=== PATIENT | male | born 1945 | race Caucasian/White ===

== ENCOUNTER → 2018-05-08 13:15 | Outpatient (CLI) | payer MEDICARE, MEDICAID, SELFPAY ==
[2018-05-08 14:29] LABS: Add Manual Diff / Slide Review NO; Basophils Percent Auto 0.3 % (0-2); Hematocrit 34.6 % (41-53); Hemoglobin 11.9 g/dL (13.5-17.5); Lymphocytes Percent Auto 22.2 % (25-40); Mean Corpuscular HGB Conc 34.4 % (30-36); Mean Corpuscular Hemoglobin 33.5 PG (26-34); Mean Corpuscular Volume 97.2 fL (80-100); Monocytes Percent Auto 10.6 % (3-14); Neutrophils Absolute Auto 4600 /uL (3000-5900); Neutrophils Percent Auto 64.9 % (50-75); Platelet Count 208 X10^3/uL (150-400); Red Blood Cell Count 3.56 X10^6/uL (4.5-5.9); Red Cell Distribution Width 14.3 % (11.6-14.8); White Blood Cell Count 7.2 X10^3/uL (4.5-11.0)
[2018-05-08 14:53] LABS: B Type Natriuretic Peptide 94.7 (<100)
[2018-05-08 15:32] LABS: Alanine Aminotransferase 15 IU/L (21-72); Albumin 4.3 g/dL (3.5-5.0); Alkaline Phosphatase 63 U/L (38-126); Aspartate Aminotransferase 24 IU/L (17-59); BUN Creatinine Ratio 17.3 (6-22); Bilirubin Total 0.4 mg/dL (0.2-1.3); Blood Urea Nitrogen 38 mg/dL (9-20); Calcium 9.3 mg/dL (8.4-10.2); Carbon Dioxide 24 mmol/L (22-32); Chloride 102 mmol/L (98-107); Cholesterol 133 mg/dL (140-199); Estimated Glomerular Filt Rate 29.6 mL/min (>60); Globulin 2.2 g/dL (1.7-4.1); Glucose 95 mg/dL (80-110); HDL Cholesterol 55 mg/dL (40-60); HEMOLYSIS < 15 (0-50); Potassium 4.9 mmol/L (3.4-5.1); Sodium 136 mmol/L (137-145); Total Protein 6.5 g/dL (6.3-8.2)
[2018-05-08 16:21] LABS: LDL Cholesterol Calculated 49 mg/dL (<100); Triglycerides 147 mg/dL (35-150)
== END ==
PROVIDERS: PCP Family Medicine; Visit Provider Family Medicine
DX: I10 Essential (primary) hypertension (principal); I50.9 Heart failure, unspecified; I25.10 Atherosclerotic heart disease of native coronary artery without angina pectoris; Z95.1 Presence of aortocoronary bypass graft; E78.5 Hyperlipidemia, unspecified; Z86.73 Personal history of transient ischemic attack (TIA), and cerebral infarction without residual deficits
CPT/HCPCS: 36415; 80053; 80061; 83880; 85025

== ENCOUNTER → 2018-08-07 12:44 | Outpatient (CLI) | payer MEDICARE, MEDICAID, SELFPAY ==
[2018-08-07 12:57] LABS: RBC Urine None Seen (0-5/HPF)
[2018-08-07 14:35] LABS: BUN Creatinine Ratio 22.4 (6-22); Blood Urea Nitrogen 38 mg/dL (9-20); Carbon Dioxide 28 mmol/L (22-32); Chloride 104 mmol/L (98-107); Estimated Glomerular Filt Rate 39.8 mL/min (>60); Glucose 94 mg/dL (80-110); HEMOLYSIS < 15 (0-50); Phosphorous 3.7 mg/dL (2.3-3.7); Potassium 5.3 mmol/L (3.4-5.1); Sodium 140 mmol/L (137-145)
[2018-08-07 15:05] LABS: Appearance Urine UA CLEAR; Bilirubin Urine UA NEGATIVE (NEGATIVE); Color Urine UA YELLOW; Glucose Urine UA NEGATIVE (Normal); Ketones Urine UA NEGATIVE (NEGATIVE); Leukocyte Esterase Urine UA 1+ (NEGATIVE); Nitrite Urine UA Negative (Negative); Occult Blood Urine UA NEGATIVE (Negative); Protein Urine UA NEGATIVE (Negative); Urobilinogen Urine UA 0.2 E.U./dL (0.2)
[2018-08-07 15:48] LABS: Bacteria Urine Occasional (0-1); Culture Indicated Urine Specimen Cultured; WBC Urine 5-10/HPF (0-5/HPF)
[2018-08-07 15:59] LABS: Creatinine Urine Random 14.6 mg/dL
[2018-08-07 16:05] LABS: Microalbumi Creatinin Ratio Ur 68.4 ug/mg CR (<30)
[2018-08-07 16:16] LABS: Vitamin D 25 Hydroxy (D3) 53.3 ng/mL (30.0-100.0)
[2018-08-10 14:06] LABS: Parathyroid Hormone Int 29 pg/mL (14-64)
== END ==
PROVIDERS: PCP Family Medicine; Visit Provider Internal Medicine
DX: N18.3 Chronic kidney disease, stage 3 (moderate) (principal)
CPT/HCPCS: 36415; 80048; 81001; 82043; 82306; 82570; 83970; 84100; 87086

== ENCOUNTER → 2019-04-17 11:11 | Outpatient (CLI) | payer MEDICARE, MEDICAID, SELFPAY ==
[2019-04-17 12:10] LABS: Add Manual Diff / Slide Review NO; Basophils Absolute Auto 0 /uL (0-100); Basophils Percent Auto 0.3 % (0-2); Eosinophils Absolute Auto 200 /uL (0-450); Eosinophils Percent Auto 1.9 % (2-4); Hematocrit 35.4 % (41-53); Hemoglobin 11.9 g/dL (13.5-17.5); Lymphocytes Absolute Auto 1500 /uL (1100-4500); Lymphocytes Percent Auto 17.6 % (25-40); Mean Corpuscular HGB Conc 33.5 % (30-36); Mean Corpuscular Hemoglobin 32.8 PG (26-34); Mean Corpuscular Volume 97.9 fL (80-100); Monocytes Absolute Auto 800 /uL (0-900); Monocytes Percent Auto 9.6 % (3-14); Neutrophils Absolute Auto 5900 /uL (1500-7000); Neutrophils Percent Auto 70.6 % (50-75); Platelet Count 188 X10^3/uL (150-400); Red Blood Cell Count 3.62 X10^6/uL (4.5-5.9); Red Cell Distribution Width 13.6 % (11.6-14.8); White Blood Cell Count 8.4 X10^3/uL (4.5-11.0)
[2019-04-17 12:31] LABS: Alanine Aminotransferase 11 IU/L (21-72); Albumin 4.1 g/dL (3.5-5.0); Albumin Globulin Ratio 1.7 (1.0-2.8); Alkaline Phosphatase 68 U/L (38-126); Aspartate Aminotransferase 23 IU/L (17-59); BUN Creatinine Ratio 21.6 (6-22); Bilirubin Total 0.4 mg/dL (0.2-1.3); Blood Urea Nitrogen 41 mg/dL (9-20); Calcium 9.1 mg/dL (8.4-10.2); Carbon Dioxide 26 mmol/L (22-32); Chloride 104 mmol/L (98-107); Estimated Glomerular Filt Rate 34.9 mL/min (>60); Globulin 2.4 g/dL (1.7-4.1); Glucose 80 mg/dL (80-110); HEMOLYSIS < 15 (0-50); Potassium 4.9 mmol/L (3.4-5.1); Sodium 136 mmol/L (137-145); Total Protein 6.5 g/dL (6.3-8.2)
[2019-04-17 12:59] LABS: TSH w/ Reflex to FT4 1.19 uIU/mL (0.47-4.68)
[2019-04-19 16:54] LABS: PSA Free % 9 % (calc) (> 25); PSA, Total 9.8 ng/mL (< 4.1)
== END ==
PROVIDERS: PCP Internal Medicine; Visit Provider Internal Medicine
DX: R63.4 Abnormal weight loss (principal); I10 Essential (primary) hypertension; N40.1 Benign prostatic hyperplasia with lower urinary tract symptoms
CPT/HCPCS: 36415; 80053; 84153; 84154; 84443; 85025

== ENCOUNTER → 2019-10-14 14:13 | Outpatient (CLI) | payer MEDICARE, MEDICAID, SELFPAY ==
[2019-10-14 14:40] LABS: Add Manual Diff / Slide Review NO; Basophils Absolute Auto 100 /uL (0-100); Basophils Percent Auto 0.6 % (0-2); Eosinophils Absolute Auto 200 /uL (0-450); Hematocrit 35.2 % (41-53); Hemoglobin 11.9 g/dL (13.5-17.5); Lymphocytes Absolute Auto 1500 /uL (1100-4500); Lymphocytes Percent Auto 16.6 % (25-40); Mean Corpuscular HGB Conc 33.8 % (30-36); Mean Corpuscular Hemoglobin 32.7 PG (26-34); Mean Corpuscular Volume 96.8 fL (80-100); Monocytes Absolute Auto 1000 /uL (0-900); Monocytes Percent Auto 10.8 % (3-14); Neutrophils Absolute Auto 6200 /uL (1500-7000); Platelet Count 181 X10^3/uL (150-400); Red Blood Cell Count 3.63 X10^6/uL (4.5-5.9); Red Cell Distribution Width 13.9 % (11.6-14.8); White Blood Cell Count 8.8 X10^3/uL (4.5-11.0)
[2019-10-14 15:39] LABS: BUN Creatinine Ratio 24.6 (6-22); Blood Urea Nitrogen 59 mg/dL (9-20); Carbon Dioxide 24 mmol/L (22-32); Chloride 103 mmol/L (98-107); Cholesterol 138 mg/dL (140-199); Estimated Glomerular Filt Rate 26.7 mL/min (>60); Glucose 98 mg/dL (80-110); HDL Cholesterol 55 mg/dL (40-60); HEMOLYSIS 15 (0-50); LDL Cholesterol Calculated 46 mg/dL (<100); Sodium 135 mmol/L (137-145); Triglycerides 184 mg/dL (35-150)
[2019-10-14 15:45] LABS: Potassium 5.5 mmol/L (3.4-5.1)
== END ==
PROVIDERS: Family Provider Internal Medicine; PCP Internal Medicine; Visit Provider Internal Medicine Cardiovascular Disease
DX: I25.10 Atherosclerotic heart disease of native coronary artery without angina pectoris (principal); N18.3 Chronic kidney disease, stage 3 (moderate)
CPT/HCPCS: 36415; 80048; 80061; 85025

== ENCOUNTER → 2019-11-25 10:30 | Outpatient (CLI) | payer MEDICARE, MEDICAID, SELFPAY ==
[2019-11-25 12:29] LABS: Alanine Aminotransferase 11 IU/L (<50); Albumin 4.1 g/dL (3.5-5.0); Albumin Globulin Ratio 1.7 (1.0-2.8); Alkaline Phosphatase 77 U/L (38-126); Aspartate Aminotransferase 21 IU/L (17-59); BUN Creatinine Ratio 24.3 (6-22); Bilirubin Total 0.3 mg/dL (0.2-1.3); Blood Urea Nitrogen 68 mg/dL (9-20); Calcium 8.9 mg/dL (8.4-10.2); Carbon Dioxide 21 mmol/L (22-32); Chloride 105 mmol/L (98-107); Estimated Glomerular Filt Rate 22.3 mL/min (>60); Globulin 2.4 g/dL (1.7-4.1); Glucose 117 mg/dL (80-110); HEMOLYSIS < 15 (0-50); Potassium 4.4 mmol/L (3.4-5.1); Sodium 138 mmol/L (137-145); Total Protein 6.5 g/dL (6.3-8.2)
== END ==
PROVIDERS: PCP Internal Medicine; Visit Provider Internal Medicine
DX: N18.3 Chronic kidney disease, stage 3 (moderate) (principal)
CPT/HCPCS: 36415; 80053

== ENCOUNTER 2019-12-20 19:34 | Inpatient (IN) | payer MEDICARE, MEDICAID, SELFPAY ==
[2019-12-20] VITALS (8 sets, daily range): BP systolic 139–230; BP diastolic 92–119; PULSE 81–107; RESP 12–29; TEMP 37.2; O2SAT 91–97; BMI 21.7; BMI 18.7
[2019-12-20] MEDS: ALBUTEROL/IPRATROPIUM 3 ML AMPUL INH (19:49)
--- NOTE | 2019-12-20 19:50 | ED.SOB ---
HPI - SOB/Dyspnea General Chief Complaint: Shortness of Breath/Dyspnea Stated Complaint: sob Time Seen by Provider: 12/20/19 19:40 Source: patient Mode of arrival: Wheelchair History of Present Illness HPI Narrative: 74-year-old gentleman with oxygen-dependent COPD, coronary artery disease post bypass grafting, hyperlipidemia, hypertension, stroke, chronic kidney disease as well as bladder cancer presents with increasing dyspnea. He has noticed that with minimal activity he is having more dyspnea with his usual 1.5 L of oxygen. His next door neighbor checks on him regularly notices over the last 24-48 hours that he has been more tachycardic and his oxygen saturations typically in the 93 range are dipping down into the 90 range. Kervin himself notes that he is increasingly weak he has had little to eat over the last 2 days because of this weakness. He has a slight nonproductive cough that does not seem changed from his baseline, no fevers and describes no specific chest pain orthopnea or lower extremity edema. When asking about medications, it sounds like he is taking some medications but certainly not all. Not currently using any nebulizers or inhalers. Does continue to smoke a full pack a day. Related Data Home Medications Medication Instructions Recorded Confirmed aspirin 81 mg tablet,delayed 81 mg PO DAILY 05/20/18 12/21/19 release folic acid 800 mcg tablet 0.8 mg PO DAILY 05/20/18 12/21/19 multivitamin 1 tab PO DAILY 05/20/18 12/21/19 Previous Rx's Medication Instructions Recorded amlodipine 10 mg PO QDAY #30 tab 11/19/17 furosemide 20 mg PO BID #30 tab 11/19/17 nitroglycerin [Nitrostat] 1 tab PO PRN PRN #30 11/19/17 omeprazole 20 mg capsule,delayed 20 mg PO QDAY #30 cap 06/14/18 release atorvastatin 20 mg tablet 20 mg PO HS #30 tab 07/04/18 carvedilol 25 mg tablet 25 mg PO BID #60 tab 07/10/18 gabapentin 300 mg capsule 300 mg PO HS #90 cap 12/11/18 Allergies Allergy/AdvReac Type Severity Reaction Status Date / Time No Known Drug Allergies Allergy Verified 12/20/19 19:46 Review of Systems Review of Systems Narrative: Reports minimal oral intake so no bowel movement for 1-2 days. Describes no fevers. All systems reviewed and are unremarkable except as noted in HPI and below Patient History Medical History (Updated 12/21/19 @ 00:27 by MARIANELA Thomas) Alcohol abuse (Inactive) Bladder cancer (Chronic Unknown) CKD (chronic kidney disease) (Chronic Unknown) Congestive heart failure (Inactive) COPD (chronic obstructive pulmonary disease) (Chronic Unknown) Coronary artery disease (Chronic Unknown) Gastroesophageal reflux disease (Acute) Hyperlipemia (Chronic Unknown) Hypertension (Chronic Unknown) PAD (peripheral artery disease) (Chronic Unknown) Stroke (Resolved 02/2016) Surgical History (Updated 12/21/19 @ 00:27 by MARIANELA Thomas) History of appendectomy (Acute) Hx of coronary artery bypass graft (Resolved Unknown) Hx of transurethral resection of prostate (Resolved 10/2016) Social History household members: none Smoking Status: Current every day smoker alcohol intake: current Smoking Status: Current every day smoker Exam Narrative Exam Narrative: General: Frail-appearing, perioral cyanosis, he is able to speak in full sentences no accessory muscle use HEENT: Moist mucous membranes, normal sclera with reactive pupils, Neck: significant JVD, supple, no cervical adenopathy Respiratory: Poor overall air movement with diffuse wheezes throughout no rhonchi appreciated Cardiac: Mild tachycardia with regular rhythm no murmurs no bruits Abdomen: Soft nontender good bowel tones, no flank pain Skin: Pale and dry, no rashes, no clubbing or distal cyanosis Neurologic: Grossly neurologically intact with baseline left-sided mild weakness post CVA Extremities: No trauma, Psych: Cooperative, appropriate insight and affect Initial Vital Signs Initial Vital Signs: Vital Signs Temperature 98.9 F 12/20/19 19:43 Pulse Rate 98 H 12/20/19 19:43 Respiratory Rate 26 H 12/20/19 19:43 Blood Pressure 230/112 H 12/20/19 19:43 Pulse Oximetry 91 12/20/19 19:43 Course Orders Ordered: ED Orders 12/20/19 19:40 Complete Blood Count AUTO DIFF Stat Comprehensive Metabolic Panel Stat D Dimer Stat Lactate (Lactic Acid) Stat Magnesium Stat NT-proBNP (BNP-Adult 18+) Stat Procalcitonin Stat Troponin & CK Cardiac Panel Stat 12/20/19 19:57 EKG-12 Lead Routine EKG-12 Lead Stat 12/20/19 20:08 Consult to Respiratory Therapy Evaluate & Treat 12/20/19 20:09 XR chest 1V Stat 12/20/19 20:40 Blood Culture Stat 12/20/19 21:28 BiPAP Ventilatory Support RT PROTOCOL 12/20/19 21:34 Arterial Blood Gas Stat Albuterol (Ventolin) 2.5 mg INH [id number] PRN PRN Reason: Shortness Of Breath Albuterol/Ipratropium (Duoneb) 3 ml INH [id number] PRN PRN Reason: Shortness Of Breath Last Admin: 12/21/19 01:12 Dose: 3 ml Documented by: TRACEY Albuterol/Ipratropium (Duoneb) 3 ml INH [id number] JUNG Amlodipine Besylate (Norvasc) 10 mg PO DAILY JUNG Last Admin: 12/21/19 00:46 Dose: 10 mg Documented by: RITA Aspirin (Aspirin Ec) 81 mg PO DAILY [facility] Atorvastatin Calcium (Lipitor) 20 mg PO BEDTIME JUNG Last Admin: 12/21/19 00:46 Dose: 20 mg Documented by: RITA Bisacodyl (Dulcolax) 10 mg VT DAILY PRN PRN Reason: Constipation Carvedilol (Coreg) 25 mg PO BID JUNG Last Admin: 12/21/19 00:46 Dose: 25 mg Documented by: RITA Dextrose (D50w) 25 gm IV PRN PRN; Protocol PRN Reason: Hypoglycemia Docusate Sodium (Colace) 100 mg PO BID [facility] Folic Acid (Folic Acid) 0.8 mg PO DAILY JUNG Furosemide (Lasix) 40 mg IV Q8H JUNG Gabapentin (Neurontin) 300 mg PO BEDTIME JUNG Heparin Sodium/Dextrose (Heparin Drip) 25,000 unit in 500 mls @ 13.39 mls/hr IV CONT JUNG; Protocol Last Titration: 12/21/19 00:01 Dose: 11.92 units/kg/hr, 13.3 mls/hr Documented by: Titration: 12/20/19 22:22 Dose: 11.92 units/kg/hr, 13.3 mls/hr Documented by: Admin: 12/20/19 21:56 Dose: 12 units/kg/hr, 13.39 mls/hr Documented by: KSWACKH Azithromycin 500 mg/ Dextrose 250 mls @ 250 mls/hr IV Q24H [facility] Insulin Aspart (Novolog Flexpen) 0 unit SUBCUT ACHS [facility]; Protocol Lisinopril (Zestril) 10 mg PO DAILY [facility] Last Admin: 12/21/19 02:02 Dose: 10 mg Documented by: RITA Methylprednisolone (Solu-Medrol 125 Mg Vial) 80 mg IV Q8H [facility] Morphine Sulfate (Morphine) 2 mg IV Q5MIN PRN PRN Reason: Chest Pain Multivitamins (Tab-A-Yariel) 1 tab PO DAILY [facility] Naloxone HCl (Narcan) 0.2 mg IV Q2MIN PRN PRN Reason: Opiate Reversal Nitroglycerin (Nitrostat) 0.4 mg SL [id number] PRN PRN Reason: Chest Pain Nitroglycerin (Nitro-Bid) 1 inch TOP 0900,1500 [facility] Pantoprazole Sodium (Protonix) 40 mg IV DAILY [facility] Thiamine HCl (Vitamin B-1) 100 mg PO DAILY [facility] Discontinued Medications Albuterol (Ventolin) 2.5 mg INH NOW ONE Stop: 12/20/19 20:58 Last Admin: 12/20/19 21:02 Dose: 2.5 mg Documented by: EVA Albuterol/Ipratropium (Duoneb) 3 ml INH NOW ONE Stop: 12/20/19 19:47 Last Admin: 12/20/19 19:49 Dose: 3 ml Documented by: TRACEY Aspirin (Aspirin Chew) 324 mg PO NOW ONE Stop: 12/20/19 21:29 Last Admin: 12/20/19 21:37 Dose: 324 mg Documented by: EVA Furosemide (Lasix) 80 mg IV NOW ONE Stop: 12/20/19 22:31 Last Admin: 12/20/19 22:34 Dose: 80 mg Documented by: EVA Furosemide (Lasix) 40 mg IV Q8H [facility] Gabapentin (Neurontin) 300 mg PO NOW ONE Stop: 12/21/19 02:02 Last Admin: 12/21/19 02:02 Dose: 300 mg Documented by: RITA Heparin Sodium (Porcine) (Heparin) 5,000 unit IV NOW ONE Stop: 12/20/19 21:29 Last Admin: 12/20/19 21:45 Dose: Not Given Documented by: EVA Heparin Sodium (Porcine) (Heparin) 4,500 unit 80 unit/kg (4500 unit) IV NOW ONE Stop: 12/20/19 21:29 Last Admin: 12/20/19 21:57 Dose: 4,500 unit Documented by: EVA Sodium Chloride (Normal Saline 0.9%) 1,000 mls @ 1,000 mls/hr IV BOLUS ONE Stop: 12/20/19 21:06 Last Infusion: 12/21/19 00:02 Dose: 0 mls/hr Documented by: Infusion: 12/20/19 22:23 Dose: 100 mls/hr Documented by: Admin: 12/20/19 20:15 Dose: 1,000 mls/hr Documented by: EVA Magnesium Sulfate (Magnesium Sulfate) 2 gm in 50 mls @ 25 mls/hr IV NOW ONE Stop: 12/20/19 23:17 Last Infusion: 12/21/19 00:02 Dose: 0 mls/hr Documented by: EVA Cosigned by: RICHIE Admin: 12/20/19 21:25 Dose: 25 mls/hr Documented by: EVA Cosigned by: ROMMEL Potassium Chloride 40 meq/ (Sodium Chloride) 520 mls @ 130 mls/hr IV NOW ONE Stop: 12/21/19 03:21 Last Admin: 12/21/19 00:38 Dose: 130 mls/hr Documented by: RITA Cosigned by: SOL Insulin Aspart (Novolog Flexpen) 0 unit SUBCUT Q6H JUNG; Protocol Methylprednisolone (Solu-Medrol 125 Mg Vial) 125 mg IV NOW ONE Stop: 12/20/19 20:08 Last Admin: 12/20/19 20:15 Dose: 125 mg Documented by: EVA Nitroglycerin (Nitro-Bid) 0.5 inch TOP NOW ONE Stop: 12/20/19 21:29 Last Admin: 12/20/19 21:37 Dose: 0.5 inch Documented by: EVA Potassium Chloride (Potassium Chloride) 40 meq PO NOW ONE Stop: 12/20/19 23:21 Last Admin: 12/20/19 23:26 Dose: 40 meq Documented by: EVA Vital Signs Vital signs: Vital Signs - 8 hr 12/20/19 20:35 12/20/19 21:02 12/20/19 21:37 Pulse Rate 85 107 H Respiratory Rate 29 H 28 H Blood Pressure 229/119 H Blood Pressure [Left Arm] 139/92 H Pulse Oximetry 93 92 MDM - SOB/Dyspnea Medical Records Attestation: I reviewed the patient's medical records. Lab Data Attestation: I reviewed the patient's lab results. Lab results narrative: age corrected DDimer suggests low risk for PE Result diagrams: 12/20/19 19:40 12/20/19 19:40 Labs: Lab Results 12/20/19 12/20/19 12/20/19 Range/Units 19:40 19:40 19:40 WBC 13.1 H (4.5-11.0) X10^3/uL RBC 4.03 L (4.5-5.9) X10^6/uL Hgb 13.2 L (13.5-17.5) g/dL Hct 38.6 L (41-53) % MCV 95.8 (80-100) fL MCH 32.7 (26-34) PG MCHC 34.2 (30-36) % RDW 14.1 (11.6-14.8) % Plt Count 230 (150-400) X10^3/uL Neut % (Auto) 80.1 H (50-75) % Lymph % (Auto) 8.6 L (25-40) % Appling % (Auto) 10.6 (3-14) % Eos % (Auto) 0.4 L (2-4) % Baso % (Auto) 0.3 (0-2) % Neut # (Auto) 92398 H (4621-8227) /uL Lymph # (Auto) 1100 (7909-6512) /uL Appling # (Auto) 1400 H (0-900) /uL Eos # (Auto) 0 (0-450) /uL Baso # (Auto) 0 (0-100) /uL D-Dimer 362 H (<230) ng/mL ABG pH (7.35-7.45) ABG pCO2 (35-45) mmHg ABG pO2 (80-100) mmHg ABG HCO3 (22-26) mmol/L ABG Total CO2 (21-31) mmol/L ABG O2 Saturation (95-100) % ABG Base Excess (-2-2) mmol/L FiO2 Sodium (137-145) mmol/L Potassium (3.4-5.1) mmol/L Chloride (98-107) mmol/L Carbon Dioxide (22-32) mmol/L BUN (9-20) mg/dL Creatinine (0.66-1.25) mg/dL Estimated GFR (>60) mL/min BUN/Creatinine Ratio (6-22) Glucose (80-110) mg/dL Lactate (0.7-2.1) mmol/L Calcium (8.4-10.2) mg/dL Magnesium (1.6-2.3) mg/dL Total Bilirubin (0.2-1.3) mg/dL AST (17-59) IU/L ALT (<50) IU/L Alkaline Phosphatase (38-126) U/L Total Creatine Kinase (55-170) U/L CK-MB (CK-2) (<2.37) ng/mL CK-MB (CK-2) Rel Index (1.5-5.0) % Troponin I (0.01-0.034) ng/mL NT-Pro-B Natriuret Pep 32095 H (<125) pg/mL Total Protein (6.3-8.2) g/dL Albumin (3.5-5.0) g/dL Globulin (1.7-4.1) g/dL Albumin/Globulin Ratio (1.0-2.8) Procalcitonin (<0.5) ng/mL 12/20/19 12/20/19 12/20/19 Range/Units 19:40 19:40 19:40 WBC (4.5-11.0) X10^3/uL RBC (4.5-5.9) X10^6/uL Hgb (13.5-17.5) g/dL Hct (41-53) % MCV (80-100) fL MCH (26-34) PG MCHC (30-36) % RDW (11.6-14.8) % Plt Count (150-400) X10^3/uL Neut % (Auto) (50-75) % Lymph % (Auto) (25-40) % Appling % (Auto) (3-14) % Eos % (Auto) (2-4) % Baso % (Auto) (0-2) % Neut # (Auto) (0820-1012) /uL Lymph # (Auto) (6729-5671) /uL Appling # (Auto) (0-900) /uL Eos # (Auto) (0-450) /uL Baso # (Auto) (0-100) /uL D-Dimer (<230) ng/mL ABG pH (7.35-7.45) ABG pCO2 (35-45) mmHg ABG pO2 (80-100) mmHg ABG HCO3 (22-26) mmol/L ABG Total CO2 (21-31) mmol/L ABG O2 Saturation (95-100) % ABG Base Excess (-2-2) mmol/L FiO2 Sodium 135 L (137-145) mmol/L Potassium 3.0 L (3.4-5.1) mmol/L Chloride 89 L (98-107) mmol/L Carbon Dioxide 36 H (22-32) mmol/L BUN 18 (9-20) mg/dL Creatinine 1.10 (0.66-1.25) mg/dL Estimated GFR > 60.0 (>60) mL/min BUN/Creatinine Ratio 16.4 (6-22) Glucose 160 H (80-110) mg/dL Lactate 2.6 H (0.7-2.1) mmol/L Calcium 9.6 (8.4-10.2) mg/dL Magnesium 2.2 (1.6-2.3) mg/dL Total Bilirubin 0.8 (0.2-1.3) mg/dL AST 43 (17-59) IU/L ALT 15 (<50) IU/L Alkaline Phosphatase 116 (38-126) U/L Total Creatine Kinase 123 (55-170) U/L CK-MB (CK-2) 4.05 H (<2.37) ng/mL CK-MB (CK-2) Rel Index 3.3 (1.5-5.0) % Troponin I 0.247 H* (0.01-0.034) ng/mL NT-Pro-B Natriuret Pep (<125) pg/mL Total Protein 8.1 (6.3-8.2) g/dL Albumin 4.8 (3.5-5.0) g/dL Globulin 3.3 (1.7-4.1) g/dL Albumin/Globulin Ratio 1.5 (1.0-2.8) Procalcitonin < 0.05 (<0.5) ng/mL 12/20/19 Range/Units 21:34 WBC (4.5-11.0) X10^3/uL RBC (4.5-5.9) X10^6/uL Hgb (13.5-17.5) g/dL Hct (41-53) % MCV (80-100) fL MCH (26-34) PG MCHC (30-36) % RDW (11.6-14.8) % Plt Count (150-400) X10^3/uL Neut % (Auto) (50-75) % Lymph % (Auto) (25-40) % Appling % (Auto) (3-14) % Eos % (Auto) (2-4) % Baso % (Auto) (0-2) % Neut # (Auto) (7726-2030) /uL Lymph # (Auto) (9897-0282) /uL Appling # (Auto) (0-900) /uL Eos # (Auto) (0-450) /uL Baso # (Auto) (0-100) /uL D-Dimer (<230) ng/mL ABG pH 7.49 H (7.35-7.45) ABG pCO2 43.0 (35-45) mmHg ABG pO2 55 L (80-100) mmHg ABG HCO3 33 H (22-26) mmol/L ABG Total CO2 34 H (21-31) mmol/L ABG O2 Saturation 90 L (95-100) % ABG Base Excess 10.0 H (-2-2) mmol/L FiO2 36 Sodium (137-145) mmol/L Potassium (3.4-5.1) mmol/L Chloride (98-107) mmol/L Carbon Dioxide (22-32) mmol/L BUN (9-20) mg/dL Creatinine (0.66-1.25) mg/dL Estimated GFR (>60) mL/min BUN/Creatinine Ratio (6-22) Glucose (80-110) mg/dL Lactate (0.7-2.1) mmol/L Calcium (8.4-10.2) mg/dL Magnesium (1.6-2.3) mg/dL Total Bilirubin (0.2-1.3) mg/dL AST (17-59) IU/L ALT (<50) IU/L Alkaline Phosphatase (38-126) U/L Total Creatine Kinase (55-170) U/L CK-MB (CK-2) (<2.37) ng/mL CK-MB (CK-2) Rel Index (1.5-5.0) % Troponin I (0.01-0.034) ng/mL NT-Pro-B Natriuret Pep (<125) pg/mL Total Protein (6.3-8.2) g/dL Albumin (3.5-5.0) g/dL Globulin (1.7-4.1) g/dL Albumin/Globulin Ratio (1.0-2.8) Procalcitonin (<0.5) ng/mL Imaging Data Chest x-ray: Attestation: I personally reviewed and interpreted this imaging study as follows: Radiologist's Impression: IMPRESSION: Prior CABG, mild pulmonary edema superimposed on chronic interstitial prominence. Heart size is upper limits of normal. Dictated by: Kwadwo Rhodes M.D. on 12/20/2019 at 20:39 ECG Data Attestation: I personally reviewed and interpreted this ECG as follows: Interpretation: Rate of 92 sinus rhythm with frequent PVCs. Intraventricular conduction delay, no acute ischemia. MDM Narrative Medical decision making narrative: Patient is both looking better clinically improving a bit easier after fluids steroids and nebulizer treatment. He still is complaining of shortness of breath. Shortly after recheck he is again using pursed lip breathing and having some slight supraclavicular retractions. Will administer another albuterol nebulizer. His labs are coming back with an elevated troponin as well as a elevated BNP. I suspect that this is a NSTEMI with CHF that is complicating his COPD. Will review with Cardiology as scheduled to see if they have the bed capacity to care for this gentleman. Reviewed with him again his code status. He would want to be resuscitated he is willing to consider BiPAP but would want to avoid intubation if at all possible recognizing that with the severity of his lung disease he likely would not be extubated. 9:15 pm clinically worsening with increased work of breathing, increased JVD. Another albuterol neb is given his ABG is ordered. Will add IV magnesium to help with bronchospasm. Will also add a half an inch topical nitroglycerin paste and begin a heparin bolus and drip. Will also begin diuresis 10:05pm has spoken with Dr Moeller, e commerce merchandising coordinator with [facility]. Her suggestion was more aggressive diuresis with the assumption that the elevated troponin is demand ischemia. She felt that he would be safe to remain at [facility] with an echocardiogram tomorrow. If there are significant changes between current echo and the echo that was done fairly recently at [facility] then he can be transferred for additional care. Discharge Plan Departure Patient Disposition: Admitted As Inpatient Clinical Impression: COPD with exacerbation Discharge Date/Time: 12/21/19 00:08 Referrals: Stephen Bonilla MD [Primary Care Provider] - Admit Date/Time: 12/20/19 22:22 Admit Provider: Harish Burkett
--- NOTE | 2019-12-20 20:09 | DI.RAD.S_ITS ---
PROCEDURE: XR CHEST 1V INDICATIONS: dyspnea TECHNIQUE: One view of the chest was acquired. COMPARISON: [facility], CHEST 1 VIEW, 01/30/2017, 19:58. [facility], , CHEST 2 VIEW, 06/15/2016, 17:08. FINDINGS: Surgical changes and devices: Sternotomy wires, presumed prior CABG. Lungs and pleura: Lungs are abnormal with a chronic interstitial prominence that appears to be superimposed upon with mild pulmonary edema. No pleural effusions or pneumothorax. Mediastinum: Mediastinal contours appear normal. Heart size is at the upper limits of normal. Bones and chest wall: No suspicious bony lesions. Overlying soft tissues appear unremarkable. IMPRESSION: Prior CABG, mild pulmonary edema superimposed on chronic interstitial prominence. Heart size is upper limits of normal. Dictated by: Kwadwo Rhodes M.D. on 12/20/2019 at 20:39 Approved by: Kwadwo Rhodes M.D. on 12/20/2019 at 20:40
[2019-12-20] MEDS: SODIUM CHLORIDE 0.9% 1,000 ML 1000 ML IV (20:15)
[2019-12-20] MEDS: methylPREDNISolone 125 MG/2 ML VIAL IV (20:15)
[2019-12-20 20:17] LABS: Add Manual Diff / Slide Review NO; Basophils Absolute Auto 0 /uL (0-100); Basophils Percent Auto 0.3 % (0-2); Eosinophils Absolute Auto 0 /uL (0-450); Eosinophils Percent Auto 0.4 % (2-4); Hematocrit 38.6 % (41-53); Hemoglobin 13.2 g/dL (13.5-17.5); Lymphocytes Absolute Auto 1100 /uL (1100-4500); Lymphocytes Percent Auto 8.6 % (25-40); Mean Corpuscular HGB Conc 34.2 % (30-36); Mean Corpuscular Hemoglobin 32.7 PG (26-34); Mean Corpuscular Volume 95.8 fL (80-100); Monocytes Absolute Auto 1400 /uL (0-900); Monocytes Percent Auto 10.6 % (3-14); Neutrophils Absolute Auto 10500 /uL (1500-7000); Neutrophils Percent Auto 80.1 % (50-75); Platelet Count 230 X10^3/uL (150-400); Red Blood Cell Count 4.03 X10^6/uL (4.5-5.9); Red Cell Distribution Width 14.1 % (11.6-14.8); White Blood Cell Count 13.1 X10^3/uL (4.5-11.0)
[2019-12-20 20:26] LABS: D Dimer 362 ng/mL (<230)
[2019-12-20 20:31] LABS: Lactate (Lactic Acid) 2.6 mmol/L (0.7-2.1)
[2019-12-20 20:32] LABS: Alanine Aminotransferase 15 IU/L (<50); Albumin 4.8 g/dL (3.5-5.0); Albumin Globulin Ratio 1.5 (1.0-2.8); Alkaline Phosphatase 116 U/L (38-126); Aspartate Aminotransferase 43 IU/L (17-59); BUN Creatinine Ratio 16.4 (6-22); Bilirubin Total 0.8 mg/dL (0.2-1.3); Blood Urea Nitrogen 18 mg/dL (9-20); Calcium 9.6 mg/dL (8.4-10.2); Carbon Dioxide 36 mmol/L (22-32); Chloride 89 mmol/L (98-107); Creatine Kinase 123 U/L (55-170); Estimated Glomerular Filt Rate > 60.0 mL/min (>60); Globulin 3.3 g/dL (1.7-4.1); Glucose 160 mg/dL (80-110); Magnesium 2.2 mg/dL (1.6-2.3); Sodium 135 mmol/L (137-145); Total Protein 8.1 g/dL (6.3-8.2)
--- NOTE | 2019-12-20 20:38 | PC.NURSE ---
patient reports feeling much better after the neb treatment.
[2019-12-20 20:40] LABS: NT-proBNP (BNP-Adult 18+) 34700 pg/mL (<125)
[2019-12-20 20:47] LABS: CKMB % Relative Index 3.3 % (1.5-5.0); Creatine Kinase MB 4.05 ng/mL (<2.37)
[2019-12-20 20:48] LABS: Procalcitonin < 0.05 ng/mL (<0.5)
[2019-12-20] MEDS: ALBUTEROL 2.5 MG/3 ML NEB (ADULT) INH (21:02)
[2019-12-20 21:06] LABS: HEMOLYSIS 20 (0-50)
[2019-12-20 21:09] LABS: Troponin I 0.247 ng/mL (0.01-0.034)
[2019-12-20] MEDS: MAGNESIUM SULFATE 2 GM/50 ML PIGGYBACK IV (21:25)
[2019-12-20] MEDS: ASPIRIN 81 MG CHEW TAB 324 MG PO (21:37)
[2019-12-20] MEDS: NITROGLYCERIN OINT 1 INCH/GM OINT...G. 0.5 INCH TOP (21:37)
[2019-12-20] MEDS: HEPARIN DRIP 25,000 UNIT/500 ML IV.SOLN 13.39 UNIT IV (21:56)
[2019-12-20] MEDS: HEPARIN 5,000 UNIT/ML VIAL 4500 UNIT IV (21:57)
--- NOTE | 2019-12-20 22:03 | PC.NURSE ---
patient initiall yresponded to neb treatments, further treatments have not response for patient. Patient now requiring 4l NC, patient placed on Bipap, Provider consulting cardiology for transfer to [facility]. Several nurses attempted a second IV with no success. Provider notified and aware.
[2019-12-20 22:07] LABS: HCO3 ABG 33 mmol/L (22-26); Oxygen Saturation ABG 90 % (95-100); PO2 ABG 55 mmHg (80-100); TCO2 ABG 34 mmol/L (21-31); pH ABG 7.49 (7.35-7.45)
[2019-12-20 22:08] LABS: Fractionated Inspired Oxygen 36
[2019-12-20 22:12] LABS: Reflexed Lactate in 2 Hours Y
--- NOTE | 2019-12-20 22:18 | PC.NURSE ---
placed by brent COPELAND after marichuy Becker and this nurse attempted second line
[2019-12-20] MEDS: FUROSEMIDE 100 MG/10 ML VIAL 80 MG IV (22:34)
[2019-12-20 22:52] LABS: Lactate 2HR (Lactic Acid Rflx) 1.1 mmol/L (0.7-2.1)
[2019-12-20] MEDS: POTASSIUM CHLORIDE 20 MEQ/15 ML UDC 40 MEQ PO (23:26)
--- NOTE | 2019-12-20 23:37 | DI.ECHO.S_ITS ---
[facility]---------+ [facility] +---------+ : : [address] [place] : : : : [id number] : : : : Phone: [phone] Echocardiogram Report + + :Name: DENAE WALLIS Study Date: 12/21/2019 Height: 63 in : :[facility] Weight: 123 lb: : Gender: Male BSA: 1.6 m2 : :: 1945 Age: 74 yrs BP: 91/49 mmHg: :Reason For Study: HYPOXIC : :Ordering Physician: Harjeet : :Hospitalist Performed By: Jonna Parra : :Referring: HAKEEM NEWELL : + + Interpretation Summary Left ventricular systolic function is mildly reduced. The basal to mid inferior-inferolateral wall is scarred. The right ventricle is grossly normal size. Right ventricular systolic function is mild to moderately reduced. Pulmonary artery pressures cannot be estimated because of the lack of a measurable TR jet velocity but the IVC suggests a CVP of around 15 mmHg. The CVP is higher; Otherwise no significant change compared to the prior echo. Procedure: A two-dimensional transthoracic echocardiogram with color flow and Doppler was performed. The study quality was technically adequate. Comparison is made with the echocardiogram of 01/31/2017. The patient was in normal sinus rhythm during the exam. The patient had frequent PVCs during the exam. Segments of trigeminy were noted throughout exam. Left Ventricle: The left ventricle is normal in size. There is mild asymmetric left ventricular hypertrophy. The ejection fraction is estimated to be 40-45%. Current average peak systolic global strain -13.1% (mildly reduced). Left ventricular systolic function is mildly reduced. The basal to mid inferior-inferolateral wall is scarred. Diastolic function could not be accurately assessed due to contradictory data. Right Ventricle: The right ventricle is not well visualized. The right ventricle is grossly normal size. Right ventricular systolic function is mild to moderately reduced. Atria: The left atrium is mildly dilated. Right atrial size is normal. There is no Doppler evidence for an interatrial shunt. Mitral Valve: The mitral valve is normal in structure and function. There is mild mitral regurgitation. Aortic Valve: The aortic valve is trileaflet. The aortic valve opens well. There is mild aortic valve sclerosis. There is no aortic valve stenosis. Tricuspid Valve: The tricuspid valve is normal in structure and function. There is a trace or physiologic amount of tricuspid regurgitation. Pulmonary artery pressures cannot be estimated because of the lack of a measurable TR jet velocity but the IVC suggests a CVP of around 15 mmHg. Pulmonic Valve: The pulmonic valve is not well seen, but is grossly normal. There is mild pulmonic regurgitation. Great Vessels: The aortic root is normal size. The ascending aorta could not be visualized. The IVC is dilated (diameter is greater than 2.1 cm) and it collapses less than 50% with a sniff. This suggests a high right atrial pressure of 15 mm Hg. Pericardium/ Pleura There is no pericardial effusion. MMode/2D Measurements & Calculations LVIDd: 5.2 cm LVOT diam: 1.9 cm LVIDs: 4.1 cm Ao root diam: 3.2 cm FS: 20.6 % Ao Arch Diam (Prox Trans): 3.3 cm IVSd: 1.1 cm LVPWd: 0.89 cm LV peres. diameter/BSA (cm/m^2): 3.3 LV sys. diameter/BSA (cm/m^2): 2.6 LA A2 area: 22.2 cm2 RA long axis: 4.2 cm LA A4 area: 13.9 cm2 RA area: 14.5 cm2 LA length (vol): 4.0 cm RA vol: 42.3 ml LA vol: 64.7 ml RA : 26.9 ml/m2 LA vol index: 41.1 ml/m2 IVC diam: 2.2 cm RVD1 (basal): 3.7 cm LVAd ap4: 22.2 cm2 TAPSE: 1.3 cm Doppler Measurements & Calculations Ao V2 max: 116.8 cm/sec LVOT Max Ricardo: 87.6 cm/sec Ao V2 mean: 80.2 cm/sec LV V1 max P.1 mmHg Ao max P.5 mmHg LV V1 VTI: 17.2 cm Ao mean P.8 mmHg DES(I,D): 1.8 cm2 Ao V2 VTI: 26.7 cm DES(V,D): 2.1 cm2 sev ratio: 0.64 DES indexed to BSA (cm^2/m^2): 1.1 MV E max ricardo: 89.1 cm/sec PA V2 max: 83.5 cm/sec MV A max ricardo: 67.6 cm/sec PA V2 mean: 51.4 cm/sec MV E/A: 1.3 PA mean P.2 mmHg Med Peak E' Riacrdo: 4.4 cm/sec PA pr(Accel): 35.4 mmHg E/E' med: 20.4 PA Accel Time: 0.11 sec Lat Peak E' Ricardo: 4.8 cm/sec E/E' lat: 18.6 E/e' average: 19.5 MV dec time: 0.18 sec MV P1/2t: 52.3 msec MV P1/2t max ricardo: 88.8 cm/sec SV(LVOT): 48.1 ml MVA(P1/2t): 4.2 cm2 Electronically signed by: Ki Moeller M.D. on Reading Physician:12/21/2019 03:54 PM
[2019-12-21] VITALS (44 sets, daily range): BP systolic 85–230; BP diastolic 49–107; PULSE 60–117; RESP 12–38; TEMP 36–36.5; O2SAT 90–100
--- NOTE | 2019-12-21 00:07 | PM.HP.1 ---
History of Present Illness History of Present Illness Date Patient Seen: 12/20/19 Time Patient Seen: 23:15 Chief complaint: sob Narrative: Mr. Kervin Vincent is a 74-year-old male with a complex medical history including coronary artery disease status post bypass surgery, and STEMI (C5/2 1016), right frontal CVA, peripheral vascular disease, COPD, CKD stage 3, hypertension, hyperlipidemia, GERD, bladder cancer, status post TURP presents E R with 2 days recent shortness of breath. History is limited due to patient's somnolence therefore information obtained from the what is available for the patient and medical record review. The patient lives at home with help of friends notice the patient was becoming increasingly weak, increased heart rate and becoming more short of breath. The patient is on chronic home O2 1.5 L and minimal activity produces shortness of breath. Patient has an associated cough that is nonproductive, continues to smoke 1 pack per day of cigarettes and marijuana approximately 4-5 times per week. He also reports having fevers and chills but denies chest pain or orthopnea and does not complain of leg swelling. It is unclear whether the patient has been taking medications as directed due to poor recall. He denies headaches or dizziness indicates that he has not fallen. Reports having no chest pain and has chronic shortness of breath and chronic cough. He denies abdominal pain, nausea vomiting. He does endorse history of constipation and cannot state is last bowel movement. Denies urinary symptoms. Upon arrival to the ER the patient has a temperature of 98.9?, heart rate of 98, blood pressure of 230/112, respiratory rate of 26 saturating 91% on 1.5 L nasal cannula. A chest x-ray is obtained which finds mild pulmonary edema on chronic interstitial prominence with heart the upper end of normal. On EKG is found have sinus rhythm with heart rate of 92 with recurrent multifocal PVCs, left ventricular hypertrophy, inverted T-waves in lead 2 and AVF as well as laterally in V4 through V6. Arterial blood gas reveals pH of 7.49 with a pCO2 43, PO2 55 with a bicarb of 33, saturation of 90% with a base excess 10 on 36% FiO2. On laboratory analysis the patient has elevated white count of 13.1, hemoglobin of 13.2 and hematocrit 38.6 with platelets 230. He has a sodium 135 and potassium of 3.0 has a chloride of 89 and a CO of 36. His BUN is 18 with a creatinine 1.1 and EGFR of greater than 60. Magnesium level is 2.2. His total CK is 123, CK-MB is 4.05 and troponin is elevated at 0.247 and proBNP is 34,700. His D-dimer is 362. Procalcitonin is less than 0.05 and lactic acid is 1.1. In the ER the patient received albuterol nebulizer, DuoNeb treatment, aspirin 324 mg, Lasix 80 mg, methylprednisolone 125 mg magnesium sulfate rider 2 g, nitroglycerin topical 0.5 in and heparin 5000 units with a start of heparin infusion per cardiac protocol. Cardiology was consulted with Dr. Mix speaking with Dr. Rhodes. The patient case was discussed in felt the patient did not require transfer at this time syncope managed with aggressive diuresis an echocardiogram in the morning. The patient is admitted to the medicine service who for acute hypoxic respiratory failure secondary to COPD exacerbation, non-STEMI VA and congestive heart failure. Patient History Medical History (Updated 12/21/19 @ 00:27 by MARIANELA Thomas) Alcohol abuse (Inactive) Bladder cancer (Chronic Unknown) CKD (chronic kidney disease) (Chronic Unknown) Congestive heart failure (Inactive) COPD (chronic obstructive pulmonary disease) (Chronic Unknown) Coronary artery disease (Chronic Unknown) Gastroesophageal reflux disease (Acute) Hyperlipemia (Chronic Unknown) Hypertension (Chronic Unknown) PAD (peripheral artery disease) (Chronic Unknown) Stroke (Resolved 02/2016) Surgical History (Updated 12/21/19 @ 00:27 by MARIANELA Thomas) History of appendectomy (Acute) Hx of coronary artery bypass graft (Resolved Unknown) Hx of transurethral resection of prostate (Resolved 10/2016) Family & Social History Family history unavailable: Yes (Family and social history is unavailable R/T patient's somnolence & BiPAP.) Safety & Behavioral: Feels Safe in Current Yes Environment Been Physically Hurt or No Threatened By a Person Tobacco & Substance use: Smoking Status Current every day smoker alcohol intake current Comment: The patient has never been lives alone in a mobile home. Has friends that help home on a daily basis. Family and social history is not available due to patient's respiratory status somnolence and BiPAP. Smoking: Current smoker, 1 pack per day for 50 years. Alcohol: Currently consumes alcohol unknown quantity medical record identifies history of alcohol abuse. Substance use: Patient smoked some marijuana 4-5 times per week. Advanced directives: Advanced directives reviewed with the patient by Dr. Mix in the ER with the patient stated he wished to be FULL CODE but would prefer avoiding intubation. No surrogate decision makers identified, emergency contact [place]. Meds Home Medications and Allergies Home Medications Medication Instructions Recorded Confirmed Type amlodipine 10 mg PO QDAY #30 tab 11/19/17 12/21/19 Rx furosemide 20 mg PO BID #30 tab 11/19/17 12/21/19 Rx nitroglycerin [Nitrostat] 1 tab PO PRN PRN #30 11/19/17 12/21/19 Rx aspirin 81 mg tablet,delayed 81 mg PO DAILY 05/20/18 12/21/19 History release folic acid 800 mcg tablet 0.8 mg PO DAILY 05/20/18 12/21/19 History multivitamin 1 tab PO DAILY 05/20/18 12/21/19 History omeprazole 20 mg capsule,delayed 20 mg PO QDAY #30 cap 06/14/18 12/21/19 Rx release atorvastatin 20 mg tablet 20 mg PO HS #30 tab 07/04/18 12/21/19 Rx carvedilol 25 mg tablet 25 mg PO BID #60 tab 07/10/18 12/21/19 Rx gabapentin 300 mg capsule 300 mg PO HS #90 cap 12/11/18 12/21/19 Rx Allergies Allergy/AdvReac Type Severity Reaction Status Date / Time No Known Drug Allergies Allergy Verified 12/20/19 19:46 Review of Systems Review of Systems ROS: Yes All systems reviewed with the patient and are negative except as otherwise documented Exam Vital Signs (past 8 hours): - 12/20/19 19:43 12/20/19 19:55 12/20/19 20:35 Temperature 98.9 F Pulse Rate 98 H 91 H 85 Respiratory Rate 26 H 24 29 H Blood Pressure 230/112 H Blood Pressure [Left Arm] 139/92 H Pulse Oximetry 91 94 93 12/20/19 21:02 12/20/19 21:37 12/20/19 23:30 Temperature Pulse Rate 107 H 81 Respiratory Rate 28 H 22 Blood Pressure 229/119 H Blood Pressure [Left Arm] 212/112 H Pulse Oximetry 92 97 Fraction of Inspired Oxygen 40 Oxygen Delivery Method Nasal Cannula Oxygen Flow Rate 4 Narrative Exam Narrative: GENERAL APPEARANCE: well developed, poor muscle mass BMI 21.8, somnolent breathing with assistance of BiPAP. HEENT: Normocephalic, PERRLA, conjunctiva clear, EOMs intact without nystagmus, no sinus tenderness to percussion, no rhinorrhea, mucous membranes are moist and pink without lesions or exudate. NECK/THYROID: neck supple, JVD present with head elevated 30?, no carotid bruit, no thyromegaly, trachea midline. LYMPH NODES: no cervical or supraclavicular lymphadenopathy. SKIN: Pale, warm and dry, no visible lesions, rashes, ulcerations or petechiae. HEART: regular rate regular rhythm with pauses, S1-S2, no murmur, no rubs or gallops, capillary refill less than 3 seconds, no edema LUNGS: clear to auscultation bilaterally, no coarseness crackles or wheezing, no cough present CHEST: Symmetrical movement, no accessory muscle use, good tidal volume. ABDOMEN: Soft, flat, no abdominal tenderness, no guarding or peritoneal signs, no organomegaly, active bowel tones. EXTREMITIES: moves all extremities, strength generally diminished, no deformities or joint effusions. NEUROLOGIC: GCS 13 (3/4/6), cranial nerves II-XII grossly intact, mild residual left weakness. PSYCH: Response to verbal stimulus with eye opening, flat affect, cooperative following commands. Objective Labs Result Diagrams: 12/20/19 19:40 12/20/19 19:40 Labs: Laboratory Results - last 24 hr 12/20/19 12/20/19 12/20/19 19:40 19:40 19:40 WBC 13.1 H RBC 4.03 L Hgb 13.2 L Hct 38.6 L MCV 95.8 MCH 32.7 MCHC 34.2 RDW 14.1 Plt Count 230 Neut % (Auto) 80.1 H Lymph % (Auto) 8.6 L [place] % (Auto) 10.6 Eos % (Auto) 0.4 L Baso % (Auto) 0.3 Neut # (Auto) 91015 H Lymph # (Auto) 1100 [place] # (Auto) 1400 H Eos # (Auto) 0 Baso # (Auto) 0 D-Dimer 362 H ABG pH ABG pCO2 ABG pO2 ABG HCO3 ABG Total CO2 ABG O2 Saturation ABG Base Excess FiO2 Sodium Potassium Chloride Carbon Dioxide BUN Creatinine Estimated GFR BUN/Creatinine Ratio Glucose Lactate Calcium Magnesium Total Bilirubin AST ALT Alkaline Phosphatase Total Creatine Kinase CK-MB (CK-2) CK-MB (CK-2) Rel Index Troponin I NT-Pro-B Natriuret Pep 74084 H Total Protein Albumin Globulin Albumin/Globulin Ratio Procalcitonin 12/20/19 12/20/19 12/20/19 19:40 19:40 19:40 WBC RBC Hgb Hct MCV MCH MCHC RDW Plt Count Neut % (Auto) Lymph % (Auto) [place] % (Auto) Eos % (Auto) Baso % (Auto) Neut # (Auto) Lymph # (Auto) [place] # (Auto) Eos # (Auto) Baso # (Auto) D-Dimer ABG pH ABG pCO2 ABG pO2 ABG HCO3 ABG Total CO2 ABG O2 Saturation ABG Base Excess FiO2 Sodium 135 L Potassium 3.0 L Chloride 89 L Carbon Dioxide 36 H BUN 18 Creatinine 1.10 Estimated GFR > 60.0 BUN/Creatinine Ratio 16.4 Glucose 160 H Lactate 2.6 H Calcium 9.6 Magnesium 2.2 Total Bilirubin 0.8 AST 43 ALT 15 Alkaline Phosphatase 116 Total Creatine Kinase 123 CK-MB (CK-2) 4.05 H CK-MB (CK-2) Rel Index 3.3 Troponin I 0.247 H* NT-Pro-B Natriuret Pep Total Protein 8.1 Albumin 4.8 Globulin 3.3 Albumin/Globulin Ratio 1.5 Procalcitonin < 0.05 12/20/19 12/20/19 21:34 22:25 WBC RBC Hgb Hct MCV MCH MCHC RDW Plt Count Neut % (Auto) Lymph % (Auto) [place] % (Auto) Eos % (Auto) Baso % (Auto) Neut # (Auto) Lymph # (Auto) [place] # (Auto) Eos # (Auto) Baso # (Auto) D-Dimer ABG pH 7.49 H ABG pCO2 43.0 ABG pO2 55 L ABG HCO3 33 H ABG Total CO2 34 H ABG O2 Saturation 90 L ABG Base Excess 10.0 H FiO2 36 Sodium Potassium Chloride Carbon Dioxide BUN Creatinine Estimated GFR BUN/Creatinine Ratio Glucose Lactate 1.1 Calcium Magnesium Total Bilirubin AST ALT Alkaline Phosphatase Total Creatine Kinase CK-MB (CK-2) CK-MB (CK-2) Rel Index Troponin I NT-Pro-B Natriuret Pep Total Protein Albumin Globulin Albumin/Globulin Ratio Procalcitonin Assessment & Plan Assessment & Plan narrative: This is a 74-year-old male patient who presents to the ER with worsening shortness of breath. The patient has previously been treated for COPD exacerbations and has a history of congestive heart failure. He is found to have an NSTEMI believed related to hypoxemia. 1. Acute hypoxic respiratory failure, present on admission, active Unclear of triggering event with multiple complicating comorbidities: History of COPD with recurrent exacerbations presenting with wheezing and markedly diminished air movement. History congestive heart failure, diminished breath sounds bilateral bases with coarseness and crackles, marked JVD, proBNP 34,700. Since patient reports history of fevers and chills for 2-3 days will further evaluate infectious etiology, obtained respiratory PCR panel Ventilation improved on BiPAP Will treat possible etiologies as indicated below. 2. Acute exacerbation of chronic COPD, present on admission, active Patient with increasing shortness of breath for 2-3 days with progressive weakness. Increasing dyspnea with minimal activity on home O2 at 1.5 liters/minute. Chest x-ray identifies chronic interstitial prominence, ABG: PH 7.49, PCO2 is 43, PaO2 was 55. Patient received methylprednisolone 125 mg IV in the emergency department, will continue with methylprednisolone 80 mg every 8 hours. Respiratory therapy to consult, evaluate and treat. BiPAP per protocol. Albuterol nebulizer every 2 hours as needed shortness of breath or wheezing. DuoNeb every 6 hours as needed for shortness of breath or wheezing. 3. NSTEMI, type 2 VA, related to hypoxemia Patient denies complaints of chest pain and no nausea. Twelve lead EKG shows sinus rhythm rate 92, frequent multifocal PVCs left atrial enlargement, with lateral T-wave inversion and inversion Q-waves in lead 2 and AVF. CK-MB is elevated at 4.05 and troponin of 0.247 Will track and trend troponins until downward. Nitropaste increase to 1 in topically Ordered evening dose of Coreg 25 mg and amlodipine 10 mg. Order lisinopril 10 mg daily 1st dose now. Continue home regimen of aspirin 81 mg daily Heparin 5000 bolus given in the ER and heparin drip started per cardiac protocol. Echocardiogram in the morning. 4. Acute exacerbation of congestive heart failure, unknown if systolic or diastolic, present on admission, active. Patient with course breath sounds mid lung inferiorly with basilar crackles diminished breath sounds left base. Chest x-ray finds mild pulmonary edema, [place] [address]. Patient received Lasix 80 mg IV in the emergency department continue aggressive diuresis with furosemide 40 mg every 8 hours. Echocardiogram in the morning. 5. Essential hypertension, hypertensive emergency, present on admission, active Patient denies complaints headaches or visual changes. Patient has end-organ injury with elevated troponins consistent with hypertensive emergency. Per ER documentation the patient has had labile blood pressures between 130 to 210 systolic pressures. Patient is given his eating medications of Coreg, amlodipine with addition of lisinopril 10 mg and 1 in of nitropaste topically. Patient remains asymptomatic for hypertension, will recheck troponin and evaluate the need for esmolol drip. 6. Hypokalemia, acute, present on admission, active. Patient with potassium of 3.0 on admission labs and subsequently received 80 mg of Lasix. Patient's written routinely on torsemide 20 mg daily. Patient is administered 40 mg potassium orally and 40 mg IV. Will recheck chemistries and supplement as needed. 7. Alcohol abuse, present on admission, active Patient consumes 1/2 gal of vodka per week. Last drink was day of admission. Patient started on CIWA protocol with request to notify provider of his CIWA score greater than 6. Continue home regimen of folic acid 800 mcg daily, multivitamin daily. Ordered thiamin 100 mg daily. 8. Gastroesophageal reflux disorder, chronic, stable Patient uses omeprazole 20 mg daily at home. Ordered Protonix 40 mg IV daily. 9. Hyperglycemia, present on admission, active Patient with elevated glucose of 160 on admission labs. Patient receiving high-dose steroids with expectation of further elevation of blood sugars. Fingerstick blood sugars AC and HS with low-dose range correctional insulin. 10. Hyperlipidemia, chronic, stable. Will continue patient's home regimen of atorvastatin 20 mg daily Obtain lipid panel. VTE prophylaxis: Bilateral SCDs, heparin per cardiac protocol Diet: Heart healthy, low-sodium IVF: No maintenance IV, heparin infusion. The patient is admitted to the ICU for acute non STEMI VA with congestive heart failure and COPD exacerbation requiring BiPAP and intensive care monitoring. The patient is admitted as an inpatient with expected length of stay to be greater than 2 midnights. CRITICAL CARE TIME: 60 minutes Scores GCS [place] coma scale eye opening: To sound [place] coma scale verbal response: Confused [place] coma scale motor response: Obey commands [place] coma scale total score: 13
[2019-12-21] MEDS: POTASSIUM CHLORIDE 40 MEQ in SODIUM CHLORIDE 0.9% 500 ML 130 ML IV (00:38)
[2019-12-21] MEDS: ATORVASTATIN 20 MG TABLET PO ×2 (00:46→21:03)
[2019-12-21] MEDS: AMLODIPINE 5 MG TABLET 10 MG PO ×2 (00:46→10:04)
[2019-12-21] MEDS: carvediloL 25 MG TABLET PO ×2 (00:46→10:04)
[2019-12-21] MEDS: ALBUTEROL/IPRATROPIUM 3 ML AMPUL INH ×4 (01:12→18:41)
[2019-12-21 01:27] LABS: Appearance Urine UA CLEAR; Bilirubin Urine UA NEGATIVE (NEGATIVE); Glucose Urine UA NEGATIVE (Negative); Ketones Urine UA NEGATIVE (NEGATIVE); Leukocyte Esterase Urine UA 1+ (NEGATIVE); Nitrite Urine UA NEGATIVE (Negative); Occult Blood Urine UA TRACE-INTACT (Negative); Protein Urine UA 1+ (Negative); Specific Gravity Urine UA 1.015 (1.000-1.035); Urobilinogen Urine UA 0.2 E.U./dL (0.2)
[2019-12-21 01:28] LABS: Color Urine UA Straw; RBC Urine 0-1/HPF (0-5/HPF)
[2019-12-21 01:29] LABS: Bacteria Urine Occasional (0-1); Culture Indicated Urine Specimen Cultured; WBC Urine 1-5/HPF (0-5/HPF)
--- NOTE | 2019-12-21 01:45 | PC.ADMIT ---
Addendum entered by Cyndi Conti R.N. 12/21/19 04:24: Double lumen bio flow midline placed by Philip Lechuga, at bedside. Placement verified by bedside ultrasound per protocol. Patient tolerated well. Original Note: [id number] 34 Admission Note: The patient,Kervin Vincent,74 y/o, was given written information regarding hospital policies, unit procedures and contact persons. Patient's smoking status: Current every day smoker. Vital Signs - 8 hr 12/20/19 19:43 12/20/19 19:55 12/20/19 20:35 Temperature 98.9 F Pulse Rate 98 H 91 H 85 Respiratory Rate 26 H 24 29 H Blood Pressure 230/112 H Blood Pressure [Left Arm] 139/92 H Pulse Oximetry 91 94 93 12/20/19 21:02 12/20/19 21:37 12/20/19 23:30 Temperature Pulse Rate 107 H 81 Respiratory Rate 28 H 22 Blood Pressure 229/119 H Blood Pressure [Left Arm] 212/112 H Pulse Oximetry 92 97 12/21/19 00:00 12/21/19 00:11 12/21/19 00:46 Temperature 97.6 F Pulse Rate 90 91 H Respiratory Rate 23 Blood Pressure 230/107 H 208/105 H Blood Pressure [Left Arm] Pulse Oximetry 98 97 12/21/19 00:48 12/21/19 01:00 12/21/19 01:12 Temperature Pulse Rate 94 H 92 H 92 H Respiratory Rate 24 23 Blood Pressure 208/102 H 202/93 H Blood Pressure [Left Arm] Pulse Oximetry 96 97 12/21/19 01:41 Temperature Pulse Rate 78 Respiratory Rate 24 Blood Pressure 123/93 H Blood Pressure [Left Arm] Pulse Oximetry 98 Patient admitted to room 230 from ED around 0000 via stretcher. Bipap upon arrival. A/O X 3. Hypertensive. Tele SR PACs/PVCs. Denies CP. Heparin GTT infusing per protocol. Krider per orders. Awaiting Precision PICC for better IV access. Dor[place] inserted per orders for strict I&O's with agressive diuresis per cardiology suggestion. Patient oriented to room, plan of care and call light. Verbalized understanding.
[2019-12-21] MEDS: GABAPENTIN 100 MG CAPSULE 300 MG PO (02:02)
[2019-12-21] MEDS: lisinopriL 10 MG TABLET PO ×2 (02:02→10:02)
[2019-12-21 03:28] LABS: Adenovirus Not Detected (Not Detect); Bordetella pertussis Not Detected (Not Detect); Chlamydophila pneumoniae Not Detected (Not Detect); Coronavirus 229E Not Detected (Not Detect); Coronavirus HKU1 Not Detected (Not Detect); Coronavirus NL 63 Not Detected (Not Detect); Coronavirus OC43 Not Detected (Not Detect); Human Metapneumovirus Not Detected (Not Detect); Human Rhinovirus/Enterovirus Not Detected (Not Detect); Influenza A Not Detected (Not Detect); Influenza B Not Detected (Not Detect); Mycoplasma pneumoniae Not Detected (Not Detect); Parainfluenza Virus 1 Not Detected (Not Detect); Parainfluenza Virus 2 Not Detected (Not Detect); Parainfluenza Virus 3 Not Detected (Not Detect); Parainfluenza Virus 4 Not Detected (Not Detect); Respiratory Syncytial Virus Not Detected (Not Detect)
[2019-12-21] MEDS: AZITHROMYCIN 500 MG in DEXTROSE 5% IN WATER 250 ML IV (04:32)
[2019-12-21] MEDS: methylPREDNISolone 125 MG/2 ML VIAL 80 MG IV ×3 (04:53→19:39)
[2019-12-21] MEDS: FUROSEMIDE 40 MG/4 ML VIAL IV ×2 (04:53→11:59)
[2019-12-21 04:57] LABS: Add Manual Diff / Slide Review NO; Basophils Absolute Auto 100 /uL (0-100); Basophils Percent Auto 1.2 % (0-2); Eosinophils Absolute Auto 0 /uL (0-450); Eosinophils Percent Auto 0.1 % (2-4); Hematocrit 30.3 % (41-53); Hemoglobin 10.5 g/dL (13.5-17.5); Lymphocytes Absolute Auto 500 /uL (1100-4500); Lymphocytes Percent Auto 6.8 % (25-40); Mean Corpuscular HGB Conc 34.6 % (30-36); Mean Corpuscular Hemoglobin 33.2 PG (26-34); Monocytes Absolute Auto 200 /uL (0-900); Monocytes Percent Auto 3.2 % (3-14); Neutrophils Absolute Auto 6200 /uL (1500-7000); Neutrophils Percent Auto 88.7 % (50-75); Platelet Count 160 X10^3/uL (150-400); Red Blood Cell Count 3.16 X10^6/uL (4.5-5.9); Red Cell Distribution Width 14.1 % (11.6-14.8)
[2019-12-21 05:02] LABS: Cholesterol 114 mg/dL (140-199); HDL Cholesterol 49 mg/dL (40-60); LDL Cholesterol Calculated 49 mg/dL (<100); Triglycerides 79 mg/dL (35-150)
[2019-12-21 05:17] LABS: PTT Partial Thromboplastin Tim 99 SECONDS (26.4-36.2); Troponin I 0.291 ng/mL (0.01-0.034)
[2019-12-21 05:18] LABS: HCO3 ABG 34 mmol/L (22-26); Oxygen Saturation ABG 99 % (95-100); PCO2 ABG 35.7 mmHg (35-45); PO2 ABG 111 mmHg (80-100); TCO2 ABG 35 mmol/L (21-31); pH ABG 7.59 (7.35-7.45)
[2019-12-21 05:19] LABS: Fractionated Inspired Oxygen 40
[2019-12-21 05:36] LABS: BUN Creatinine Ratio 16.7 (6-22); Blood Urea Nitrogen 20 mg/dL (9-20); Calcium 8.3 mg/dL (8.4-10.2); Carbon Dioxide 31 mmol/L (22-32); Chloride 98 mmol/L (98-107); Estimated Glomerular Filt Rate 59.2 mL/min (>60); Glucose 168 mg/dL (80-110); HEMOLYSIS < 15 (0-50); Potassium 3.7 mmol/L (3.4-5.1); Sodium 134 mmol/L (137-145)
[2019-12-21] MEDS: THIAMINE 100 MG TABLET PO (10:02)
[2019-12-21] MEDS: ASPIRIN EC 81 MG TABLET PO (10:02)
[2019-12-21] MEDS: MULTIVITAMIN 1 TABLET 1 TAB PO (10:02)
[2019-12-21] MEDS: FOLIC ACID 0.4 MG TABLET 0.8 MG PO (10:06)
[2019-12-21] MEDS: INSULIN ASPART 100 UNIT/ML INSULN PEN SUBCUT ×3 (10:07→16:52)
[2019-12-21] MEDS: PANTOPRAZOLE 40 MG VIAL IV (10:31)
[2019-12-21 11:27] LABS: PTT Partial Thromboplastin Tim 45 SECONDS (26.4-36.2)
[2019-12-21 11:52] LABS: Troponin I 0.247 ng/mL (0.01-0.034)
[2019-12-21] MEDS: HEPARIN DRIP 25,000 UNIT/500 ML IV.SOLN 11.6 UNIT IV (11:55)
[2019-12-21] MEDS: polyethylene glycoL 3350 17 GM POWD.PACK PO (12:00)
--- NOTE | 2019-12-21 13:52 | CM.DANOTE ---
Discharge Planning/Care Management DCP: assessment: case received, EMR reviewed and met with pt. Introduced self and role. Pt is found sitting up in bed, lunch tray in front of him, o2 in place. Very open to discussion. Pt is a 74 year old male who admitted to care of hospitalist team last night. Payer: [facility] Medicare and Medicaid Admission status: INPT: per [facility] PCP: Dr. Stephen Bonilla [facility] Pharmacy: [facility] in [place]. Pt outlined his baseline level of function: he lives in at [facility] [place] in [facility] [place] and has been there with his cat Adan for 10 years. He has no family except a brother with whom he has had not contact in years and local cousins from whom he is estranged. He lists the [facility] as his next of kin. Pt is helped out by neighbors Jacky and Jodi: [facility] and they were the ones who took him to hospital last night. 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 Pt is on home o2/see template below but primarily at night. Lately he has needed this in the day at times. He wonders why he is having so much trouble breathing now, especially at night. Routine: pt starts his day early with losts of coffee, breakfast that he makes, specific tv shows and a nap. He then starts sipping on beer and does this throughout the day, along with smoking cigarettes. He goes to [employer] or watches tv until 1100 pm and that's when I start having my vodka. 2 to 4 drinks before bed at 2AM. His neighbor often visits at 1100PM and they smoke marijuana and drink together with neighbor providing that and pt the vodka. Pt says he has never gone into withdrawal but then I have not had a period of time when I was not using all this. Pt is on CIWA: last score of today 0800 was 0. DC dispo: unknown at this point. Pt was in [facility] in 2016 for snf rehab before d/c back to his RV. Did have brief discussion re this possible option. Pt recalls this stay and has nothing negative to say about the experience. He does say If I need that again I may as well go on hospice as I doubt I would ever get out. DCP team will be following as POC unfolds to assist with any d/c needs that may arise. CM Discharge Assessment Start: 12/21/19 13:49 Freq: Status: Active Protocol: Document 12/21/19 13:49 ITV (Rec: 12/21/19 13:52 ITV [id number]) Discharge Planning Assessment Advance Directives? No History Provided By Patient,Medical Record Has Patient been admitted in last 30 No days? Prior Living Arrangements RV Household Members none Type of transporyation used prior to Relies on Others admit Independent with ADL's Yes Is patient alert and oriented? Yes Community Services used prior to Oxygen Therapy admission: Comment [employer]: vendor DME Already Rented / Owned Cane White board Updated in Patient Room with Yes name and ext. 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
--- NOTE | 2019-12-21 16:13 | P.PN_ITS ---
Subjective Subjective Date Patient Seen: 12/21/19 Interval history: Kervin Vincent is a 74-year-old male with a complex past medical history including coronary artery disease status post bypass surgery and STEMI (2016), right frontal CVA, peripheral vascular disease, COPD, CKD stage 3, hypertension, hyperlipidemia, systolic CHF, GERD, and bladder cancer status post TURP who presented to the ED progressive worsening shortness of breath over 2 days. The patient is resting in bed and appears comfortable. He reports his breathing is much improved since yesterday and he feels it is close to his normal baseline. He continues to have nonproductive cough with cough paroxysms in which he appears to have a pseudo-seizure which lasts very briefly 10-20 seconds without postictal period and possibly related to severe hypoxemia. He denies chest pain and is currently on a heparin gtt for type 2 HI with troponin down trending now that hypoxemia has been treated. He has no other complaints and denies rhinitis, sore throat,shortness of breath, chest pain, abdominal pain, nausea, vomiting, fever, chills, dysuria, diarrhea or constipation. He is voiding via [place] catheter which will plan to removed today and eliminating without difficulty. Exam Vital Signs (past 8 hours): - 12/21/19 11:00 12/21/19 12:00 12/21/19 13:00 Temperature 97.6 F Pulse Rate 117 H 68 Respiratory Rate 29 H 26 H Blood Pressure 117/53 L 86/49 L 91/51 L Pulse Oximetry 91 93 12/21/19 14:00 12/21/19 14:09 12/21/19 14:27 Temperature Pulse Rate 67 66 Respiratory Rate 24 Blood Pressure 92/51 L 92/51 L Pulse Oximetry 98 98 12/21/19 15:00 12/21/19 16:00 12/21/19 17:00 Temperature 97.0 F L 97.0 F L Pulse Rate 71 80 65 Respiratory Rate 25 H 32 H 28 H Blood Pressure 89/50 L 95/62 85/54 L Pulse Oximetry 94 90 L 93 12/21/19 18:00 Temperature Pulse Rate 61 Respiratory Rate 28 H Blood Pressure 100/55 L Pulse Oximetry 97 Fraction of Inspired Oxygen 30 Oxygen Delivery Method Nasal Cannula Oxygen Flow Rate 2 Narrative Exam Narrative: General: Elderly thin and frail-appearing gentleman sitting in bed and in no acute distress, appears significantly older than stated age, slightly irritable but otherwise appropriately interactive. HEENT: Normocephalic, atraumatic. External ears without defect. Pupils equal, round, and reactive to light. Anicteric sclerae, moist conjunctivae, and no lid lag. Oropharynx free of erythema and cobble stoning with moist mucosa. Neck: Supple with full range of motion. No jugular venous distension. No lymphadenopathy or thyromegaly. Cardiovascular: Regular rate and rhythm without murmurs, rubs, or gallops appreciated Pulmonary: Significantly diminished throughout with little air movement. No apparent wheeze, rhonchi or crackles. Normal respiratory effort with no use of accessory muscles. Abdomen: Soft, bowel sounds present, nontender, nondistended. No hepatosplenomegaly or masses appreciated. Extremities: No clubbing, cyanosis, or edema. Skin: Normal temperature, turgor, and texture; no rash, ulcers, or subcutaneous nodules appreciated. Neurological: Cranial nerves grossly intact. Psychiatric: Slightly irritable mood and normal affect. Alert and oriented to person, place, and time. Objective Labs Result Diagrams: 12/22/19 08:00 12/22/19 08:00 Labs: Laboratory Results - last 24 hr 12/20/19 12/20/19 12/20/19 19:40 19:40 19:40 WBC 13.1 H RBC 4.03 L Hgb 13.2 L Hct 38.6 L MCV 95.8 MCH 32.7 MCHC 34.2 RDW 14.1 Plt Count 230 Neut % (Auto) 80.1 H Lymph % (Auto) 8.6 L [place] % (Auto) 10.6 Eos % (Auto) 0.4 L Baso % (Auto) 0.3 Neut # (Auto) 87580 H Lymph # (Auto) 1100 [place] # (Auto) 1400 H Eos # (Auto) 0 Baso # (Auto) 0 APTT D-Dimer 362 H ABG pH ABG pCO2 ABG pO2 ABG HCO3 ABG Total CO2 ABG O2 Saturation ABG Base Excess FiO2 Sodium Potassium Chloride Carbon Dioxide BUN Creatinine Estimated GFR BUN/Creatinine Ratio Glucose Lactate Calcium Magnesium Total Bilirubin AST ALT Alkaline Phosphatase Total Creatine Kinase CK-MB (CK-2) CK-MB (CK-2) Rel Index Troponin I NT-Pro-B Natriuret Pep 07727 H Total Protein Albumin Globulin Albumin/Globulin Ratio Triglycerides Cholesterol LDL Cholesterol, Calc HDL Cholesterol Procalcitonin Urine Color Urine Appearance Urine pH Ur Specific Bly Urine Protein Urine Glucose (UA) Urine Ketones Urine Occult Blood Urine Nitrate Urine Bilirubin Urine Urobilinogen Ur Leukocyte Esterase Urine RBC Urine WBC Urine Bacteria Ur Culture Indicated? Nasal Screen MRSA (PCR) Chlamy pneumoniae PCR Adenovirus (PCR) B.parapertussis DNA PCR Coronavirus OC43 (PCR) Coronavirus HKU1 (PCR) Coronavirus 229E (PCR) Coronavirus NL63 (PCR) Human Metapneumovir PCR Influenza Type A (PCR) Influenza Type B (PCR) M. pneumoniae (PCR) Parainfluenza 1 (PCR) Parainfluenza 2 (PCR) Parainfluenza 3 (PCR) Parainfluenza 4 (PCR) RSV (PCR) Entero/Rhino (PCR) 12/20/19 12/20/19 12/20/19 19:40 19:40 19:40 WBC RBC Hgb Hct MCV MCH MCHC RDW Plt Count Neut % (Auto) Lymph % (Auto) [place] % (Auto) Eos % (Auto) Baso % (Auto) Neut # (Auto) Lymph # (Auto) [place] # (Auto) Eos # (Auto) Baso # (Auto) APTT D-Dimer ABG pH ABG pCO2 ABG pO2 ABG HCO3 ABG Total CO2 ABG O2 Saturation ABG Base Excess FiO2 Sodium 135 L Potassium 3.0 L Chloride 89 L Carbon Dioxide 36 H BUN 18 Creatinine 1.10 Estimated GFR > 60.0 BUN/Creatinine Ratio 16.4 Glucose 160 H Lactate 2.6 H Calcium 9.6 Magnesium 2.2 Total Bilirubin 0.8 AST 43 ALT 15 Alkaline Phosphatase 116 Total Creatine Kinase 123 CK-MB (CK-2) 4.05 H CK-MB (CK-2) Rel Index 3.3 Troponin I 0.247 H* NT-Pro-B Natriuret Pep Total Protein 8.1 Albumin 4.8 Globulin 3.3 Albumin/Globulin Ratio 1.5 Triglycerides Cholesterol LDL Cholesterol, Calc HDL Cholesterol Procalcitonin < 0.05 Urine Color Urine Appearance Urine pH Ur Specific Bly Urine Protein Urine Glucose (UA) Urine Ketones Urine Occult Blood Urine Nitrate Urine Bilirubin Urine Urobilinogen Ur Leukocyte Esterase Urine RBC Urine WBC Urine Bacteria Ur Culture Indicated? Nasal Screen MRSA (PCR) Chlamy pneumoniae PCR Adenovirus (PCR) B.parapertussis DNA PCR Coronavirus OC43 (PCR) Coronavirus HKU1 (PCR) Coronavirus 229E (PCR) Coronavirus NL63 (PCR) Human Metapneumovir PCR Influenza Type A (PCR) Influenza Type B (PCR) M. pneumoniae (PCR) Parainfluenza 1 (PCR) Parainfluenza 2 (PCR) Parainfluenza 3 (PCR) Parainfluenza 4 (PCR) RSV (PCR) Entero/Rhino (PCR) 12/20/19 12/20/19 12/21/19 21:34 22:25 00:10 WBC RBC Hgb Hct MCV MCH MCHC RDW Plt Count Neut % (Auto) Lymph % (Auto) [place] % (Auto) Eos % (Auto) Baso % (Auto) Neut # (Auto) Lymph # (Auto) [place] # (Auto) Eos # (Auto) Baso # (Auto) APTT D-Dimer ABG pH 7.49 H ABG pCO2 43.0 ABG pO2 55 L ABG HCO3 33 H ABG Total CO2 34 H ABG O2 Saturation 90 L ABG Base Excess 10.0 H FiO2 36 Sodium Potassium Chloride Carbon Dioxide BUN Creatinine Estimated GFR BUN/Creatinine Ratio Glucose Lactate 1.1 Calcium Magnesium Total Bilirubin AST ALT Alkaline Phosphatase Total Creatine Kinase CK-MB (CK-2) CK-MB (CK-2) Rel Index Troponin I NT-Pro-B Natriuret Pep Total Protein Albumin Globulin Albumin/Globulin Ratio Triglycerides Cholesterol LDL Cholesterol, Calc HDL Cholesterol Procalcitonin Urine Color Urine Appearance Urine pH Ur Specific Bly Urine Protein Urine Glucose (UA) Urine Ketones Urine Occult Blood Urine Nitrate Urine Bilirubin Urine Urobilinogen Ur Leukocyte Esterase Urine RBC Urine WBC Urine Bacteria Ur Culture Indicated? Nasal Screen MRSA (PCR) Negative for mrsa Chlamy pneumoniae PCR Adenovirus (PCR) B.parapertussis DNA PCR Coronavirus OC43 (PCR) Coronavirus HKU1 (PCR) Coronavirus 229E (PCR) Coronavirus NL63 (PCR) Human Metapneumovir PCR Influenza Type A (PCR) Influenza Type B (PCR) M. pneumoniae (PCR) Parainfluenza 1 (PCR) Parainfluenza 2 (PCR) Parainfluenza 3 (PCR) Parainfluenza 4 (PCR) RSV (PCR) Entero/Rhino (PCR) 12/21/19 12/21/19 12/21/19 00:15 00:17 02:05 WBC RBC Hgb Hct MCV MCH MCHC RDW Plt Count Neut % (Auto) Lymph % (Auto) [place] % (Auto) Eos % (Auto) Baso % (Auto) Neut # (Auto) Lymph # (Auto) [place] # (Auto) Eos # (Auto) Baso # (Auto) APTT D-Dimer ABG pH ABG pCO2 ABG pO2 ABG HCO3 ABG Total CO2 ABG O2 Saturation ABG Base Excess FiO2 Sodium Potassium Chloride Carbon Dioxide BUN Creatinine Estimated GFR BUN/Creatinine Ratio Glucose Lactate Calcium Magnesium Total Bilirubin AST ALT Alkaline Phosphatase Total Creatine Kinase CK-MB (CK-2) CK-MB (CK-2) Rel Index Troponin I 0.250 H* NT-Pro-B Natriuret Pep Total Protein Albumin Globulin Albumin/Globulin Ratio Triglycerides Cholesterol LDL Cholesterol, Calc HDL Cholesterol Procalcitonin Urine Color Straw Urine Appearance Clear Urine pH 7.0 Ur Specific Bly 1.015 Urine Protein 1+ H Urine Glucose (UA) Negative Urine Ketones Negative Urine Occult Blood Trace-intact Urine Nitrate Negative Urine Bilirubin Negative Urine Urobilinogen 0.2 Ur Leukocyte Esterase 1+ H Urine RBC 0-1/hpf Urine WBC 1-5/hpf Urine Bacteria Occasional (0-1) Ur Culture Indicated? Specimen cultured Nasal Screen MRSA (PCR) Chlamy pneumoniae PCR Not detected Adenovirus (PCR) Not detected B.parapertussis DNA PCR Not detected Coronavirus OC43 (PCR) Not detected Coronavirus HKU1 (PCR) Not detected Coronavirus 229E (PCR) Not detected Coronavirus NL63 (PCR) Not detected Human Metapneumovir PCR Not detected Influenza Type A (PCR) Not detected Influenza Type B (PCR) Not detected M. pneumoniae (PCR) Not detected Parainfluenza 1 (PCR) Not detected Parainfluenza 2 (PCR) Not detected Parainfluenza 3 (PCR) Not detected Parainfluenza 4 (PCR) Not detected RSV (PCR) Not detected Entero/Rhino (PCR) Not detected 12/21/19 12/21/19 12/21/19 04:45 04:45 04:45 WBC 7.0 RBC 3.16 L Hgb 10.5 L Hct 30.3 L MCV 96.0 MCH 33.2 MCHC 34.6 RDW 14.1 Plt Count 160 Neut % (Auto) 88.7 H Lymph % (Auto) 6.8 L [place] % (Auto) 3.2 Eos % (Auto) 0.1 L Baso % (Auto) 1.2 Neut # (Auto) 6200 Lymph # (Auto) 500 L [place] # (Auto) 200 Eos # (Auto) 0 Baso # (Auto) 100 APTT 99 H* D-Dimer ABG pH ABG pCO2 ABG pO2 ABG HCO3 ABG Total CO2 ABG O2 Saturation ABG Base Excess FiO2 Sodium Potassium Chloride Carbon Dioxide BUN Creatinine Estimated GFR BUN/Creatinine Ratio Glucose Lactate Calcium Magnesium Total Bilirubin AST ALT Alkaline Phosphatase Total Creatine Kinase CK-MB (CK-2) CK-MB (CK-2) Rel Index Troponin I 0.291 H* NT-Pro-B Natriuret Pep Total Protein Albumin Globulin Albumin/Globulin Ratio Triglycerides 79 Cholesterol 114 L LDL Cholesterol, Calc 49 HDL Cholesterol 49 Procalcitonin Urine Color Urine Appearance Urine pH Ur Specific Bly Urine Protein Urine Glucose (UA) Urine Ketones Urine Occult Blood Urine Nitrate Urine Bilirubin Urine Urobilinogen Ur Leukocyte Esterase Urine RBC Urine WBC Urine Bacteria Ur Culture Indicated? Nasal Screen MRSA (PCR) Chlamy pneumoniae PCR Adenovirus (PCR) B.parapertussis DNA PCR Coronavirus OC43 (PCR) Coronavirus HKU1 (PCR) Coronavirus 229E (PCR) Coronavirus NL63 (PCR) Human Metapneumovir PCR Influenza Type A (PCR) Influenza Type B (PCR) M. pneumoniae (PCR) Parainfluenza 1 (PCR) Parainfluenza 2 (PCR) Parainfluenza 3 (PCR) Parainfluenza 4 (PCR) RSV (PCR) Entero/Rhino (PCR) 12/21/19 12/21/19 12/21/19 04:45 05:05 11:00 WBC RBC Hgb Hct MCV MCH MCHC RDW Plt Count Neut % (Auto) Lymph % (Auto) [place] % (Auto) Eos % (Auto) Baso % (Auto) Neut # (Auto) Lymph # (Auto) [place] # (Auto) Eos # (Auto) Baso # (Auto) APTT D-Dimer ABG pH 7.59 H ABG pCO2 35.7 ABG pO2 111 H ABG HCO3 34 H ABG Total CO2 35 H ABG O2 Saturation 99 ABG Base Excess 12.0 H FiO2 40 Sodium 134 L Potassium 3.7 Chloride 98 Carbon Dioxide 31 BUN 20 Creatinine 1.20 Estimated GFR 59.2 L BUN/Creatinine Ratio 16.7 Glucose 168 H Lactate Calcium 8.3 L Magnesium Total Bilirubin AST ALT Alkaline Phosphatase Total Creatine Kinase CK-MB (CK-2) CK-MB (CK-2) Rel Index Troponin I 0.247 H* NT-Pro-B Natriuret Pep Total Protein Albumin Globulin Albumin/Globulin Ratio Triglycerides Cholesterol LDL Cholesterol, Calc HDL Cholesterol Procalcitonin Urine Color Urine Appearance Urine pH Ur Specific Bly Urine Protein Urine Glucose (UA) Urine Ketones Urine Occult Blood Urine Nitrate Urine Bilirubin Urine Urobilinogen Ur Leukocyte Esterase Urine RBC Urine WBC Urine Bacteria Ur Culture Indicated? Nasal Screen MRSA (PCR) Chlamy pneumoniae PCR Adenovirus (PCR) B.parapertussis DNA PCR Coronavirus OC43 (PCR) Coronavirus HKU1 (PCR) Coronavirus 229E (PCR) Coronavirus NL63 (PCR) Human Metapneumovir PCR Influenza Type A (PCR) Influenza Type B (PCR) M. pneumoniae (PCR) Parainfluenza 1 (PCR) Parainfluenza 2 (PCR) Parainfluenza 3 (PCR) Parainfluenza 4 (PCR) RSV (PCR) Entero/Rhino (PCR) 12/21/19 11:00 WBC RBC Hgb Hct MCV MCH MCHC RDW Plt Count Neut % (Auto) Lymph % (Auto) [place] % (Auto) Eos % (Auto) Baso % (Auto) Neut # (Auto) Lymph # (Auto) [place] # (Auto) Eos # (Auto) Baso # (Auto) APTT 45 H D D-Dimer ABG pH ABG pCO2 ABG pO2 ABG HCO3 ABG Total CO2 ABG O2 Saturation ABG Base Excess FiO2 Sodium Potassium Chloride Carbon Dioxide BUN Creatinine Estimated GFR BUN/Creatinine Ratio Glucose Lactate Calcium Magnesium Total Bilirubin AST ALT Alkaline Phosphatase Total Creatine Kinase CK-MB (CK-2) CK-MB (CK-2) Rel Index Troponin I NT-Pro-B Natriuret Pep Total Protein Albumin Globulin Albumin/Globulin Ratio Triglycerides Cholesterol LDL Cholesterol, Calc HDL Cholesterol Procalcitonin Urine Color Urine Appearance Urine pH Ur Specific Bly Urine Protein Urine Glucose (UA) Urine Ketones Urine Occult Blood Urine Nitrate Urine Bilirubin Urine Urobilinogen Ur Leukocyte Esterase Urine RBC Urine WBC Urine Bacteria Ur Culture Indicated? Nasal Screen MRSA (PCR) Chlamy pneumoniae PCR Adenovirus (PCR) B.parapertussis DNA PCR Coronavirus OC43 (PCR) Coronavirus HKU1 (PCR) Coronavirus 229E (PCR) Coronavirus NL63 (PCR) Human Metapneumovir PCR Influenza Type A (PCR) Influenza Type B (PCR) M. pneumoniae (PCR) Parainfluenza 1 (PCR) Parainfluenza 2 (PCR) Parainfluenza 3 (PCR) Parainfluenza 4 (PCR) RSV (PCR) Entero/Rhino (PCR) Assessment & Plan Assessment & Plan narrative: Kervin Vincent is a 74-year-old male with a complex past medical history including coronary artery disease status post bypass surgery and STEMI (2016), right frontal CVA, peripheral vascular disease, COPD, CKD stage 3, hypertension, hyperlipidemia, systolic CHF, GERD, and bladder cancer status post TURP who presented to the ED progressive worsening shortness of breath over 2 days. 1. Acute on chronic hypoxemic respiratory failure, present on admission. Resolving. -Unclear of triggering event with multiple complicating comorbidities: -History of COPD with recurrent exacerbations presenting with wheezing and markedly diminished air movement. -History congestive heart failure, diminished breath sounds bilateral bases with coarseness and crackles, marked JVD, proBNP 34,700. -Ruled out infectious etiology as chest x-ray negative, afebrile, WBC normal, procalcitonin negative. -Continue respiratory therapy evaluation treatment. Continue supplemental oxygen as needed to keep oxygen saturation 88-92%. -Continue to treat underlying problems as below. 2. Acute COPD exacerbation, present on admission. Resolving. -Patient presented with increasing shortness of breath for 2-3 days with progressive weakness. Patient noted to dyspnea with minimal activity on home oxygen at 1.5 L/min requiring more oxygen from baseline. -Chest x-ray demonstrated prior CABG, mild pulmonary edema superimposed on chronic interstitial prominence. Heart size is upper limits of normal. -ABG: PH 7.49, PCO2 is 43, PaO2 was 55. -Respiratory viral PCR negative. -Received methylprednisolone 125 mg IV x 1 in ED. Continue methylprednisolone 80 mg every 8 hours and will titrate to PO as hypoxemia and air movement improves. -Continue respiratory therapy evaluation and treatment. Continue supplemental oxygen as necessary to maintain oxygen saturation 88-92%. Currentlly on 2 L and close to baseline oxygen requirement. Continue DuoNebs every 6 hours while awake and albuterol nebulizer every 2 hours as needed shortness of breath or wheezing. Of note, the patient has no home inhalers listed on med reconciliation will need to be discharged home with appropriate inhalers. -Ordered palliative care consultation to establish goals of care as patient is likely end-stage COPD. 3. Type 2 HI, secondary to severe hypoxemia, present on admission. Resolving. -Patient denies chest pain or pressure. -EKG demonstrated sinus rhythm rate 92, frequent multifocal PVCs left atrial enlargement, with lateral T-wave inversion and inversion Q-waves in lead II and AVF. -Serial troponin highly elevated and peaked at 0.291. Trending down now 0.247. No need to further trend. -Continue aspirin 81 mg daily, atorvastatin 20 mg daily at bedtime, amlodipine 10 mg daily and carvedilol 25 mg twice daily. Discontinued nitropaste as BP improved and now labile and low normal. -Continue cardiac heparin gtt for 24 hours. -Echocardiogram did not show new wall motion changes as below. 4. Acute exacerbation of biventricular systolic congestive heart failure, present on admission. Resolving. -Patient presented with progressive worsening shortness of breath. -Chest x-ray demonstrated prior CABG, mild pulmonary edema superimposed on chronic interstitial prominence. Heart size is upper limits of normal. -ProBNP is 34,700. -Echocardiogram demonstrated reduced LV function with EF 40-45%, basal to mid in ferior-inferolateral wall is scarred, RV is grossly normal size with RV function mild to moderately reduced, IVC suggests a CVP of around 15 mmHg increased from previous study, diastolic parameters could not be assessed. -Received Lasix 80 mg IV x 1 in ED. Continue aggressive diuresis with furosem hima 40 mg IV every 8 hours. -Continue to monitor strict I&O's and daily weights. Net - 5. Hypertensive emergency, in setting of chronic hypertension, present on admission. Hypertensive emergency resolved. -Patient denies headaches or visual changes. -Patient has end-organ injury with elevated troponins consistent with hypertensive emergency. -Per ER documentation the patient has had labile blood pressures between 130 to 210 systolic pressures. -Continue home amlodipine 10 mg daily and carvedilol 25 mg twice daily with addition of lisinopril 10 mg and nitro paste one-inch x1. Did not continue nitropaste as patient's blood pressures are labile. 6. Hyperglycemia, secondary to glucocorticoids, present on admission. Stable. -Hemoglobin A1c normal at 5.4%. -Continue [facility] blood glucose checks and low dose correctional scale insulin. 7. Hypokalemia, acute, present on admission. Resolved. -Initial potassium level 3.0 on admission. Received potassium chloride 40 mEq IV x1 and 40 mEq PO x1. Potassium level now 3.7. -Patient receiving IV diuresis and usually is on torsemide outpatient. Continue to monitor potassium level and replete as necessary. 8. Alcohol abuse, present on admission. Stable. -Patient consumes 1/2 gal of vodka per week. Last drink was day of admission. -Continue CIWA protocol with request to notify provider of his CIWA score greater than 6. -Continue home folic acid 800 mcg daily and multivitamin daily and added thiamin 100 mg daily. 9. Gastroesophageal reflux disorder, chronic, stable -Continue protonix 20 mg daily. 10. Hyperlipidemia, chronic, present on admission. Stable. -Fasting lipid panel demonstrated excellent lipid control. -Continue home atorvastatin 20 mg daily. Code status: Full code VTE prophylaxis: Bilateral SCDs, heparin gtt per cardiac protocol Disposition: Patient likely discharge home versus [facility] facility for continued rehabilitation in the next several days once oxygenation has improved. Quality VTE Deep Vein Thrombosis/Pulmonary Embolism Present on Admission: No
--- NOTE | 2019-12-21 16:18 | PC.NURSE ---
Addendum entered by Jennifer Byers R.N. 12/21/19 21:21: 1800 Pt refusing to have adams removed at this time, he states that it isn't bothering him right now. Will inform nightshift to see if they can convince him to let them remove it. Bed low and locked, call light within reach, no further needs at this time. Original Note: 1600 Pt was found by STEFANY Adams with eyes rolled up and having the appearance of a grand maul seizure, she called out to this nurse and I came to her assistance. Pt appeared to be seizing, I called to my preceptor Adelia and all nurses and Dr Schulz came as well. Dr Schulz stated that when the pt coughs this is what happens. The pt stopped coughing and stated that he was choking on his coffee. Pt vitals were checked, his gown was changed and pt was educated to drink the coffee slower. 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
[2019-12-21 18:57] LABS: PTT Partial Thromboplastin Tim 35 SECONDS (26.4-36.2)
[2019-12-21] MEDS: HEPARIN 5,000 UNIT/ML VIAL 3000 UNIT IV (19:38)
[2019-12-21] MEDS: GABAPENTIN 300 MG CAPSULE PO (21:03)
[2019-12-22] VITALS (23 sets, daily range): BP systolic 94–119; BP diastolic 51–78; PULSE 50–71; RESP 16–40; TEMP 31–36.6; O2SAT 90–100
[2019-12-22 02:05] LABS: PTT Partial Thromboplastin Tim 98 SECONDS (26.4-36.2)
--- NOTE | 2019-12-22 02:16 | PC.NURSE ---
NOCNote: Patient denies pain, Bi-Pap in use, LS are coarse with crackles. Patient has had low urine output for the previous 2 shifts and PTT was 98, per protocol heparin being held for 30 min and will restart at 100units/hr less. MARIANELA Burkett has been made aware of these. Will continues to monitor UOP. Pt is currently sleeping and appears comfortable.
[2019-12-22] MEDS: methylPREDNISolone 125 MG/2 ML VIAL 80 MG IV (04:35)
[2019-12-22] MEDS: ALBUTEROL/IPRATROPIUM 3 ML AMPUL INH ×3 (08:02→19:27)
[2019-12-22 08:53] LABS: Add Manual Diff / Slide Review NO; Basophils Absolute Auto 0 /uL (0-100); Basophils Percent Auto 0.1 % (0-2); Eosinophils Absolute Auto 0 /uL (0-450); Hematocrit 26.4 % (41-53); Hemoglobin 8.9 g/dL (13.5-17.5); Lymphocytes Absolute Auto 800 /uL (1100-4500); Lymphocytes Percent Auto 5.2 % (25-40); Mean Corpuscular HGB Conc 33.7 % (30-36); Mean Corpuscular Hemoglobin 32.5 PG (26-34); Mean Corpuscular Volume 96.7 fL (80-100); Monocytes Absolute Auto 700 /uL (0-900); Monocytes Percent Auto 4.7 % (3-14); Neutrophils Absolute Auto 13400 /uL (1500-7000); Platelet Count 146 X10^3/uL (150-400); Red Blood Cell Count 2.73 X10^6/uL (4.5-5.9); Red Cell Distribution Width 14.6 % (11.6-14.8); White Blood Cell Count 14.9 X10^3/uL (4.5-11.0)
[2019-12-22 08:58] LABS: PTT Partial Thromboplastin Tim 50 SECONDS (26.4-36.2)
[2019-12-22 09:08] LABS: Alanine Aminotransferase 12 IU/L (<50); Albumin 2.9 g/dL (3.5-5.0); Albumin Globulin Ratio 1.3 (1.0-2.8); Alkaline Phosphatase 64 U/L (38-126); Aspartate Aminotransferase 29 IU/L (17-59); BUN Creatinine Ratio 17.5 (6-22); Bilirubin Total 0.3 mg/dL (0.2-1.3); Blood Urea Nitrogen 42 mg/dL (9-20); Calcium 7.9 mg/dL (8.4-10.2); Carbon Dioxide 27 mmol/L (22-32); Chloride 93 mmol/L (98-107); Estimated Glomerular Filt Rate 26.6 mL/min (>60); Globulin 2.3 g/dL (1.7-4.1); Glucose 158 mg/dL (80-110); HEMOLYSIS < 15 (0-50); Potassium 3.3 mmol/L (3.4-5.1); Sodium 127 mmol/L (137-145); Total Protein 5.2 g/dL (6.3-8.2)
--- NOTE | 2019-12-22 09:13 | PC.NURSE ---
0900- Spoke with RT who states no other staff available to attempt ABG. Pt would like to eat breakfast at this time. Removed bipap and placed on 1.5L NC (pt's home dose). With SPO2 90-94%. Pt reports breathing feels consistent with baseline. Denies pain/chest pain/palpitations. Discussed orders to remove catheter. Pt states he would like to make sure he is able to get up and walk before having adams catheter removed. Small amount of clear yellow urine draining to gravity. Bed alarm on and call light in reach.
[2019-12-22] MEDS: FOLIC ACID 0.4 MG TABLET 0.8 MG PO (09:45)
[2019-12-22] MEDS: ASPIRIN EC 81 MG TABLET PO (09:45)
[2019-12-22] MEDS: INSULIN ASPART 100 UNIT/ML INSULN PEN SUBCUT ×4 (09:45→22:11)
[2019-12-22] MEDS: carvediloL 25 MG TABLET PO ×2 (09:46→22:02)
[2019-12-22] MEDS: PANTOPRAZOLE 40 MG VIAL IV (09:46)
[2019-12-22] MEDS: lisinopriL 10 MG TABLET PO (09:46)
[2019-12-22] MEDS: THIAMINE 100 MG TABLET PO (09:46)
[2019-12-22] MEDS: polyethylene glycoL 3350 17 GM POWD.PACK PO (09:46)
[2019-12-22] MEDS: MULTIVITAMIN 1 TABLET 1 TAB PO (09:46)
[2019-12-22] MEDS: HEPARIN DRIP 25,000 UNIT/500 ML IV.SOLN 11.6 UNIT IV (09:56)
[2019-12-22 10:02] LABS: HCO3 ABG 25 mmol/L (22-26); Oxygen Saturation ABG 94 % (95-100); PCO2 ABG 38.6 mmHg (35-45); PO2 ABG 69 mmHg (80-100); TCO2 ABG 26 mmol/L (21-31); pH ABG 7.42 (7.35-7.45)
[2019-12-22 10:03] LABS: Fractionated Inspired Oxygen 1.5
--- NOTE | 2019-12-22 10:28 | CM.DPC ---
DCP Cont: Met briefly with patient. After team rounds, discussed putting P.T. and palliative care. Went ahead and placed consults. Spoke to patient briefly. Asked him if he was interested in senior care before going home. Patient stated, No, I don't need classes on how to take care of myself. Patient mentioned, he really wants to go home. Confirmed that he does have help at home with neighbors. P: DCP to continue to follow and be available for any resources needed. Rubina Bonilla, may be meeting with patient this pm for palliative care consult. Patient will also be working with P.T. Rasheeda Mayer RN/[employer] Consultant
--- NOTE | 2019-12-22 11:05 | PC.NURSE ---
Addendum entered by Sohan Dumont R.N. 12/22/19 15:37: Reported UOP to Dr. Schulz via telephone at 1505. Original Note: Called to Dr. Schulz. Reported 0800 labs. Requested clarification of orders for fluid restriction due to decreased GFR and low UOP. Reported K+ 3.3. Dr Schulz instructed to proceed with fluid restriction as ordered. Awaiting K+ replacement orders.
[2019-12-22] MEDS: NICOTINE 21 MG PATCH TOP (11:52)
[2019-12-22] MEDS: POTASSIUM CHLORIDE 20 MEQ TAB 40 MEQ PO ×2 (11:53→17:23)
--- NOTE | 2019-12-22 12:33 | P.PN_ITS ---
Subjective Subjective Date Patient Seen: 12/22/19 Interval history: Kervin Vincent is a 74-year-old male with a complex past medical history including coronary artery disease status post bypass surgery and STEMI (2016), right frontal CVA, peripheral vascular disease, COPD, CKD stage 3, hypertension, hyperlipidemia, systolic CHF, GERD, and bladder cancer status post TURP who presented to the ED progressive worsening shortness of breath over 2 days. The patient is resting in bed and appears comfortable. He is back to his baseline oxygen requirement. He is on high dose glucocorticoids with improved air movement today on exam. He continues to have nonproductive cough but improved today. He denies shortness of breath, chest pain, abdominal pain, nausea, vomiting, fever, chills, dysuria, diarrhea or constipation. He is voiding via adams catheter which will be removed once more mobile possibly today and eliminating without difficulty. Plan for physcial therapy today. Exam Vital Signs (past 8 hours): - 12/22/19 05:00 12/22/19 05:58 12/22/19 06:00 Temperature Pulse Rate Respiratory Rate Blood Pressure 105/53 L 105/53 L 106/53 L Pulse Oximetry 12/22/19 07:00 12/22/19 08:00 12/22/19 08:02 Temperature 97.7 F Pulse Rate 55 L 65 Respiratory Rate 23 18 Blood Pressure 114/56 L 114/56 L Pulse Oximetry 94 98 12/22/19 09:00 12/22/19 09:46 12/22/19 10:00 Temperature Pulse Rate 66 66 69 Respiratory Rate 23 25 H Blood Pressure 115/78 117/53 L Pulse Oximetry 90 L 96 12/22/19 11:00 Temperature Pulse Rate 71 Respiratory Rate 25 H Blood Pressure 114/54 L Pulse Oximetry 96 Fraction of Inspired Oxygen 30 Oxygen Delivery Method BiPAP Oxygen Flow Rate 1.5 Narrative Exam Narrative: General: Elderly thin and frail-appearing gentleman sitting in bed and in no acute distress, appears significantly older than stated age, slightly irritable but otherwise appropriately interactive. HEENT: Normocephalic, atraumatic. External ears without defect. Pupils equal, round, and reactive to light. Anicteric sclerae, moist conjunctivae, and no lid lag. Oropharynx free of erythema and cobble stoning with moist mucosa. Neck: Supple with full range of motion. No jugular venous distension. No lymphadenopathy or thyromegaly. Cardiovascular: Regular rate and rhythm without murmurs, rubs, or gallops appreciated Pulmonary: Improved air movement but still very dimished with occassional wheeze. Normal respiratory effort with no use of accessory muscles. Abdomen: Soft, bowel sounds present, nontender, nondistended. No hepatos plenomegaly or masses appreciated. Extremities: No clubbing, cyanosis, or edema. Skin: Normal temperature, turgor, and texture; no rash, ulcers, or subcutaneous nodules appreciated. Neurological: Cranial nerves grossly intact. Psychiatric: Slightly irritable mood and normal affect. Alert and oriented to person, place, and time. Objective Labs Result Diagrams: 12/22/19 08:00 12/22/19 08:00 Labs: Laboratory Results - last 24 hr 12/21/19 12/22/19 12/22/19 18:43 01:35 08:00 WBC RBC Hgb Hct MCV MCH MCHC RDW Plt Count Neut % (Auto) Lymph % (Auto) Crowley % (Auto) Eos % (Auto) Baso % (Auto) Neut # (Auto) Lymph # (Auto) Crowley # (Auto) Eos # (Auto) Baso # (Auto) APTT 35 D 98 H* D 50 H D ABG pH ABG pCO2 ABG pO2 ABG HCO3 ABG Total CO2 ABG O2 Saturation ABG Base Excess FiO2 Sodium Potassium Chloride Carbon Dioxide BUN Creatinine Estimated GFR BUN/Creatinine Ratio Glucose Calcium Total Bilirubin AST ALT Alkaline Phosphatase Total Protein Albumin Globulin Albumin/Globulin Ratio 12/22/19 12/22/19 12/22/19 08:00 08:00 09:33 WBC 14.9 H D RBC 2.73 L Hgb 8.9 L Hct 26.4 L MCV 96.7 MCH 32.5 MCHC 33.7 RDW 14.6 Plt Count 146 L Neut % (Auto) 90.0 H Lymph % (Auto) 5.2 L Crowley % (Auto) 4.7 Eos % (Auto) 0.0 L Baso % (Auto) 0.1 Neut # (Auto) 18060 H Lymph # (Auto) 800 L Crowley # (Auto) 700 Eos # (Auto) 0 Baso # (Auto) 0 APTT ABG pH 7.42 ABG pCO2 38.6 ABG pO2 69 L ABG HCO3 25 ABG Total CO2 26 ABG O2 Saturation 94 L ABG Base Excess 0.0 FiO2 1.5 Sodium 127 L Potassium 3.3 L Chloride 93 L Carbon Dioxide 27 BUN 42 H Creatinine 2.40 H Estimated GFR 26.6 L BUN/Creatinine Ratio 17.5 Glucose 158 H Calcium 7.9 L Total Bilirubin 0.3 AST 29 ALT 12 Alkaline Phosphatase 64 D Total Protein 5.2 L Albumin 2.9 L Globulin 2.3 Albumin/Globulin Ratio 1.3 Assessment & Plan Assessment & Plan narrative: Kervin Vincent is a 74-year-old male with a complex past medical history including coronary artery disease status post bypass surgery and STEMI (2016), right frontal CVA, peripheral vascular disease, COPD, CKD stage 3, hypertension, hyperlipidemia, systolic CHF, GERD, and bladder cancer status post TURP who presented to the ED progressive worsening shortness of breath over 2 days. 1. Acute on chronic hypoxemic respiratory failure, present on admission. Acute portion resolved. -Unclear of triggering event with multiple complicating comorbidities: -History of COPD with recurrent exacerbations presenting with wheezing and markedly diminished air movement. -History congestive heart failure, diminished breath sounds bilateral bases with coarseness and crackles, marked JVD, proBNP 34,700. -Ruled out infectious etiology as chest x-ray negative, afebrile, WBC normal, procalcitonin negative. -Continue respiratory therapy evaluation treatment. Continue supplemental oxygen as needed to keep oxygen saturation 88-92%. Patient is now back to his baseline oxygen requirement of 1.5 L/min. -Continue to treat underlying problems as below. 2. Acute COPD exacerbation, present on admission. Resolving. -Patient presented with increasing shortness of breath for 2-3 days with progressive weakness. Patient noted to dyspnea with minimal activity on home oxygen at 1.5 L/min requiring more oxygen from baseline. -Chest x-ray demonstrated prior CABG, mild pulmonary edema superimposed on chronic interstitial prominence. Heart size is upper limits of normal. -ABG: PH 7.49, PCO2 is 43, PaO2 was 55. -Respiratory viral PCR negative. -Received methylprednisolone 125 mg IV x 1 in ED. Continue methylprednisolone decreased from 80 mg IV every 8 hours to once daily. Plan to titrate to PO prednisone tomorrow. -Continue respiratory therapy evaluation and treatment. Continue supplemental oxygen as necessary to maintain oxygen saturation 88-92%. Currently back to b aseline oxygen requirement of 1.5 L/min. Continue DuoNebs every 6 hours while awake and albuterol nebulizer every 2 hours as needed shortness of breath or wheezing. Of note, the patient has no home inhalers listed on med reconciliation will need to be discharged home with appropriate inhalers. -Ordered palliative care consultation to establish goals of care as patient is likely end-stage COPD. 3. Type 2 MD, secondary to severe hypoxemia, present on admission. Resolved. -Patient denies chest pain or pressure. -EKG demonstrated sinus rhythm rate 92, frequent multifocal PVCs left atrial enlargement, with lateral T-wave inversion and inversion Q-waves in lead II and AVF. -Serial troponin highly elevated and peaked at 0.291. Trending down now 0.247. No need to further trend. -Continue aspirin 81 mg daily, atorvastatin 20 mg daily at bedtime, amlodipine 10 mg daily and carvedilol 25 mg twice daily. Discontinued nitropaste as BP improved and now labile and low normal. -Continued cardiac heparin gtt for 24 hours. -Echocardiogram did not show new wall motion changes as below. 4. Acute exacerbation of biventricular systolic congestive heart failure, present on admission. Resolving. -Patient presented with progressive worsening shortness of breath. -Chest x-ray demonstrated prior CABG, mild pulmonary edema superimposed on chronic interstitial prominence. Heart size is upper limits of normal. -ProBNP is 34,700. -Echocardiogram demonstrated reduced LV function with EF 40-45%, basal to mid inferior-inferolateral wall is scarred, RV is grossly normal size with RV function mild to moderately reduced, IVC suggests a CVP of around 15 mmHg increased from previous study, diastolic parameters could not be assessed. -Received Lasix 80 mg IV x 1 in ED. Continued aggressive diuresis with furosemide 40 mg IV every 8 hours and plan for diuretic break today. -Continue to monitor strict I&O's and daily weights. Net - 5. Hypertensive emergency, in setting of chronic hypertension, present on admission. Hypertensive emergency resolved. -Patient denies headaches or visual changes. -Patient has end-organ injury with elevated troponins consistent with hypertensive emergency. -Per ER documentation the patient has had labile blood pressures between 130 to 210 systolic pressures. -Continue home amlodipine 10 mg daily and carvedilol 25 mg twice daily with addition of lisinopril 10 mg and nitro paste one-inch x1. Did not continue nitropaste as patient's blood pressures are labile. 6. Hyperglycemia, secondary to glucocorticoids, present on admission. Stable. -Hemoglobin A1c normal at 5.4%. -Continue [facility] blood glucose checks and low dose correctional scale insulin. 7. Acute hypokalemia, present on admission. Active. -Initial potassium level 3.0 on admission. Received potassium chloride 40 mEq IV x1 and 40 mEq PO x1. Potassium level now 3.3. Plan to give potassium c hloride 40 mEq PO x 2. -Patient receiving IV diuresis and usually is on torsemide outpatient. Continue to monitor potassium level and replete as necessary. 8. Possible GLENNA on chronic kidney disease stage 3, present on admission. Stable. -Baseline creatinine highly variable but seems to be between 1.5-2.8 over the last 1 year. Initial creatinine 1.10 on admission and likely falsely low due to volume overload. Creatinine now 2.4. -Continue to avoid nephrotoxic agents and optimize renal perfusion. Of note, patient recently taken off lisinpril possiblly for chronic cough vs worsening kidney disease? -Continue to monitor renal function daily. 9. Alcohol abuse, present on admission. Stable. -Patient consumes 1/2 gal of vodka per week. Last drink was day of admission. -Continue CIWA protocol with request to notify provider of his CIWA score greater than 6. -Continue home folic acid 800 mcg daily and multivitamin daily and added thiamin 100 mg daily. 10. Gastroesophageal reflux disorder, chronic, stable -Continue protonix 20 mg daily. 11. Hyperlipidemia, chronic, present on admission. Stable. -Fasting lipid panel demonstrated excellent lipid control. -Continue home atorvastatin 20 mg daily. Code status: Full code VTE prophylaxis: Bilateral SCDs, heparin gtt per cardiac protocol Disposition: Patient likely discharge home versus retirement facility for continued rehabilitation tomorrow if oxygenation remains at baseline and titrated of IV glucocorticoids. Quality VTE Deep Vein Thrombosis/Pulmonary Embolism Present on Admission: No
[2019-12-22 13:10] LABS: Hemoglobin A1C% w Est Avg Glu 5.4 % (4.0-6.0)
--- NOTE | 2019-12-22 15:49 | PT.IIE ---
Current Diagnoses Acute respiratory failure with hypoxia (12/20/19) Surgical History (Last Updated 12/21/19 @ 00:27 by MARIANELA Thomas) History of appendectomy (Acute) Hx of coronary artery bypass graft (Resolved Unknown) Hx of transurethral resection of prostate (Resolved 10/2016) Medical History (Last Updated 12/21/19 @ 00:27 by MARIANELA Thomas) Alcohol abuse (Inactive) Bladder cancer (Chronic Unknown) CKD (chronic kidney disease) (Chronic Unknown) Congestive heart failure (Inactive) COPD (chronic obstructive pulmonary disease) (Chronic Unknown) Coronary artery disease (Chronic Unknown) Gastroesophageal reflux disease (Acute) Hyperlipemia (Chronic Unknown) Hypertension (Chronic Unknown) PAD (peripheral artery disease) (Chronic Unknown) Stroke (Resolved 02/2016) Physical Therapy Inpatient Evaluation/Re-Eval M1 PT/OT-IP Prior Functional Status Start: 12/22/19 13:18 Freq: NEEDED Status: Active Protocol: Document 12/22/19 15:17 AW (Rec: 12/22/19 15:49 AW [id number]) Medical Review Prior Functional Status Medical History Reviewed Yes Communication WFL. Pt able to make needs known Mobility and Gait Pt reports furniture walking at home and using a SPC at all times when he leaves home. He uses 1.5 L/min O2 at baseline and typically desats to ~90% with activity. Activities of Daily Living and IADL's Pt dresses independently though he states he becomes winded very easily with this activity. He notes he uses his shower for storage currently; he does not have a working hot water heater and uses propane for his oven only. Pt states he is independent with all toileting tasks. Prior Functional Level (Other details) Pt states he has not fallen since he began using home O2. He drives, but only in the park since his vehicle is not registered. Social History Household Members none Living Arrangements RV Number of Floors (Floors) One Floor Number of Stairs To Enter/Railing? 3 KIKO with handhold mounted on the inside of the front door. Home Environment High Toilet,Walk in Shower, Built-In Shower Seat,Narrow Doors Home Equipment Straight Cane Employment Status Retired Additional Social History Comment Pt lives alone. Neighbors, Jacky and Jodi, check on him daily. Per pt, he tends to smoke tobacco and drink alcohol daily, increasing his intake late at night when he also smokes marijuana with another RV neighbor. Pt reports marijuana helps calm his restless legs so that he can sleep. He sleeps on his couch near the television, stating his bed is covered with boxes. M2 PT-IP Current Condition Start: 12/22/19 13:18 Freq: NEEDED Status: Active Protocol: Document 12/22/19 15:17 AW (Rec: 12/22/19 15:49 AW [id number]) Physical Therapy Current Condition Current Condition Evaluation Date 12/22/19 Treatment Diagnosis hypoxia, COPD exacerbation, NSTEMI, impaired mobility Onset Date 12/20/2019 Precautions Other Precautions Pt uses 1.5 L/min O2 at home. On 2L/min via NC at time of evaluation. Weight Bearing Status Weight Bearing Status Full Weight Bearing M3 PT-IP Subjective Start: 12/22/19 13:18 Freq: NEEDED Status: Active Protocol: Document 12/22/19 15:17 AW (Rec: 12/22/19 15:49 AW [id number]) Subjective Physical Therapy Visit Type Type Initial Evaluation Visit Start Time 13:32 Visit Stop Time 14:12 Total Visit Minutes 40 Physical Therapy Visit Comments Patient Comments Pt willing to participate with PT Patient Goals Pt states strong preference to return home Therapy Pain Assessment Pain When Pain Assessed During Mobility Pain Present Pain Present Denied Pain M4 PT-IP Mobility and Gait Start: 12/22/19 13:18 Freq: NEEDED Status: Active Protocol: Document 12/22/19 15:17 AW (Rec: 12/22/19 15:49 AW [id number]) PT-Bed Mobility Assessment Supine to Sit Supine to Sit Standby Assistance Scooting Scooting to Edge of Bed Standby Assistance PT-Transfer Assessment Sit to and From Stand Sit to and from Stand Contact Guard Assistance,Use of Upper Extremities Equipment Transfer Assistive Device Gait Belt,Straight Cane Orthotic/Prosthetic Devices or Brace: No Transfers Transfer Destination Chair Transfer Technique pt ambulated with SPC Transfer Ability Level of Assist Contact Guard Assistance Comments Mobility Comments Pt completed supine to sit from bed at 25 degrees SBA and was able to sit EOB with BUE support for balance testing and MMT. Sitting EOB, SpO2 dropped from 96% to 85% on 2L/ min. Pt required encouragement for deep breathing and needed ~3 minutes to recover SpO2 to >90%. He stood CGA using SPC and ambulated from the bed to the window seat where he sat to rest. He stood again using SPC CGA and transferred to the chair, demonstrating poor eccentric control. During transfers, SpO2 remained steady around 90% but did not recover any further within 3 minutes of rest. Pt was positioned in the chair with call light and table within reach as a friend arrived to visit. Gait Assessment Gait Gait Assistance Required: Contact Guard Assist Distance (Feet) 8 Able to Maintain Weight Bearing Status Yes During Gait Assistive Devices Assistive Device Gait Belt,Straight Cane Orthotic/Prosthetic Devices or Brace: No Gait Deviations General Gait Pattern Antalgic,Decreased Stride Length,Decreased Feet Clearance,Flexed Trunk Factors Limiting Gait Function Factors Limiting Gait Function Decreased Activity Tolerance, Decreased Strength,Poor Balance,Poor Safety Awareness, Respiratory Distress Comments Gait Comments Pt amulated in room, dropping SpO2 from 96% at rest to 85% with activity. Pt has evident left foot drop which may be resultant from prior R CVA. Stair Climbing Assessment Comments Stair Climbing Comments Not assessed. PT-Balance Assessment Sitting Balance and Reactions Static Sitting Balance Ability Good Dynamic Sitting Balance Ability Good Standing Balance and Reactions Static Standing Balance Ability Fair Dynamic Standing Balance Ability Poor Device Used SPC M5 PT-IP Objective Assessments Start: 12/22/19 13:18 Freq: NEEDED Status: Active Protocol: Document 12/22/19 15:17 AW (Rec: 12/22/19 15:49 AW [id number]) Orientation Orientation/Cognition Level of Alertness Alert Orientation Name,Month,Day of Week, Situation Language Function Ability No Deficits Noted Safety Awareness Decreased Safety Awareness Gross Range of Motion Lower Extremity ROM Assessment Within Functional Limits Strength Lower Extremity Strength Assessment Bilaterally Impaired Hip 3+/5 Knee 4-/5 Ankle R 4/5; L 4-/5 Coordination Assessment Gross Coordination Gross Coordination WNL Sensation Assessment Sensation Gross Sensation WNL Muscle Tone Muscle Tone WNL Yes M6 PT-IP Treatment Start: 12/22/19 13:18 Freq: NEEDED Status: Active Protocol: Document 12/22/19 15:17 AW (Rec: 12/22/19 15:49 AW [id number]) Physical Therapy Treatment Education Education Provided Precautions,Safety Other Treatments Other Treatment Performed Provided education on role of PT, plan of care, selection of appropriate assistive device, and energy conservation techniques to manage respiratory distress. M7 PT-IP Assessment and Plan Start: 12/22/19 13:18 Freq: NEEDED Status: Active Protocol: Document 12/22/19 15:17 AW (Rec: 12/22/19 15:49 AW [id number]) PT Summary Assessment and Plan Potential Rehabilitation Potential Good Status of Condition at Evaluation Evolving Summary Impairments Strength,Balance,Cognition,Bed Mobility,Transfers,Gait, Activity Tolerance Assessment Summary Kervin is a 74 yo man seen for PT evaluation 2 days following admission with AHRF, COPD exacerbation, and NSTEMI. At baseline, he uses 1.5 L/min O2 and ambulates household distances with furniture support and short community distance with SPC. On evaluation, he required CGA for all out of bed mobility and demonstrated low activity tolerance with SpO2 dropping from 96% at rest to 85% with any activity on 2L/min. Pt is likely near his baseline function and would be safe to discharge home. He would possibly benefit from home health PT in order to address BLE strength and impaired balance. Goals Bed Mobility Goal Independent Transfer Goal Independent,Cane Gait Goal Independent,Cane Gait Distance 50 Other Goals - up/down 3 steps with unilateral rail independent Days to Meet Goals 5 Frequency of Treatment Frequency Of Treatment Once a Day Treatment Plan Physical Therapy Treatment Plan Bed Mobility Training,Transfer Training,Gait Training, Therapeutic Exercise,Balance Retraining,Discharge Planning, Hot or Cold Pack,Neuromuscular Re-ed Other Recommendations and Next Treatment continue to assess activity Focus tolerance; attempt to increase gait distance; assess safety on stairs Recommendations To Nursing Amount of Assist Needed 1 Person Assist Discharge Recommendations PT Discharge Recommendations Home with Assistance,Home Health Transportation Needs at Discharge Private Vehicle
--- NOTE | 2019-12-22 15:52 | DIET.PN ---
Dietary Progress Note Assessment: Mr. Vincent is a 74-year-old male with past medical history including coronary artery disease status post bypass surgery, and STEMI, right frontal CVA, peripheral vascular disease, COPD, CKD stage 3, hypertension, hyperlipidemia, GERD, bladder cancer who presented to the ED 2 days ago with shortness of breath. He reports low appetite and often forgets to eat. He often just eats 1 meal per day including hamburger, fried chicken, or soup. He reports difficulty chewing vegetable skins, leafy greens, nuts and seeds due to old, ill fitting dentures. He reports significant weight loss over the last 6 months. He is a current every day smoker (1 ppd) with HX of alcohol abuse (1/2 gal vodka/wk). HT: 160.02cm WT: 52.4kg (48 on admission) UBW: 65kg BMI: 20.5 (18.7 on admission) % change: 20% Labs: Na: 127 L K: 3.3 L Chl: 93 L BUN: 42 H Cr: 2.4 H GFR: 59.2, 26.6 Gluc: 168, 158 Trop1: 0.247 H MNA: 8 Ayush: 18 NFPE: severe subcut fat loss triceps; severe muscle loss clavicles, shoulders PO's: ~50% Nutrition Diagnosis: Chronic severe PCM r/t food- and nutrition-related knowledge deficit, psychological causes aeb intake <75% EER > 1mo, weight loss >10% in 6 mo, BMI <21 (age >65), NFPE severe subcut fat loss triceps, severe muscle loss clavicles, shoulders, excessive consumption of alcohol. Interventions: 1. Provided information on heart healthy diet including reduced sodium intake and increased heart healthy fats. Handouts provided. 2. Discussed protein needs. Recommended at least 3 meals per day including protein (eggs, chicken, nut butters, lean meats). 3. Discussed importance of physical activity in maintaining lean body mass. 4. Will provide ONS ensure enlive is PO's <75%. Diet Order: Heart healthy; Cardiac; fluid restriction (1500 ml/day) EER: 1600 josiane @30cal/kg ; pro 52-70 g @ 1-1.3g/kg (dillon on CKD-3) Monitoring/Evaluations: weight, PO's, need for ONS
--- NOTE | 2019-12-22 16:52 | OT.IP.EVAL ---
Current Diagnoses Acute respiratory failure with hypoxia (12/20/19) Past Medical History (Last Updated 12/21/19 @ 00:27 by MARIANELA Thomas) Alcohol abuse (Inactive) Bladder cancer (Chronic Unknown) CKD (chronic kidney disease) (Chronic Unknown) Congestive heart failure (Inactive) COPD (chronic obstructive pulmonary disease) (Chronic Unknown) Coronary artery disease (Chronic Unknown) Gastroesophageal reflux disease (Acute) Hyperlipemia (Chronic Unknown) Hypertension (Chronic Unknown) PAD (peripheral artery disease) (Chronic Unknown) Stroke (Resolved 02/2016) Surgical History (Last Updated 12/21/19 @ 00:27 by MARIANELA Thomas) History of appendectomy (Acute) Hx of coronary artery bypass graft (Resolved Unknown) Hx of transurethral resection of prostate (Resolved 10/2016) Occupational Therapy Inpatient Evaluation/Re-Eval M1 PT/OT-IP Prior Functional Status Start: 12/22/19 17:34 Freq: NEEDED Status: Active Protocol: Document 12/22/19 16:19 [facility] (Rec: 12/22/19 17:54 [facility] [id number]) Medical Review Prior Functional Status Medical History Reviewed Yes Communication WFL. Pt able to make needs known Mobility and Gait Pt reports furniture walking at home and using a SPC at all times when he leaves home. He uses 1.5 L/min O2 at baseline and typically desats to ~90% with activity. Activities of Daily Living and IADL's Pt dresses independently though he states he becomes winded very easily with this activity. He notes he uses his shower for storage currently; he does not have a working hot water heater and uses propane for his oven only. Pt states he is independent with all toileting tasks. Pt states will heat the water on the stove and sponge off when needed. Prior Functional Level (Other details) Pt states he has not fallen since he began using home O2. He drives, but only in the park since his vehicle is not registered. Pt lives with his cat. 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 Social History Household Members none Living Arrangements RV Number of Floors (Floors) One Floor Number of Stairs To Enter/Railing? 3 KIKO with handhold mounted on the inside of the front door. Home Environment High Toilet,Walk in Shower, Built-In Shower Seat,Narrow Doors Home Equipment Straight Cane Employment Status Retired Additional Social History Comment Pt lives alone. Neighbors, Jacky and Jodi, check on him daily. Per pt, he tends to smoke tobacco and drink alcohol daily, increasing his intake late at night when he also smokes marijuana with another RV neighbor. Pt reports marijuana helps calm his restless legs so that he can sleep. He sleeps on his couch near the television, stating his bed is covered with boxes. M2 OT-IP Current Condition Start: 12/22/19 17:34 Freq: Status: Active Protocol: Document 12/22/19 16:19 [facility] (Rec: 12/22/19 17:54 [facility] [id number]) Occupational Therapy Current Condition Current Condition Evaluation Date 12/22/19 Treatment Diagnosis Hypoxia, COPD exacerbation Diagnosis Onset Date 12/20/19 Weight Bearing Status Weight Bearing Status Weight Bear as Tolerated M3 OT- IP Subjective and Pain Start: 12/22/19 17:34 Freq: Status: Active Protocol: Document 12/22/19 16:19 [facility] (Rec: 12/22/19 17:54 [facility] [id number]) OT- Subjective Occupational Therapy Visit Type Type Initial Evaluation Visit Start Time 16:19 Visit Stop Time 16:52 Total Visit Minutes 33 Occupational Therapy Visit Comments Patient Comments Pt agreeable to do OT eval. Patient/Caregiver Goals Pt wanting to go home and get back to doing what he wants to . Pt satets wishes that he would not drop things with left hand. OT Pain Assessment Pain When Pain Assessed At Rest Pain Present Pain Present Denied Pain M4 OT- IP ADL's Start: 12/22/19 17:34 Freq: Status: Active Protocol: Document 12/22/19 16:19 [facility] (Rec: 12/22/19 17:54 [facility] [id number]) OT [id number] Comments OT Self-Feeding Comments Not at meal time. OT ADL-Grooming General Evaluation Areas Needing Assistance Retrieving/Set-up of Grooming Items Comments OT Grooming Comments Pt able to stand at the sink to brush his hair, pt not wanting to do any other grooming needs at the time. OT ADL-Dressing General Eval Lower Body Dressing Ability Standby Assistance Comments OT Dressing Comments While sitting at the recliner able to bring his foot up to barbie/doff his socks. Pt states has difficulty with his pants as he has lost weight but not wanting to try at this time, to attempt tomorrow. OT ADL-Toileting Comments OT Toileting Comments Pt not having to use the toilet. Pt states at home either use of toilet or urinal . OT ADL-Bathing Comments OT Bathing Comments Pt states does not like water, and only does sponge bathes as needed. M5 OT- IP IADL's Start: 12/22/19 17:34 Freq: Status: Active Protocol: Document 12/22/19 16:19 [facility] (Rec: 12/22/19 17:54 [facility] [id number]) OT-Instrumental Activities of Daily Living Home Safety Awareness Ability to Problem Solve Emergency Able to Problem Solve Situations Medication Management Medication Management No Deficits Identified Medication Management Comments Pt take his pills out during the morning and places in a dish, again for the afternoon, and two at bedtime in which he places by his couch. Money Management Money Management No Deficits Identified Money Management Comments Pt states writes one rent check and does automatic payments. Meal Preparation Meal Preparation Comments Pt states able to cook at home and sits as needed. Driving Driving Comments pt states only drive in the park but minimally. M6 OT- IP Functional Cognition Start: 12/22/19 17:34 Freq: Status: Active Protocol: Document 12/22/19 16:19 [facility] (Rec: 12/22/19 17:54 [facility] [id number]) Cognitive Factors Limiting Selfcare Function Cognitive Ability Level of Alertness Alert Patient Orientation Name,Age,Birthday,Month,Year, Day of Week,Place,Situation Attention Span Ability Capable of Focused Attention, Capable of Sustained Attention Ability to Follow Commands Able to Follow Multi-Step Commands Cognitive Comments Cognitive Assessment Comments Pt appears to be at baseline for cognitive needs. OT- Vision and Hearing OT- Hearing Assessment OT- Hearing Assessment WFL OT- Vision Assessment Visual Acuity Glasses For Reading Vision Assessment Comments Pt states he needs to get glasses but wears reading glasses for now. M7 OT- IP Mobility and Balance Start: 12/22/19 17:34 Freq: Status: Active Protocol: Document 12/22/19 16:19 [facility] (Rec: 12/22/19 17:54 [facility] [id number]) OT-Transfer Assessment Sit to and From Stand Sit to and from Stand Contact Guard Assistance Transfers Transfer Ability Contact Guard Assistance Technique Transfer Destination Chair Transfer Technique Stand Step Pivot Devices Transfer Assistive Devices Gait Belt,Straight Cane Comments Mobility Comments CGA to stand able to use SPC appropriately. OT needing to help manage O2 tubing. Pt 2L and o2 at 92%. Pt states at home mainly use at night or when resting and watching TV. OT- Gait Assessment Gait Gait Assistance Required: Contact Guard Assist Assistive Devices Assistive Device Gait Belt,Straight Cane OT- Balance Assessment Sitting Balance and Reactions Static Sitting Balance Ability Normal Dynamic Sitting Balance Ability Normal Standing Balance and Reactions Static Standing Balance Ability Fair M8 OT- IP Objective Assessments Start: 12/22/19 17:34 Freq: Status: Active Protocol: Document 12/22/19 16:19 [facility] (Rec: 12/22/19 17:54 [facility] [id number]) OT Gross Range of Motion Upper Extremity Range of Motion Assessment Within Functional Limits OT Strength Upper Extremity Strength Shoulder RUE 4/5 LUE 5/5 Elbow Right 4/5 , Left 4-/5 Hand Right 4/5 Left 5/5 OT- Coordination Assessment Upper Extremity Finger to Nose Test Left UE Impaired Comments Coordination Comments Ataxic movements for LUE, pt states that his hand is not reliable to hold onto objects whether it be a glass or piece of paper. Noted pt has difficulty to grade his pressure with left hand. OT-Muscle Tone Assessment Muscle Tone WNL Yes OT Sensation Assessment Comments Summary Comments Intact for light touch for BUE . Edema Edema Absent M9 OT- IP Assessment and Plan Start: 12/22/19 17:34 Freq: Status: Active Protocol: Document 12/22/19 16:19 [facility] (Rec: 12/22/19 17:54 [facility] [id number]) OT Summary Assessment and Plan Potential Rehabilitation Potential Good Analytic Complexity at Evaluation Low Summary OT Impairments Balance,Coordination, Functional Mobility,Grooming, Dressing,Toileting,Bathing, Toilet Transfers,Shower Transfers,Activity Tolerance Progress Towards Goals Progressing Toward Goals Assessment Summary Pt low complexity and mainly appears close to baseline except for activity tolerance and dynamic balance. Pt would benefit from home health when medically stable. OT to continue to work with pt for energy conservations and independence and safety for ADL needs. Goals Grooming Goal Independent Dressing Goal Independent Toileting Goal Independent Bathing Goal Independent Toilet Transfer Goal Independent Shower Transfer Goal Independent Patient/Caregiver Education Goal Demonstrate Energy Conservation and Pacing Days to Meet Goals 5 Frequency of Treatment Frequency Of Treatment Once a Day Treatment Plan OT Treatment Plan ADL Training,Functional Mobility,Patient/Family Education,Discharge Planning Other Treatment Recommendations and Next LB dressing safety, shower if Treatment Focus pt willing Discharge Recommendations OT Discharge Recommendations Home,Home Health Transportation Needs at Discharge Private Vehicle
[2019-12-22] MEDS: ATORVASTATIN 20 MG TABLET PO (22:02)
[2019-12-22] MEDS: GABAPENTIN 300 MG CAPSULE PO (23:59)
--- NOTE | 2019-12-23 00:20 | PC.NURSE ---
Well Head Pumper Note: 0000: Awake, watching TV. Pt asking for his HS dose of Gabapentin: dose given at this time. Vital signs stable. Midline IV in place in rt upper arm, dressings cdi. Remains on O2 1.5L/NC. Pt is alert, oriented X3.
[2019-12-23 00:25] VITALS: BP 119/60; PULSE 70; RESP 22; TEMP 36.4; O2SAT 93
[2019-12-23 04:00] VITALS: BP 100/82; PULSE 71; RESP 24; TEMP 36.6; O2SAT 99
[2019-12-23 05:30] LABS: Add Manual Diff / Slide Review NO; Basophils Absolute Auto 0 /uL (0-100); Eosinophils Absolute Auto 0 /uL (0-450); Hematocrit 27.1 % (41-53); Hemoglobin 9.1 g/dL (13.5-17.5); Lymphocytes Absolute Auto 400 /uL (1100-4500); Lymphocytes Percent Auto 3.3 % (25-40); Mean Corpuscular HGB Conc 33.4 % (30-36); Mean Corpuscular Hemoglobin 32.6 PG (26-34); Mean Corpuscular Volume 97.6 fL (80-100); Monocytes Absolute Auto 900 /uL (0-900); Monocytes Percent Auto 6.9 % (3-14); Neutrophils Absolute Auto 11500 /uL (1500-7000); Neutrophils Percent Auto 89.8 % (50-75); Platelet Count 149 X10^3/uL (150-400); Red Blood Cell Count 2.78 X10^6/uL (4.5-5.9); Red Cell Distribution Width 14.6 % (11.6-14.8); White Blood Cell Count 12.8 X10^3/uL (4.5-11.0)
[2019-12-23 05:37] LABS: BUN Creatinine Ratio 23.8 (6-22); Blood Urea Nitrogen 62 mg/dL (9-20); Calcium 7.8 mg/dL (8.4-10.2); Carbon Dioxide 25 mmol/L (22-32); Chloride 94 mmol/L (98-107); Estimated Glomerular Filt Rate 24.2 mL/min (>60); Glucose 141 mg/dL (80-110); HEMOLYSIS < 15 (0-50); Magnesium 2.4 mg/dL (1.6-2.3); Potassium 4.6 mmol/L (3.4-5.1); Sodium 125 mmol/L (137-145)
[2019-12-23] MEDS: PANTOPRAZOLE 20 MG TABLET PO (06:43)
[2019-12-23 08:10] VITALS: BP 108/60; PULSE 62; RESP 25; TEMP 36.7; O2SAT 98
[2019-12-23 09:13] VITALS: PULSE 63; RESP 18; O2SAT 94
[2019-12-23] MEDS: ALBUTEROL/IPRATROPIUM 3 ML AMPUL INH (09:13)
--- NOTE | 2019-12-23 09:49 | PT.IPTN ---
Current Diagnoses Acute respiratory failure with hypoxia (12/20/19) Physical Therapy Treatment Note M2 PT-IP Current Condition Start: 12/22/19 13:18 Freq: NEEDED Status: Active Protocol: Document 12/22/19 15:17 AW (Rec: 12/22/19 15:49 AW [id number]) Physical Therapy Current Condition Current Condition Evaluation Date 12/22/19 Treatment Diagnosis hypoxia, COPD exacerbation, NSTEMI, impaired mobility Onset Date 12/20/2019 Precautions Other Precautions Pt uses 1.5 L/min O2 at home. On 2L/min via NC at time of evaluation. Weight Bearing Status Weight Bearing Status Full Weight Bearing M3 PT-IP Subjective Start: 12/22/19 13:18 Freq: NEEDED Status: Active Protocol: Document 12/23/19 09:43 [facility] (Rec: 12/23/19 09:49 [facility] [id number]) Subjective Physical Therapy Visit Type Type Treatment Note Visit Start Time 09:21 Visit Stop Time 09:38 Total Visit Minutes 17 Number of SPECIAL DISTRIBUTION CLERK Visits 0 Physical Therapy Visit Comments Patient Comments Pt reports no concerns with returning home M4 PT-IP Mobility and Gait Start: 12/22/19 13:18 Freq: NEEDED Status: Active Protocol: Document 12/23/19 09:43 [facility] (Rec: 12/23/19 09:49 [facility] [id number]) PT-Transfer Assessment Sit to and From Stand Sit to and from Stand Standby Assistance,Use of Upper Extremities Equipment Transfer Assistive Device Gait Belt Orthotic/Prosthetic Devices or Brace: No Comments Mobility Comments Pt stood from bed 2x SBA to then walk. He was able to adjust sock prior to starting. Gait Assessment Gait Gait Assistance Required: Contact Guard Assist Distance (Feet) 60 Able to Maintain Weight Bearing Status No During Gait Assistive Devices Assistive Device Gait Belt Gait Deviations General Gait Pattern Lateral Trunk Lean,Wide Based Gait Factors Limiting Gait Function Factors Limiting Gait Function Decreased Strength,Poor Balance Comments Gait Comments Pt able to amb back and forth around bed SBA to CGA with no LOB. Assist given for managing cording during amb. He was able to walk 60ft before deciding to sit down. O2 at 91 after all activity Stair Climbing Assessment Evaluation Level of Assist On Stairs Contact Guard Assistance Devices Stair Climbing Assistive Devices Right Railing Technique/Endurance Stair Climbing Direction Ascend and Descend Number of Steps Climbed 3 Comments Stair Climbing Comments Pt went up and down single stair 3x to demonstrate safety . M5 PT-IP Objective Assessments Start: 12/22/19 13:18 Freq: NEEDED Status: Active Protocol: Document 12/22/19 15:17 AW (Rec: 12/22/19 15:49 AW [id number]) Orientation Orientation/Cognition Level of Alertness Alert Orientation Name,Month,Day of Week, Situation Language Function Ability No Deficits Noted Safety Awareness Decreased Safety Awareness Gross Range of Motion Lower Extremity ROM Assessment Within Functional Limits Strength Lower Extremity Strength Assessment Bilaterally Impaired Hip 3+/5 Knee 4-/5 Ankle R 4/5; L 4-/5 Coordination Assessment Gross Coordination Gross Coordination WNL Sensation Assessment Sensation Gross Sensation WNL Muscle Tone Muscle Tone WNL Yes M6 PT-IP Treatment Start: 12/22/19 13:18 Freq: NEEDED Status: Active Protocol: Document 12/23/19 09:43 [facility] (Rec: 12/23/19 09:49 [facility] [id number]) Physical Therapy Treatment Other Treatments Other Treatment Performed edu to do seated LE motions M7 PT-IP Assessment and Plan Start: 12/22/19 13:18 Freq: NEEDED Status: Active Protocol: Document 12/23/19 09:43 [facility] (Rec: 12/23/19 09:49 [facility] [id number]) PT Summary Assessment and Plan Summary Assessment Summary Pt was able to do all mobility today SBA to CGA in room with help with cords. He was safe on stairs and safe amb but does show some dec balance which is likely close to his baseline. Goals Bed Mobility Goal Independent Transfer Goal Independent,Cane Gait Goal Independent,Cane Gait Distance 50 Other Goals - up/down 3 steps with unilateral rail independent Days to Meet Goals 5 Frequency of Treatment Frequency Of Treatment Once a Day Treatment Plan Physical Therapy Treatment Plan Bed Mobility Training,Transfer Training,Gait Training, Therapeutic Exercise,Balance Retraining,Discharge Planning, Hot or Cold Pack,Neuromuscular Re-ed Other Recommendations and Next Treatment work on walking w/self cord Focus management Recommendations To Nursing Amount of Assist Needed Standby Assistance Discharge Recommendations PT Discharge Recommendations Home with Assistance,Home Health Transportation Needs at Discharge Private Vehicle
[2019-12-23] MEDS: INSULIN ASPART 100 UNIT/ML INSULN PEN SUBCUT (10:20)
[2019-12-23] MEDS: FOLIC ACID 0.4 MG TABLET 0.8 MG PO (10:20)
[2019-12-23] MEDS: MULTIVITAMIN 1 TABLET 1 TAB PO (10:29)
[2019-12-23] MEDS: carvediloL 25 MG TABLET PO (10:29)
[2019-12-23] MEDS: ASPIRIN EC 81 MG TABLET PO (10:29)
[2019-12-23] MEDS: methylPREDNISolone 125 MG/2 ML VIAL 60 MG IV (10:30)
[2019-12-23] MEDS: NICOTINE 21 MG PATCH TOP (10:30)
[2019-12-23] MEDS: polyethylene glycoL 3350 17 GM POWD.PACK PO (10:31)
[2019-12-23] MEDS: THIAMINE 100 MG TABLET PO (10:31)
--- NOTE | 2019-12-23 11:23 | PM.DS.1 ---
History of Present Illness History of Present Illness Date Patient Seen: 12/21/19 Chief complaint: sob Narrative: Written by Harish BEAR: Mr. Kervin Vincent is a 74-year-old male with a complex medical history including coronary artery disease status post bypass surgery, and STEMI (C5/2 1016), right frontal CVA, peripheral vascular disease, COPD, CKD stage 3, hypertension, hyperlipidemia, GERD, bladder cancer, status post TURP presents E R with 2 days recent shortness of breath. History is limited due to patient's somnolence therefore information obtained from the what is available for the patient and medical record review. The patient lives at home with help of friends notice the patient was becoming increasingly weak, increased heart rate and becoming more short of breath. The patient is on chronic home O2 1.5 L and minimal activity produces shortness of breath. Patient has an associated cough that is nonproductive, continues to smoke 1 pack per day of cigarettes and marijuana approximately 4-5 times per week. He also reports having fevers and chills but denies chest pain or orthopnea and does not complain of leg swelling. It is unclear whether the patient has been taking medications as directed due to poor recall. He denies headaches or dizziness indicates that he has not fallen. Reports having no chest pain and has chronic shortness of breath and chronic cough. He denies abdominal pain, nausea vomiting. He does endorse history of constipation and cannot state is last bowel movement. Denies urinary symptoms. Upon arrival to the ER the patient has a temperature of 98.9?, heart rate of 98, blood pressure of 230/112, respiratory rate of 26 saturating 91% on 1.5 L nasal cannula. A chest x-ray is obtained which finds mild pulmonary edema on chronic interstitial prominence with heart the upper end of normal. On EKG is found have sinus rhythm with heart rate of 92 with recurrent multifocal PVCs, left ventricular hypertrophy, inverted T-waves in lead 2 and AVF as well as laterally in V4 through V6. Arterial blood gas reveals pH of 7.49 with a pCO2 43, PO2 55 with a bicarb of 33, saturation of 90% with a base excess 10 on 36% FiO2. On laboratory analysis the patient has elevated white count of 13.1, hemoglobin of 13.2 and hematocrit 38.6 with platelets 230. He has a sodium 135 and potassium of 3.0 has a chloride of 89 and a CO of 36. His BUN is 18 with a creatinine 1.1 and EGFR of greater than 60. Magnesium level is 2.2. His total CK is 123, CK-MB is 4.05 and troponin is elevated at 0.247 and proBNP is 34,700. His D-dimer is 362. Procalcitonin is less than 0.05 and lactic acid is 1.1. In the ER the patient received albuterol nebulizer, DuoNeb treatment, aspirin 324 mg, Lasix 80 mg, methylprednisolone 125 mg magnesium sulfate rider 2 g, nitroglycerin topical 0.5 in and heparin 5000 units with a start of heparin infusion per cardiac protocol. Cardiology was consulted with Dr. Mix speaking with Dr. Rhodes. The patient case was discussed in felt the patient did not require transfer at this time syncope managed with aggressive diuresis an echocardiogram in the morning. The patient is admitted to the medicine service who for acute hypoxic respiratory failure secondary to COPD exacerbation, non-STEMI DC and congestive heart failure. Discharge Providers Provider Date of admission: 12/20/19 22:22 Discharge Date: 12/23/19 Primary care physician: Stephen Bonilla MD Consults: 12/20/19 23:39 Consult to Dietitian, Adult Routine Comment: Reason For Exam: Protein malnutrition, chronic hypoxia 12/21/19 00:57 Consult to Respiratory Therapy Routine Comment: Physician Instructions: Evaluate and treat 12/21/19 07:32 Consult to Cardiology Routine Comment: Consulting Provider: Ki Moeller Reason for consultation: NSTEMI, CHF, COPD exac Has provider been notified: Yes 12/22/19 10:14 Consult to Occupational Therapy Evaluate & Treat Comment: Physician Instructions: Evaluate and treat Consult to Palliative Care Routine Comment: Consulting Provider: Rubina Bonilla Consult to Physical Therapy Evaluate & Treat Comment: Physician Instructions: Evaluate and Treat Discharge provider: Evangelina Schulz DO Summary Hospital Course Discharge Diagnosis: 1. Acute on chronic hypoxemic respiratory failure, present on admission. Acute portion resolved. 2. Acute COPD exacerbation, present on admission. Resolved. 3. Type 2 DC, secondary to severe hypoxemia, present on admission. Resolved. 4. Acute exacerbation of biventricular systolic congestive heart failure, present on admission. Resolving. 5. Hypertensive emergency, in setting of chronic hypertension, present on admission. Hypertensive emergency resolved. 6. Hyperglycemia, secondary to glucocorticoids, present on admission. Stable. 7. Acute hypokalemia, present on admission. Active. 8. Possible GLENNA on chronic kidney disease stage 3, present on admission. Stable. 9. Alcohol abuse, present on admission. Stable. 10. Gastroesophageal reflux disorder, chronic, stable 11. Hyperlipidemia, chronic, present on admission. Stable. Hospital Course: Kervin Vincent is a 74-year-old male with a complex past medical history including coronary artery disease status post bypass surgery and STEMI (2016), right frontal CVA, peripheral vascular disease, COPD, CKD stage 3, hypertension, hyperlipidemia, systolic CHF, GERD, and bladder cancer status post TURP who presented to the ED progressive worsening shortness of breath over 2 days. 1. Acute on chronic hypoxemic respiratory failure, present on admission. Acute portion resolved. -Unclear of triggering event with multiple complicating comorbidities: -History of COPD with recurrent exacerbations presenting with wheezing and markedly diminished air movement. -History congestive heart failure, diminished breath sounds bilateral bases with coarseness and crackles, marked JVD, proBNP 34,700. -Ruled out infectious etiology as chest x-ray negative, afebrile, WBC normal, procalcitonin negative. -Continued respiratory therapy evaluation treatment. Continued supplemental oxygen as needed to keep oxygen saturation 88-92%. Patient is now back to his baseline oxygen requirement of 1.5 L/min. -Continued to treat underlying problems as below. 2. Acute COPD exacerbation, present on admission. Resolved. -Patient presented with increasing shortness of breath for 2-3 days with progressive weakness. Patient noted to dyspnea with minimal activity on home oxygen at 1.5 L/min requiring more oxygen from baseline. -Chest x-ray demonstrated prior CABG, mild pulmonary edema superimposed on chronic interstitial prominence. Heart size is upper limits of normal. -ABG: PH 7.49, PCO2 is 43, PaO2 was 55. -Respiratory viral PCR negative. -Received methylprednisolone 125 mg IV x 1 in ED. Continue methylprednisolone decreased from 80 mg IV every 8 hours to once daily. Plan to titrate to PO prednisone tomorrow. -Continued respiratory therapy evaluation and treatment. Continued supplemental oxygen as necessary to maintain oxygen saturation 88-92%. Currently back to baseline oxygen requirement of 1.5 L/min. Continued DuoNebs every 6 hours while awake and albuterol nebulizer every 2 hours as needed shortness of breath or wheezing. Of note, the patient has no home inhalers listed on med reconciliation will need to be discharged home with appropriate inhalers. -Ordered palliative care consultation to establish goals of care as patient is likely end-stage COPD but unobtainable due to scheduling conflict and will try to arrange outpatient. 3. Type 2 DC, secondary to severe hypoxemia, present on admission. Resolved. -Patient denies chest pain or pressure. -EKG demonstrated sinus rhythm rate 92, frequent multifocal PVCs left atrial enlargement, with lateral T-wave inversion and inversion Q-waves in lead II and AVF. -Serial troponin highly elevated and peaked at 0.291. Trending down now 0.247. No need to further trend. -Continued aspirin 81 mg daily, atorvastatin 20 mg daily at bedtime, amlodipine 10 mg daily and carvedilol 25 mg twice daily. Discontinued nitropaste as BP improved and now labile and low normal. -Continued cardiac heparin gtt for 24 hours. -Echocardiogram did not show new wall motion changes as below. 4. Acute exacerbation of biventricular systolic congestive heart failure, present on admission. Resolving. -Patient presented with progressive worsening shortness of breath. -Chest x-ray demonstrated prior CABG, mild pulmonary edema superimposed on chronic interstitial prominence. Heart size is upper limits of normal. -ProBNP is 34,700. -Echocardiogram demonstrated reduced LV function with EF 40-45%, basal to mid inferior-inferolateral wall is scarred, RV is grossly normal size with RV function mild to moderately reduced, IVC suggests a CVP of around 15 mmHg increased from previous study, diastolic parameters could not be assessed. -Received Lasix 80 mg IV x 1 in ED. Continued aggressive diuresis with furosemide 40 mg IV every 8 hours and plan for diuretic break today. Continued toresimide 10 mg daily as outpatient. -Continued to monitor strict I&O's and daily weights. 5. Hypertensive emergency, in setting of chronic hypertension, present on admission. Hypertensive emergency resolved. -Patient denies headaches or visual changes. -Patient has end-organ injury with elevated troponins consistent with hypertensive emergency. -Per ER documentation the patient has had labile blood pressures between 130 to 210 systolic pressures. -Continued home amlodipine 10 mg daily and carvedilol 25 mg twice daily with addition of lisinopril 10 mg and nitro paste one-inch x1. Did not continue nitropaste as patient's blood pressures are labile. 6. Hyperglycemia, secondary to glucocorticoids, present on admission. Stable. -Hemoglobin A1c normal at 5.4%. -Continued [facility] blood glucose checks and low dose correctional scale insulin. 7. Acute hypokalemia, present on admission. Active. -Initial potassium level 3.0 on admission. Received potassium chloride 40 mEq IV x1 and 40 mEq PO x3. Potassium level now 4.7. -Patient receiving IV diuresis and usually is on torsemide outpatient. Continued to monitor potassium level and replete as necessary. 8. Possible GLENNA on chronic kidney disease stage 3, present on admission. Stable. -Baseline creatinine highly variable but seems to be between 1.5-2.8 over the last 1 year. Initial creatinine 1.10 on admission and likely falsely low due to volume overload. Creatinine now 2.4. -Continued to avoid nephrotoxic agents and optimize renal perfusion. Of note, patient recently taken off lisinopril possibly for chronic cough vs worsening kidney disease? -Continued to monitor renal function daily. 9. Alcohol abuse, present on admission. Stable. -Patient consumes 1/2 gal of vodka per week. Last drink was day of admission. -Continued CIWA protocol with request to notify provider of his CIWA score greater than 6. -Continued home folic acid 800 mcg daily and multivitamin daily and added thiamin 100 mg daily. 10. Gastroesophageal reflux disorder, chronic, stable -Continued protonix 20 mg daily. 11. Hyperlipidemia, chronic, present on admission. Stable. -Fasting lipid panel demonstrated excellent lipid control. -Continued home atorvastatin 20 mg daily. Exam Vital Signs (past 8 hours): - 12/23/19 04:00 12/23/19 08:10 12/23/19 09:13 Temperature 97.9 F 98.1 F Pulse Rate 71 62 63 Respiratory Rate 24 25 H 18 Blood Pressure 100/82 108/60 Pulse Oximetry 99 98 94 Fraction of Inspired Oxygen 30 Oxygen Delivery Method Nasal Cannula Oxygen Flow Rate 1.5 Narrative Exam Narrative: General: Elderly thin and frail-appearing gentleman sitting in bed and in no acute distress, appears significantly older than stated age, slightly irritable but otherwise appropriately interactive. HEENT: Normocephalic, atraumatic. External ears without defect. Pupils equal, round, and reactive to light. Anicteric sclerae, moist conjunctivae, and no lid lag. Oropharynx free of erythema and cobble stoning with moist mucosa. Neck: Supple with full range of motion. No jugular venous distension. No lymphadenopathy or thyromegaly. Cardiovascular: Regular rate and rhythm without murmurs, rubs, or gallops appreciated Pulmonary: Improved air movement but still very dimished with occassional wheeze. Normal respiratory effort with no use of accessory muscles. Abdomen: Soft, bowel sounds present, nontender, nondistended. No hepatosplenomegaly or masses appreciated. Extremities: No clubbing, cyanosis, or edema. Skin: Normal temperature, turgor, and texture; no rash, ulcers, or subcutaneous nodules appreciated. Neurological: Cranial nerves grossly intact. Psychiatric: Slightly irritable mood and normal affect. Alert and oriented to person, place, and time. Objective Labs Result Diagrams: 12/23/19 05:10 12/23/19 05:10 Labs: Laboratory Results - last 24 hr 12/22/19 12/23/19 12/23/19 08:00 05:10 05:10 WBC 12.8 H RBC 2.78 L Hgb 9.1 L Hct 27.1 L MCV 97.6 MCH 32.6 MCHC 33.4 RDW 14.6 Plt Count 149 L Neut % (Auto) 89.8 H Lymph % (Auto) 3.3 L [place] % (Auto) 6.9 Eos % (Auto) 0.0 L Baso % (Auto) 0.0 Neut # (Auto) 35848 H Lymph # (Auto) 400 L [place] # (Auto) 900 Eos # (Auto) 0 Baso # (Auto) 0 Sodium 125 L Potassium 4.6 D Chloride 94 L Carbon Dioxide 25 BUN 62 H Creatinine 2.60 H Estimated GFR 24.2 L BUN/Creatinine Ratio 23.8 H Glucose 141 H Hemoglobin A1c 5.4 Calcium 7.8 L Magnesium 2.4 H Discharge Plan Discharge Plan Patient Disposition: Home Health Service Discharge comment: You are being discharged home with home health for physical therapy, occupational therapy, nursing, practical nursing teacher and outreach and education social worker. You had a COPD exacerbation, mild heart attack, and worsening oxygenation. You have been prescribed prednisone 40 mg for 2 additional days to start tomorrow and to finish treating your COPD exacerbation. You have been prescribed DuoNebs or a breathing treatment once in the morning and once at night. You may use your albuterol inhaler as a rescue inhaler and at needed for shortness of breath or wheezing. Continue supplemental oxygen 1.5 L continuous at all times including rest and activity. Please try to abstain from smoking and drinking alcohol or cut back substantially. You have been prescribed nicotine patches once daily to help quit smoking. Please follow-up with your primary care physician, Dr. Chad I your scheduled appointment regarding your hospitalizationand for repeat lab work to check your sodium level and your kidney function. Discharge orders & Medications Prescriptions: New nicotine 21 mg/24 hr Patch 24 Hour 21 mg topical DAILY Qty: 30 RF: 0 thiamine HCl (vitamin B1) [Vitamin B-1] 100 mg Tablet 100 mg PO DAILY Qty: 30 RF: 0 ipratropium-albuterol 0.5 mg-3 mg(2.5 mg base)/3 mL Solution For Nebulization 3 ml inhalation BID Qty: 90 RF: 0 Continued multivitamin [Tab-A-Yariel] tablet 1 tab PO DAILY RF: 0 aspirin [Adult Low Dose Aspirin] 81 mg tablet,delayed release (DR/EC) 81 mg PO DAILY RF: 0 folic acid 800 mcg tablet 0.8 mg PO DAILY RF: 0 amlodipine 10 MG tablet 10 mg PO QDAY Qty: 30 RF: 5 nitroglycerin [Nitrostat] 0.4 MG tablet, sublingual 1 tab PO PRN PRNQty: 30 RF: 1 omeprazole 20 mg capsule,delayed release(DR/EC) 20 mg PO QDAY Qty: 30 RF: 5 atorvastatin [Lipitor] 20 mg tablet 20 mg PO HS Qty: 30 RF: 5 carvedilol [Coreg] 25 mg tablet 25 mg PO BID Qty: 60 RF: 5 gabapentin [Neurontin] 300 mg capsule 300 mg PO HS Qty: 90 RF: 0 No Action torsemide 10 mg tablet 10 mg PO BID RF: 0 levofloxacin 750 mg tablet 750 mg PO DAILY 4 Days Qty: 4 RF: 0 prednisone 20 mg tablet 40 mg PO DAILY 4 Days Qty: 8 RF: 0 Other Ambulatory Orders: Basic Metabolic Panel (Stat) Timeframe: 1 Week Facility: [facility] - Location: Laboratory Ordered By: Evangelina Schulz Follow up/Referrals: Stephen Bonilla MD [Primary Care Provider] - 1 Week (December @ 11AM ) Diet/Activity/Treatments Diet: Diet as Tolerated, Low-fat, Low-sodium and Low-cholesterol Activity: Activity as tolerated with cane or forward wheeled walker Oxygen: 1.5 L at all times rest and activity Visit Report/Discharge Packet Instructions: The DASH Diet, DI for Chronic Obstructive Pulmonary Disease, Chronic Renal Failure, DI for Respiratory Failure Discharge Data Primary Care Provider: Stephen Bonilla Discharges patient from system. Discharge Date/Time: 12/23/19 14:13 Quality VTE Deep Vein Thrombosis/Pulmonary Embolism Present on Admission: No
[2019-12-23 12:00] VITALS: BP 145/63; PULSE 63; RESP 21; TEMP 36.3; O2SAT 98
--- NOTE | 2019-12-23 12:08 | CM.DPC ---
Addendum entered by Rasheeda Mayer R.N. 12/23/19 12:50: Went ahead and faxed over discharge summary to [facility]. Included med sheets, and some discharge instruction information. Original Note: DCP Cont: Patient is discharging home today. POLST form was updated as well. O.T. is recommending home health for patient. Discussed with Dr. Schulz, who stated that home health can be ordered if patient consents to this. Spoke to patient in his room. Discussed home health, and he stated, home health would be ok. He has no preferences on agencies. [facility] is on calendar for this week. Patient will benefit from nursing, P.T, O.T, MANIFOLD BUILDER, and bath aide. Had Dr. Schulz sign face to face. Patient will also be following up at Dr. Bonilla's office. Updated Donald at [facility] about referral. Confirmed that they do accept his [employer] insurance. Let him know the disciplines that patient will need, and gave him a brief history. Faxed over face sheet, face to face, orders, and H&P, discharge summary is pending. Let [facility] know that discharge is today, and will fax over DC summary when complete. Donald at [facility] will review. P: Patient is to discharge home today with [facility]. Rasheeda Mayer RN/Churn Driller
--- NOTE | 2019-12-23 12:32 | OT.IP.TRT ---
Current Diagnoses Hypo-osmolality and hyponatremia (12/20/19) Acute respiratory failure with hypoxia (12/20/19) Chronic kidney disease, stage 3 (moderate) (12/20/19) Occupational Therapy Treatment Note M3 OT- IP Subjective and Pain Start: 12/22/19 17:34 Freq: Status: Active Protocol: Document 12/23/19 12:32 [facility] (Rec: 12/23/19 15:42 [facility] [id number]) OT- Subjective Occupational Therapy Visit Type Type Treatment Note Visit Start Time 11:55 Visit Stop Time 12:32 Total Visit Minutes 37 Occupational Therapy Visit Comments Patient Comments Pt willing to get dressed. Patient/Caregiver Goals To go home and take care of himself and his cat. OT Pain Assessment Pain When Pain Assessed At Rest Pain Present Pain Present Denied Pain M4 OT- IP ADL's Start: 12/22/19 17:34 Freq: Status: Active Protocol: Document 12/23/19 12:32 [facility] (Rec: 12/23/19 15:42 [facility] [id number]) OT ADL-Dressing General Eval Upper Body Dressing Ability Minimal Assistance Lower Body Dressing Ability Standby Assistance Comments OT Dressing Comments Assist to do snaps on his shirt. Pt able to sit initially to barbie pants over his feet and then able to stand with back on his legs on the bench seating by the window and pull up pants to fasten and then aware to sit down as getting tired. Pt able to complete rest of LB dressing of socks and boots. Suggested may be safer if insisting to stand to lean against a wall while pulling his pants up and start by sitting to get his legs in versus standing. In addition pt's pants to big to get smaller size or use of suspenders to keep from having to walk with his pants down. OT ADL-Toileting General Evaluation Toileting Ability Independent Comments OT Toileting Comments Pt able to use the toilet on his won by walking in without his cane via holding to the wall and grab bars. OT ADL-Bathing Comments OT Bathing Comments Pt not wanting to shower at this time. M6 OT- IP Functional Cognition Start: 12/22/19 17:34 Freq: Status: Active Protocol: Document 12/23/19 12:32 [facility] (Rec: 12/23/19 15:42 [facility] [id number]) Cognitive Factors Limiting Selfcare Function Cognitive Ability Level of Alertness Alert Patient Orientation Name,Age,Birthday,Month,Year, Day of Week,Place,Situation Attention Span Ability Capable of Focused Attention, Capable of Sustained Attention Ability to Follow Commands Able to Follow Multi-Step Commands Memory Description Short Term Impaired Cognitive Comments Cognitive Assessment Comments Appears at baseline, forgot where he set his cane down while using the bathroom. Pt has good awareness that he will get a pulse Ox and blood pressure cuff to be more proactive his health. Pt's O2 dropped to 83% without O2 and he aware that he should use his O2 at all times, especially when up on his feet. M7 OT- IP Mobility and Balance Start: 12/22/19 17:34 Freq: Status: Active Protocol: Document 12/23/19 12:32 [facility] (Rec: 12/23/19 15:42 [facility] [id number]) OT-Transfer Assessment Sit to and From Stand Sit to and from Stand Standby Assistance Transfers Transfer Ability Standby Assistance Technique Transfer Destination Bed,Chair Devices Transfer Assistive Devices Gait Belt,Straight Cane Comments Mobility Comments Distant SBA , when moving fast pt has slight loss of balance but able to correct himself. Pt more stable with his boots on. OT- Gait Assessment Gait Gait Assistance Required: Standby Assistance Assistive Devices Assistive Device Gait Belt,Straight Cane Comments Gait Ability Comments SBA without his boots, and MOD I when having his boots on and use of SPC. OT- Balance Assessment Sitting Balance and Reactions Static Sitting Balance Ability Normal Dynamic Sitting Balance Ability Normal Standing Balance and Reactions Static Standing Balance Ability Fair M9 OT- IP Assessment and Plan Start: 12/22/19 17:34 Freq: Status: Active Protocol: Document 12/23/19 12:32 [facility] (Rec: 12/23/19 15:42 [facility] [id number]) OT Summary Assessment and Plan Potential Rehabilitation Potential Good Analytic Complexity at Evaluation Low Summary OT Impairments Balance,Coordination, Functional Mobility,Dressing, Bathing,Activity Tolerance Progress Towards Goals Progressing Toward Goals Assessment Summary Pt O2 drops during functional activities of dressing to 83% and will benefit from use of O2 at all times instead of just when sleeping. Pt has decreased dynamic balance and considering getting a hurry cane so that he will not have to cone picker his cane if it drops. Pt states FWW will not fit in his RV as furniture walks and use of SPC outside. Pt will benefit from home health OT/PT. Goals Grooming Goal Independent Dressing Goal Independent Toileting Goal Independent Bathing Goal Independent Toilet Transfer Goal Independent Shower Transfer Goal Independent Patient/Caregiver Education Goal Demonstrate Energy Conservation and Pacing Days to Meet Goals 1 Frequency of Treatment Frequency Of Treatment Once a Day Treatment Plan OT Treatment Plan ADL Training,Functional Mobility,Patient/Family Education,Discharge Planning Discharge Recommendations OT Discharge Recommendations Home,Home Health Home Equipment Needs Hurrycane Transportation Needs at Discharge Private Vehicle
--- NOTE | 2019-12-23 14:09 | PC.NURSE ---
DISCHARGED PT TO HOME- HE REQUIRES 1.5 L OF O2 @ ALL TIMES- REMAINS SOB AND WEAK BUT ABLE TO WORK WITH PT/OT AND AGREEABLE TO HOME HEALTH- REVIEWED D/C PLAN INCLUDING RX AND FOLLOW UP AND ANSWERED ALL QUESTIONS TO HIS SATISFACTION
[2019-12-23 14:12] VITALS: BMI 20.9
== END 2019-12-23 14:13 | disposition home health service (06) | DRG 189 ==
LOC: ED 22:10 → AC 22:23 → ICU 12-21 08:42
PROVIDERS: Internal Medicine; Admitting Provider Nurse Practitioner Adult Health; Emergency Provider Emergency Medicine; PCP Internal Medicine; Referring Provider Emergency Medicine; Visit Provider Nurse Practitioner Adult Health
DX: J96.21 Acute and chronic respiratory failure with hypoxia (principal); I21.A1 Myocardial infarction type 2; I50.23 Acute on chronic systolic (congestive) heart failure; E43 Unspecified severe protein-calorie malnutrition; I13.0 Hypertensive heart and chronic kidney disease with heart failure and stage 1 through stage 4 chronic kidney disease, or unspecified chronic kidney disease; J44.1 Chronic obstructive pulmonary disease with (acute) exacerbation; I16.1 Hypertensive emergency; N17.9 Acute kidney failure, unspecified; E87.6 Hypokalemia; R40.2362 Coma scale, best motor response, obeys commands, at arrival to emergency department; R40.2132 Coma scale, eyes open, to sound, at arrival to emergency department; R40.2242 Coma scale, best verbal response, confused conversation, at arrival to emergency department; N18.3 Chronic kidney disease, stage 3 (moderate); I25.10 Atherosclerotic heart disease of native coronary artery without angina pectoris; E78.5 Hyperlipidemia, unspecified; F17.210 Nicotine dependence, cigarettes, uncomplicated; F12.90 Cannabis use, unspecified, uncomplicated; Z95.1 Presence of aortocoronary bypass graft; Z85.51 Personal history of malignant neoplasm of bladder; F10.10 Alcohol abuse, uncomplicated; K21.9 Gastro-esophageal reflux disease without esophagitis; R73.9 Hyperglycemia, unspecified; T38.0X5A Adverse effect of glucocorticoids and synthetic analogues, initial encounter
CPT/HCPCS: 36415; 36592; 36600; 71045; 80048; 80053; 80061; 81001; 82550; 82553; 82805; 82962; 83036; 83605; 83735; 83880; 84145; 84484; 85025; 85379; 85730; 87040; 87086; 87633; 87797; 93005; 93306; 94640; 94660; 94762; 96361; 96365; 96375; 96376; 97116; 97162; 97165; 97530; 97535; 99285; C9113; J1644; J1940; J2930; J3480; J7613

== ENCOUNTER 2019-12-28 10:28 | Observation (INO) | payer MEDICARE, MEDICAID, SELFPAY ==
[2019-12-22 08:02] VITALS: PULSE 65; RESP 18; O2SAT 98
[2019-12-28] VITALS (13 sets, daily range): BP systolic 139–216; BP diastolic 60–114; PULSE 59–89; RESP 12–25; TEMP 35.7–36.8; O2SAT 90–100; BMI 21.7; BMI 20.7
--- NOTE | 2019-12-28 10:32 | DI.RAD.S_ITS ---
PROCEDURE: XR CHEST 1V INDICATIONS: SOB TECHNIQUE: One view of the chest was acquired. COMPARISON: [facility], CR, XR CHEST 1VW (PORTABLE), 02/01/2017, 5:28. [facility], CR, XR CHEST 1V, 12/20/2019, 20:21. FINDINGS: Surgical changes and devices: Postsurgical changes redemonstrated in the mediastinum. Lungs and pleura: There is hyperinflation of the lungs with flattening of the hemidiaphragms compatible with COPD. Persistent pulmonary edema appears similar to the prior study. Linear left basilar opacities are again noted suggestive of atelectasis. There is suspected small pleural effusion. Mediastinum: Mediastinal contours appear unchanged. Heart size is normal. Bones and chest wall: Multiple healed bilateral rib fractures are redemonstrated. No suspicious bony lesions. Overlying soft tissues appear unremarkable. IMPRESSION: 1. Persistent pulmonary edema and suspected small left pleural effusion. Dictated by: Jonnathan Sadler M.D. on 12/28/2019 at 9:44 Approved by: Jonnathan Sadler M.D. on 12/28/2019 at 9:53
--- NOTE | 2019-12-28 10:38 | ED.GENADULT ---
HPI - General Adult General Chief complaint: Shortness of Breath/Dyspnea Stated complaint: SOB, on C-pap Time Seen by Provider: 12/28/19 10:31 Source: patient and EMS Mode of arrival: EMS Limitations: no limitations History of Present Illness HPI narrative: 74-year-old male. Arrived by EMS on CPAP for evaluation of shortness of breath. Initial report was that the patient recently was admitted to an outside facility with a diagnosis of an [place]. Do not have any other information regarding the situation other than this. Patient does report that over the past couple days has been having worsening shortness of breath. He states he does have a history of CHF and COPD. Is on home oxygen however his symptoms have been worsening. He denies any chest pain or any other symptoms. Patient is a DNR/DNI. He does have his paperwork with him. I did confirm this with him. Related Data Home Medications Medication Instructions Recorded Confirmed aspirin 81 mg tablet,delayed 81 mg PO DAILY 05/20/18 12/21/19 release folic acid 800 mcg tablet 0.8 mg PO DAILY 05/20/18 12/21/19 multivitamin 1 tab PO DAILY 05/20/18 12/21/19 torsemide 10 mg PO BID 12/28/19 12/28/19 Previous Rx's Medication Instructions Recorded amlodipine 10 mg PO QDAY #30 tab 11/19/17 nitroglycerin [Nitrostat] 1 tab PO PRN PRN #30 11/19/17 omeprazole 20 mg capsule,delayed 20 mg PO QDAY #30 cap 06/14/18 release atorvastatin 20 mg tablet 20 mg PO HS #30 tab 07/04/18 carvedilol 25 mg tablet 25 mg PO BID #60 tab 07/10/18 gabapentin 300 mg capsule 300 mg PO HS #90 cap 12/11/18 ipratropium-albuterol 3 ml INHALATION BID #90 ml 12/23/19 nicotine 21 mg TOPICAL DAILY #30 patch 12/23/19 prednisone 40 mg PO DAILY #4 tab 12/23/19 thiamine HCl (vitamin B1) [Vitamin 100 mg PO DAILY #30 tab 12/23/19 B-1] Allergies Allergy/AdvReac Type Severity Reaction Status Date / Time No Known Drug Allergies Allergy Verified 12/20/19 19:46 Review of Systems Constitutional Constitutional: Denies fever(s) and Denies headache(s) ENT Ears, Nose, Mouth, and Throat: Denies headache(s) Cardiovascular Cardiovascular: Denies chest pain, Reports dyspnea and Reports dyspnea on exertion Respiratory Respiratory: Reports dyspnea and Reports dyspnea on exertion Gastrointestinal Gastrointestinal: Denies abdominal pain, Denies nausea and Denies vomiting Genitourinary Genitourinary: Denies dysuria Musculoskeletal Musculoskeletal: Denies myalgias and Denies arthralgias Integumentary/Breasts Skin/Breast: Denies lesions and Denies rash Neurologic Neurologic: Denies behavioral changes and Denies headache(s) Psychiatric Psychiatric: Denies behavioral changes Hematologic/Lymphatic Hematologic/Lymphatic: Denies easy bleeding and Denies easy bruising Patient History Medical History Alcohol abuse (Inactive) Bladder cancer (Chronic Unknown) CKD (chronic kidney disease) (Chronic Unknown) Congestive heart failure (Inactive) COPD (chronic obstructive pulmonary disease) (Chronic Unknown) Coronary artery disease (Chronic Unknown) Gastroesophageal reflux disease (Acute) Hyperlipemia (Chronic Unknown) Hypertension (Chronic Unknown) PAD (peripheral artery disease) (Chronic Unknown) Stroke (Resolved 02/2016) Surgical History (Updated 12/21/19 @ 00:27 by MARIANELA Thomas) History of appendectomy (Acute) Hx of coronary artery bypass graft (Resolved Unknown) Hx of transurethral resection of prostate (Resolved 10/2016) Social History household members: none Smoking Status: Former smoker alcohol intake: current Smoking Status: Former smoker alcohol intake frequency: 0-2 drinks per day Substance Use Type: marijuana Exam Initial Vital Signs Initial Vital Signs: Vital Signs Temperature 96.2 F L 12/28/19 10:20 Respiratory Rate 16 12/28/19 10:20 Blood Pressure 216/91 H 12/28/19 10:20 Pulse Oximetry 98 12/28/19 10:20 Const General: cooperative, comfortable and ill appearing Limitations: mental status not altered HENMT Head: normal to inspection and normocephalic Resp Effort & Inspection: labored, no retractions and tachypneic Auscultation: rales, rhonchi and wheezes Cardio Rate: regular rate Rhythm: regular rhythm Pulses: radial pulses present GI Inspection: non-distended Palpation: soft Skin Lesions: no lesions Rashes: no rashes Neuro General: alert and awake Cognition: normal cognition Extrem General: normal to inspection, capillary refill normal and No edema Psych Appearance: grossly normal and well kempt Scores GCS [place] coma scale eye opening: Spontaneous Bard coma scale verbal response: Orientated [place] coma scale motor response: Obey commands [place] coma scale total score: 15 Course Orders Ordered: ED Orders 12/28/19 10:32 XR chest 1V Stat 12/28/19 10:33 EKG-12 Lead Stat 12/28/19 11:05 Arterial Blood Gas Stat 12/28/19 11:41 Complete Blood Count AUTO DIFF Stat 12/28/19 13:08 Comprehensive Metabolic Panel Stat Lactate (Lactic Acid) Stat Lipase Stat NT-proBNP (BNP-Adult 18+) Stat Partial Thromboplastin Time Stat Procalcitonin Stat Prothrombin Time INR Stat Troponin I Stat Acetaminophen (Tylenol) 650 mg PO Q6HR PRN PRN Reason: Fever/Mild Pain (1-3) Al Hydrox/Mg Hydrox/Simethicone (Maalox Plus) 30 ml PO Q6HR PRN PRN Reason: Dyspepsia Albuterol/Ipratropium (Duoneb) 3 ml INH [id number] [facility] Last Admin: 12/28/19 15:11 Dose: 3 ml Documented by: ABBY Amlodipine Besylate (Norvasc) 10 mg PO DAILY [facility] Aspirin (Aspirin Ec) 81 mg PO DAILY [facility] Atorvastatin Calcium (Lipitor) 20 mg PO BEDTIME [facility] Bisacodyl (Dulcolax) 10 mg PO DAILY PRN PRN Reason: Constipation Carvedilol (Coreg) 25 mg PO BID [facility] Enoxaparin Sodium (Lovenox) 30 mg SUBCUT DAILY [facility] Gabapentin (Neurontin) 300 mg PO BEDTIME [facility] Levofloxacin (Levaquin) 500 mg in 100 mls @ 100 mls/hr IV Q24H [facility] Last Admin: 12/28/19 16:15 Dose: 100 mls/hr Documented by: DAMION Magnesium Hydroxide (Milk Of Magnesia) 30 ml PO DAILY PRN PRN Reason: Constipation Methylprednisolone (Solu-Medrol 125 Mg Vial) 60 mg IV Q8H [facility] Nicotine (Nicoderm) 21 mg TOP DAILY [facility] Last Admin: 12/28/19 16:15 Dose: 21 mg Documented by: DAMION Nitroglycerin (Nitrostat) 0.4 mg SL PRN PRN PRN Reason: Chest Pain Pantoprazole Sodium (Protonix) 20 mg PO 0600 JUNG Torsemide (Demadex) 10 mg PO BID JUNG Discontinued Medications Albuterol/Ipratropium (Duoneb) 3 ml INH Q20M JUNG Stop: 12/28/19 11:26 Last Admin: 12/28/19 11:23 Dose: 3 ml Documented by: Admin: 12/28/19 11:22 Dose: 3 ml Documented by: Admin: 12/28/19 11:22 Dose: 3 ml Documented by: ABBY Enoxaparin Sodium (Lovenox) 40 mg SUBCUT DAILY JUNG Furosemide (Lasix) 60 mg IV NOW ONE Stop: 12/28/19 11:00 Last Admin: 12/28/19 11:08 Dose: 60 mg Documented by: CRISTIAN Lidocaine HCl (Xylocaine 1% (Pf)) 2 ml INJ NOW ONE Stop: 12/28/19 12:54 Last Admin: 12/28/19 13:51 Dose: Not Given Documented by: RSANTOINETTEE Lidocaine/Sodium Bicarbonate (Buffered Lidocaine 5ml Syringe) 5 ml INJ NOW ONE Stop: 12/28/19 12:51 Last Admin: 12/28/19 13:51 Dose: Not Given Documented by: RSTONE Lisinopril (Zestril) 10 mg PO QAM JUNG Methylprednisolone (Solu-Medrol 125 Mg Vial) 125 mg IV NOW ONE Stop: 12/28/19 11:01 Last Admin: 12/28/19 11:08 Dose: 125 mg Documented by: CRISTIAN Nitroglycerin (Nitro-Bid) 0.5 inch TOP NOW ONE Stop: 12/28/19 10:38 Last Admin: 12/28/19 10:42 Dose: 0.5 inch Documented by: NEGRITA Vital Signs Vital signs: Vital Signs - 8 hr 12/28/19 10:20 12/28/19 10:42 12/28/19 11:22 Temperature 96.2 F L Pulse Rate 74 70 Respiratory Rate 16 19 Blood Pressure 216/91 H 216/91 H Blood Pressure [Left Arm] 174/78 H Blood Pressure [Right Arm] Pulse Oximetry 98 96 12/28/19 12:15 12/28/19 13:53 Temperature Pulse Rate 59 L 80 Respiratory Rate 22 18 Blood Pressure Blood Pressure [Left Arm] 182/74 H Blood Pressure [Right Arm] 185/80 H Pulse Oximetry 90 L 95 Medical Decision Making Lab Data Lab results reviewed: Yes I reviewed the patient's lab results. Result diagrams: 12/28/19 11:41 12/28/19 13:08 Labs: Lab Results 12/28/19 12/28/19 12/28/19 Range/Units 11:05 11:41 13:08 WBC 18.9 H (4.5-11.0) X10^3/uL RBC 3.63 L (4.5-5.9) X10^6/uL Hgb 11.7 L (13.5-17.5) g/dL Hct 35.8 L (41-53) % MCV 98.5 (80-100) fL MCH 32.3 (26-34) PG MCHC 32.8 (30-36) % RDW 15.3 H (11.6-14.8) % Plt Count 290 (150-400) X10^3/uL Neut % (Auto) 85.1 H (50-75) % Lymph % (Auto) 6.3 L (25-40) % [place] % (Auto) 7.7 (3-14) % Eos % (Auto) 0.4 L (2-4) % Baso % (Auto) 0.5 (0-2) % Neut # (Auto) 24131 H (8008-1867) /uL Lymph # (Auto) 1200 (2897-4543) /uL [place] # (Auto) 1500 H (0-900) /uL Eos # (Auto) 100 (0-450) /uL Baso # (Auto) 100 (0-100) /uL PT 10.2 (10.1-12.7) SECONDS INR 0.9 (0.9-1.3) APTT 29 D (26.4-36.2) SECONDS ABG pH 7.39 (7.35-7.45) ABG pCO2 46.5 H (35-45) mmHg ABG pO2 93 (80-100) mmHg ABG HCO3 28 H (22-26) mmol/L ABG Total CO2 30 (21-31) mmol/L ABG O2 Saturation 97 (95-100) % ABG Base Excess 3.0 H (-2-2) mmol/L FiO2 40 Sodium (137-145) mmol/L Potassium (3.4-5.1) mmol/L Chloride (98-107) mmol/L Carbon Dioxide (22-32) mmol/L BUN (9-20) mg/dL Creatinine (0.66-1.25) mg/dL Estimated GFR (>60) mL/min BUN/Creatinine Ratio (6-22) Glucose (80-110) mg/dL Lactate (0.7-2.1) mmol/L Calcium (8.4-10.2) mg/dL Total Bilirubin (0.2-1.3) mg/dL AST (17-59) IU/L ALT (<50) IU/L Alkaline Phosphatase (38-126) U/L Troponin I (0.01-0.034) ng/mL NT-Pro-B Natriuret Pep (<125) pg/mL Total Protein (6.3-8.2) g/dL Albumin (3.5-5.0) g/dL Globulin (1.7-4.1) g/dL Albumin/Globulin Ratio (1.0-2.8) Lipase (23-300) U/L Procalcitonin (<0.5) ng/mL 12/28/19 12/28/19 12/28/19 Range/Units 13:08 13:08 13:08 WBC (4.5-11.0) X10^3/uL RBC (4.5-5.9) X10^6/uL Hgb (13.5-17.5) g/dL Hct (41-53) % MCV (80-100) fL MCH (26-34) PG MCHC (30-36) % RDW (11.6-14.8) % Plt Count (150-400) X10^3/uL Neut % (Auto) (50-75) % Lymph % (Auto) (25-40) % [place] % (Auto) (3-14) % Eos % (Auto) (2-4) % Baso % (Auto) (0-2) % Neut # (Auto) (8948-8984) /uL Lymph # (Auto) (7178-4947) /uL [place] # (Auto) (0-900) /uL Eos # (Auto) (0-450) /uL Baso # (Auto) (0-100) /uL PT (10.1-12.7) SECONDS INR (0.9-1.3) APTT (26.4-36.2) SECONDS ABG pH (7.35-7.45) ABG pCO2 (35-45) mmHg ABG pO2 (80-100) mmHg ABG HCO3 (22-26) mmol/L ABG Total CO2 (21-31) mmol/L ABG O2 Saturation (95-100) % ABG Base Excess (-2-2) mmol/L FiO2 Sodium 137 D (137-145) mmol/L Potassium 4.4 (3.4-5.1) mmol/L Chloride 101 (98-107) mmol/L Carbon Dioxide 32 (22-32) mmol/L BUN 34 H (9-20) mg/dL Creatinine 1.40 H (0.66-1.25) mg/dL Estimated GFR 49.5 L (>60) mL/min BUN/Creatinine Ratio 24.3 H (6-22) Glucose 118 H (80-110) mg/dL Lactate 0.8 (0.7-2.1) mmol/L Calcium 8.5 (8.4-10.2) mg/dL Total Bilirubin 0.5 (0.2-1.3) mg/dL AST 31 (17-59) IU/L ALT 23 (<50) IU/L Alkaline Phosphatase 63 (38-126) U/L Troponin I 0.170 H* (0.01-0.034) ng/mL NT-Pro-B Natriuret Pep 57932 H (<125) pg/mL Total Protein 5.9 L (6.3-8.2) g/dL Albumin 3.4 L (3.5-5.0) g/dL Globulin 2.5 (1.7-4.1) g/dL Albumin/Globulin Ratio 1.4 (1.0-2.8) Lipase 152 (23-300) U/L Procalcitonin 0.14 (<0.5) ng/mL Imaging Data Chest x-ray: Radiologist's Impression: [address] [address] XRay Report Signed Patient: Carlos VincentSukumar#: [id number] : 6Acct:[id number] Age/Sex: 74 / MDate of Service: 12/28/19 Loc: ED Accession Number: [id number] Procedure: XR chest 1V Ordering Provider: Jewel Foster D.O. PROCEDURE: XR CHEST 1V INDICATIONS: SOB TECHNIQUE: One view of the chest was acquired. COMPARISON: [facility], CR, XR CHEST 1VW (PORTABLE), 02/01/2017, 5:28. [facility], CR, XR CHEST 1V, 12/20/2019, 20:21. FINDINGS: Surgical changes and devices: Postsurgical changes redemonstrated in the mediastinum. Lungs and pleura: There is hyperinflation of the lungs with flattening of the hemidiaphragms compatible with COPD. Persistent pulmonary edema appears similar to the prior study. Linear left basilar opacities are again noted suggestive of atelectasis. There is suspected small pleural effusion. Mediastinum: Mediastinal contours appear unchanged. Heart size is normal. Bones and chest wall: Multiple healed bilateral rib fractures are redemonstrated. No suspicious bony lesions. Overlying soft tissues appear unremarkable. IMPRESSION: 1. Persistent pulmonary edema and suspected small left pleural effusion. Dictated by: Jonnathan Sadler M.D. on 12/28/2019 at 9:44 Approved by: Jonnathan Sadler M.D. on 12/28/2019 at 9:53 ECG Data Attestation: I personally reviewed and interpreted this ECG as follows: Prior ECG tracings: not available for review Interpretation: Sinus rhythm Ventricular rate is 65 Normal axis LVH QRS [address] T wave changes MDM Narrative Medical decision making narrative: Leukocytosis however patient has been on steroids. He is afebrile. Nonproductive cough. Negative procalcitonin. Low suspicion for pneumonia so will hold on antibiotics. Does have a history of COPD and CHF. Does have an elevated BNP. He was given Lasix IV. Is also given steroids. Patient does report feeling better with the BiPAP. Patient is a DNR/DNI. He was okay with medications in the BiPAP. Discussed the case with Dr. Day who will admit for further evaluation and treatment. Discussed the admission with the patient who expressed understanding and agreement. Discharge Plan Departure Patient Disposition: Admitted As Inpatient Clinical Impression: Acute respiratory distress COPD (chronic obstructive pulmonary disease) Qualifiers: COPD type: unspecified COPD Qualified Code(s): J44.9 - Chronic obstructive pulmonary disease, unspecified Congestive heart failure Qualifiers: Heart failure type: unspecified Heart failure chronicity: unspecified Qualified Code(s): I50.9 - Heart failure, unspecified Discharge Date/Time: 12/28/19 14:33 Admit Date/Time: 12/28/19 14:17 Admit Provider: Rito Day
[2019-12-28] MEDS: NITROGLYCERIN OINT 1 INCH/GM OINT...G. 0.5 INCH TOP (10:42)
[2019-12-28] MEDS: FUROSEMIDE 100 MG/10 ML VIAL 60 MG IV (11:08)
[2019-12-28] MEDS: methylPREDNISolone 125 MG/2 ML VIAL IV (11:08)
[2019-12-28] MEDS: ALBUTEROL/IPRATROPIUM 3 ML AMPUL INH ×5 (11:22→20:12)
--- NOTE | 2019-12-28 11:46 | RT ---
Pt arrived via EMS on their CPAP. Pt placed to hosp V60, verbal order, Dr. Burgess: I-10 cmh20, E 5 cmh20, O2 to 40%. Placed pt to ordered settings, pt seems to tolerate well. ABG drawn, results to Dr. Foster.
[2019-12-28 11:52] LABS: Add Manual Diff / Slide Review NO; Basophils Absolute Auto 100 /uL (0-100); Basophils Percent Auto 0.5 % (0-2); Eosinophils Absolute Auto 100 /uL (0-450); Eosinophils Percent Auto 0.4 % (2-4); Hematocrit 35.8 % (41-53); Hemoglobin 11.7 g/dL (13.5-17.5); Lymphocytes Absolute Auto 1200 /uL (1100-4500); Lymphocytes Percent Auto 6.3 % (25-40); Mean Corpuscular HGB Conc 32.8 % (30-36); Mean Corpuscular Hemoglobin 32.3 PG (26-34); Mean Corpuscular Volume 98.5 fL (80-100); Monocytes Absolute Auto 1500 /uL (0-900); Monocytes Percent Auto 7.7 % (3-14); Neutrophils Absolute Auto 16100 /uL (1500-7000); Neutrophils Percent Auto 85.1 % (50-75); Platelet Count 290 X10^3/uL (150-400); Red Blood Cell Count 3.63 X10^6/uL (4.5-5.9); Red Cell Distribution Width 15.3 % (11.6-14.8); White Blood Cell Count 18.9 X10^3/uL (4.5-11.0)
[2019-12-28 12:32] LABS: Fractionated Inspired Oxygen 40; HCO3 ABG 28 mmol/L (22-26); Oxygen Saturation ABG 97 % (95-100); PCO2 ABG 46.5 mmHg (35-45); PO2 ABG 93 mmHg (80-100); TCO2 ABG 30 mmol/L (21-31); pH ABG 7.39 (7.35-7.45)
[2019-12-28] MEDS: LIDO 1%/SOD BICARB 8.4% (10ML) 10 ML SYRINGE INJ (13:02)
--- NOTE | 2019-12-28 13:13 | PC.NURSE ---
Dr. Foster did a fem stick for blood. Right groin with ultrasound machine. tolerated well
[2019-12-28 13:27] LABS: INR 0.9 (0.9-1.3); Prothrombin Time 10.2 SECONDS (10.1-12.7)
[2019-12-28 13:29] LABS: PTT Partial Thromboplastin Tim 29 SECONDS (26.4-36.2)
[2019-12-28 13:31] LABS: Alanine Aminotransferase 23 IU/L (<50); Albumin 3.4 g/dL (3.5-5.0); Albumin Globulin Ratio 1.4 (1.0-2.8); Alkaline Phosphatase 63 U/L (38-126); Aspartate Aminotransferase 31 IU/L (17-59); BUN Creatinine Ratio 24.3 (6-22); Bilirubin Total 0.5 mg/dL (0.2-1.3); Blood Urea Nitrogen 34 mg/dL (9-20); Calcium 8.5 mg/dL (8.4-10.2); Carbon Dioxide 32 mmol/L (22-32); Chloride 101 mmol/L (98-107); Estimated Glomerular Filt Rate 49.5 mL/min (>60); Globulin 2.5 g/dL (1.7-4.1); Glucose 118 mg/dL (80-110); HEMOLYSIS < 15 (0-50); Lipase 152 U/L (23-300); Potassium 4.4 mmol/L (3.4-5.1); Sodium 137 mmol/L (137-145); Total Protein 5.9 g/dL (6.3-8.2)
[2019-12-28 13:32] LABS: Lactate (Lactic Acid) 0.8 mmol/L (0.7-2.1)
[2019-12-28 13:43] LABS: NT-proBNP (BNP-Adult 18+) 18000 pg/mL (<125)
[2019-12-28 13:48] LABS: Procalcitonin 0.14 ng/mL (<0.5)
--- NOTE | 2019-12-28 13:51 | PC.NURSE ---
pt fio2 on bipap was decreased to 35 percent after ABG
--- NOTE | 2019-12-28 15:04 | P.HP_ITS ---
History of Present Illness History of Present Illness Date Patient Seen: 12/28/19 Time Patient Seen: 14:30 Chief complaint: SOB, on C-pap Narrative: Mr. Kervin Vincent is a 74-year-old male with a complex medical history including coronary artery disease status post bypass surgery, and STEMI (C5/2 1016), right frontal CVA, peripheral vascular disease, COPD, CKD stage 3, hypertension, hyperlipidemia, GERD, bladder cancer, status post TURP presented to ED with worsening shortness of breath over the past couple of days. He was recently hospitalized here from December 21, 2019 to December 23, 2019 for COPD exacerbation and acute respiratory failure. He did not have focal infiltrate and procalcitonin was less than 0.05 and therefore he was not treated with antibiotic. He was discharged on prednisone 40 mg q.d.. He has chronic hypoxic respiratory failure and normally maintains on 1.5 L nasal cannula. Last admission he was also diuresed for possible CHF exacerbation as well as had a bump in his troponin consistent with type 2 LA. His echo on 12/20/2019 showed mildly decreased LVEF, basal to mid inferior and inferolateral scarring, normal RV size with mild to moderately reduced RV function, elevated estimated CVP. There was some confusion about his diuretic regimen as he takes torsemide at home but it was entered on home med list as furosemide. Patient has been compliant with his torsemide diuretic another medication since discharge home. Last admission he was also noted to have labile hypertension with spikes in his blood pressure. He was recently taken off of lisinopril either for cough or due to worsening renal function. He was restarted on lisinopril 10 mg daily during last admission and creatinine more than doubled. He was not discharged on lisinopril. Patient states he was feeling okay on hospital discharge but a few days ago started to experience more shortness of breath. He denies productive cough. He denies fevers or chills and has not had chest pain and has not noticed swelling in his lower extremities. ER evaluation: Respiratory rate 20s, temp 96.2?, BP initially 216/91. His sats were in the 70s when initially evaluated by paramedics. He was started on BiPAP, administered Solu-Medrol and IV Lasix. ABG on 40% FiO2 showed pH 7.39, pCO2 46.5, PO2 93. Noted elevated WBC 18.9 with slight left shift, procalcitonin 0.14, and chest x-ray showing hyperinflated lungs and mild pulmonary edema, the near left base opacity suggestive of atelectasis, and suspected small left pleural effusion. Patient History Medical History Alcohol abuse (Inactive) Bladder cancer (Chronic Unknown) CKD (chronic kidney disease) (Chronic Unknown) Congestive heart failure (Inactive) COPD (chronic obstructive pulmonary disease) (Chronic Unknown) Coronary artery disease (Chronic Unknown) Gastroesophageal reflux disease (Acute) Hyperlipemia (Chronic Unknown) Hypertension (Chronic Unknown) PAD (peripheral artery disease) (Chronic Unknown) Stroke (Resolved 02/2016) Surgical History (Updated 12/21/19 @ 00:27 by MARIANELA Thomas) History of appendectomy (Acute) Hx of coronary artery bypass graft (Resolved Unknown) Hx of transurethral resection of prostate (Resolved 10/2016) Family & Social History Social History: household members none Safety & Behavioral: Feels Safe in Current Yes Environment Tobacco & Substance use: Tobacco type cigarettes Smoking Status Former smoker alcohol intake current alcohol intake frequency 0-2 drinks per day Substance Use Type marijuana Meds Home Medications and Allergies Home Medications Medication Instructions Recorded Confirmed Type amlodipine 10 mg PO QDAY #30 tab 11/19/17 12/21/19 Rx nitroglycerin [Nitrostat] 1 tab PO PRN PRN #30 11/19/17 12/21/19 Rx aspirin 81 mg tablet,delayed 81 mg PO DAILY 05/20/18 12/21/19 History release folic acid 800 mcg tablet 0.8 mg PO DAILY 05/20/18 12/21/19 History multivitamin 1 tab PO DAILY 05/20/18 12/21/19 History omeprazole 20 mg capsule,delayed 20 mg PO QDAY #30 cap 06/14/18 12/21/19 Rx release atorvastatin 20 mg tablet 20 mg PO HS #30 tab 07/04/18 12/21/19 Rx carvedilol 25 mg tablet 25 mg PO BID #60 tab 07/10/18 12/21/19 Rx gabapentin 300 mg capsule 300 mg PO HS #90 cap 12/11/18 12/21/19 Rx ipratropium-albuterol 3 ml INHALATION BID #90 ml 12/23/19 Rx nicotine 21 mg TOPICAL DAILY #30 patch 12/23/19 Rx prednisone 40 mg PO DAILY #4 tab 12/23/19 Rx thiamine HCl (vitamin B1) [Vitamin 100 mg PO DAILY #30 tab 12/23/19 Rx B-1] torsemide 10 mg PO BID 12/28/19 12/28/19 History Allergies Allergy/AdvReac Type Severity Reaction Status Date / Time No Known Drug Allergies Allergy Verified 12/20/19 19:46 Review of Systems Review of Systems ROS: Yes All systems reviewed with the patient and are negative except as otherwise documented Exam Vital Signs (past 8 hours): - 12/28/19 10:20 12/28/19 10:42 12/28/19 11:22 Temperature 96.2 F L Pulse Rate 74 70 Respiratory Rate 16 19 Blood Pressure 216/91 H 216/91 H Blood Pressure [Left Arm] 174/78 H Blood Pressure [Right Arm] Pulse Oximetry 98 96 12/28/19 12:15 12/28/19 13:53 12/28/19 14:59 Temperature Pulse Rate 59 L 80 Respiratory Rate 22 18 Blood Pressure 186/79 H Blood Pressure [Left Arm] 182/74 H Blood Pressure [Right Arm] 185/80 H Pulse Oximetry 90 L 95 Fraction of Inspired Oxygen 35 Oxygen Delivery Method BiPAP Oxygen Flow Rate 40 Narrative Exam Narrative: GENERAL: Thin alert cooperative elderly male with BiPAP on an ER HEAD: Atraumatic. Normocephalic. EYES: Pupils equal, round and reactive. Extraocular motions intact. No scleral icterus. No injection or drainage. OROPHARYNX: Unremarkable NECK: Trachea midline. No lymphadenopathy. JVD not appreciated. CARDIOVASCULAR: Regular rate and rhythm without murmurs, gallops, or rubs. RESPIRATORY: Diminished breath sounds bilaterally , no crackles or wheeze GASTROINTESTINAL: Abdomen nondistended, soft, non-tender. No hepato- splenomegaly, or palpable masses. EXTREMITIES: No edema. NEUROLOGICAL: Alert, well oriented, speech is intact, normal bilateral upper and lower extremity strength SKIN: warm, dry, no rash Objective Labs Result Diagrams: 12/28/19 11:41 12/28/19 13:08 Labs: Laboratory Results - last 24 hr 12/28/19 12/28/19 12/28/19 11:05 11:41 13:08 WBC 18.9 H RBC 3.63 L Hgb 11.7 L Hct 35.8 L MCV 98.5 MCH 32.3 MCHC 32.8 RDW 15.3 H Plt Count 290 Neut % (Auto) 85.1 H Lymph % (Auto) 6.3 L [place] % (Auto) 7.7 Eos % (Auto) 0.4 L Baso % (Auto) 0.5 Neut # (Auto) 39506 H Lymph # (Auto) 1200 [place] # (Auto) 1500 H Eos # (Auto) 100 Baso # (Auto) 100 PT 10.2 INR 0.9 APTT 29 D ABG pH 7.39 ABG pCO2 46.5 H ABG pO2 93 ABG HCO3 28 H ABG Total CO2 30 ABG O2 Saturation 97 ABG Base Excess 3.0 H FiO2 40 Sodium Potassium Chloride Carbon Dioxide BUN Creatinine Estimated GFR BUN/Creatinine Ratio Glucose Lactate Calcium Total Bilirubin AST ALT Alkaline Phosphatase Troponin I NT-Pro-B Natriuret Pep Total Protein Albumin Globulin Albumin/Globulin Ratio Lipase Procalcitonin 12/28/19 12/28/19 12/28/19 13:08 13:08 13:08 WBC RBC Hgb Hct MCV MCH MCHC RDW Plt Count Neut % (Auto) Lymph % (Auto) [place] % (Auto) Eos % (Auto) Baso % (Auto) Neut # (Auto) Lymph # (Auto) [place] # (Auto) Eos # (Auto) Baso # (Auto) PT INR APTT ABG pH ABG pCO2 ABG pO2 ABG HCO3 ABG Total CO2 ABG O2 Saturation ABG Base Excess FiO2 Sodium 137 D Potassium 4.4 Chloride 101 Carbon Dioxide 32 BUN 34 H Creatinine 1.40 H Estimated GFR 49.5 L BUN/Creatinine Ratio 24.3 H Glucose 118 H Lactate 0.8 Calcium 8.5 Total Bilirubin 0.5 AST 31 ALT 23 Alkaline Phosphatase 63 Troponin I 0.170 H* NT-Pro-B Natriuret Pep 80602 H Total Protein 5.9 L Albumin 3.4 L Globulin 2.5 Albumin/Globulin Ratio 1.4 Lipase 152 Procalcitonin 0.14 Assessment & Plan Assessment & Plan narrative: 1. Acute on chronic hypoxic respiratory failure, present on admission -etiology secondary to COPD exacerbation and possibly element of pulmonary edema due to CHF -initially on BiPAP but by the time he got up to ICU he we were able to put him on nasal cannula -RT to have BiPAP on standby if needed 2. COPD with exacerbation, present on admission -patient has worsening COPD flare on oral prednisone and would benefit from addition of antibiotic to treat moderate to severe COPD exacerbation -WBC 18.9 verses 12.8 on 12/23 discharge could be steroid versus developing bacterial infection -procalcitonin 0.14 is up from previous 0.05 on last admission would also support addition of antibiotic -Levaquin 500 mg IV q.day, renal dosed -Solu-Medrol 60 mg IV q.8 hours -DuoNeb q.4 hours with RT 3. Possible acute exacerbation of systolic heart failure, present on admission -chest x-ray suggestive of persistent pulmonary edema although could also represent pulmonary fibrosis, patient does not appear volume overloaded on exam -received furosemide 60 mg IV in the ED -resumed torsemide 10 mg b.i.d. per home routine 4. Troponin leak, present on admission -troponin is actually significantly lower than level on recent discharge -EKG without acute ischemic findings -continue aspirin 81 mg q.d., atorvastatin 20 mg q.d., sublingual nitroglycerin as needed for history of CAD -telemetry monitoring 5. Chronic kidney disease stage III -admit creatinine 1.4, patient's creatinine levels have wildly fluctuated, 1.10- 2.60 range which seems to correlate with lisinopril usage, last admit creatinine doubled when patient was started back on lisinopril 10 mg q.d. -continue monitoring periodically 6. Labile hypertension, present on admission -consider adding hydralazine 25 mg t.i.d. it if needed for BP control -continue amlodipine 10 mg q.d., carvedilol 25 mg b.i.d. -consider changing carvedilol to metoprolol which may have less adverse effect on patient's COPD Code status: DNR/DNI, patient has POLST DVT prophylaxis: Lovenox 30 mg subcu q.d. Patient admitted to ICU service due to tenuous respiratory status with r equirement for BiPAP.
--- NOTE | 2019-12-28 15:22 | PC.ADMIT ---
Admit Note Patient arrived to room 231 from ER via stretcher at about 1500 on bipap. Transferred to bed via slider board. SpO2 98%. SR with PACs/PVCs in the 60-80s. SBP in the 180s, nitro paste in place to chest from ER. Clothing, shoes in room closet. Cell phone, psychiatric cns, and glasses at bedside. Declines to lock up any valuables. Condom cath in place draining yellow urine. Oriented to call/bed/tv controls, bed alarm on, call light within reach. [address] Admission Note: The patient,Kervin Vincent,74 y/o, was given written information regarding hospital policies, unit procedures and contact persons. Patient's smoking status: Former smoker. Vital Signs - 8 hr 12/28/19 10:20 12/28/19 10:42 12/28/19 11:22 Temperature 96.2 F L Pulse Rate 74 70 Respiratory Rate 16 19 Blood Pressure 216/91 H 216/91 H Blood Pressure [Left Arm] 174/78 H Blood Pressure [Right Arm] Pulse Oximetry 98 96 12/28/19 12:15 12/28/19 13:53 12/28/19 14:59 Temperature Pulse Rate 59 L 80 Respiratory Rate 22 18 Blood Pressure 186/79 H Blood Pressure [Left Arm] 182/74 H Blood Pressure [Right Arm] 185/80 H Pulse Oximetry 90 L 95 12/28/19 15:00 12/28/19 15:13 Temperature 98.1 F Pulse Rate 68 67 Respiratory Rate 16 22 Blood Pressure 186/79 H Blood Pressure [Left Arm] Blood Pressure [Right Arm] Pulse Oximetry 98 96
[2019-12-28] MEDS: NICOTINE 21 MG PATCH TOP (16:15)
[2019-12-28] MEDS: levoFLOXacin 500 MG/100 ML PIGGYBACK 100 MG IV (16:15)
[2019-12-28] MEDS: methylPREDNISolone 125 MG/2 ML VIAL 60 MG IV (18:57)
[2019-12-28] MEDS: carvediloL 25 MG TABLET PO (20:32)
[2019-12-28] MEDS: ATORVASTATIN 20 MG TABLET PO (20:32)
[2019-12-28] MEDS: GABAPENTIN 300 MG CAPSULE PO (20:32)
[2019-12-28] MEDS: TORSEMIDE 10 MG TABLET PO (20:35)
--- NOTE | 2019-12-29 00:24 | PC.NURSE ---
[facility] [facility] Note: 0010: Awake, resting in bed with HOB elevated 45 degrees. Respirations are unlabored. Vital signs stable. IVs in place in rt AC and rt wrist. Pt has condom cath on, connected to drainage bag, and states he would like to keep it on. Remains on telemetry. Pt denies chest pain or pressure. He remains on O21.5L/min.
[2019-12-29] MEDS: methylPREDNISolone 125 MG/2 ML VIAL 60 MG IV ×2 (02:16→09:05)
[2019-12-29 04:30] VITALS: BP 157/69; PULSE 73; RESP 19; TEMP 36.8; O2SAT 96
[2019-12-29 05:17] LABS: Add Manual Diff / Slide Review NO; Basophils Absolute Auto 0 /uL (0-100); Basophils Percent Auto 0.2 % (0-2); Eosinophils Absolute Auto 0 /uL (0-450); Hematocrit 31.1 % (41-53); Hemoglobin 10.8 g/dL (13.5-17.5); Lymphocytes Absolute Auto 600 /uL (1100-4500); Lymphocytes Percent Auto 6.2 % (25-40); Mean Corpuscular HGB Conc 34.8 % (30-36); Mean Corpuscular Hemoglobin 33.9 PG (26-34); Mean Corpuscular Volume 97.6 fL (80-100); Monocytes Absolute Auto 300 /uL (0-900); Monocytes Percent Auto 2.5 % (3-14); Neutrophils Absolute Auto 9500 /uL (1500-7000); Neutrophils Percent Auto 91.1 % (50-75); Platelet Count 234 X10^3/uL (150-400); Red Blood Cell Count 3.19 X10^6/uL (4.5-5.9); Red Cell Distribution Width 14.7 % (11.6-14.8); White Blood Cell Count 10.4 X10^3/uL (4.5-11.0)
[2019-12-29 05:39] VITALS: O2SAT 100
[2019-12-29] MEDS: PANTOPRAZOLE 20 MG TABLET PO (05:39)
[2019-12-29] MEDS: ALBUTEROL/IPRATROPIUM 3 ML AMPUL INH ×3 (05:39→13:56)
[2019-12-29 06:00] LABS: BUN Creatinine Ratio 29.3 (6-22); Blood Urea Nitrogen 44 mg/dL (9-20); Calcium 8.6 mg/dL (8.4-10.2); Carbon Dioxide 32 mmol/L (22-32); Chloride 98 mmol/L (98-107); Estimated Glomerular Filt Rate 45.7 mL/min (>60); Glucose 155 mg/dL (80-110); HEMOLYSIS < 15 (0-50); Potassium 4.7 mmol/L (3.4-5.1); Sodium 133 mmol/L (137-145)
[2019-12-29 06:15] LABS: Procalcitonin 0.25 ng/mL (<0.5)
[2019-12-29 08:30] VITALS: BP 158/92; PULSE 85; RESP 20; TEMP 36.6; O2SAT 94
[2019-12-29] MEDS: ASPIRIN EC 81 MG TABLET PO (09:04)
[2019-12-29] MEDS: AMLODIPINE 5 MG TABLET 10 MG PO (09:04)
[2019-12-29] MEDS: NICOTINE 21 MG PATCH TOP (09:04)
[2019-12-29] MEDS: carvediloL 25 MG TABLET PO (09:04)
[2019-12-29] MEDS: ENOXAPARIN 40 MG/0.4 ML SYRINGE SUBCUT (09:05)
[2019-12-29] MEDS: TORSEMIDE 10 MG TABLET PO (09:07)
[2019-12-29 09:42] LABS: Troponin I 0.117 ng/mL (0.01-0.034)
[2019-12-29 10:07] VITALS: PULSE 74; RESP 20; O2SAT 97
--- NOTE | 2019-12-29 11:32 | CM.DANOTE ---
Addendum entered by DEBBIE Nick 12/29/19 15:31: ADD: Per MD, pt medically stable to d/c back home this evening. STACY met with pt's friend/neighbor Jacky Barrett who states he has some concerns with pt going home and was hopeful he could go to SNF. SW discussed pt's status of OBS and the barriers of Medicare not covering SNF at this time. Jacky confirmed that he checks on pt daily but soon will have his own surgery and will be unavailable for 2 weeks but that on Sat after pt had been discharged home before his readmit, pt had signed DPOA pwk to make Jacky and his medical HO's. Jacky states he has concerns with pt's mobility, his oxygen equipment, and the cleanliness of the RV and pt not showering regularly. STACY discussed that hopefully [facility] can follow up on some of these concerns and will be working with pt on medication compliance, PT for strengthening and mobility, bath aide for hygiene, and that STACY will call [facility] to also request a forensic social worker to follow up on maybe MICHAEL CG for future needs. Jacky feels better with transporting pt home now knowing that [facility] will be involved. BF Original Note: Pt is a 74 year old male who admitted to care of hospitalist team last night. Payer: [facility] Medicare and Medicaid PCP: Dr. Stephen Bonilla [facility] Pharmacy: [facility] in [place]. SW completed bedside rounds with pt and MD and pt confirms that he recently discharged from [facility] from his stay for similar medical needs from 12/21/19-12/23/19 and discharged back home to with new [facility] and pt confirms that he would be agreeable with continuing [facility] as basically he has only had his home assess by RN and was to have therapy start today. Pt confirmed below information from his recent admit is still the same. Pt outlined his baseline level of function: he lives in at [facility] in [facility] and has been there with his cat Adan for 10 years. He has no family except a brother with whom he has had not contact in years and local cousins from whom he is estranged. He lists the [facility] as his next of kin. Pt is helped out by neighbors Jacky and Jodi: primarily they drive him to app. Pt also uses a cab to take him places in [place] and to pick up and delivery driver my Vodka for me if I need extra that week. Pt is on home o2 primarily at night. Lately he has needed this in the day at times. Routine: pt starts his day early with losts of coffee, breakfast that he makes, specific tv shows and a nap. He then starts sipping on beer and does this throughout the day, along with smoking cigarettes. He goes to [employer] or watches tv until 1100 pm and that's when I start having my vodka. 2 to 4 drinks before bed at 2AM. His neighbor often visits at 1100PM and they smoke marijuana and drink together with neighbor providing that and pt the vodka. Pt says he has never gone into withdrawal but then I have not had a period of time when I was not using all this. Pt did not score on his CIWA at last admit and did not have withdrawals. Pt has hx of [facility] in 2016 for snf rehab before d/c back to his RV. Per MD, pt did not fill his prescription for steroids after last discharge and will try pt on steroids today and see how he tolerates and then likely d/c home tonight vs tomorrow with Resume [facility]. POLST was updated in Nov 2019 during his last admission. SW called [facility] and confirmed he is open to service and they are now aware pt was admitted yesterday and if pt remains OBS status then no Resume Orders needed but request d/c summary be faxed. Plan: SW to follow for likely pt d/c home tonight or tomorrow with continued [facility]. SW to follow for faxing d/c summary to [facility] at discharge. DEBBIE Nick Discharge Planning/Care Management CM Discharge Assessment Start: 12/29/19 11:30 Freq: Status: Active Protocol: Document 12/29/19 11:30 BF (Rec: 12/29/19 11:32 BF [id number]) Discharge Planning Assessment Assigned Floor Mechanic BRUCE Herrera DPOA/Assigned Designee Name none Advance Directives? No History Provided By Patient,Medical Record Has Patient been admitted in last 30 Yes days? Comment Recent d/c 12/21-12/23/19 for COPD, chronic resp failure to home with new [facility] Prior Living Arrangements RV Comment [place] Household Members none Type of transporation used prior to Relies on Others admit Comment Friends and taxi provide transport Independent with ADL's Yes Is patient alert and oriented? Yes Needs Assistance With Managing Medications,Home Chores / Shopping Caregiver for Another No Community Services used prior to Home Health Aid,Home Health admission: Nurse Patient/Family Preference Home with Home Health Comment [facility] Barriers to Discharge No Discharge Plan Home with Home Health Community Services Physical Therapy,Home Health Aid,Home Health Nurse Transportation Arrangement Taxi vs local friends to provide transport home to RV Referrals Initiated Home Health Whiteboard Updated in Patient Room with Yes name and ext. # of Floor Mechanic Review Status In Process Please Provide Date Initial DC 12/29/19 Assessment Was Performed Next Review Type Continued Stay Review
[2019-12-29 12:10] VITALS: BP 151/66; PULSE 85; RESP 23; TEMP 36.6; O2SAT 95
[2019-12-29] MEDS: predniSONE 20 MG TABLET 40 MG PO (12:34)
--- NOTE | 2019-12-29 12:54 | P.DS_ITS ---
History of Present Illness History of Present Illness Date Patient Seen: 12/29/19 Time Patient Seen: 12:54 Chief complaint: SOB, on C-pap Narrative: As per Dr. Mims, Mr. Kervin Vincent is a 74-year-old male with a complex medical history including coronary artery disease status post bypass surgery, and STEMI (C5/2 1016), right frontal CVA, peripheral vascular disease, COPD, CKD stage 3, hypertension, hyperlipidemia, GERD, bladder cancer, status post TURP presented to ED with worsening shortness of breath over the past couple of days. He was recently hospitalized here from December 21, 2019 to December 23, 2019 for COPD exacerbation and acute respiratory failure. He did not have focal infiltrate and procalcitonin was less than 0.05 and therefore he was not treated with antibiotic. He was discharged on prednisone 40 mg q.d.. He has chronic hypoxic respiratory failure and normally maintains on 1.5 L nasal cannula. Last admission he was also diuresed for possible CHF exacerbation as well as had a bump in his troponin consistent with type 2 NC. His echo on 12/20/2019 showed mildly decreased LVEF, basal to mid inferior and inferolateral scarring, normal RV size with mild to moderately reduced RV function, elevated estimated CVP. There was some confusion about his diuretic regimen as he takes torsemide at home but it was entered on home med list as furosemide. Patient has been compliant with his torsemide diuretic another medication since discharge home. Last admission he was also noted to have labile hypertension with spikes in his blood pressure. He was recently taken off of lisinopril either for cough or due to worsening renal function. He was restarted on lisinopril 10 mg daily during last admission and creatinine more than doubled. He was not discharged on lisinopril. Patient states he was feeling okay on hospital discharge but a few days ago started to experience more shortness of breath. He denies productive cough. He denies fevers or chills and has not had chest pain and has not noticed swelling in his lower extremities. ER evaluation: Respiratory rate 20s, temp 96.2?, BP initially 216/91. His sats were in the 70s when initially evaluated by paramedics. He was started on BiPAP, administered Solu-Medrol and IV Lasix. ABG on 40% FiO2 showed pH 7.39, pCO2 46.5, PO2 93. Noted elevated WBC 18.9 with slight left shift, procalcitonin 0.14, and chest x-ray showing hyperinflated lungs and mild pulmonary edema, the near left base opacity suggestive of atelectasis, and suspected small left pleural effusion. Discharge Providers Provider Date of admission: 12/28/19 14:17 Discharge Date: 12/29/19 Primary care physician: Stephen Bonilla MD Discharge provider: Harish Almaguer DO Summary Hospital Course Discharge Diagnosis: Please see below for discharge summary by problem. Hospital Course: 1. Acute on chronic hypoxic respiratory failure, present on admission, resolved -- patient was initially treated with BiPAP therapy but this was discontinued on arrival to the floor. He improved with steroids and returned to his baseline quickly. He was also started on levaquin due to elevated WBC count for possible bacterial pneumonia. He will complete 4 additional days of levaquin at home. - patient endorsed no receiving a prednisone prescription upon discharge from the prior hospitalization. 2. COPD with exacerbation, present on admission -patient has worsening COPD as noted above. Possibly due to underlting bacterial pneumonia or patient did not obtain steroids upon discharge (they were prescribed). -WBC 18.9 on admission which improved the following day. -procalcitonin 0.14 was slightly up from discharge. -Continue levaquin as an outpatient to complete a 5 day total course as well as prednisone. -Solu-Medrol 60 mg IV q.8 hours given while inpatient. To complete steroid course at home with prednisone 40 mg. Prescription sent to [facility]. 3. Possible acute exacerbation of systolic heart failure, present on admission -chest x-ray suggestive of persistent pulmonary edema although could also represent pulmonary fibrosis, patient does not appear volume overloaded on exam -received furosemide 60 mg IV in the ED -resumed torsemide 10 mg b.i.d. per home routine 4. Troponin leak, present on admission -troponin was actually significantly lower than level on recent discharge -EKG without acute ischemic findings -continue aspirin 81 mg q.d., atorvastatin 20 mg q.d., sublingual nitroglycerin as needed for history of CAD -telemetry monitoring noted no significant events. 5. Chronic kidney disease stage III -admit creatinine 1.4, patient's creatinine levels have wildly fluctuated, 1.10- 2.60 range which seems to correlate with lisinopril usage which was held upon previous discharge. 6. Labile hypertension, present on admission -No changes were made to the patient's home BP regimen, he was in a satisfactory range upon discharge. Exam Vital Signs (past 8 hours): - 12/29/19 05:39 12/29/19 08:30 12/29/19 10:07 Temperature 97.9 F Pulse Rate 85 74 Respiratory Rate 20 20 Blood Pressure 158/92 H Pulse Oximetry 100 94 97 12/29/19 12:10 Temperature 97.9 F Pulse Rate 85 Respiratory Rate 23 Blood Pressure 151/66 H Pulse Oximetry 95 Fraction of Inspired Oxygen 0.35 Oxygen Delivery Method Nasal Cannula Oxygen Flow Rate 1.5 Narrative Exam Narrative: GENERAL: Thin alert cooperative elderly male in NAD. HEAD: Atraumatic. Normocephalic. EYES: Pupils equal, round and reactive. Extraocular motions intact. No scleral icterus. No injection or drainage. OROPHARYNX: Unremarkable NECK: Trachea midline. No lymphadenopathy. JVD not appreciated. CARDIOVASCULAR: Regular rate and rhythm without murmurs, gallops, or rubs. RESPIRATORY: Diminished but improved breath sounds bilaterally , no crackles or wheeze GASTROINTESTINAL: Abdomen nondistended, soft, non-tender. No hepato- splenomegaly, or palpable masses. EXTREMITIES: No edema. NEUROLOGICAL: Alert, well oriented, speech is intact, normal bilateral upper and lower extremity strength SKIN: warm, dry, no rash Objective Labs Result Diagrams: 12/29/19 04:30 12/29/19 04:30 Labs: Laboratory Results - last 24 hr 12/28/19 12/28/19 12/28/19 13:08 13:08 13:08 WBC RBC Hgb Hct MCV MCH MCHC RDW Plt Count Neut % (Auto) Lymph % (Auto) [place] % (Auto) Eos % (Auto) Baso % (Auto) Neut # (Auto) Lymph # (Auto) [place] # (Auto) Eos # (Auto) Baso # (Auto) PT 10.2 INR 0.9 APTT 29 D Sodium 137 D Potassium 4.4 Chloride 101 Carbon Dioxide 32 BUN 34 H Creatinine 1.40 H Estimated GFR 49.5 L BUN/Creatinine Ratio 24.3 H Glucose 118 H Lactate Calcium 8.5 Total Bilirubin 0.5 AST 31 ALT 23 Alkaline Phosphatase 63 Troponin I 0.170 H* NT-Pro-B Natriuret Pep 78364 H Total Protein 5.9 L Albumin 3.4 L Globulin 2.5 Albumin/Globulin Ratio 1.4 Lipase 152 Procalcitonin 0.14 Nasal Screen MRSA (PCR) 12/28/19 12/28/19 12/29/19 13:08 15:00 04:30 WBC 10.4 RBC 3.19 L Hgb 10.8 L Hct 31.1 L MCV 97.6 MCH 33.9 MCHC 34.8 RDW 14.7 Plt Count 234 Neut % (Auto) 91.1 H Lymph % (Auto) 6.2 L [place] % (Auto) 2.5 L Eos % (Auto) 0.0 L Baso % (Auto) 0.2 Neut # (Auto) 9500 H Lymph # (Auto) 600 L [place] # (Auto) 300 Eos # (Auto) 0 Baso # (Auto) 0 PT INR APTT Sodium Potassium Chloride Carbon Dioxide BUN Creatinine Estimated GFR BUN/Creatinine Ratio Glucose Lactate 0.8 Calcium Total Bilirubin AST ALT Alkaline Phosphatase Troponin I NT-Pro-B Natriuret Pep Total Protein Albumin Globulin Albumin/Globulin Ratio Lipase Procalcitonin Nasal Screen MRSA (PCR) Negative for mrsa 12/29/19 12/29/19 12/29/19 04:30 04:30 04:30 WBC RBC Hgb Hct MCV MCH MCHC RDW Plt Count Neut % (Auto) Lymph % (Auto) [place] % (Auto) Eos % (Auto) Baso % (Auto) Neut # (Auto) Lymph # (Auto) [place] # (Auto) Eos # (Auto) Baso # (Auto) PT INR APTT Sodium 133 L Potassium 4.7 Chloride 98 Carbon Dioxide 32 BUN 44 H Creatinine 1.50 H Estimated GFR 45.7 L BUN/Creatinine Ratio 29.3 H Glucose 155 H Lactate Calcium 8.6 Total Bilirubin AST ALT Alkaline Phosphatase Troponin I 0.117 H NT-Pro-B Natriuret Pep Total Protein Albumin Globulin Albumin/Globulin Ratio Lipase Procalcitonin 0.25 Nasal Screen MRSA (PCR) Discharge Plan Discharge Plan Patient Disposition: Home Discharge comment: You were admitted to the hospital with an exacerbation of COPD. Last time steroids were sent to your pharmacy but you did not pick them up. I have sent them over to [facility] in you should complete 4 additional days. I have also sent a prescription for antibiotics to continue at home, also for the next 4 days. Discharge orders & Medications Prescriptions: New levofloxacin 750 mg tablet 750 mg PO DAILY 4 Days Qty: 4 RF: 0 Continued multivitamin [Tab-A-Yariel] tablet 1 tab PO DAILY RF: 0 aspirin [Adult Low Dose Aspirin] 81 mg tablet,delayed release (DR/EC) 81 mg PO DAILY RF: 0 folic acid 800 mcg tablet 0.8 mg PO DAILY RF: 0 amlodipine 10 MG tablet 10 mg PO QDAY Qty: 30 RF: 5 nitroglycerin [Nitrostat] 0.4 MG tablet, sublingual 1 tab PO PRN PRNQty: 30 RF: 1 omeprazole 20 mg capsule,delayed release(DR/EC) 20 mg PO QDAY Qty: 30 RF: 5 atorvastatin [Lipitor] 20 mg tablet 20 mg PO HS Qty: 30 RF: 5 carvedilol [Coreg] 25 mg tablet 25 mg PO BID Qty: 60 RF: 5 gabapentin [Neurontin] 300 mg capsule 300 mg PO HS Qty: 90 RF: 0 nicotine 21 mg/24 hr Patch 24 Hour 21 mg topical DAILY Qty: 30 RF: 0 thiamine HCl (vitamin B1) [Vitamin B-1] 100 mg Tablet 100 mg PO DAILY Qty: 30 RF: 0 ipratropium-albuterol 0.5 mg-3 mg(2.5 mg base)/3 mL Solution For Nebulization 3 ml inhalation BID Qty: 90 RF: 0 torsemide 10 mg tablet 10 mg PO BID RF: 0 prednisone 20 mg tablet 40 mg PO DAILY 4 Days Qty: 8 RF: 0 Follow up/Referrals: Stephen Bonilla MD [Primary Care Provider] - 01/06/20 2:15 pm Diet/Activity/Treatments Diet: Diet as Tolerated Activity: As tolerated Visit Report/Discharge Packet Instructions: Smoking Cessation for Older Adults: It's Not Too Late!, DI for Chronic Obstructive Pulmonary Disease, Prednisone (By mouth), Levofloxacin (By mouth) Discharge Data Primary Care Provider: Stephen Bonilla Attending Provider: Rito Day Admit Date/Time: 12/28/19 14:17 Discharges patient from system. Discharge Date/Time: 12/29/19 16:00
[2019-12-29 13:57] VITALS: PULSE 79; RESP 14; O2SAT 97
--- NOTE | 2019-12-29 14:49 | PC.NURSE ---
Pt to d/c home today per order. F/u appt made and noted in d/c paperwork. Provided education regarding disease process, smoking cessation, medication regimen, side effects, rx sent to [facility] pharmacy. Pt verbalizes understanding and states he has no questions at this time. Removed PIV x2 with cath tips intact. Pt tolerated well. States his friend will be here to transport him home around 1500.
--- NOTE | 2019-12-29 16:07 | PC.NURSE ---
Discharge Note: Pt given discharge teaching and instructions by dayshift RN. This RN helped patient to get dressed, helped with home oxygen tank, discussed the importance of getting prescriptions from pharmacy (prednisone and anti-biotic) and of taking these prescriptions as directed and until they are gone. Also discussed the importance of quitting smoking, discussion with pt's friend about community support for quitting smoking. Also discussed importance of basic infection control strategies, including hand hygeine, especially when out in public. Pt discharged via wheelchair with home O2 at 1.5 L NC without incident.
--- NOTE | 2020-01-13 14:51 | PC.NURSE ---
Late entry: [facility] stop time 12/28 0987
== END 2019-12-29 16:00 | disposition home or self-care (01) ==
LOC: ED 10:46 → AC 14:23 → ICU 12-29 10:31 → AC 12-29 12:31
PROVIDERS: Internal Medicine; Admitting Provider Internal Medicine; Emergency Provider Emergency Medicine; PCP Internal Medicine; Referring Provider Emergency Medicine; Visit Provider Internal Medicine
DX: J96.21 Acute and chronic respiratory failure with hypoxia (principal); J44.1 Chronic obstructive pulmonary disease with (acute) exacerbation; I50.23 Acute on chronic systolic (congestive) heart failure; I13.0 Hypertensive heart and chronic kidney disease with heart failure and stage 1 through stage 4 chronic kidney disease, or unspecified chronic kidney disease; N18.3 Chronic kidney disease, stage 3 (moderate); Z99.81 Dependence on supplemental oxygen
CPT/HCPCS: 36415; 36600; 51701; 71045; 80048; 80053; 82805; 83605; 83690; 83880; 84145; 84484; 85025; 85610; 85730; 87797; 93005; 94640; 94660; 96365; 96366; 96372; 96375; 96376; 99285; 99291; 99292; 99406; G0378; J1650; J1940; J1956; J2930

== ENCOUNTER 2020-01-08 06:54 | Observation (INO) | payer MEDICARE, MEDICAID, SELFPAY ==
[2019-12-28 14:59] VITALS: PULSE 66; RESP 20; O2SAT 100
[2019-12-28 15:30] VITALS: BMI 20.7
[2020-01-08] VITALS (15 sets, daily range): BP systolic 163–212; BP diastolic 67–104; PULSE 81–111; RESP 14–30; TEMP 30.8–36.9; O2SAT 91–100; BMI 22.1
--- NOTE | 2020-01-08 07:00 | DI.RAD.S_ITS ---
PROCEDURE: XR CHEST 1V INDICATIONS: sob, copd history. TECHNIQUE: One view of the chest was acquired. COMPARISON: [facility], CR, XR CHEST 1V, 12/28/2019, 10:38. [facility], CR, XR CHEST 1V, 12/20/2019, 20:21. FINDINGS: Surgical changes and devices: Sternotomy wires, presumed prior CABG. Lungs and pleura: Lungs are abnormal with chronic interstitial prominence. Lung volumes are large. No pleural effusions or pneumothorax. Mediastinum: Mediastinal contours appear normal. Heart size is normal. Bones and chest wall: No suspicious bony lesions. Overlying soft tissues appear unremarkable. IMPRESSION: Large lung volumes, COPD is suspected. Chronic interstitial prominence, presumed prior smoking history. CABG. No definite acute disease. Dictated by: Kwadwo Rhodes M.D. on 01/08/2020 at 8:43 Approved by: Kwadwo Rhodes M.D. on 01/08/2020 at 8:44
[2020-01-08] MEDS: ALBUTEROL/IPRATROPIUM 3 ML AMPUL INH ×3 (07:08→20:37)
--- NOTE | 2020-01-08 07:19 | ED_ITS ---
HPI - SOB/Dyspnea General Chief Complaint: Shortness of Breath/Dyspnea Stated Complaint: Shortness of breath Time Seen by Provider: 01/08/20 06:58 History of Present Illness HPI Narrative: The patient is a 74-year-old male who was transferred to the emergency department from home by EMS. He was complaining of acute shortness of breath. On 4 L of nasal O2, his normal oxygen at home his oxygen saturation was 80%. On BiPAP his oxygen saturation improved or 90%. He states that he quit smoking last night. He has been just developing progressive shortness of breath recently became worse throughout the night. He admits to a past history of COPD myocardial infarction congestive heart failure hypertension but denies diabetes mellitus. Review of his old records reveals that he has a history of alcoholism and GERD. At this time he denies any chest pain. He has had minimal of cou ghing that has been dry nonproductive of any sputum. He has had no palpitations or racing of his heart. He denies any fever chills or sweats. He has had a mild headache without any sore throat or sinus congestion. He denies any abdominal pain nausea vomiting diarrhea. He has had no urinary symptoms. Related Data Home Medications Medication Instructions Recorded Confirmed aspirin 81 mg tablet,delayed 81 mg PO DAILY 05/20/18 01/08/20 release folic acid 800 mcg tablet 0.8 mg PO DAILY 05/20/18 01/08/20 multivitamin 1 tab PO DAILY 05/20/18 01/08/20 torsemide 10 mg PO BID 12/28/19 01/08/20 amlodipine 10 mg PO DAILY 01/08/20 01/08/20 atorvastatin [Lipitor] 20 mg PO BEDTIME 01/08/20 01/08/20 gabapentin [Neurontin] 300 mg PO BEDTIME 01/08/20 01/08/20 lisinopril 10 mg PO DAILY 01/08/20 01/08/20 nitroglycerin [Nitrostat] 1 tab PO PRN PRN 01/08/20 01/08/20 omeprazole 20 mg PO DAILY 01/08/20 01/08/20 Previous Rx's Medication Instructions Recorded carvedilol 25 mg tablet 25 mg PO BID #60 tab 07/10/18 ipratropium-albuterol 3 ml INHALATION BID #90 ml 12/23/19 nicotine 21 mg TOPICAL DAILY #30 patch 12/23/19 thiamine HCl (vitamin B1) [Vitamin 100 mg PO DAILY #30 tab 12/23/19 B-1] Allergies Allergy/AdvReac Type Severity Reaction Status Date / Time No Known Drug Allergies Allergy Verified 12/20/19 19:46 Review of Systems Review of Systems Narrative: His review of systems were all negative except for those mentioned in the history of present illness. Patient History Medical History Alcohol abuse (Inactive) Bladder cancer (Chronic Unknown) CKD (chronic kidney disease) (Chronic Unknown) Congestive heart failure (Inactive) COPD (chronic obstructive pulmonary disease) (Chronic Unknown) Coronary artery disease (Chronic Unknown) Gastroesophageal reflux disease (Acute) Hyperlipemia (Chronic Unknown) Hypertension (Chronic Unknown) PAD (peripheral artery disease) (Chronic Unknown) Stroke (Resolved 02/2016) Surgical History History of appendectomy (Acute) Hx of coronary artery bypass graft (Resolved Unknown) Hx of transurethral resection of prostate (Resolved 10/2016) Social History household members: none Smoking Status: Former smoker alcohol intake: current Smoking Status: Former smoker alcohol intake frequency: 0-2 drinks per day Substance Use Type: marijuana Exam Narrative Exam Narrative: PHYSICAL EXAM: CONSTITUTIONAL: Awake, Alert, Oriented, Coherent, Cooperative in NAD. Does not appear toxic or ill. Is currently on BiPAP. HEAD: AT/NC EENT: PERRL, FROM of eyes, no discharge, no nystagmus No drainage from the ears, Tympanic membranes intact bilaterally, clear EAC No epistaxis or nasal drainage NECK: Supple, Trachea is midline without stridor, SPINE: No gross deformity, no palpable tenderness of the cervical, thoracic, lumbar or sacral spine. No CVA tenderness. THORAX: No deformity, retractions, chest wall tenderness, subcutaneous air or crepitice. LUNGS: Markedly decreased breath sounds. The patient just received a DuoNeb breathing treatment. The patient has a few expiratory squeaks and wheezes with a few expiratory rhonchi. There are crackles in both bases. HEART: Heart rate is rapid without murmur and appears to be regular. ABDOMEN: Soft, non-tender, without guarding, rebound, rigidity or palpable mass EXTREMITIES: No edema, cyanosis, deformity or tenderness. SKIN: No rash, bruising, petechiae or purpura. NEURO: Awake, alert, oriented, conversive, cranial nerves II-XII are symmetrical and normal, moves all 4 extremities and is ambulatory Initial Vital Signs Initial Vital Signs: Vital Signs Pulse Rate 111 H 01/08/20 06:54 Respiratory Rate 30 H 01/08/20 06:54 Blood Pressure 207/104 H 01/08/20 06:54 Pulse Oximetry 98 01/08/20 06:54 Course Course Course Narrative: 09 the patient is an alcoholic. He informed the nurses that he normally start strength in and around 8:30 a.m.. The patient is mildly ag itated. He will be administered 1 mg of Ativan orally and 100 mg of thigh min IV. 09 the patient has [place] [address] which may be secondary to the steroid therapy. On December 27 his troponin was 0.170. On December 28 it was 0.117. Today his troponin is 0.084. His proBNP remains pending at this time. Chest x-ray revealed no acute diagnostic cardiopulmonary pathology. There was evidence of COPD and interstitial prominence per the radiologist. I will call the hospitalists and get the patient admitted with hypoxia and acute exacerbation of his COPD on BiPAP. 1001 the patient's arterial blood gases reveal a temperature 37.0? centigrade, pH 7.354, pCO2 43.4, PO2 144 bicarb 24.2 oxygen saturation 99%. Will try taking the patient off from BiPAP and see how he does arm. He will be administered 40 mg of Lasix IV push with his recent history of congestive heart failure interstitial prominence an elevated proBNP. Orders Ordered: Acetaminophen (Tylenol) 650 mg PO Q6HR PRN PRN Reason: Fever/Mild Pain (1-3) Albuterol/Ipratropium (Duoneb) 3 ml INH [id number] [facility] Last Admin: 01/09/20 07:11 Dose: 3 ml Documented by: Admin: 01/08/20 20:37 Dose: 3 ml Documented by: Admin: 01/08/20 13:53 Dose: 3 ml Documented by: SYDNEE Amlodipine Besylate (Norvasc) 10 mg PO DAILY [facility] Aspirin (Aspirin Ec) 81 mg PO DAILY [facility] Atorvastatin Calcium (Lipitor) 20 mg PO BEDTIME [facility] Last Admin: 01/08/20 20:24 Dose: 20 mg Documented by: BERTHA Carvedilol (Coreg) 25 mg PO BID [facility] Last Admin: 01/08/20 20:24 Dose: 25 mg Documented by: BERTHA Enoxaparin Sodium (Lovenox) 40 mg SUBCUT DAILY [facility] Folic Acid (Folic Acid) 0.8 mg PO DAILY [facility] Furosemide (Lasix) 40 mg IV Q12HR [facility] Last Admin: 01/09/20 00:52 Dose: 40 mg Documented by: Admin: 01/08/20 14:00 Dose: 40 mg Documented by: MIKY Gabapentin (Neurontin) 300 mg PO BEDTIME [facility] Last Admin: 01/08/20 20:24 Dose: 300 mg Documented by: BERTHA Lisinopril (Zestril) 10 mg PO DAILY [facility] Multivitamins (Tab-A-Yariel) 1 tab PO DAILY [facility] Nicotine (Nicoderm) 21 mg TOP DAILY [facility] Prednisone (Deltasone) 40 mg PO DAILY [facility] Thiamine HCl (Vitamin B-1) 100 mg PO DAILY [facility] Discontinued Medications Albuterol/Ipratropium (Duoneb) 3 ml INH NOW ONE Stop: 01/08/20 07:06 Last Admin: 01/08/20 07:08 Dose: 3 ml Documented by: TRACEY Furosemide (Lasix) 40 mg IV NOW ONE Stop: 01/08/20 10:04 Last Admin: 01/08/20 10:08 Dose: 40 mg Documented by: ANAM Sodium Chloride (Normal Saline 0.9%) 1,000 mls @ 150 mls/hr IV CONT [facility] Last Infusion: 01/08/20 20:25 Dose: 0 mls/hr Documented by: Admin: 01/08/20 07:34 Dose: 150 mls/hr Documented by: DAVID Lorazepam (Ativan) 1 mg PO NOW ONE Stop: 01/08/20 09:11 Last Admin: 01/08/20 09:35 Dose: 1 mg Documented by: ANAM Methylprednisolone (Solu-Medrol 125 Mg Vial) 125 mg IV NOW ONE Stop: 01/08/20 07:00 Last Admin: 01/08/20 07:33 Dose: 125 mg Documented by: BSMEN Thiamine HCl (Vitamin B-1) 100 mg IV NOW ONE Stop: 01/08/20 09:11 Last Admin: 01/08/20 09:34 Dose: 100 mg Documented by: ANAM Torsemide (Demadex) 10 mg PO BID [facility] Vital Signs Vital signs: Vital Signs - 8 hr 01/08/20 06:54 01/08/20 07:30 01/08/20 09:04 Pulse Rate 111 H 90 81 Respiratory Rate 30 H 28 H 22 Blood Pressure 207/104 H Blood Pressure [Left Arm] 212/93 H 181/79 H Pulse Oximetry 98 100 100 MDM - SOB/Dyspnea Medical Records Attestation: I reviewed the patient's medical records. Lab Data Attestation: I reviewed the patient's lab results. Result diagrams: 01/09/20 07:19 01/08/20 08:10 Labs: Lab Results 01/08/20 01/08/20 01/08/20 Range/Units 07:40 08:10 08:10 WBC 17.1 H (4.5-11.0) X10^3/uL RBC 3.10 L (4.5-5.9) X10^6/uL Hgb 10.0 L (13.5-17.5) g/dL Hct 30.5 L (41-53) % MCV 98.4 (80-100) fL MCH 32.3 (26-34) PG MCHC 32.8 (30-36) % RDW 14.9 H (11.6-14.8) % Plt Count 133 L (150-400) X10^3/uL Neut % (Auto) 84.2 H (50-75) % Lymph % (Auto) 5.0 L (25-40) % Boyd % (Auto) 9.9 (3-14) % Eos % (Auto) 0.7 L (2-4) % Baso % (Auto) 0.2 (0-2) % Neut # (Auto) 11145 H (3623-2795) /uL Lymph # (Auto) 900 L (6086-8680) /uL Boyd # (Auto) 1700 H (0-900) /uL Eos # (Auto) 100 (0-450) /uL Baso # (Auto) 0 (0-100) /uL PT 10.2 (10.1-12.7) SECONDS INR 0.9 (0.9-1.3) APTT 33 D (26.4-36.2) SECONDS Sodium (137-145) mmol/L Potassium (3.4-5.1) mmol/L Chloride (98-107) mmol/L Carbon Dioxide (22-32) mmol/L BUN (9-20) mg/dL Creatinine (0.66-1.25) mg/dL Estimated GFR (>60) mL/min BUN/Creatinine Ratio (6-22) Glucose (80-110) mg/dL Lactate (0.7-2.1) mmol/L Calcium (8.4-10.2) mg/dL Magnesium (1.6-2.3) mg/dL Total Creatine Kinase (55-170) U/L CK-MB (CK-2) CK-MB (CK-2) Rel Index Troponin I (0.01-0.034) ng/mL NT-Pro-B Natriuret Pep (<125) pg/mL Procalcitonin (<0.5) ng/mL Chlamy pneumoniae PCR Not detected (Not Detect) Adenovirus (PCR) Not detected (Not Detect) B.parapertussis DNA PCR Not detected (Not Detect) Coronavirus OC43 (PCR) Not detected (Not Detect) Coronavirus HKU1 (PCR) Not detected (Not Detect) Coronavirus 229E (PCR) Not detected (Not Detect) Coronavirus NL63 (PCR) Not detected (Not Detect) Human Metapneumovir PCR Not detected (Not Detect) Influenza Type A (PCR) Not detected (Not Detect) Influenza Type B (PCR) Not detected (Not Detect) M. pneumoniae (PCR) Not detected (Not Detect) Parainfluenza 1 (PCR) Not detected (Not Detect) Parainfluenza 2 (PCR) Not detected (Not Detect) Parainfluenza 3 (PCR) Not detected (Not Detect) Parainfluenza 4 (PCR) Not detected (Not Detect) RSV (PCR) Not detected (Not Detect) Entero/Rhino (PCR) Not detected (Not Detect) 01/08/20 01/08/20 01/08/20 Range/Units 08:10 08:10 08:10 WBC (4.5-11.0) X10^3/uL RBC (4.5-5.9) X10^6/uL Hgb (13.5-17.5) g/dL Hct (41-53) % MCV (80-100) fL MCH (26-34) PG MCHC (30-36) % RDW (11.6-14.8) % Plt Count (150-400) X10^3/uL Neut % (Auto) (50-75) % Lymph % (Auto) (25-40) % Boyd % (Auto) (3-14) % Eos % (Auto) (2-4) % Baso % (Auto) (0-2) % Neut # (Auto) (4698-0751) /uL Lymph # (Auto) (0415-2640) /uL Boyd # (Auto) (0-900) /uL Eos # (Auto) (0-450) /uL Baso # (Auto) (0-100) /uL PT (10.1-12.7) SECONDS INR (0.9-1.3) APTT (26.4-36.2) SECONDS Sodium 136 L (137-145) mmol/L Potassium 5.0 (3.4-5.1) mmol/L Chloride 105 (98-107) mmol/L Carbon Dioxide 26 (22-32) mmol/L BUN 30 H (9-20) mg/dL Creatinine 1.39 H (0.66-1.25) mg/dL Estimated GFR 50.0 L (>60) mL/min BUN/Creatinine Ratio 21.6 (6-22) Glucose 149 H (80-110) mg/dL Lactate 0.6 L (0.7-2.1) mmol/L Calcium 8.6 (8.4-10.2) mg/dL Magnesium 2.1 (1.6-2.3) mg/dL Total Creatine Kinase 50 L (55-170) U/L CK-MB (CK-2) TNP CK-MB (CK-2) Rel Index TNP Troponin I (0.01-0.034) ng/mL NT-Pro-B Natriuret Pep 31240 H (<125) pg/mL Procalcitonin < 0.05 (<0.5) ng/mL Chlamy pneumoniae PCR (Not Detect) Adenovirus (PCR) (Not Detect) B.parapertussis DNA PCR (Not Detect) Coronavirus OC43 (PCR) (Not Detect) Coronavirus HKU1 (PCR) (Not Detect) Coronavirus 229E (PCR) (Not Detect) Coronavirus NL63 (PCR) (Not Detect) Human Metapneumovir PCR (Not Detect) Influenza Type A (PCR) (Not Detect) Influenza Type B (PCR) (Not Detect) M. pneumoniae (PCR) (Not Detect) Parainfluenza 1 (PCR) (Not Detect) Parainfluenza 2 (PCR) (Not Detect) Parainfluenza 3 (PCR) (Not Detect) Parainfluenza 4 (PCR) (Not Detect) RSV (PCR) (Not Detect) Entero/Rhino (PCR) (Not Detect) ECG Data Attestation: I personally reviewed and interpreted this ECG as follows: Interpretation: The patient's EKG obtained on January 07 at 07:1 4:25 a.m. reveals a sinus tachycardia there is interventricular conduction delay with QRS being 126 milliseconds. QTC is 390 milliseconds axis is normal. The patient has left ventricular hypertrophy by voltage criteria. The patient has diffuse T-wave inversions in leads V5 V6 I with flat T-waves in aVL suggesting lateral wall ischemia. The patient also has T-wave inversions in leads II III and AVF suggesting inferior wall ischemia. Discharge Plan Departure Patient Disposition: Admitted As Inpatient Clinical Impression: COPD with exacerbation, Hypoxia COPD (chronic obstructive pulmonary disease) Qualifiers: COPD type: unspecified COPD Qualified Code(s): J44.9 - Chronic obstructive pulmonary disease, unspecified Discharge Date/Time: 01/08/20 11:12 Admit Date/Time: 01/08/20 10:23 Admit Provider: Harish Almaguer
[2020-01-08] MEDS: methylPREDNISolone 125 MG/2 ML VIAL IV (07:33)
[2020-01-08] MEDS: SODIUM CHLORIDE 0.9% 1,000 ML 150 ML IV (07:34)
[2020-01-08 08:33] LABS: Add Manual Diff / Slide Review NO; Basophils Absolute Auto 0 /uL (0-100); Basophils Percent Auto 0.2 % (0-2); Eosinophils Absolute Auto 100 /uL (0-450); Eosinophils Percent Auto 0.7 % (2-4); Hematocrit 30.5 % (41-53); Lymphocytes Absolute Auto 900 /uL (1100-4500); Mean Corpuscular HGB Conc 32.8 % (30-36); Mean Corpuscular Hemoglobin 32.3 PG (26-34); Mean Corpuscular Volume 98.4 fL (80-100); Monocytes Absolute Auto 1700 /uL (0-900); Monocytes Percent Auto 9.9 % (3-14); Neutrophils Absolute Auto 14400 /uL (1500-7000); Neutrophils Percent Auto 84.2 % (50-75); Platelet Count 133 X10^3/uL (150-400); Red Cell Distribution Width 14.9 % (11.6-14.8); White Blood Cell Count 17.1 X10^3/uL (4.5-11.0)
[2020-01-08 08:44] LABS: INR 0.9 (0.9-1.3); Prothrombin Time 10.2 SECONDS (10.1-12.7)
[2020-01-08 08:47] LABS: PTT Partial Thromboplastin Tim 33 SECONDS (26.4-36.2)
[2020-01-08 08:52] LABS: BUN Creatinine Ratio 21.6 (6-22); Blood Urea Nitrogen 30 mg/dL (9-20); Calcium 8.6 mg/dL (8.4-10.2); Carbon Dioxide 26 mmol/L (22-32); Chloride 105 mmol/L (98-107); Creatine Kinase 50 U/L (55-170); Glucose 149 mg/dL (80-110); Lactate (Lactic Acid) 0.6 mmol/L (0.7-2.1); Magnesium 2.1 mg/dL (1.6-2.3); Sodium 136 mmol/L (137-145)
[2020-01-08 08:53] LABS: HEMOLYSIS < 15 (0-50)
[2020-01-08 09:00] LABS: Adenovirus Not Detected (Not Detect); Bordetella pertussis Not Detected (Not Detect); Chlamydophila pneumoniae Not Detected (Not Detect); Coronavirus 229E Not Detected (Not Detect); Coronavirus HKU1 Not Detected (Not Detect); Coronavirus NL 63 Not Detected (Not Detect); Coronavirus OC43 Not Detected (Not Detect); Human Metapneumovirus Not Detected (Not Detect); Human Rhinovirus/Enterovirus Not Detected (Not Detect); Influenza A Not Detected (Not Detect); Influenza B Not Detected (Not Detect); Mycoplasma pneumoniae Not Detected (Not Detect); Parainfluenza Virus 1 Not Detected (Not Detect); Parainfluenza Virus 2 Not Detected (Not Detect); Parainfluenza Virus 3 Not Detected (Not Detect); Parainfluenza Virus 4 Not Detected (Not Detect); Respiratory Syncytial Virus Not Detected (Not Detect)
[2020-01-08 09:11] LABS: Procalcitonin < 0.05 ng/mL (<0.5)
[2020-01-08 09:15] LABS: NT-proBNP (BNP-Adult 18+) 10100 pg/mL (<125)
[2020-01-08] MEDS: THIAMINE 200 MG/2 ML VIAL 100 MG IV (09:34)
[2020-01-08] MEDS: LORazepam 0.5 MG TABLET 1 MG PO (09:35)
--- NOTE | 2020-01-08 09:58 | PC.NURSE ---
pt states hes breathing is better. pt appears more comfortable. pt responsive to noise. speaking in full sentenses.
[2020-01-08] MEDS: FUROSEMIDE 40 MG/4 ML VIAL IV ×2 (10:08→14:00)
--- NOTE | 2020-01-08 11:13 | PC.NURSE ---
0930-condom cath in place 1040-yellow urine output in catheter bag, 100ml 1055-bipap removed per dr pereyra, after results of abg. pt placed on 4l nc. pt reports he is feeling better.
--- NOTE | 2020-01-08 11:48 | P.HP_ITS ---
History of Present Illness History of Present Illness Date Patient Seen: 01/08/20 Time Patient Seen: 11:48 Chief complaint: Shortness of breath Narrative: Mr. Kervin Vincent is a 74-year-old male with a complex medical history including coronary artery disease status post bypass surgery, and STEMI (C5/2 1016), right frontal CVA, peripheral vascular disease, COPD, CKD stage 3, hypertension, hyperlipidemia, GERD, bladder cancer, status post TURP presented to ED with worsening shortness of breath over the past couple of days, he does state that he finished his course of steroids from his prior admission when he was discharged 10 days ago. He began to become more short of breath and felt like he could not breathe this morning. He called EMS, and on his usual home regimen of 1.5-2 L he was saturating 80%. He denies any fevers or chills, he states his cough is not changed. He denies any nausea, vomiting, chest pain, lower extremity edema, orthopnea. He denies recent travel or sick contacts. In the emergency room, the patient was hypertensive, and tachypneic. He was saturating in the upper 90s on 4 L. he was initially started on BiPAP, but s eemingly improved and ABG was checked and the patient was not hypercarbic or acidotic. He was changed to nasal cannula and is saturating in the upper 90 still on 4 L. he does desaturate to the mid 80s on his usual home oxygen amount. His chest x-ray showed hilar prominence, no focal infiltrates, and expanded lung volumes consistent with COPD. Patient was given nebulizers, steroids, and Lasix in the emergency room. It appears as if his weight is 4 kg up from his discharge weight. Lab studies showed a WBC count of 17.1, stable hemoglobin of 10, platelet of 133, creatinine of 1.39, significantly improved from discharge. His lactate was 0.6, proBNP 70300, and procalcitonin was negative. Viral respiratory panel was negative. Given lack of fever or infiltrate on imaging, initial COVID 19 testing ordered by emergency room was discontinued. Patient was admitted for acute on chronic hypoxemic respiratory failure, likely secondary to COPD exacerbation or acute volume overload. Patient History Medical History Alcohol abuse (Inactive) Bladder cancer (Chronic Unknown) CKD (chronic kidney disease) (Chronic Unknown) Congestive heart failure (Inactive) COPD (chronic obstructive pulmonary disease) (Chronic Unknown) Coronary artery disease (Chronic Unknown) Gastroesophageal reflux disease (Acute) Hyperlipemia (Chronic Unknown) Hypertension (Chronic Unknown) PAD (peripheral artery disease) (Chronic Unknown) Stroke (Resolved 02/2016) Surgical History History of appendectomy (Acute) Hx of coronary artery bypass graft (Resolved Unknown) Hx of transurethral resection of prostate (Resolved 10/2016) Family & Social History Social History: household members none Safety & Behavioral: Feels Safe in Current Yes Environment Been Physically Hurt or No Threatened By a Person Tobacco & Substance use: Tobacco type cigarettes Smoking Status Former smoker alcohol intake current alcohol intake frequency 0-2 drinks per day Substance Use Type marijuana Meds Home Medications and Allergies Home Medications Medication Instructions Recorded Confirmed Type aspirin 81 mg tablet,delayed 81 mg PO DAILY 05/20/18 01/08/20 History release folic acid 800 mcg tablet 0.8 mg PO DAILY 05/20/18 01/08/20 History multivitamin 1 tab PO DAILY 05/20/18 01/08/20 History carvedilol 25 mg tablet 25 mg PO BID #60 tab 07/10/18 01/08/20 Rx ipratropium-albuterol 3 ml INHALATION BID #90 ml 12/23/19 01/08/20 Rx nicotine 21 mg TOPICAL DAILY #30 patch 12/23/19 01/08/20 Rx thiamine HCl (vitamin B1) [Vitamin 100 mg PO DAILY #30 tab 12/23/19 01/08/20 Rx B-1] torsemide 10 mg PO BID 12/28/19 01/08/20 History amlodipine 10 mg PO DAILY 01/08/20 01/08/20 History atorvastatin [Lipitor] 20 mg PO BEDTIME 01/08/20 01/08/20 History gabapentin [Neurontin] 300 mg PO BEDTIME 01/08/20 01/08/20 History lisinopril 10 mg PO DAILY 01/08/20 01/08/20 History nitroglycerin [Nitrostat] 1 tab PO PRN PRN 01/08/20 01/08/20 History omeprazole 20 mg PO DAILY 01/08/20 01/08/20 History Allergies Allergy/AdvReac Type Severity Reaction Status Date / Time No Known Drug Allergies Allergy Verified 12/20/19 19:46 Review of Systems Review of Systems Narrative: All other systems reviewed with the patient and are negative unless otherwise stated. Exam Vital Signs (past 8 hours): - 01/08/20 06:54 01/08/20 07:30 01/08/20 09:04 Pulse Rate 111 H 90 81 Respiratory Rate 30 H 28 H 22 Blood Pressure 207/104 H Blood Pressure [Left Arm] 212/93 H 181/79 H Pulse Oximetry 98 100 100 01/08/20 10:00 01/08/20 11:00 Pulse Rate 83 87 Respiratory Rate 23 22 Blood Pressure Blood Pressure [Left Arm] 163/67 H 198/81 H Pulse Oximetry 97 96 Oxygen Delivery Method Nasal Cannula Oxygen Flow Rate 4 Narrative Exam Narrative: GENERAL APPEARANCE: Thin, chronically ill-appearing male with mildly increased work of breathing SKIN: Inspection of the skin reveals no rashes, ulcerations or petechiae. HEENT: Moist mucous membranes, EOMI, PERLLA. NECK: Supple and symmetric. There was no thyroid enlargement, and no tenderness, or masses were felt. CHEST: Normal AP diameter and normal contour without any kyphoscoliosis. LUNGS: Auscultation of the lungs revealed no wheezes, rhonchi, or rales, however air movement was extremely poor. CARDIOVASCULAR: There was a regular rate and rhythm without any murmurs, gallops, rubs. Peripheral pulses were 2+ and symmetric. ABDOMEN: Soft and nontender with normal bowel sounds. No ascites was noted. MUSCULOSKELETAL: There was no tenderness or effusions noted. Muscle strength and tone were normal. EXTREMITIES: No cyanosis, clubbing or edema. NEUROLOGIC: Alert and oriented x 3, but somewhat confused. Strength is +5/5 in the Upper Extremities and Lower Extremities Bilaterally. Objective ECG Impression: Sinus tachycardia, with a rate of 103. There are T-wave inversions in V5 and V6 which appear old. There is no evidence new or active ischemia. Imaging Chest x-ray: My impression: Increased AP diameter/lung volumes, mild perihilar prominence, no acute infiltrates. Radiologist's impression: Large lung volumes, COPD is suspected. Chronic interstitial prominence, presumed prior smoking history. CABG. No definite acute disease Labs Result Diagrams: 01/08/20 08:10 01/08/20 08:10 Labs: Laboratory Results - last 24 hr 01/08/20 01/08/20 01/08/20 07:40 08:10 08:10 WBC 17.1 H RBC 3.10 L Hgb 10.0 L Hct 30.5 L MCV 98.4 MCH 32.3 MCHC 32.8 RDW 14.9 H Plt Count 133 L Neut % (Auto) 84.2 H Lymph % (Auto) 5.0 L Osborne % (Auto) 9.9 Eos % (Auto) 0.7 L Baso % (Auto) 0.2 Neut # (Auto) 11883 H Lymph # (Auto) 900 L Osborne # (Auto) 1700 H Eos # (Auto) 100 Baso # (Auto) 0 PT 10.2 INR 0.9 APTT 33 D Sodium Potassium Chloride Carbon Dioxide BUN Creatinine Estimated GFR BUN/Creatinine Ratio Glucose Lactate Calcium Magnesium Total Creatine Kinase CK-MB (CK-2) CK-MB (CK-2) Rel Index Troponin I NT-Pro-B Natriuret Pep Procalcitonin Chlamy pneumoniae PCR Not detected Adenovirus (PCR) Not detected B.parapertussis DNA PCR Not detected Coronavirus OC43 (PCR) Not detected Coronavirus HKU1 (PCR) Not detected Coronavirus 229E (PCR) Not detected Coronavirus NL63 (PCR) Not detected Human Metapneumovir PCR Not detected Influenza Type A (PCR) Not detected Influenza Type B (PCR) Not detected M. pneumoniae (PCR) Not detected Parainfluenza 1 (PCR) Not detected Parainfluenza 2 (PCR) Not detected Parainfluenza 3 (PCR) Not detected Parainfluenza 4 (PCR) Not detected RSV (PCR) Not detected Entero/Rhino (PCR) Not detected 01/08/20 01/08/20 01/08/20 08:10 08:10 08:10 WBC RBC Hgb Hct MCV MCH MCHC RDW Plt Count Neut % (Auto) Lymph % (Auto) Osborne % (Auto) Eos % (Auto) Baso % (Auto) Neut # (Auto) Lymph # (Auto) Osborne # (Auto) Eos # (Auto) Baso # (Auto) PT INR APTT Sodium 136 L Potassium 5.0 Chloride 105 Carbon Dioxide 26 BUN 30 H Creatinine 1.39 H Estimated GFR 50.0 L BUN/Creatinine Ratio 21.6 Glucose 149 H Lactate 0.6 L Calcium 8.6 Magnesium 2.1 Total Creatine Kinase 50 L CK-MB (CK-2) TNP CK-MB (CK-2) Rel Index TNP Troponin I NT-Pro-B Natriuret Pep 85807 H Procalcitonin < 0.05 Chlamy pneumoniae PCR Adenovirus (PCR) B.parapertussis DNA PCR Coronavirus OC43 (PCR) Coronavirus HKU1 (PCR) Coronavirus 229E (PCR) Coronavirus NL63 (PCR) Human Metapneumovir PCR Influenza Type A (PCR) Influenza Type B (PCR) M. pneumoniae (PCR) Parainfluenza 1 (PCR) Parainfluenza 2 (PCR) Parainfluenza 3 (PCR) Parainfluenza 4 (PCR) RSV (PCR) Entero/Rhino (PCR) Assessment & Plan Assessment & Plan narrative: Mr. Kervin iVncent is a 74-year-old male with a complex medical history including coronary artery disease status post bypass surgery, and STEMI (C5/2 1016), right frontal CVA, peripheral vascular disease, COPD, CKD stage 3, hypertension, hyperlipidemia, GERD, bladder cancer, status po st TURP presented to ED with worsening shortness of breath over the past couple of days and is admitted with acute on chronic hypoxemic respiratory failure likely secondary to COPD exacerbation. 1. Acute on chronic hypoxic respiratory failure, present on admission. -likely secondary to acute exacerbation of COPD based on available clinical evidence. There is a possibility this is due to volume overload possibly in the setting of decompensated heart failure or uncontrolled hypertension. There are no known sick contacts, and patient is without infiltrate on radiographic imaging, and without fevers. COVID-19 testing obtained by ER but can be discontinued. -continue Lasix IV 40 mg b.i.d. -patient was given methylprednisone in the emergency room, continue prednisone 40 mg daily. Given frequent readmissions recently will consider long-term taper at this time. -viral panel is negative and procalcitonin negative 2. COPD with exacerbation, present on admission - continue duoneb Q6H while awake - albuterol prn - RT eval and treat 3. Possible acute exacerbation of systolic heart failure, present on admission - will continue diuresis as noted above, his weight is up approx 3 Kg since his prior admission. - prior TTE with EF 40-45% 12/18/2019. 4. Troponin leak, present on admission -troponin was actually significantly lower than level on recent discharge -EKG without acute ischemic findings, not significantly changed -continue aspirin 81 mg q.d., atorvastatin 20 mg q.d., sublingual nitroglycerin as needed for history of CAD -telemetry monitoring 5. Chronic kidney disease stage III - Cr has improved since prior admission. 6. Labile hypertension, present on admission - patient with marked hypertension in the ED, will continue home medications and diuresis as noted above. This may have contributed to his symptoms of dyspnea as noted above - continue home regimen for HTN with additional lasix as noted above. Code:DNR/DNI, patient has POLST DVT: Lovenox daily Dispo: Admitted as inpatient as his stay is likely to exceed 2 midnights. Patient well need PT and OT given prior concern upon previous admission. Given his appearance today, and frequent readmissions discharge to SNF may be warranted.
--- NOTE | 2020-01-08 13:58 | OT.IP.EVAL ---
Past Medical History (Last Reviewed 01/08/20 @ 07:44 by Nabil Etienne MD) Alcohol abuse (Inactive) Bladder cancer (Chronic Unknown) CKD (chronic kidney disease) (Chronic Unknown) Congestive heart failure (Inactive) COPD (chronic obstructive pulmonary disease) (Chronic Unknown) Coronary artery disease (Chronic Unknown) Gastroesophageal reflux disease (Acute) Hyperlipemia (Chronic Unknown) Hypertension (Chronic Unknown) PAD (peripheral artery disease) (Chronic Unknown) Stroke (Resolved 02/2016) Surgical History (Last Reviewed 01/08/20 @ 07:44 by Nabil Etienne MD) History of appendectomy (Acute) Hx of coronary artery bypass graft (Resolved Unknown) Hx of transurethral resection of prostate (Resolved 10/2016) Occupational Therapy Inpatient Evaluation/Re-Eval M1 PT/OT-IP Prior Functional Status Start: 01/08/20 14:30 Freq: NEEDED Status: Active Protocol: Document 01/08/20 14:30 [facility] (Rec: 01/08/20 14:53 [facility] [id number]) Medical Review Prior Functional Status Medical History Reviewed Yes Communication Independent. Mobility and Gait Pt mainly furniture cruise in th RV and use of SPC outside. Activities of Daily Living and IADL's Pt able do all ADl and IADl needs. Social History Household Members none Living Arrangements RV Number of Floors (Floors) One Floor Number of Stairs To Enter/Railing? 3 steps with hand hold mount . Home Environment High Toilet,Walk in Shower Home Equipment Straight Cane Additional Social History Comment Pt states does not have running hot water and use of propane stove to heat up water for sponge bath. Pt mainly uses the shower for storage and sleeps on the couch at home. Pt has neighbors that check on his daily and mainly assist his for rides. M2 OT-IP Current Condition Start: 01/08/20 14:30 Freq: Status: Active Protocol: Document 01/08/20 14:30 [facility] (Rec: 01/08/20 14:53 [facility] [id number]) Occupational Therapy Current Condition Current Condition Evaluation Date 01/08/20 Treatment Diagnosis Acute on chronic hypoxic respiratory failure Diagnosis Onset Date 01/08/20 Weight Bearing Status Weight Bearing Status Weight Bear as Tolerated M3 OT- IP Subjective and Pain Start: 01/08/20 14:30 Freq: Status: Active Protocol: Document 01/08/20 14:30 [facility] (Rec: 01/08/20 14:53 [facility] [id number]) OT- Subjective Occupational Therapy Visit Type Type Initial Evaluation Visit Start Time 13:35 Visit Stop Time 13:58 Total Visit Minutes 23 Occupational Therapy Visit Comments Patient Comments Pt wanting to try to get up to use the BSC. Patient/Caregiver Goals Pt wanting to go home when not so short of breath. OT Pain Assessment Pain When Pain Assessed At Rest Pain Present Pain Present Pain Reported Location Neck Intensity 4 Scale Used Numeric (1 - 10) M4 OT- IP ADL's Start: 01/08/20 14:30 Freq: Status: Active Protocol: Document 01/08/20 14:30 [facility] (Rec: 01/08/20 14:53 [facility] [id number]) OT POD-Dhmz-Wlrfjig Comments OT Self-Feeding Comments NOt at meal time. OT ADL-Grooming Comments OT Grooming Comments Pt able to wash off his hands after set-up of wipes. OT ADL-Oral Care Comments Oral Care Comments Not performed pt too tired. OT ADL-Dressing General Eval Lower Body Dressing Ability Maximum Assistance Areas Needing Assistance Socks OT ADL-Toileting General Evaluation Toileting Ability Moderate Assistance Areas Needing Assistance Manage Clothing,Perform Perineal Hygiene Devices Toileting Assistive Devices Commode Comments OT Toileting Comments Initially pt able to stand to begin to wipe after a bowel movement, however getting tired and needing therapist to complete and assist to barbie brief as well. OT ADL-Bathing Comments OT Bathing Comments Not at this time. M5 OT- IP IADL's Start: 01/08/20 14:30 Freq: Status: Active Protocol: Document 01/08/20 14:30 [facility] (Rec: 01/08/20 14:53 [facility] [id number]) OT-Instrumental Activities of Daily Living Medication Management Medication Management No Deficits Identified Medication Management Comments Pt states gets his medications out throughout the day and places in a dish. Money Management Money Management Comments Pt states makes out one rent check and otherwise has automatic deductions. Meal Preparation Meal Preparation No Deficits Identified Driving Driving Comments Neighbors drives his to appointments. M6 OT- IP Functional Cognition Start: 01/08/20 14:30 Freq: Status: Active Protocol: Document 01/08/20 14:30 [facility] (Rec: 01/08/20 14:53 [facility] [id number]) Cognitive Factors Limiting Selfcare Function Cognitive Ability Level of Alertness Alert Patient Orientation Name,Place,Situation Attention Span Ability Capable of Focused Attention, Capable of Sustained Attention Ability to Follow Commands Able to Follow One Step Commands Cognitive Comments Cognitive Assessment Comments Pt appears to be at baseline. OT- Vision and Hearing OT- Hearing Assessment OT- Hearing Assessment WFL M7 OT- IP Mobility and Balance Start: 01/08/20 14:30 Freq: Status: Active Protocol: Document 01/08/20 14:30 [facility] (Rec: 01/08/20 14:53 [facility] [id number]) OT- Bed Mobility Assessment Rolling Type of Rolling Roll to Left Level of Assistance Standby Assistance Supine to Sit Supine to Sit Assist Standby Assistance Sit to Supine Sit to Supine Assist Contact Guard Assistance Scooting Scooting to Edge of Bed Standby Assistance OT-Transfer Assessment Sit to and From Stand Sit to and from Stand Contact Guard Assistance Transfers Transfer Ability Contact Guard Assistance, Minimal Assistance Technique Transfer Destination Bed,Bedside Commode Transfer Technique Stand Step Pivot Devices Transfer Assistive Devices None,Gait Belt,Front Wheeled Walker Comments Mobility Comments Initially transfer to from bed to C SHANTE as pt a little unsteady on his feet and also for assist top help manage O2, and IV lines. Transfer back with FWW CGA. Pt states does not have a FWW as too big for his RV. OT- Balance Assessment Sitting Balance and Reactions Static Sitting Balance Ability Good Standing Balance and Reactions Static Standing Balance Ability Fair M8 OT- IP Objective Assessments Start: 01/08/20 14:30 Freq: Status: Active Protocol: Document 01/08/20 14:30 [facility] (Rec: 01/08/20 14:53 [facility] [id number]) OT Gross Range of Motion Upper Extremity Range of Motion Assessment Right Impaired ROM Impairments RUE shoulder flexion 0-100 OT Strength Comments Strength Comments RUE 4-/5 to 4/5 from proxiaml to distal and LUE 4/5 throughout. OT-Muscle Tone Assessment Muscle Tone WNL Yes M9 OT- IP Assessment and Plan Start: 01/08/20 14:30 Freq: Status: Active Protocol: Document 01/08/20 14:30 [facility] (Rec: 01/08/20 14:53 [facility] [id number]) OT Summary Assessment and Plan Potential Rehabilitation Potential Good Analytic Complexity at Evaluation Low Summary OT Impairments Strength,Balance,Functional Mobility,Grooming,Dressing, Toileting,Bathing,Toilet Transfers,Shower Transfers, Activity Tolerance Progress Towards Goals Slow Progress due to Medical Issues,Slow Progress due to Activity Tolerance Assessment Summary Pt low complexity and back in the hospital for shortness of breath and was just recently discharged 10 days ago. Prior pt was MOD I with all needs and now needing SHANTE assist for ADl and functional mobility needs. Pending medical progress pt may benefit from skilled rehab as now having 3 recent hospital admissions in the past month versus try to go home again with home health. Goals Grooming Goal Independent Dressing Goal Independent Toileting Goal Independent Bathing Goal Independent Toilet Transfer Goal Independent Shower Transfer Goal Independent Days to Meet Goals 10 Frequency of Treatment Frequency Of Treatment Once a Day Treatment Plan OT Treatment Plan ADL Training,Functional Cognition Training,Functional Mobility,Patient/Family Education,Discharge Planning Other Treatment Recommendations and Next wood heel flap inserter front of the sink for Treatment Focus showering needs. Discharge Recommendations OT Discharge Recommendations SNF Rehab Other Discharge Recommendations Home with home health is significantly improves medically. Transportation Needs at Discharge Private Vehicle
--- NOTE | 2020-01-08 14:40 | PT.IIE ---
Surgical History (Last Reviewed 01/08/20 @ 07:44 by Nabil Etienne MD) History of appendectomy (Acute) Hx of coronary artery bypass graft (Resolved Unknown) Hx of transurethral resection of prostate (Resolved 10/2016) Medical History (Last Reviewed 01/08/20 @ 07:44 by Nabil Etienne MD) Alcohol abuse (Inactive) Bladder cancer (Chronic Unknown) CKD (chronic kidney disease) (Chronic Unknown) Congestive heart failure (Inactive) COPD (chronic obstructive pulmonary disease) (Chronic Unknown) Coronary artery disease (Chronic Unknown) Gastroesophageal reflux disease (Acute) Hyperlipemia (Chronic Unknown) Hypertension (Chronic Unknown) PAD (peripheral artery disease) (Chronic Unknown) Stroke (Resolved 02/2016) Physical Therapy Inpatient Evaluation/Re-Eval M1 PT/OT-IP Prior Functional Status Start: 01/08/20 14:30 Freq: NEEDED Status: Active Protocol: Document 01/08/20 14:30 [facility] (Rec: 01/08/20 14:53 [facility] [id number]) Medical Review Prior Functional Status Medical History Reviewed Yes Communication Independent. Mobility and Gait Pt mainly furniture cruise in th RV and use of SPC outside. Activities of Daily Living and IADL's Pt able do all ADl and IADl needs. Social History Household Members none Living Arrangements RV Number of Floors (Floors) One Floor Number of Stairs To Enter/Railing? 3 steps with hand hold mount . Home Environment High Toilet,Walk in Shower Home Equipment Straight Cane Additional Social History Comment Pt states does not have running hot water and use of propance stove to heat up water for sponge bath. Pt mainly uses the shower for storage and sleeps on the couch at home. Pt has neighbors that check on his daily and mainly assist his for rides. M1 PT/OT-IP Prior Functional Status Start: 01/08/20 16:45 Freq: NEEDED Status: Active Protocol: Document 01/08/20 14:40 AB (Rec: 01/08/20 17:01 AB [id number]) Medical Review Prior Functional Status Medical History Reviewed Yes Communication able to make needs known Mobility and Gait pt stated that he is modified independent with all mobilities and ambulation using SPC Social History Household Members none Living Arrangements RV Number of Floors (Floors) One Floor Number of Stairs To Enter/Railing? 3 steps to enter with L rail Home Environment High Toilet,Walk in Shower Home Equipment Straight Cane Additional Social History Comment pt stated that he does not use his shower: stated that it is a walkin tub shower and that he sleeps on his couch M2 PT-IP Current Condition Start: 01/08/20 16:45 Freq: NEEDED Status: Active Protocol: Document 01/08/20 14:40 AB (Rec: 01/08/20 17:01 [id number]) Physical Therapy Current Condition Current Condition Evaluation Date 01/08/20 Treatment Diagnosis COPD; generalized weakness Onset Date 01/08/2020 Precautions Other Precautions droplet precautions M3 PT-IP Subjective Start: 01/08/20 16:45 Freq: NEEDED Status: Active Protocol: Document 01/08/20 14:40 AB (Rec: 01/08/20 17:01 AB [id number]) Subjective Physical Therapy Visit Type Type Initial Evaluation Visit Start Time 14:40 Visit Stop Time 15:16 Total Visit Minutes 36 Number of LABORER/GRADE CHECK Visits 0 Physical Therapy Visit Comments Patient Comments pt requesting to use the toilet M4 PT-IP Mobility and Gait Start: 01/08/20 16:45 Freq: NEEDED Status: Active Protocol: Document 01/08/20 14:40 AB (Rec: 01/08/20 17:01 AB [id number]) PT-Bed Mobility Assessment Supine to Sit Supine to Sit Standby Assistance,Head of Bed Elevated,Bedrails Sit to Supine Sit to Supine Standby Assistance,Head of Bed Elevated PT-Transfer Assessment Sit to and From Stand Sit to and from Stand Standby Assistance,Contact Guard Assistance,1 Person Assistance,Use of Upper Extremities Equipment Transfer Assistive Device Gait Belt,Front Wheeled Walker Orthotic/Prosthetic Devices or Brace: No Transfers Transfer Destination Bedside Commode Transfer Technique Stand Step Pivot Transfer Ability Level of Assist Standby Assistance,Contact Guard Assistance,1 Person Assistance,Use of Upper Extremities Comments Mobility Comments O2 sat at rest : 98% with O2 on. completed supine to sit with HOB elevated SBA. completed sit to stand SBA to CGA and completed step transfer using FWW to bedside commode SBA to CGA. pt compelted sit to stand from the bedside commode SBA to CGA and was able to maintain standing balance using FWW for support CGA while NAC assisted with hygiene care and brief management. pt requested to just go back to bed afterwards and completed step transfer back to bed using FWW SBA to CGA. completed sit to supine SBA. positioned in bed. pt refused ambulation and stated that he is really tired and just wants to rest. call light and table placed within reach. Gait Assessment Comments Gait Comments able to take steps during transfers using FWW but refused to do ambulation due to c/o feeling tired. PT-Balance Assessment Sitting Balance and Reactions Static Sitting Balance Ability Good Dynamic Sitting Balance Ability Good Standing Balance and Reactions Static Standing Balance Ability Fair Dynamic Standing Balance Ability Fair Device Used FWW M5 PT-IP Objective Assessments Start: 01/08/20 16:45 Freq: NEEDED Status: Active Protocol: Document 01/08/20 14:40 AB (Rec: 01/08/20 17:01 AB [id number]) Orientation Orientation/Cognition Level of Alertness Alert Orientation Name,Place,Situation Safety Awareness Decreased Safety Awareness Strength Lower Extremity Strength Assessment Bilaterally Impaired Comments Strength Comments LLE: 3+/5 RLE: 4-/5 Muscle Tone Muscle Tone WNL Yes M6 PT-IP Treatment Start: 01/08/20 16:45 Freq: NEEDED Status: Active Protocol: Document 01/08/20 14:40 AB (Rec: 01/08/20 17:01 AB [id number]) Physical Therapy Treatment Education Education Provided Safety M7 PT-IP Assessment and Plan Start: 01/08/20 16:45 Freq: NEEDED Status: Active Protocol: Document 01/08/20 14:40 AB (Rec: 01/08/20 17:01 AB [id number]) PT Summary Assessment and Plan Potential Rehabilitation Potential Fair Status of Condition at Evaluation Evolving Summary Impairments Pain,ROM,Strength,Balance, Coordination,Sensation,Tone, Cognition,Bed Mobility, Transfers,Gait,Activity Tolerance Assessment Summary pt requiring SBA to CGA with mobility at this time but presents with decrease activity tolerance and unable to ambulate due to c/o feeling tired after toileting. pt lives alone and needs to be able to be able to tolerate more activities to improve independence. Pt at this time will require SNF rehab to improve strength and mobility. Goals Bed Mobility Goal Independent Transfer Goal Independent,Cane Gait Goal Independent,Cane Gait Distance 150 Other Goals up/down 3 steps L rail SBA Days to Meet Goals 10 Frequency of Treatment Frequency Of Treatment Once a Day Treatment Plan Physical Therapy Treatment Plan Bed Mobility Training,Transfer Training,Gait Training, Therapeutic Exercise,Balance Retraining,Discharge Planning, Hot or Cold Pack,Neuromuscular Re-ed,Coordination Retraining Recommendations To Nursing Amount of Assist Needed 1 Person Assist Discharge Recommendations PT Discharge Recommendations SNF Rehab Equipment Needed for Home Before FWW if not safe with SPC Discharge Transportation Needs at Discharge Wheelchair/Cabulance
--- NOTE | 2020-01-08 16:18 | PC.NURSE ---
Pt to floor from ED @ 1330; O2 2 L; wet cough; trace edema to BL ankles; Bruising and trace scabs to all extremities; Pt HUGHES A&O X3, lethargic; hx CVA with weakness to LLE; 1-asst to bsc; BM X 4; continent/incontinent urine; bed alarm for high risk and slight impulsiveness
[2020-01-08] MEDS: GABAPENTIN 300 MG CAPSULE PO (20:24)
[2020-01-08] MEDS: carvediloL 25 MG TABLET PO (20:24)
[2020-01-08] MEDS: ATORVASTATIN 20 MG TABLET PO (20:24)
[2020-01-09] MEDS: FUROSEMIDE 40 MG/4 ML VIAL IV (00:52)
[2020-01-09 04:20] VITALS: BP 168/85; PULSE 97; RESP 20; TEMP 36.4; O2SAT 91
[2020-01-09] MEDS: ALBUTEROL/IPRATROPIUM 3 ML AMPUL INH ×2 (07:11→12:30)
[2020-01-09 07:35] LABS: Add Manual Diff / Slide Review NO; Basophils Absolute Auto 100 /uL (0-100); Basophils Percent Auto 0.5 % (0-2); Eosinophils Absolute Auto 0 /uL (0-450); Eosinophils Percent Auto 0.1 % (2-4); Hematocrit 27.6 % (41-53); Hemoglobin 9.2 g/dL (13.5-17.5); Lymphocytes Absolute Auto 500 /uL (1100-4500); Mean Corpuscular HGB Conc 33.3 % (30-36); Mean Corpuscular Hemoglobin 32.4 PG (26-34); Mean Corpuscular Volume 97.5 fL (80-100); Monocytes Absolute Auto 1100 /uL (0-900); Monocytes Percent Auto 8.6 % (3-14); Neutrophils Absolute Auto 11600 /uL (1500-7000); Neutrophils Percent Auto 86.8 % (50-75); Platelet Count 114 X10^3/uL (150-400); Red Blood Cell Count 2.83 X10^6/uL (4.5-5.9); Red Cell Distribution Width 14.7 % (11.6-14.8); White Blood Cell Count 13.3 X10^3/uL (4.5-11.0)
[2020-01-09 07:41] VITALS: PULSE 94; RESP 24; O2SAT 93
[2020-01-09 07:48] LABS: BUN Creatinine Ratio 30.8 (6-22); Blood Urea Nitrogen 36 mg/dL (9-20); Calcium 8.6 mg/dL (8.4-10.2); Carbon Dioxide 28 mmol/L (22-32); Chloride 102 mmol/L (98-107); Estimated Glomerular Filt Rate > 60.0 mL/min (>60); Glucose 145 mg/dL (80-110); HEMOLYSIS 17 (0-50); Magnesium 1.8 mg/dL (1.6-2.3); Sodium 134 mmol/L (137-145)
[2020-01-09 08:00] VITALS: BP 124/69; PULSE 87; RESP 20; TEMP 36.9; O2SAT 91
--- NOTE | 2020-01-09 08:37 | CM.DANOTE ---
Addendum entered by Herminia Barber LPN 01/09/20 11:36: Case discussed in Team Rounds. Dr. Almaguer did confer with CM Dr. Doe and confirms that pt was not appropriate for a rule out Covid 19 protocol and this is canceled. He stated that pt is doing well and will d/c to home setting today on a prednisone taper with strong recommendation to follow up with his PCP to see if he should remain on low dose of same. Went to room to check with pt. He is up and getting ready for his d/c. He was off 02 when in bed but MIN Pretty clarifies that he does de-sat with activity and is now on his usual 1.5 L o2. Pt says his POA Jacky is preparing for surgery and is limiting his outside contacts. Pt is calling his usual [employer] person, Alvaro to take him home. He says he will need an o2 tank from the hospital to take with him and RT is informed of need and vendor and is working on this now. Will update [facility]. CM sp will fax d/c summary to [facility] when available. Have left a vm now for Donald re the d/c today, resume HH orders and add BRICK WASHER/TAR CHASER to the RN order. (Donald had called back prior to rounds to confirm [facility] was still open to services with pt but that pt had only allowed RN to see him and had refused PT and OT. Requested TAR CHASER and BRICK WASHER be added to this mix) P: home today as per plan. will follow prn until pt leaves. Addendum entered by Herminia Barber LPN 01/09/20 09:01: No CIWA: will discuss with Dr. Almaguer and MIN Urias. Addendum entered by Herminia Barber LPN 01/09/20 09:00: PT and OT are ordered and did see pt yesterday. Will check to see if pt is on CIWA protocol. Original Note: Discharge Planning/Care Management DCP: assessment: case received, EMR reviewed. Readmits: noted: pt was here 12/27-12/28 and 12/20-12/23 with a d/c to home setting and [facility]. Went to room to meet with pt (this d/c associate merchandise planner did meet with pt on 12/21 for initial assessment and intent was to see his is baseline situation including this alcohol and smoking pattern (both, continual use from time he wakes to time he goes to sleep) remained the same). Noted: Special Droplet Precautions: only essential staff to enter: confirmed with Acute National Sales Trainer Kylee Augustine that pt was on a rule -out Covid 19 status and would remain so until test results were received. Pt is a 74 year old male who admitted to care of hospitalist team. PCP: [facility] Payer: [facility] Medicare and Medicaid DPOA: reportedly pt has given this to his neighbor Jacky Barrett: listed phone # as [phone]. Pt lives in an RV with limited services. He gets around with a cane and furniture walking. Is on home o2: vendor: [employer] Have a call into [facility] to confirm that they are still involved in pt's home care. P: discuss with Dr. Almaguer in Team Rounds. DCP team will be following to assist with d/c issues and options as POC unfolds. CM Discharge Assessment Start: 01/09/20 08:36 Freq: Status: Active Protocol: Document 01/09/20 08:36 ITV (Rec: 01/09/20 08:37 ITV [id number]) Discharge Planning Assessment Advance Directives? Yes History Provided By Medical Record Has Patient been admitted in last 30 Yes days? Prior Living Arrangements RV Household Members none Type of transportation used prior to Relies on Others admit Review Status In Process
[2020-01-09] MEDS: THIAMINE 100 MG TABLET PO (09:30)
[2020-01-09] MEDS: FOLIC ACID 0.4 MG TABLET 0.8 MG PO (09:30)
[2020-01-09] MEDS: ENOXAPARIN 40 MG/0.4 ML SYRINGE SUBCUT (09:30)
[2020-01-09] MEDS: predniSONE 20 MG TABLET 40 MG PO (09:30)
[2020-01-09] MEDS: ASPIRIN EC 81 MG TABLET PO (09:30)
[2020-01-09] MEDS: MULTIVITAMIN 1 TABLET 1 TAB PO (09:31)
[2020-01-09] MEDS: lisinopriL 10 MG TABLET PO (09:31)
[2020-01-09] MEDS: NICOTINE 21 MG PATCH TOP (09:31)
[2020-01-09] MEDS: AMLODIPINE 5 MG TABLET 10 MG PO (09:31)
[2020-01-09] MEDS: carvediloL 25 MG TABLET PO (09:34)
--- NOTE | 2020-01-09 10:36 | P.DS_ITS ---
History of Present Illness History of Present Illness Date Patient Seen: 01/09/20 Time Patient Seen: 10:39 Chief complaint: Shortness of breath Narrative: Mr. Kervin Vincent is a 74-year-old male with a complex medical history including coronary artery disease status post bypass surgery, and STEMI (C5/2 1016), right frontal CVA, peripheral vascular disease, COPD, CKD stage 3, hypertension, hyperlipidemia, GERD, bladder cancer, status post TURP presented to ED with worsening shortness of breath over the past couple of days, he does state that he finished his course of steroids from his prior admission when he was discharged 10 days ago. He began to become more short of breath and felt like he could not breathe this morning. He called EMS, and on his usual home regimen of 1.5-2 L he was saturating 80%. He denies any fevers or chills, he states his cough is not changed. He denies any nausea, vomiting, chest pain, lower extremity edema, orthopnea. He denies recent travel or sick contacts. In the emergency room, the patient was hypertensive, and tachypneic. He was saturating in the upper 90s on 4 L. he was initially started on BiPAP, but s eemingly improved and ABG was checked and the patient was not hypercarbic or acidotic. He was changed to nasal cannula and is saturating in the upper 90 still on 4 L. he does desaturate to the mid 80s on his usual home oxygen amount. His chest x-ray showed hilar prominence, no focal infiltrates, and expanded lung volumes consistent with COPD. Patient was given nebulizers, steroids, and Lasix in the emergency room. It appears as if his weight is 4 kg up from his discharge weight. Lab studies showed a WBC count of 17.1, stable hemoglobin of 10, platelet of 133, creatinine of 1.39, significantly improved from discharge. His lactate was 0.6, proBNP 81525, and procalcitonin was negative. Viral respiratory panel was negative. Given lack of fever or infiltrate on imaging, initial COVID 19 testing ordered by emergency room was discontinued. Patient was admitted for acute on chronic hypoxemic respiratory failure, likely secondary to COPD exacerbation or acute volume overload. Discharge Providers Provider Date of admission: 01/08/20 10:23 Discharge Date: 01/09/20 Primary care physician: Stephen Bonilla MD Consults: 01/08/20 06:59 Consult to Respiratory Therapy Evaluate & Treat Comment: Physician Instructions: Evaluate and treat 01/08/20 11:47 Consult to Occupational Therapy Evaluate & Treat Comment: Physician Instructions: Evaluate and treat Consult to Physical Therapy Evaluate & Treat Comment: Physician Instructions: Evaluate and Treat Discharge provider: Harish Almaguer DO Summary Hospital Course Discharge Diagnosis: Please see hospital course by problem list noted below. Hospital Course: Mr. Kervin Vincent is a 74-year-old male with a complex medical history including coronary artery disease status post bypass surgery, and STEMI (C5/2 1016), right frontal CVA, peripheral vascular disease, COPD, CKD stage 3, hypertension, hyperlipidemia, GERD, bladder cancer, status post TURP presented to ED with worsening shortness of breath over the past couple of days and was admitted with acute on chronic hypoxemic respiratory failure likely secondary to COPD exacerbation. He improved more quickly than expected and was discharged home with home health the following day. 1. Acute on chronic hypoxic respiratory failure, present on admission, acute portion resolved. -likely secondary to acute exacerbation of COPD based on available clinical evidence. There is a possibility this is due to volume overload possibly in the setting of decompensated heart failure or uncontrolled hypertension. There are no known sick contacts, and patient was without infiltrate on radiographic imaging, and without fevers. COVID-19 testing obtained by ER and sent by lab, but was ordered to be cancelled by me. -patient was started on lasix IV 40 mg BID for possible overload, patient takes torsemide at home and presented with 3kg weight gain. Will discharge on lasix 40 mg BID this time, with plan for outpatient follow up and daily weights. He also continues to drink alcholol, he has been counseled multiple times on cessation. -patient was given methylprednisone in the emergency room, continue prednisone 40 mg daily. Given frequent readmissions recently will discharge on long term care phlebotomist taper. (40 mg x4 days, 30 mg x 4 days, 20 mg x4 days, 10 mg x 4 days). Consider chronic prednisone therapy and patient should have pulmonary evaluation as an outpatient. -viral panel was negative and procalcitonin negative 2. COPD with exacerbation, present on admission - patient will complete prolonged steroid taper, as noted above recommend outpatient pulmonary evaluation for COPD. - counseled on smoking cessation. - consider chronic prednisone therapy as noted above. - PMD follow up in 2-4 weeks. 3. Possible acute exacerbation of systolic heart failure, present on admission - will continue diuresis as noted above, his weight was up approx 3 Kg since his prior admission. - prior TTE with EF 40-45% 12/18/2019. - will change from torsemide to lasix 40 mg BID on discharge. Continue to track daily weight and may need adjustments as an outpatient. Patient should discontinue EtOH as well. 4. Troponin leak, present on admission -troponin was actually significantly lower than level on recent discharge -EKG without acute ischemic findings, not significantly changed -continue aspirin 81 mg q.d., atorvastatin 20 mg q.d., sublingual nitroglycerin as needed for history of CAD -telemetry monitoring was unremarkable. 5. Chronic kidney disease stage III - Cr has improved since prior admission. 6. Labile hypertension, present on admission - patient with marked hypertension in the ED, will continue home medications and diuresis as noted above. This may have contributed to his symptoms of dyspnea as noted above - continue home regimen for HTN with additional lasix as noted above. Code:DNR/DNI, patient has POLST Status at Discharge Cognitive/behavioral status at discharge: oriented Overall status at discharge: patient is back to baseline Time Spent with Patient Time spent: Greater than 30 minutes Exam Vital Signs (past 8 hours): - 01/09/20 04:20 01/09/20 07:41 01/09/20 08:00 Temperature 97.5 F L 98.4 F Pulse Rate 97 H 94 H 87 Respiratory Rate 20 24 20 Blood Pressure 168/85 H 124/69 Pulse Oximetry 91 93 91 Fraction of Inspired Oxygen 50 Oxygen Delivery Method Room Air Oxygen Flow Rate 0 Narrative Exam Narrative: GENERAL APPEARANCE: Thin, chronically ill-appearing male, now on room air and appears comfortable SKIN: Inspection of the skin reveals no rashes, ulcerations or petechiae. HEENT: Moist mucous membranes, EOMI, PERLLA. NECK: Supple and symmetric. There was no thyroid enlargement, and no tenderness, or masses were felt. CHEST: barrell chested, midline well healed surgical scar. LUNGS: Auscultation of the lungs revealed no wheezes, rhonchi, or rales. Improved air movement. CARDIOVASCULAR: There was a regular rate and rhythm without any murmurs, gallops, rubs. Peripheral pulses were 2+ and symmetric. ABDOMEN: Soft and nontender with normal bowel sounds. No ascites was noted. MUSCULOSKELETAL: There was no tenderness or effusions noted. Muscle strength and tone were normal. EXTREMITIES: No cyanosis, clubbing or edema. NEUROLOGIC: Alert and oriented x 3, cooperative, appropriate behavior. Strength is +5/5 in the Upper Extremities and Lower Extremities Bilaterally. Objective Labs Result Diagrams: 01/09/20 07:19 01/09/20 07:19 Labs: Laboratory Results - last 24 hr 01/09/20 01/09/20 07:19 07:19 WBC 13.3 H RBC 2.83 L Hgb 9.2 L Hct 27.6 L MCV 97.5 MCH 32.4 MCHC 33.3 RDW 14.7 Plt Count 114 L Neut % (Auto) 86.8 H Lymph % (Auto) 4.0 L [place] % (Auto) 8.6 Eos % (Auto) 0.1 L Baso % (Auto) 0.5 Neut # (Auto) 62108 H Lymph # (Auto) 500 L [place] # (Auto) 1100 H Eos # (Auto) 0 Baso # (Auto) 100 Sodium 134 L Potassium 4.0 Chloride 102 Carbon Dioxide 28 BUN 36 H Creatinine 1.17 Estimated GFR > 60.0 BUN/Creatinine Ratio 30.8 H Glucose 145 H Calcium 8.6 Magnesium 1.8 Discharge Plan Discharge Plan Patient Disposition: Home Health Service Transfer to: [facility] Discharge comment: Mr. Kervin Vincent is a 74-year-old male with a complex medical history including coronary artery disease status post bypass surgery, and STEMI (C5/2 1016), right frontal CVA, peripheral vascular disease, COPD, CKD stage 3, hypertension, hyperlipidemia, GERD, bladder cancer, status post TURP presented to ED with worsening shortness of breath over the past couple of days and was admitted with acute on chronic hypoxemic respiratory failure likely secondary to COPD exacerbation. He improved more quickly than expected and was discharged home with home health the following day. Discharge orders & Medications Prescriptions: New prednisone 10 mg tablet See Rx Instructions .ROUTE .COMPLEX 16 Days Qty: 40 RF: 0 furosemide 40 mg tablet 40 mg PO BID 30 Days Qty: 60 RF: 0 Continued multivitamin [Tab-A-Yariel] tablet 1 tab PO DAILY RF: 0 aspirin [Adult Low Dose Aspirin] 81 mg tablet,delayed release (DR/EC) 81 mg PO DAILY RF: 0 folic acid 800 mcg tablet 0.8 mg PO DAILY RF: 0 carvedilol [Coreg] 25 mg tablet 25 mg PO BID Qty: 60 RF: 5 nicotine 21 mg/24 hr Patch 24 Hour 21 mg topical DAILY Qty: 30 RF: 0 thiamine HCl (vitamin B1) [Vitamin B-1] 100 mg Tablet 100 mg PO DAILY Qty: 30 RF: 0 lisinopril 10 mg tablet 10 mg PO DAILY RF: 0 atorvastatin [Lipitor] 20 mg tablet 20 mg PO BEDTIME RF: 0 gabapentin [Neurontin] 300 mg capsule 300 mg PO BEDTIME RF: 0 amlodipine 10 MG tablet 10 mg PO DAILY RF: 0 nitroglycerin [Nitrostat] 0.4 MG tablet, sublingual 1 tab PO PRN PRN (Reason: Chest Pain) RF: 0 omeprazole 20 mg capsule,delayed release(DR/EC) 20 mg PO DAILY RF: 0 ipratropium-albuterol 0.5 mg-3 mg(2.5 mg base)/3 mL Solution For Nebulization 3 ml inhalation BID 30 Days Qty: 90 RF: 0 Discontinued torsemide 10 mg tablet 10 mg PO BID RF: 0 Follow up/Referrals: Stephen Bonilla MD [Primary Care Provider] - Diet/Activity/Treatments Diet: Diet as Tolerated Activity: As tolerated Visit Report/Discharge Packet Instructions: Chronic Obstructive Pulmonary Disease, DI for Chronic Obstructive Pulmonary Disease, How to Prevent Falls, Furosemide (By mouth), Prednisone (By mouth) Visit Report Forms: Patient Portal/API, Stroke Signs & Symptoms Discharge Data Primary Care Provider: Stephen Bonilla Attending Provider: Harish Almaguer [place] Date/Time: 01/08/20 10:23
--- NOTE | 2020-01-09 10:40 | PT.IPTN ---
Current Diagnoses Acute and chronic respiratory failure with hypoxia (01/08/20) Physical Therapy Treatment Note M2 PT-IP Current Condition Start: 01/08/20 16:45 Freq: NEEDED Status: Active Protocol: Document 01/08/20 14:40 AB (Rec: 01/08/20 17:01 AB [id number]) Physical Therapy Current Condition Current Condition Evaluation Date 01/08/20 Treatment Diagnosis COPD; generalized weakness Onset Date 01/08/2020 Precautions Other Precautions droplet precautions M3 PT-IP Subjective Start: 01/08/20 16:45 Freq: NEEDED Status: Active Protocol: Document 01/09/20 10:40 AB (Rec: 01/09/20 11:09 AB [id number]) Subjective Physical Therapy Visit Type Type Treatment Note Visit Start Time 10:40 Visit Stop Time 10:59 Total Visit Minutes 19 Number of FERRY PILOT Visits 0 Physical Therapy Visit Comments Patient Comments pt agreeable to do PT; stated that he is feeling better Therapy Pain Assessment Pain Present Pain Present Denied Pain M4 PT-IP Mobility and Gait Start: 01/08/20 16:45 Freq: NEEDED Status: Active Protocol: Document 01/09/20 10:40 AB (Rec: 01/09/20 11:09 AB [id number]) PT-Bed Mobility Assessment Supine to Sit Supine to Sit Standby Assistance,Head of Bed Elevated Scooting Scooting to Edge of Bed Standby Assistance PT-Transfer Assessment Sit to and From Stand Sit to and from Stand Standby Assistance,1 Person Assistance,Use of Upper Extremities Equipment Transfer Assistive Device None,Gait Belt Orthotic/Prosthetic Devices or Brace: No Comments Mobility Comments pt agreeable to do PT. O2 sat at room air 92%. O2 sat with 1.5L/min O2 prior to mobility 96% and 95-96% after ambulation. pt stated that he uses O2 all the time at home. pt lives in an and furniture cruises. completed supine to sit SBA with HOB elevated and then SBA with sit to stand. ambulated in room without AD but holds on the the counter/bed/yuen SBA ~ 40 ft. pt sat on EOB and wanted to just in on EOB for awhile. bed alarm on. informed nurse. call light placed next to pt and table as well. Gait Assessment Gait Gait Assistance Required: Standby Assistance Distance (Feet) 40 Able to Maintain Weight Bearing Status Yes During Gait Assistive Devices Assistive Device Gait Belt Orthotic/Prosthetic Devices or Brace: No Gait Deviations General Gait Pattern Decreased Stride Length, Decreased Feet Clearance Factors Limiting Gait Function Factors Limiting Gait Function Decreased Activity Tolerance, Decreased Strength,Poor Balance,Respiratory Distress Comments Gait Comments pls refer to mobility section for details M5 PT-IP Objective Assessments Start: 01/08/20 16:45 Freq: NEEDED Status: Active Protocol: Document 01/08/20 14:40 AB (Rec: 01/08/20 17:01 AB [id number]) Orientation Orientation/Cognition Level of Alertness Alert Orientation Name,Place,Situation Safety Awareness Decreased Safety Awareness Strength Lower Extremity Strength Assessment Bilaterally Impaired Comments Strength Comments LLE: 3+/5 RLE: 4-/5 Muscle Tone Muscle Tone WNL Yes M6 PT-IP Treatment Start: 01/08/20 16:45 Freq: NEEDED Status: Active Protocol: Document 01/09/20 10:40 AB (Rec: 01/09/20 11:09 AB [id number]) Physical Therapy Treatment Education Education Provided Safety M7 PT-IP Assessment and Plan Start: 01/08/20 16:45 Freq: NEEDED Status: Active Protocol: Document 01/09/20 10:40 AB (Rec: 01/09/20 11:09 AB [id number]) PT Summary Assessment and Plan Potential Rehabilitation Potential Good Summary Impairments Pain,ROM,Strength,Balance, Coordination,Sensation,Tone, Cognition,Bed Mobility, Transfers,Gait,Activity Tolerance Progress Towards Goals Slow Progress due to Activity Tolerance Assessment Summary pt progressing with mobility but continues to be limited due to decrease activity tolerance. pt requiring SBA with mobility. d/c plan depending on progress. Goals Bed Mobility Goal Independent Transfer Goal Independent,Cane Gait Goal Independent,Cane Gait Distance 150 Other Goals up/down 3 steps L rail SBA Days to Meet Goals 10 Frequency of Treatment Frequency Of Treatment Once a Day Treatment Plan Physical Therapy Treatment Plan Bed Mobility Training,Transfer Training,Gait Training, Therapeutic Exercise,Balance Retraining,Discharge Planning, Hot or Cold Pack,Neuromuscular Re-ed,Coordination Retraining Other Recommendations and Next Treatment ambulation using SPC Focus Recommendations To Nursing Amount of Assist Needed 1 Person Assist Discharge Recommendations PT Discharge Recommendations Home with Assistance,SNF Rehab Transportation Needs at Discharge Private Vehicle,Wheelchair/ Cabulance
--- NOTE | 2020-01-09 11:16 | CM.DPC ---
DCP Cont: Faxed H&P to [facility] at fax # [phone]. Fax confirmation received and scanned in. Zuleyka Grant, Care Driller Multiple Spindle
--- NOTE | 2020-01-09 11:42 | OT.IP.TRT ---
Current Diagnoses Acute and chronic respiratory failure with hypoxia (01/08/20) Occupational Therapy Treatment Note M2 OT-IP Current Condition Start: 01/08/20 14:30 Freq: Status: Active Protocol: Document 01/08/20 14:30 [facility] (Rec: 01/08/20 14:53 [facility] [id number]) Occupational Therapy Current Condition Current Condition Evaluation Date 01/08/20 Treatment Diagnosis Acute on chronic hypoxic respiratory failure Diagnosis Onset Date 01/08/20 Weight Bearing Status Weight Bearing Status Weight Bear as Tolerated M3 OT- IP Subjective and Pain Start: 01/08/20 14:30 Freq: Status: Active Protocol: Document 01/09/20 12:08 [facility] (Rec: 01/09/20 12:15 [facility] [id number]) OT- Subjective Occupational Therapy Visit Type Type Treatment Note Visit Start Time 11:08 Visit Stop Time 11:42 Total Visit Minutes 34 Occupational Therapy Visit Comments Patient Comments Pt wanting to get dressed to go home. Pt states feels much better, I feel like a new baby. Patient/Caregiver Goals To go home. OT Pain Assessment Pain When Pain Assessed At Rest Pain Present Pain Present Denied Pain M4 OT- IP ADL's Start: 01/08/20 14:30 Freq: Status: Active Protocol: Document 01/09/20 12:08 [facility] (Rec: 01/09/20 12:15 [facility] [id number]) OT ADL-Dressing General Eval Upper Body Dressing Ability Independent Lower Body Dressing Ability Independent Comments OT Dressing Comments Pt able to dress with increased time , pt suggested to sit to initiate donning pants, however able to do safely while leaning on the bed. M5 OT- IP IADL's Start: 01/08/20 14:30 Freq: Status: Active Protocol: Document 01/08/20 14:30 [facility] (Rec: 01/08/20 14:53 [facility] [id number]) OT-Instrumental Activities of Daily Living Medication Management Medication Management No Deficits Identified Medication Management Comments Pt states gets his medications out throughout the day and places in a dish. Money Management Money Management Comments Pt states makes out one rent check and otherwise has automatic deductions. Meal Preparation Meal Preparation No Deficits Identified Driving Driving Comments Neighbors drives his to appointments. M6 OT- IP Functional Cognition Start: 01/08/20 14:30 Freq: Status: Active Protocol: Document 01/09/20 12:08 [facility] (Rec: 01/09/20 12:15 [facility] [id number]) Cognitive Factors Limiting Selfcare Function Cognitive Comments Cognitive Assessment Comments Pt at baseline. Pt had decreased safety awareness but insistent on doing things his way, i.e standing to get dressed even though safer to sit to get dressed. M7 OT- IP Mobility and Balance Start: 01/08/20 14:30 Freq: Status: Active Protocol: Document 01/09/20 12:08 [facility] (Rec: 01/09/20 12:15 [facility] [id number]) OT-Transfer Assessment Sit to and From Stand Sit to and from Stand Independent Transfers Transfer Ability Independent Comments Mobility Comments Pt able to safely use SPC in the room and able to appropriately take rest breaks at needed when tired. OT- Balance Assessment Sitting Balance and Reactions Static Sitting Balance Ability Normal Dynamic Sitting Balance Ability Good Standing Balance and Reactions Static Standing Balance Ability Good M8 OT- IP Objective Assessments Start: 01/08/20 14:30 Freq: Status: Active Protocol: Document 01/08/20 14:30 [facility] (Rec: 01/08/20 14:53 [facility] [id number]) OT Gross Range of Motion Upper Extremity Range of Motion Assessment Right Impaired ROM Impairments RUE shoulder flexion 0-100 OT Strength Comments Strength Comments RUE 4-/5 to 4/5 from proxiaml to distal and LUE 4/5 throughout. OT-Muscle Tone Assessment Muscle Tone WNL Yes M9 OT- IP Assessment and Plan Start: 01/08/20 14:30 Freq: Status: Active Protocol: Document 01/09/20 12:08 [facility] (Rec: 01/09/20 12:15 [facility] [id number]) OT Summary Assessment and Plan Potential Rehabilitation Potential Good Analytic Complexity at Evaluation Low Summary OT Impairments Activity Tolerance Progress Towards Goals Progressing Toward Goals Assessment Summary Pt doing much better today and being discharged home with home health. Discharge Recommendations OT Discharge Recommendations Home,Home Health Transportation Needs at Discharge Private Vehicle
[2020-01-09 12:30] VITALS: PULSE 73; RESP 16; O2SAT 93
--- NOTE | 2020-01-09 12:54 | PC.NURSE ---
Day shift: Let unit w/ STEFANY Norbert in WC to a taxi that will take him home. meds at pharmacy including more nebs. Paperwork signed and all questions answered. Pt has all personal belongings. He is going home with a tank of O2 set up by RT. Pt gets his O2 from [facility] in [place]. Pt uses 1.5L NC at home. RA Pt was low 90's but with activity it goes to mid to upper 80's. Pt has COPD as well as other comorbidities.
--- NOTE | 2020-01-09 15:38 | CM.DPC ---
DCP Cont: Faxed home health order and discharge summary to [facility] at fax # [phone]. Fax confirmation scanned in. Zuleyka Grant, Care Helper Electrical
[2020-01-17 08:07] LABS: HCO3 ABG 24 mmol/L (22-26); Oxygen Saturation ABG 99 % (95-100); PCO2 ABG 43.4 mmHg (35-45); PO2 ABG 144 mmHg (80-100); TCO2 ABG 25 mmol/L (21-31); pH ABG 7.35 (7.35-7.45)
[2020-01-17 08:08] LABS: Fractionated Inspired Oxygen 50
[2020-01-18 14:40] LABS: COVID19 Sendout Not Detected (Not Detected)
== END 2020-01-09 12:57 | disposition home health service (06) ==
LOC: ED 10:18 → AC 10:27
PROVIDERS: Emergency Medicine; Admitting Provider Internal Medicine; Emergency Provider Emergency Medicine; PCP Internal Medicine; Referring Provider Emergency Medicine; Visit Provider Internal Medicine
DX: J96.21 Acute and chronic respiratory failure with hypoxia (principal); I50.23 Acute on chronic systolic (congestive) heart failure; J44.1 Chronic obstructive pulmonary disease with (acute) exacerbation; I13.0 Hypertensive heart and chronic kidney disease with heart failure and stage 1 through stage 4 chronic kidney disease, or unspecified chronic kidney disease; N18.3 Chronic kidney disease, stage 3 (moderate); Z99.81 Dependence on supplemental oxygen; Z86.73 Personal history of transient ischemic attack (TIA), and cerebral infarction without residual deficits; I25.2 Old myocardial infarction
CPT/HCPCS: 36415; 36600; 71045; 80048; 82550; 82805; 83605; 83735; 83880; 84145; 84484; 85025; 85610; 85730; 87040; 87633; 93005; 94640; 94660; 94760; 94762; 96361; 96372; 96374; 96375; 97116; 97162; 97165; 97530; 97535; 99285; 99291; G0378; DELETED; J1650; J1940; J2930

== ENCOUNTER → 2020-06-21 13:28 | Outpatient (CLI) | payer MEDICARE, MEDICAID, SELFPAY ==
[2020-01-08 07:18] VITALS: PULSE 102; RESP 23; O2SAT 100
[2020-01-08 15:56] VITALS: BMI 22.1
[2020-06-21 14:57] LABS: Prostate Specific Antigen 10.4 ng/mL (0.10-4.00)
== END ==
PROVIDERS: PCP Internal Medicine; Referring Provider Urology; Visit Provider Urology
DX: R97.20 Elevated prostate specific antigen [PSA] (principal)
CPT/HCPCS: 36415; 84153

== ENCOUNTER → 2020-09-09 10:36 | Outpatient (CLI) | payer MEDICARE, MEDICAID, SELFPAY ==
[2020-01-08 07:18] VITALS: PULSE 102; RESP 23; O2SAT 100
[2020-01-08 15:56] VITALS: BMI 22.1
[2020-09-09 11:54] LABS: Add Manual Diff / Slide Review NO; Basophils Absolute Auto 0 /uL (0-100); Basophils Percent Auto 0.3 % (0-2); Eosinophils Absolute Auto 200 /uL (0-450); Eosinophils Percent Auto 2.3 % (2-4); Hematocrit 34.3 % (41-53); Hemoglobin 11.4 g/dL (13.5-17.5); Lymphocytes Absolute Auto 1400 /uL (1100-4500); Lymphocytes Percent Auto 18.7 % (25-40); Mean Corpuscular HGB Conc 33.2 % (30-36); Mean Corpuscular Hemoglobin 29.9 PG (26-34); Mean Corpuscular Volume 90.2 fL (80-100); Monocytes Absolute Auto 900 /uL (0-900); Monocytes Percent Auto 12.9 % (3-14); Neutrophils Absolute Auto 4800 /uL (1500-7000); Neutrophils Percent Auto 65.8 % (50-75); Platelet Count 174 X10^3/uL (150-400); Red Blood Cell Count 3.81 X10^6/uL (4.5-5.9); White Blood Cell Count 7.3 X10^3/uL (4.5-11.0)
[2020-09-09 12:01] LABS: Alanine Aminotransferase 14 IU/L (<50); Albumin 4.3 g/dL (3.5-5.0); Albumin Globulin Ratio 1.7 (1.0-2.8); Alkaline Phosphatase 69 U/L (38-126); Aspartate Aminotransferase 29 IU/L (17-59); BUN Creatinine Ratio 23.2 (6-22); Bilirubin Total 0.4 mg/dL (0.2-1.3); Blood Urea Nitrogen 45 mg/dL (9-20); Calcium 8.9 mg/dL (8.4-10.2); Carbon Dioxide 25 mmol/L (22-32); Chloride 106 mmol/L (98-107); Cholesterol 148 mg/dL (140-199); Globulin 2.5 g/dL (1.7-4.1); Glucose 104 mg/dL (80-110); HDL Cholesterol 63 mg/dL (40-60); HEMOLYSIS 18 (0-50); LDL Cholesterol Calculated 65 mg/dL (<100); Potassium 4.9 mmol/L (3.4-5.1); Sodium 138 mmol/L (137-145); Total Protein 6.8 g/dL (6.3-8.2); Triglycerides 100 mg/dL (35-150)
[2020-09-09 15:05] LABS: Creatinine Urine Random 53.3 mg/dL
[2020-09-09 15:11] LABS: Microalbumi Creatinin Ratio Ur 48.7 ug/mg CR (<30); Microalbumin Urine Random 2.6 mg/dL (0-1.6)
== END ==
PROVIDERS: PCP Family Medicine; Referring Provider Family Medicine; Visit Provider Family Medicine
DX: E78.5 Hyperlipidemia, unspecified (principal); I10 Essential (primary) hypertension; I50.9 Heart failure, unspecified; N18.9 Chronic kidney disease, unspecified
CPT/HCPCS: 36415; 80053; 80061; 82043; 82570; 85025

== ENCOUNTER → 2020-10-13 13:21 | Outpatient (CLI) | payer MEDICARE, MEDICAID, SELFPAY ==
[2020-01-08 07:18] VITALS: PULSE 102; RESP 23; O2SAT 100
[2020-01-08 15:56] VITALS: BMI 22.1
[2020-10-13 15:13] LABS: Alanine Aminotransferase 17 IU/L (<50); Alkaline Phosphatase 64 U/L (38-126); Aspartate Aminotransferase 25 IU/L (17-59); BUN Creatinine Ratio 20.3 (6-22); Bilirubin Total 0.4 mg/dL (0.2-1.3); Blood Urea Nitrogen 44 mg/dL (9-20); Calcium 8.9 mg/dL (8.4-10.2); Carbon Dioxide 26 mmol/L (22-32); Chloride 104 mmol/L (98-107); Estimated Glomerular Filt Rate 29.9 mL/min (>60); Glucose 101 mg/dL (80-110); HEMOLYSIS < 15 (0-50); Sodium 136 mmol/L (137-145)
[2020-10-13 15:21] LABS: Potassium 5.6 mmol/L (3.4-5.1)
== END ==
PROVIDERS: PCP Family Medicine; Referring Provider Family Medicine; Visit Provider Family Medicine
DX: N18.9 Chronic kidney disease, unspecified (principal)
CPT/HCPCS: 36415; 80053

== ENCOUNTER → 2020-11-02 11:48 | Outpatient (CLI) | payer MEDICARE, MEDICAID, SELFPAY ==
[2020-01-08 07:18] VITALS: PULSE 102; RESP 23; O2SAT 100
[2020-01-08 15:56] VITALS: BMI 22.1
[2020-11-02 13:02] LABS: Add Manual Diff / Slide Review NO; Basophils Absolute Auto 0 /uL (0-100); Basophils Percent Auto 0.3 % (0-2); Eosinophils Absolute Auto 200 /uL (0-450); Eosinophils Percent Auto 2.1 % (2-4); Hematocrit 30.9 % (41-53); Hemoglobin 10.4 g/dL (13.5-17.5); Lymphocytes Absolute Auto 1500 /uL (1100-4500); Lymphocytes Percent Auto 19.9 % (25-40); Mean Corpuscular HGB Conc 33.7 % (30-36); Mean Corpuscular Hemoglobin 30.4 PG (26-34); Monocytes Absolute Auto 900 /uL (0-900); Monocytes Percent Auto 12.1 % (3-14); Neutrophils Absolute Auto 4800 /uL (1500-7000); Neutrophils Percent Auto 65.6 % (50-75); Platelet Count 189 X10^3/uL (150-400); Red Blood Cell Count 3.43 X10^6/uL (4.5-5.9); Red Cell Distribution Width 13.9 % (11.6-14.8); White Blood Cell Count 7.3 X10^3/uL (4.5-11.0)
[2020-11-02 13:37] LABS: Alanine Aminotransferase 17 IU/L (<50); Albumin 4.2 g/dL (3.5-5.0); Albumin Globulin Ratio 1.6 (1.0-2.8); Alkaline Phosphatase 63 U/L (38-126); Aspartate Aminotransferase 27 IU/L (17-59); BUN Creatinine Ratio 27.4 (6-22); Bilirubin Total 0.3 mg/dL (0.2-1.3); Blood Urea Nitrogen 64 mg/dL (9-20); Carbon Dioxide 29 mmol/L (22-32); Chloride 102 mmol/L (98-107); Estimated Glomerular Filt Rate 27.4 mL/min (>60); Globulin 2.6 g/dL (1.7-4.1); Glucose 104 mg/dL (80-110); HEMOLYSIS < 15 (0-50); Sodium 136 mmol/L (137-145); Total Protein 6.8 g/dL (6.3-8.2)
== END ==
PROVIDERS: PCP Family Medicine; Referring Provider Internal Medicine Cardiovascular Disease; Visit Provider Internal Medicine Cardiovascular Disease
DX: I50.22 Chronic systolic (congestive) heart failure (principal); I25.5 Ischemic cardiomyopathy; Z95.1 Presence of aortocoronary bypass graft; N18.30 Chronic kidney disease, stage 3 unspecified
CPT/HCPCS: 36415; 80053; 85025

== ENCOUNTER 2020-11-04 10:58 | Emergency (ER) | payer MEDICARE, MEDICAID, SELFPAY ==
[2020-01-08 07:18] VITALS: PULSE 102; RESP 23; O2SAT 100
[2020-01-08 15:56] VITALS: BMI 22.1
[2020-11-04 11:22] VITALS: BP 197/76; PULSE 66; RESP 18; TEMP 36.8; O2SAT 99; BMI 25.7
[2020-11-04 11:58] LABS: Add Manual Diff / Slide Review NO; Basophils Absolute Auto 0 /uL (0-100); Basophils Percent Auto 0.6 % (0-2); Eosinophils Absolute Auto 100 /uL (0-450); Eosinophils Percent Auto 1.6 % (2-4); Hematocrit 31.1 % (41-53); Hemoglobin 10.3 g/dL (13.5-17.5); Lymphocytes Absolute Auto 1300 /uL (1100-4500); Lymphocytes Percent Auto 17.2 % (25-40); Mean Corpuscular HGB Conc 33.2 % (30-36); Mean Corpuscular Hemoglobin 30.1 PG (26-34); Mean Corpuscular Volume 90.8 fL (80-100); Monocytes Absolute Auto 900 /uL (0-900); Monocytes Percent Auto 11.7 % (3-14); Neutrophils Absolute Auto 5200 /uL (1500-7000); Neutrophils Percent Auto 68.9 % (50-75); Platelet Count 200 X10^3/uL (150-400); Red Blood Cell Count 3.42 X10^6/uL (4.5-5.9); Red Cell Distribution Width 14.1 % (11.6-14.8); White Blood Cell Count 7.5 X10^3/uL (4.5-11.0)
--- NOTE | 2020-11-04 12:06 | ED_ITS ---
HPI - Recheck/Abnormal Lab/Rx <Marisol Minor, TRAFFIC CONTROL TECHNICIAN-BC - Last Filed: 11/04/20 15:04> General Chief Complaint: Recheck/Abnormal Lab/Rx Stated Complaint: Sent over from his doctors Potassium is low Time Seen by Provider: 11/04/20 11:46 Source: patient Mode of arrival: Family Vehicle Limitations: no limitations History of Present Illness HPI narrative: The patient is a 74-year-old male former smoker with history of CABG x4, chronic kidney disease who presents with a chief complaint of an kelsey vated potassium level. He states he does labs drawn a few days ago, and he was called last night and told to come to the emergency department because his potassium was high. He denies any pain at this point time. He states he feels fine. He states he did not come last night because he does not like to drive in the dark. He does note that he has seen a flake drier prior for his kidney disease, but not follow-up with them. He states that he does not want dialysis or anything like that, so he does not see the point in doing so. The patient states that he would like to go home after his labs are drawn. Related Data Home Medications Medication Instructions Recorded Confirmed aspirin 81 mg tablet,delayed 81 mg PO DAILY 05/20/18 10/14/20 release folic acid 800 mcg tablet 0.8 mg PO DAILY 05/20/18 10/14/20 multivitamin 1 tab PO DAILY 05/20/18 10/14/20 amlodipine 10 mg PO DAILY 01/08/20 10/14/20 atorvastatin [Lipitor] 20 mg PO BEDTIME 01/08/20 10/14/20 gabapentin [Neurontin] 300 mg PO BEDTIME 01/08/20 10/14/20 nitroglycerin [Nitrostat] 1 tab PO PRN PRN 01/08/20 10/14/20 torsemide 10 mg tablet 10 mg PO DAILY 11/04/20 Previous Rx's Medication Instructions Recorded carvedilol 25 mg tablet 25 mg PO BID #60 tab 07/10/18 nicotine 21 mg TOPICAL DAILY #30 patch 12/23/19 thiamine HCl (vitamin B1) [Vitamin 100 mg PO DAILY #30 tab 12/23/19 B-1] ipratropium-albuterol 3 ml INHALATION BID 30 Days #90 ml 01/09/20 gabapentin 300 mg capsule 300 mg PO BEDTIME #90 cap 09/09/20 hydrochlorothiazide 12.5 mg capsule 12.5 mg PO DAILY #60 cap 10/14/20 Allergies Allergy/AdvReac Type Severity Reaction Status Date / Time ether AdvReac Severe Vomiting Verified 11/04/20 12:12 Review of Systems <ROXI Casey - Last Filed: 11/04/20 15:04> Review of Systems Narrative: GENERAL: Denies chills, fatigue, malaise, fever, sweats. HEENT: Denies sinus pain, ear pain, sore throat, difficulty swallowing, dizzines s. RESPIRATORY: See HPI CARDIOVASCULAR: Denies chest pain, palpitations, orthopnea, edema, GASTROINTESTINAL: Denies nausea, vomiting, abdominal pain, diarrhea, constipation, melena. : Denies dysuria, frequency, incontinence, hematuria, urinary retention. MUSCULOSKELETAL: denies weakness, joint pain, or bony pain SKIN: Denies rash, skin lesions, or other NEUROLOGIC: Denies weakness, headache, numbness, change in speech, confusion, seizures, incoordination. PSYCHIATRIC: No concerning psychosocial issues. 12 point review of systems is negative except for those stated above Patient History <ROXI Casey - Last Filed: 11/04/20 15:04> Medical History Alcohol abuse Bladder cancer (~2014) CKD (chronic kidney disease) (Unknown) Congestive heart failure COPD (chronic obstructive pulmonary disease) (Unknown) Coronary artery disease (Unknown) Gastroesophageal reflux disease Hearing loss Hyperkalemia Hyperlipemia (Unknown) Hypertension (Unknown) Measles Mumps PAD (peripheral artery disease) (Unknown) Personal history of smoking Restless leg syndrome Seizures Stroke (02/2016) Surgical History History of appendectomy Hx of coronary artery bypass graft (Unknown) Hx of transurethral resection of prostate (10/2016) Social History household members: none Smoking Status: Former smoker alcohol intake: current Smoking Status: Former smoker alcohol intake frequency: 0-2 drinks per day Substance Use Type: marijuana Exam <ROXI Casey - Last Filed: 11/04/20 15:04> Narrative Exam Narrative: GENERAL: This is a well-nourished, well-developed patient, in no acute distress HEAD: Atraumatic. Normocephalic. No temporal or scalp tenderness. EYES: Pupils equal round and reactive. Extraocular motions intact. No scleral icterus. No injection or drainage. ENT: Nose without bleeding, purulent drainage or septal hematoma. Wearing a mask Airway patent. NECK: Trachea midline. No JVD or lymphadenopathy. Supple, nontender, no meningeal signs. CARDIOVASCULAR: Regular rate and rhythm RESPIRATORY: Coarse bilaterally to auscultation. Breath sounds equal bilaterally. No wheezes, rales, or rhonchi. GASTROINTESTINAL: Abdomen soft, non-tender, nondistended. No hepato- splenomegaly, or palpable masses. No guarding. EXTREMITIES: No clubbing, cyanosis, or edema. No joint tenderness, effusion, or edema noted. BACK: Nontender without deformity or crepitance. No flank tenderness. NEURO: AOx3. SKIN: No rash or erythema on visible skin Initial Vital Signs Initial Vital Signs: Vital Signs Temperature 98.3 F 11/04/20 11:22 Pulse Rate 66 11/04/20 11:22 Respiratory Rate 18 11/04/20 11:22 Blood Pressure 197/76 H 11/04/20 11:22 Pulse Oximetry 99 11/04/20 11:22 <Maxine Liz MD - Last Filed: 11/05/20 07:35> Initial Vital Signs Initial Vital Signs: Vital Signs Temperature 98.3 F 11/04/20 11:22 Pulse Rate 66 11/04/20 11:22 Respiratory Rate 18 11/04/20 11:22 Blood Pressure 197/76 H 11/04/20 11:22 Pulse Oximetry 99 11/04/20 11:22 Scores <ROXI Casey - Last Filed: 11/04/20 15:04> GCS Patito coma scale eye opening: Spontaneous Patito coma scale verbal response: Orientated [place]ont coma scale motor response: Obey commands Patito coma scale total score: 15 Course <ROXI Casey - Last Filed: 11/04/20 15:04> Orders Ordered: ED Orders 11/04/20 11:44 CBC Auto Diff [Complete Blood Count AUTO DIFF] Stat CMP [Comprehensive Metabolic Panel] Stat Vital Signs Vital signs: Vital Signs - 8 hr 11/04/20 11:22 11/04/20 13:09 Temperature 98.3 F Pulse Rate 66 57 L Respiratory Rate 18 16 Blood Pressure 197/76 H 178/75 H Pulse Oximetry 99 100 <Maxine Liz MD - Last Filed: 11/05/20 07:35> Orders Ordered: ED Orders 11/04/20 11:44 CBC Auto Diff [Complete Blood Count AUTO DIFF] Stat CMP [Comprehensive Metabolic Panel] Stat Vital Signs Vital signs: Vital Signs - 8 hr 11/04/20 11:22 11/04/20 13:09 Temperature 98.3 F Pulse Rate 66 57 L Respiratory Rate 18 16 Blood Pressure 197/76 H 178/75 H Pulse Oximetry 99 100 MDM - Recheck/Abnormal Lab/Rx <ROXI Casey - Last Filed: 11/04/20 15:04> Lab Data Attestation: I reviewed the patient's lab results. Result diagrams: 11/04/20 11:44 11/04/20 11:44 Labs: Lab Results 11/04/20 11/04/20 Range/Units 11:44 11:44 WBC 7.5 (4.5-11.0) X10^3/uL RBC 3.42 L (4.5-5.9) X10^6/uL Hgb 10.3 L (13.5-17.5) g/dL Hct 31.1 L (41-53) % MCV 90.8 (80-100) fL MCH 30.1 (26-34) PG MCHC 33.2 (30-36) % RDW 14.1 (11.6-14.8) % Plt Count 200 (150-400) X10^3/uL Neut % (Auto) 68.9 (50-75) % Lymph % (Auto) 17.2 L (25-40) % Barber % (Auto) 11.7 (3-14) % Eos % (Auto) 1.6 L (2-4) % Baso % (Auto) 0.6 (0-2) % Neut # (Auto) 5200 (1764-5535) /uL Lymph # (Auto) 1300 (3326-6967) /uL Barber # (Auto) 900 (0-900) /uL Eos # (Auto) 100 (0-450) /uL Baso # (Auto) 0 (0-100) /uL Sodium 137 (137-145) mmol/L Potassium 5.1 (3.4-5.1) mmol/L Chloride 104 (98-107) mmol/L Carbon Dioxide 28 (22-32) mmol/L BUN 59 H (9-20) mg/dL Creatinine 2.14 H (0.66-1.25) mg/dL Estimated GFR 30.4 L (>60) mL/min BUN/Creatinine Ratio 27.6 H (6-22) Glucose 114 H (80-110) mg/dL Calcium 8.8 (8.4-10.2) mg/dL Total Bilirubin 0.4 (0.2-1.3) mg/dL AST 29 (17-59) IU/L ALT 16 (<50) IU/L Alkaline Phosphatase 56 (38-126) U/L Total Protein 6.6 (6.3-8.2) g/dL Albumin 4.2 (3.5-5.0) g/dL Globulin 2.4 (1.7-4.1) g/dL Albumin/Globulin Ratio 1.8 (1.0-2.8) ECG Data Attestation: I personally reviewed and interpreted this ECG as follows: Interpretation: Sinus bradycardia. Ventricular rate 58. QRS 140. P.r interval 236. Viewed by Dr. Liz MDM Narrative Medical decision making narrative: The patient is a 74-year-old male who presents with a chief complaint of high potassium. His potassium was 6.0 few days ago, recheck today 5.1. His creatinine is improving. I spoke with primary care provider, Dr. Hightower who is happy to follow-up with the patient on an outpatient basis. He does have repeat lab work scheduled for next week, which is reassuring. Very strict return precautions the emergency department pr ovided. Discussed at length come back to the ER for acute concerns such as chest pain, shortness of breath etcetera. Patient has no questions or concerns upon discharge and states understanding of return precautions as well as follow- up care. <Maxine Liz MD - Last Filed: 11/05/20 07:35> Lab Data Labs: Lab Results 11/04/20 11/04/20 Range/Units 11:44 11:44 WBC 7.5 (4.5-11.0) X10^3/uL RBC 3.42 L (4.5-5.9) X10^6/uL Hgb 10.3 L (13.5-17.5) g/dL Hct 31.1 L (41-53) % MCV 90.8 (80-100) fL MCH 30.1 (26-34) PG MCHC 33.2 (30-36) % RDW 14.1 (11.6-14.8) % Plt Count 200 (150-400) X10^3/uL Neut % (Auto) 68.9 (50-75) % Lymph % (Auto) 17.2 L (25-40) % Barber % (Auto) 11.7 (3-14) % Eos % (Auto) 1.6 L (2-4) % Baso % (Auto) 0.6 (0-2) % Neut # (Auto) 5200 (0122-3593) /uL Lymph # (Auto) 1300 (9055-7783) /uL Barber # (Auto) 900 (0-900) /uL Eos # (Auto) 100 (0-450) /uL Baso # (Auto) 0 (0-100) /uL Sodium 137 (137-145) mmol/L Potassium 5.1 (3.4-5.1) mmol/L Chloride 104 (98-107) mmol/L Carbon Dioxide 28 (22-32) mmol/L BUN 59 H (9-20) mg/dL Creatinine 2.14 H (0.66-1.25) mg/dL Estimated GFR 30.4 L (>60) mL/min BUN/Creatinine Ratio 27.6 H (6-22) Glucose 114 H (80-110) mg/dL Calcium 8.8 (8.4-10.2) mg/dL Total Bilirubin 0.4 (0.2-1.3) mg/dL AST 29 (17-59) IU/L ALT 16 (<50) IU/L Alkaline Phosphatase 56 (38-126) U/L Total Protein 6.6 (6.3-8.2) g/dL Albumin 4.2 (3.5-5.0) g/dL Globulin 2.4 (1.7-4.1) g/dL Albumin/Globulin Ratio 1.8 (1.0-2.8) Discharge Plan Departure Patient Disposition: Home Clinical Impression: History of hyperkalemia, Creatinine elevation Instructions: DI for Hyperkalemia Activity Restrictions/Additional Instructions: Thank you for trusting us with your care today As discussed, I spoke with primary care provider today. Fortunately your potassium level has improved in your kidney function has improved slightly. Please follow-up with him in the next few days. Please continue the medication changes that were recently done. As discussed, please come back to the emergency department for any acute concerns such as chest pain, shortness of breath etcetera Prescriptions: No Action multivitamin [Tab-A-Yariel] tablet 1 tab PO DAILY RF: 0 aspirin [Adult Low Dose Aspirin] 81 mg tablet,delayed release (DR/EC) 81 mg PO DAILY RF: 0 folic acid 800 mcg tablet 0.8 mg PO DAILY RF: 0 carvedilol [Coreg] 25 mg tablet 25 mg PO BID Qty: 60 RF: 5 torsemide 10 mg tablet 10 mg PO DAILY RF: 0 gabapentin 300 mg capsule 300 mg PO BEDTIME Qty: 90 RF: 1 hydrochlorothiazide 12.5 mg capsule 12.5 mg PO DAILY Qty: 60 RF: 0 nicotine 21 mg/24 hr Patch 24 Hour 21 mg topical DAILY Qty: 30 RF: 0 thiamine HCl (vitamin B1) [Vitamin B-1] 100 mg Tablet 100 mg PO DAILY Qty: 30 RF: 0 atorvastatin [Lipitor] 20 mg tablet 20 mg PO BEDTIME RF: 0 gabapentin [Neurontin] 300 mg capsule 300 mg PO BEDTIME RF: 0 amlodipine 10 MG tablet 10 mg PO DAILY RF: 0 nitroglycerin [Nitrostat] 0.4 MG tablet, sublingual 1 tab PO PRN PRN (Reason: Chest Pain) RF: 0 ipratropium-albuterol 0.5 mg-3 mg(2.5 mg base)/3 mL Solution For Nebulization 3 ml inhalation BID 30 Days Qty: 90 RF: 0 Referrals: Joey Person MD [Primary Care Provider] - <Maxine Liz MD - Last Filed: 11/05/20 07:35> Cosign ED Attending [place] Attestation: I was immediately available in the department for consultation throughout this patient's visit. I agree with documentation as above. Maxine iLz MD
[2020-11-04 12:16] LABS: Alanine Aminotransferase 16 IU/L (<50); Albumin 4.2 g/dL (3.5-5.0); Albumin Globulin Ratio 1.8 (1.0-2.8); Alkaline Phosphatase 56 U/L (38-126); Aspartate Aminotransferase 29 IU/L (17-59); BUN Creatinine Ratio 27.6 (6-22); Bilirubin Total 0.4 mg/dL (0.2-1.3); Blood Urea Nitrogen 59 mg/dL (9-20); Calcium 8.8 mg/dL (8.4-10.2); Carbon Dioxide 28 mmol/L (22-32); Chloride 104 mmol/L (98-107); Estimated Glomerular Filt Rate 30.4 mL/min (>60); Globulin 2.4 g/dL (1.7-4.1); Glucose 114 mg/dL (80-110); HEMOLYSIS 40 (0-50); Potassium 5.1 mmol/L (3.4-5.1); Sodium 137 mmol/L (137-145); Total Protein 6.6 g/dL (6.3-8.2)
[2020-11-04 13:09] VITALS: BP 178/75; PULSE 57; RESP 16; O2SAT 100
== END 2020-11-04 13:37 | disposition home or self-care (01) ==
PROVIDERS: Emergency Provider Nurse Practitioner Family; PCP Family Medicine
DX: E87.5 Hyperkalemia (principal); R79.89 Other specified abnormal findings of blood chemistry; E78.5 Hyperlipidemia, unspecified; I10 Essential (primary) hypertension; J44.9 Chronic obstructive pulmonary disease, unspecified; I25.10 Atherosclerotic heart disease of native coronary artery without angina pectoris
CPT/HCPCS: 36415; 80053; 85025; 93005; 99283; 99284

== ENCOUNTER → 2020-11-09 13:05 | Outpatient (CLI) | payer MEDICARE, MEDICAID, SELFPAY ==
[2020-01-08 07:18] VITALS: PULSE 102; RESP 23; O2SAT 100
[2020-01-08 15:56] VITALS: BMI 22.1
[2020-11-09 15:32] LABS: Alanine Aminotransferase 17 IU/L (<50); Albumin 4.5 g/dL (3.5-5.0); Albumin Globulin Ratio 2.1 (1.0-2.8); Alkaline Phosphatase 73 U/L (38-126); Aspartate Aminotransferase 26 IU/L (17-59); Bilirubin Total 0.5 mg/dL (0.2-1.3); Blood Urea Nitrogen 40 mg/dL (9-20); Calcium 8.8 mg/dL (8.4-10.2); Carbon Dioxide 30 mmol/L (22-32); Chloride 98 mmol/L (98-107); Estimated Glomerular Filt Rate 32.8 mL/min (>60); Globulin 2.1 g/dL (1.7-4.1); Glucose 80 mg/dL (80-110); HEMOLYSIS < 15 (0-50); Potassium 3.4 mmol/L (3.4-5.1); Sodium 137 mmol/L (137-145); Total Protein 6.6 g/dL (6.3-8.2)
== END ==
PROVIDERS: PCP Family Medicine; Referring Provider Family Medicine; Visit Provider Family Medicine
DX: E87.5 Hyperkalemia (principal); N18.9 Chronic kidney disease, unspecified
CPT/HCPCS: 36415; 80053

== ENCOUNTER → 2020-12-27 12:38 | Outpatient (CLI) | payer MEDICARE, MEDICAID, SELFPAY ==
[2020-01-08 07:18] VITALS: PULSE 102; RESP 23; O2SAT 100
[2020-01-08 15:56] VITALS: BMI 22.1
[2020-12-27 13:57] LABS: Add Manual Diff / Slide Review NO; Basophils Absolute Auto 0 /uL (0-100); Basophils Percent Auto 0.2 % (0-2); Eosinophils Absolute Auto 100 /uL (0-450); Eosinophils Percent Auto 1.7 % (2-4); Hematocrit 32.4 % (41-53); Hemoglobin 10.8 g/dL (13.5-17.5); Lymphocytes Absolute Auto 1400 /uL (1100-4500); Mean Corpuscular HGB Conc 33.2 % (30-36); Mean Corpuscular Hemoglobin 30.7 PG (26-34); Mean Corpuscular Volume 92.5 fL (80-100); Monocytes Absolute Auto 900 /uL (0-900); Monocytes Percent Auto 12.4 % (3-14); Neutrophils Absolute Auto 5000 /uL (1500-7000); Neutrophils Percent Auto 66.7 % (50-75); Platelet Count 163 X10^3/uL (150-400); Red Cell Distribution Width 15.6 % (11.6-14.8); White Blood Cell Count 7.5 X10^3/uL (4.5-11.0)
[2020-12-27 14:39] LABS: Alanine Aminotransferase 16 IU/L (<50); Albumin 4.2 g/dL (3.5-5.0); Albumin Globulin Ratio 1.7 (1.0-2.8); Alkaline Phosphatase 77 U/L (38-126); Aspartate Aminotransferase 28 IU/L (17-59); BUN Creatinine Ratio 16.1 (6-22); Bilirubin Total 0.4 mg/dL (0.2-1.3); Blood Urea Nitrogen 26 mg/dL (9-20); Carbon Dioxide 24 mmol/L (22-32); Chloride 105 mmol/L (98-107); Globulin 2.5 g/dL (1.7-4.1); Glucose 95 mg/dL (80-110); HEMOLYSIS 17 (0-50); Potassium 4.7 mmol/L (3.4-5.1); Sodium 135 mmol/L (137-145); Total Protein 6.7 g/dL (6.3-8.2)
[2020-12-27 14:41] LABS: HEMOLYSIS < 15 (0-50); Iron 64 ug/dL (49-181)
[2020-12-27 14:54] LABS: Percent Iron Saturation 17 % (20-50); Total Iron Binding Capacity 381 ug/dL (261-462); Transferrin 275 mg/dL (206-381)
[2020-12-27 15:11] LABS: Prostate Specific Antigen Scrn 21.1 ng/mL (0.1-4.0)
[2020-12-27 15:15] LABS: Ferritin 47 ng/mL (18-464)
== END ==
PROVIDERS: PCP Family Medicine; Referring Provider Family Medicine; Visit Provider Family Medicine
DX: E87.5 Hyperkalemia (principal); N18.9 Chronic kidney disease, unspecified; Z12.5 Encounter for screening for malignant neoplasm of prostate; D64.9 Anemia, unspecified; I10 Essential (primary) hypertension; I50.9 Heart failure, unspecified
CPT/HCPCS: 36415; 80053; 82728; 83540; 83550; 85025; G0103

== ENCOUNTER → 2021-01-05 16:39 | Outpatient (CLI) | payer MEDICARE, MEDICAID, SELFPAY ==
[2020-01-08 07:18] VITALS: PULSE 102; RESP 23; O2SAT 100
[2020-01-08 15:56] VITALS: BMI 22.1
== END ==
PROVIDERS: PCP Family Medicine; Visit Provider Specialist
DX: N40.3 Nodular prostate with lower urinary tract symptoms (principal); N39.0 Urinary tract infection, site not specified; R31.9 Hematuria, unspecified; R97.20 Elevated prostate specific antigen [PSA]; Z85.51 Personal history of malignant neoplasm of bladder
CPT/HCPCS: 81002; 87086; 99214

== ENCOUNTER → 2021-01-11 11:09 | Outpatient (CLI) | payer MEDICARE, MEDICAID, SELFPAY ==
[2020-01-08 07:18] VITALS: PULSE 102; RESP 23; O2SAT 100
[2020-01-08 15:56] VITALS: BMI 22.1
== END ==
PROVIDERS: PCP Family Medicine; Visit Provider Specialist
DX: N39.0 Urinary tract infection, site not specified (principal); R97.20 Elevated prostate specific antigen [PSA]; N40.3 Nodular prostate with lower urinary tract symptoms; Z85.51 Personal history of malignant neoplasm of bladder
CPT/HCPCS: 55700; 76872; 76942; 87086; 96372; J0694

== ENCOUNTER → 2021-01-25 11:45 | Outpatient (CLI) | payer MEDICARE, MEDICAID, SELFPAY ==
[2021-01-20 14:13] VITALS: PULSE 102; RESP 23; O2SAT 100; BMI 22.1
[2021-01-25 13:04] LABS: BUN Creatinine Ratio 15.8 (6-22); Blood Urea Nitrogen 23 mg/dL (9-20); Calcium 8.8 mg/dL (8.4-10.2); Carbon Dioxide 23 mmol/L (22-32); Chloride 105 mmol/L (98-107); Estimated Glomerular Filt Rate 47.1 mL/min (>60); Glucose 93 mg/dL (80-110); HEMOLYSIS < 15 (0-50); Potassium 4.3 mmol/L (3.4-5.1); Sodium 135 mmol/L (137-145)
== END ==
PROVIDERS: PCP Family Medicine; Referring Provider Specialist; Visit Provider Specialist
DX: R94.4 Abnormal results of kidney function studies (principal)
CPT/HCPCS: 36415; 80048

== ENCOUNTER → 2021-01-28 09:27 | Outpatient (CLI) | payer MEDICARE, MEDICAID, SELFPAY ==
[2021-01-20 14:13] VITALS: PULSE 102; RESP 23; O2SAT 100; BMI 22.1
--- NOTE | 2021-01-28 09:29 | DI.NM.S_ITS ---
PROCEDURE: NM BONE SCAN WHOLE BODY RADIOPHARMACEUTICAL: 20.2 mCi Tc-99m MDP IV. INDICATIONS: Prostate cancer TECHNIQUE: Delayed whole-body scintigrams were obtained approximately 3-4 hours after intravenous injection of radiotracer. Anterior and posterior views were acquired from vertex to feet. Additional left and right oblique views of the pelvis were obtained. COMPARISON: [facility], CT, CT CHEST ABD PEL W CON, 01/28/2021, 10:48. FINDINGS: Bilateral knee and ankle/hindfoot arthritic tracer activity is seen with symmetric appearance. There is right-sided sternal tracer activity although no definite focal CT correlate on the comparison study from same day. There is also tracer activity involving the upper thoracic spine in the region of the left facet joint at the level of T4, or possibly costovertebral junction. This may be degenerative, or postsurgical, in nature given the absence of CT correlate on the comparison study although recommend close attention on subsequent surveillance scans. IMPRESSION: Upper thoracic spine tracer activity which could be spondylitic/arthritic in nature. Nonspecific right sternal tracer uptake, without definite CT correlate. Recommend close attention to this area on subsequent studies. Dictated by: Sohan Feliciano M.D. on 01/28/2021 at 15:35 Approved by: Sohan Feliciano M.D. on 01/28/2021 at 15:43
--- NOTE | 2021-01-28 10:27 | DI.CT.S_ITS ---
PROCEDURE: CT CHEST ABD PEL W CON INDICATIONS: Prostate cancer TECHNIQUE: After the administration of oral and intravenous contrast, 5 mm thick sections acquired from the lung apices to the symphysis. 5 mm coronal and sagittal reformats were performed, with additional 7 mm coronal MIP reformats through the lungs. For radiation dose reduction, the following was used: automated exposure control, adjustment of mA and/or kV according to patient size. COMPARISON: [facility], CT, IVP (ABD & PEL WWO CONTRAST), 12/08/2016, 13:17. [facility], CT, THORAX WITH CONTRAST, 04/10/2017, 9:30. FINDINGS: Image quality: Excellent. CHEST: Lungs and pleura: No acute airspace opacities. Right upper lobe subpleural pulmonary nodule measuring 0.3 cm, (3/44), unchanged since 2017 suggesting a benign etiology. Right lower lobe subpleural pulmonary nodule measuring 0.6 cm mean diameter, (3/137), also unchanged since 2017. Dependent atelectasis or scarring. No pleural effusions or pneumothorax. Central and peripheral airways appear patent and normal in caliber. Mediastinum: Heart size is dominant. Post median sternotomy and CABG. Three-vessel coronary artery calcifications. No pericardial effusion. Right paratracheal lymph node measuring 1.3 cm, (2/21), remotely 1.4 cm in 2017. Thoracic aorta and central pulmonary arteries are normal in size. Densely calcified origins of the great vessels. Densely calcified right common carotid artery. Esophagus is normal in caliber. No hiatal hernia. Chest wall: No axillary or supraclavicular adenopathy by size criteria. Thyroid gland is unremarkable. ABDOMEN: Solid organs: Liver is normal in size and enhancement. No focal lesion. Gallbladder demonstrates cholelithiasis. Biliary system is non dilated. Pancreas enhances normally. Spleen is normal in size and enhancement. Right adrenal nodule is not calcified. This may be due to prior hemorrhage. Right kidney demonstrates atrophy and cortical thinning compared to the left which is similar to the prior CT. Peritoneum and bowel: Bowel loops demonstrate normal wall thickness and caliber. No free fluid or air. Nodes and vessels: No retroperitoneal or mesenteric adenopathy by size criteria. Severe circumferential calcified atherosclerotic plaque in the abdominal aorta. Minimal ectasia. Miscellaneous: No ventral hernias. Mild atrophy of the left abdominal musculature. PELVIS: Genitourinary: Bladder is mildly distended. Bladder diverticulum. Bladder appears unchanged. Thickening at or adjacent to the left bladder dome. Prostate gland is prominent. Miscellaneous: No inguinal hernias or adenopathy. Bones: No sclerotic lesions identified. Mild height loss at L5, unchanged. T3 compression fracture, unchanged. Upper thoracic spine kyphosis. Prior left-sided rib fracture. IMPRESSION: 1. No metastatic disease identified. 2. Prominent prostate gland. Bladder diverticulum. 3. No sclerotic osseous lesions identified. -Please see same-day whole-body bone scan. Additional findings: Cholelithiasis. Atrophic right kidney. Severe atherosclerotic plaque. Dictated by: Avila Hall M.D. on 01/28/2021 at 12:05 Approved by: Avila Hall M.D. on 01/28/2021 at 12:41
== END ==
PROVIDERS: PCP Family Medicine; Referring Provider Specialist; Visit Provider Specialist
DX: C61 Malignant neoplasm of prostate (principal); K80.20 Calculus of gallbladder without cholecystitis without obstruction; N26.1 Atrophy of kidney (terminal); N32.3 Diverticulum of bladder
CPT/HCPCS: 71260; 74177; 78306; A9503; Q9967

== ENCOUNTER → 2021-04-19 13:42 | Outpatient (CLI) | payer MEDICARE, MEDICAID, SELFPAY ==
[2021-01-20 14:13] VITALS: PULSE 102; RESP 23; O2SAT 100; BMI 22.1
[2021-04-19 16:09] LABS: Prostate Specific Antigen 21.3 ng/mL (0.10-4.00)
== END ==
PROVIDERS: PCP Family Medicine; Referring Provider Specialist; Visit Provider Specialist
DX: C61 Malignant neoplasm of prostate (principal)
CPT/HCPCS: 36415; 84153

== ENCOUNTER → 2021-05-13 16:17 | Outpatient (CLI) | payer MEDICARE, MEDICAID, SELFPAY ==
[2021-01-20 14:13] VITALS: PULSE 102; RESP 23; O2SAT 100; BMI 22.1
[2021-05-13 17:12] LABS: Add Manual Diff / Slide Review NO; Basophils Absolute Auto 0 /uL (0-100); Basophils Percent Auto 0.2 % (0-2); Eosinophils Absolute Auto 100 /uL (0-450); Eosinophils Percent Auto 1.1 % (2-4); Hematocrit 37.2 % (41-53); Hemoglobin 12.5 g/dL (13.5-17.5); Lymphocytes Absolute Auto 1200 /uL (1100-4500); Lymphocytes Percent Auto 16.1 % (25-40); Mean Corpuscular HGB Conc 33.5 % (30-36); Mean Corpuscular Hemoglobin 30.2 PG (26-34); Mean Corpuscular Volume 90.1 fL (80-100); Monocytes Absolute Auto 1200 /uL (0-900); Neutrophils Absolute Auto 5100 /uL (1500-7000); Neutrophils Percent Auto 66.6 % (50-75); Platelet Count 79 X10^3/uL (150-400); Red Blood Cell Count 4.13 X10^6/uL (4.5-5.9); Red Cell Distribution Width 16.7 % (11.6-14.8); White Blood Cell Count 7.7 X10^3/uL (4.5-11.0)
[2021-05-13 17:35] LABS: Alanine Aminotransferase 17 IU/L (<50); Albumin 3.8 g/dL (3.5-5.0); Albumin Globulin Ratio 1.7 (1.0-2.8); Alkaline Phosphatase 75 U/L (38-126); Aspartate Aminotransferase 30 IU/L (17-59); BUN Creatinine Ratio 14.7 (6-22); Bilirubin Total 0.4 mg/dL (0.2-1.3); Blood Urea Nitrogen 23 mg/dL (9-20); Calcium 8.3 mg/dL (8.4-10.2); Carbon Dioxide 25 mmol/L (22-32); Chloride 105 mmol/L (98-107); Estimated Glomerular Filt Rate 43.6 mL/min (>60); Globulin 2.3 g/dL (1.7-4.1); Glucose 96 mg/dL (80-110); HEMOLYSIS < 15 (0-50); Potassium 4.3 mmol/L (3.4-5.1); Sodium 135 mmol/L (137-145); Total Protein 6.1 g/dL (6.3-8.2)
[2021-05-13 17:43] LABS: Vitamin D 25 Hydroxy (D3) 25.2 ng/mL (30.0-100.0)
[2021-05-14 07:47] LABS: Parathyroid Hormone, Intact 143 pg/mL (15-65)
== END ==
PROVIDERS: PCP Family Medicine; Referring Provider Family Medicine; Visit Provider Family Medicine
DX: E87.5 Hyperkalemia (principal); N18.9 Chronic kidney disease, unspecified; I10 Essential (primary) hypertension
CPT/HCPCS: 36415; 80053; 82306; 82310; 83970; 85025

== ENCOUNTER → 2021-10-05 11:06 | Outpatient (CLI) | payer MEDICARE, MEDICAID, SELFPAY ==
[2021-10-05 10:51] VITALS: PULSE 102; RESP 23; O2SAT 100; BMI 22.1
[2021-10-05 13:50] LABS: Prostate Specific Antigen < 0.064 ng/mL (0.10-4.00)
== END ==
PROVIDERS: PCP Family Medicine; Referring Provider Specialist; Visit Provider Specialist
DX: R97.20 Elevated prostate specific antigen [PSA] (principal)
CPT/HCPCS: 36415; 84153

== ENCOUNTER → 2021-11-24 12:53 | Outpatient (CLI) | payer MEDICARE, MEDICAID, SELFPAY ==
[2021-10-05 10:51] VITALS: PULSE 102; RESP 23; O2SAT 100; BMI 22.1
[2021-11-24 13:51] LABS: Add Manual Diff / Slide Review NO; Basophils Absolute Auto 0 /uL (0-100); Basophils Percent Auto 0.2 % (0-2); Eosinophils Absolute Auto 100 /uL (0-450); Eosinophils Percent Auto 1.5 % (2-4); Hematocrit 38.1 % (41-53); Hemoglobin 12.6 g/dL (13.5-17.5); Lymphocytes Absolute Auto 1400 /uL (1100-4500); Lymphocytes Percent Auto 16.4 % (25-40); Mean Corpuscular Hemoglobin 29.9 PG (26-34); Mean Corpuscular Volume 90.8 fL (80-100); Monocytes Absolute Auto 1200 /uL (0-900); Monocytes Percent Auto 14.7 % (3-14); Neutrophils Absolute Auto 5700 /uL (1500-7000); Neutrophils Percent Auto 67.2 % (50-75); Platelet Count 58 X10^3/uL (150-400); Red Cell Distribution Width 16.4 % (11.6-14.8); White Blood Cell Count 8.5 X10^3/uL (4.5-11.0)
[2021-11-24 14:26] LABS: Alanine Aminotransferase 13 IU/L (<50); Albumin Globulin Ratio 1.8 (1.0-2.8); Alkaline Phosphatase 62 U/L (38-126); Aspartate Aminotransferase 27 IU/L (17-59); BUN Creatinine Ratio 12.7 (6-22); Bilirubin Total 0.5 mg/dL (0.2-1.3); Blood Urea Nitrogen 18 mg/dL (9-20); Calcium 8.6 mg/dL (8.4-10.2); Carbon Dioxide 29 mmol/L (22-32); Chloride 101 mmol/L (98-107); Cholesterol 157 mg/dL (140-199); Estimated Glomerular Filt Rate 48.6 mL/min (>60); Globulin 2.2 g/dL (1.7-4.1); Glucose 89 mg/dL (80-110); HDL Cholesterol 83 mg/dL (40-60); HEMOLYSIS < 15 (0-50); LDL Cholesterol Calculated 56 mg/dL (<100); Phosphorous 2.9 mg/dL (2.3-3.7); Potassium 4.2 mmol/L (3.4-5.1); Sodium 134 mmol/L (137-145); Total Protein 6.2 g/dL (6.3-8.2); Triglycerides 91 mg/dL (35-150)
[2021-11-24 17:36] LABS: Vitamin D 25 Hydroxy (D3) 79.7 ng/mL (30.0-100.0)
[2021-11-25 08:12] LABS: Calcium 8.4 mg/dL (8.6-10.2); Parathyroid Hormone, Intact 95 pg/mL (15-65)
== END ==
PROVIDERS: PCP Family Medicine; Referring Provider Internal Medicine Cardiovascular Disease; Visit Provider Internal Medicine Cardiovascular Disease
DX: I50.22 Chronic systolic (congestive) heart failure (principal); N18.30 Chronic kidney disease, stage 3 unspecified; I73.9 Peripheral vascular disease, unspecified; I10 Essential (primary) hypertension; N25.81 Secondary hyperparathyroidism of renal origin
CPT/HCPCS: 36415; 80053; 80061; 82306; 82310; 83970; 84100; 85025

== ENCOUNTER → 2022-01-05 14:15 | Outpatient (CLI) | payer MEDICARE, MEDICAID, SELFPAY ==
[2021-10-05 10:51] VITALS: PULSE 102; RESP 23; O2SAT 100; BMI 22.1
== END ==
PROVIDERS: PCP Family Medicine; Visit Provider Specialist
DX: C61 Malignant neoplasm of prostate (principal); R30.0 Dysuria; Z85.51 Personal history of malignant neoplasm of bladder
CPT/HCPCS: 52000; 81002; 87086; 96402; 99215; J9217

== ENCOUNTER → 2022-01-18 15:19 | Outpatient (CLI) | payer MEDICARE, MEDICAID, SELFPAY ==
[2021-10-05 10:51] VITALS: PULSE 102; RESP 23; O2SAT 100; BMI 22.1
[2022-01-18 16:13] LABS: Add Manual Diff / Slide Review NO; Basophils Absolute Auto 0 /uL (0-100); Basophils Percent Auto 0.5 % (0-2); Eosinophils Absolute Auto 100 /uL (0-450); Eosinophils Percent Auto 1.4 % (2-4); Hematocrit 37.9 % (41-53); Hemoglobin 12.9 g/dL (13.5-17.5); Lymphocytes Absolute Auto 1200 /uL (1100-4500); Lymphocytes Percent Auto 16.8 % (25-40); Mean Corpuscular HGB Conc 33.9 % (30-36); Mean Corpuscular Hemoglobin 29.8 PG (26-34); Mean Corpuscular Volume 87.9 fL (80-100); Monocytes Absolute Auto 1400 /uL (0-900); Monocytes Percent Auto 19.9 % (3-14); Neutrophils Absolute Auto 4200 /uL (1500-7000); Neutrophils Percent Auto 61.4 % (50-75); Red Blood Cell Count 4.31 X10^6/uL (4.5-5.9); Red Cell Distribution Width 16.2 % (11.6-14.8); White Blood Cell Count 6.9 X10^3/uL (4.5-11.0)
[2022-01-18 16:21] LABS: Alanine Aminotransferase 12 IU/L (<50); Albumin Globulin Ratio 1.5 (1.0-2.8); Alkaline Phosphatase 54 U/L (38-126); Aspartate Aminotransferase 29 IU/L (17-59); BUN Creatinine Ratio 14.9 (6-22); Bilirubin Total 0.7 mg/dL (0.2-1.3); Blood Urea Nitrogen 21 mg/dL (9-20); Calcium 8.6 mg/dL (8.4-10.2); Carbon Dioxide 26 mmol/L (22-32); Chloride 104 mmol/L (98-107); Estimated Glomerular Filt Rate 48.9 mL/min (>60); Globulin 2.6 g/dL (1.7-4.1); Glucose 115 mg/dL (80-110); HEMOLYSIS 20 (0-50); Potassium 4.5 mmol/L (3.4-5.1); Sodium 136 mmol/L (137-145); Total Protein 6.6 g/dL (6.3-8.2)
[2022-01-18 16:26] LABS: Platelet Count 64 X10^3/uL (150-400)
[2022-01-19 20:35] LABS: Calcium 8.7 mg/dL (8.6-10.2); Parathyroid Hormone, Intact 139 pg/mL (15-65)
== END ==
PROVIDERS: PCP Family Medicine; Referring Provider Family Medicine; Visit Provider Family Medicine
DX: I10 Essential (primary) hypertension (principal); D64.9 Anemia, unspecified; E78.5 Hyperlipidemia, unspecified; N18.9 Chronic kidney disease, unspecified; N25.81 Secondary hyperparathyroidism of renal origin
CPT/HCPCS: 36415; 80053; 82310; 83970; 85025

== ENCOUNTER → 2022-01-19 12:41 | Outpatient (CLI) | payer MEDICARE, MEDICAID, SELFPAY ==
[2021-10-05 10:51] VITALS: PULSE 102; RESP 23; O2SAT 100; BMI 22.1
--- NOTE | 2022-01-19 12:43 | DI.CT.S_ITS ---
PROCEDURE: CT CHEST ABD PEL WO CON INDICATIONS: prostate ca, decrease appetite TECHNIQUE: After the administration of oral contrast, 5 mm thick sections acquired from the lung apices to the symphysis pubis. 5 mm thick coronal and sagittal reformats acquired, with additional 7 mm coronal MIP reformats through the lungs. For radiation dose reduction, the following was used: automated exposure control, adjustment of mA and/or kV according to patient size. COMPARISON: [facility], CT, CT CHEST ABD PEL W CON, 01/28/2021, 10:48. [facility], NM, NM BONE SCAN WHOLE BODY, 01/28/2021, 13:41. FINDINGS: Image quality: Excellent. CHEST: Lungs and pleura: Mild centrilobular emphysema. No suspicious pulmonary nodules. Mild basilar pulmonary fibrosis. No acute pulmonary opacities. No pleural effusions or pneumothorax. Central and peripheral airways are patent are normal in caliber. Mediastinum: Heart size is normal. No pericardial effusion. Remote CABG. Advanced coronary artery calcifications. Junky great vessel origin calcifications. Hemodynamically significant calcified stenosis of the right subclavian artery distal to the origin of the right vertebral artery. No mediastinal adenopathy by CT size criteria. Thoracic aorta and central pulmonary arteries are normal in size. Esophagus is normal in caliber. No hiatal hernia. Chest wall: No axillary or supraclavicular adenopathy by size criteria. Thyroid gland is unremarkable as imaged . ABDOMEN: Solid organs: Liver is normal in size. Gallbladder contains multiple gallstones. No gallbladder wall thickening. Pancreas is normal in contours. Spleen is normal in size. No adrenal nodules. Right kidney is small and shrunken. Left kidney is normal in size. No hydronephrosis. Peritoneum and bowel: Small and large bowel loops are normal in caliber and wall thickness. No free fluid or air. Nodes and vessels: No retroperitoneal or mesenteric adenopathy by size criteria. Aorta and inferior vena cava are normal in size. Advanced generalized atherosclerotic calcifications, which junky calcifications involving the abdominal aorta and bilateral iliacs. Suspect multifocal hemodynamically significant calcified bilateral iliac artery stenoses. Advanced proximal SMA calcifications with probable hemodynamically significant proximal SMA stenosis or occlusion. Probable calcified occlusion of the right common femoral artery. Miscellaneous: No ventral hernias. PELVIS: Genitourinary: Bladder wall thickness is normal. Miscellaneous: No inguinal hernias or adenopathy. Bones: No suspicious bony lesions. Chronic severe T3 compression fracture. Chronic mild T6 and T8 compression fractures. IMPRESSION: 1. No evidence of metastatic prostate carcinoma. 2. Advanced coronary artery disease. 3. ASCVD. 4. Diffuse advanced atherosclerosis. 5. Suspect either severe calcified SMA stenosis or proximal SMA occlusion. If this patient has clinical symptoms of postprandial pain and requirement of having to eat frequent small meals, and fear of eating, this would correlate with a clinical diagnosis of chronic mesenteric ischemia. 6. Severe peripheral vascular disease with probable bilateral hemodynamically significant iliac stenoses and a calcified focal occlusion of the right common femoral artery. 7. Centrilobular emphysema. Mild basilar pulmonary fibrosis. 8. Unchanged osteoporotic compression fractures. Dictated by: Charly De La Cruz M.D. on 01/19/2022 at 14:30 Approved by: Charly De La Cruz M.D. on 01/19/2022 at 14:44
== END ==
PROVIDERS: PCP Family Medicine; Referring Provider Family Medicine; Visit Provider Family Medicine
DX: C61 Malignant neoplasm of prostate (principal); I73.9 Peripheral vascular disease, unspecified; J43.2 Centrilobular emphysema; R63.0 Anorexia; I25.10 Atherosclerotic heart disease of native coronary artery without angina pectoris; M48.54XA Collapsed vertebra, not elsewhere classified, thoracic region, initial encounter for fracture; Z95.0 Presence of cardiac pacemaker
CPT/HCPCS: 71250; 74176

== ENCOUNTER → 2022-04-11 15:17 | Outpatient (CLI) | payer MEDICARE, MEDICAID, SELFPAY ==
[2021-10-05 10:51] VITALS: PULSE 102; RESP 23; O2SAT 100; BMI 22.1
[2022-04-11 17:56] LABS: Prostate Specific Antigen < 0.064 ng/mL (0.10-4.00)
== END ==
PROVIDERS: PCP Family Medicine; Referring Provider Specialist; Visit Provider Specialist
DX: R97.20 Elevated prostate specific antigen [PSA] (principal)
CPT/HCPCS: 36415; 84153

== ENCOUNTER → 2022-04-13 08:05 | Outpatient (CLI) | payer MEDICARE, MEDICAID, SELFPAY ==
[2021-10-05 10:51] VITALS: PULSE 102; RESP 23; O2SAT 100; BMI 22.1
== END ==
PROVIDERS: PCP Family Medicine; Visit Provider Specialist
DX: C61 Malignant neoplasm of prostate (principal); R30.0 Dysuria; Z85.51 Personal history of malignant neoplasm of bladder
CPT/HCPCS: 51798; 52000; 81002; 87086; 96372; 96402; 99214; J0897; J9217

== ENCOUNTER 2022-06-09 17:47 | Inpatient (IN) | payer MEDICARE, MEDICAID, SELFPAY ==
[2021-10-05 10:51] VITALS: PULSE 102; RESP 23; O2SAT 100; BMI 22.1
[2022-06-09] VITALS (28 sets, daily range): BP systolic 90–168; BP diastolic 35–80; PULSE 75–92; RESP 18–42; TEMP 36.2–38.1; O2SAT 80–100; BMI 16.7
--- NOTE | 2022-06-09 17:54 | DI.RAD.S_ITS ---
PROCEDURE: XR CHEST 1V INDICATIONS: found down TECHNIQUE: One view of the chest was acquired. COMPARISON: None. FINDINGS: Surgical changes and devices: Remote CABG. Lungs and pleura: Interstitial pulmonary edema. No pleural effusions or pneumothorax. Mediastinum: Mediastinal contours appear normal. Heart size is normal. Bones and chest wall: No suspicious bony lesions. Overlying soft tissues appear unremarkable. IMPRESSION: Congestive heart failure exacerbation. Dictated by: Charly De La Cruz M.D. on 06/09/2022 at 19:30 Approved by: Charly De La Cruz M.D. on 06/09/2022 at 19:31
--- NOTE | 2022-06-09 17:54 | DI.CT.S_ITS ---
PROCEDURE: CT HEAD/BRAIN WO CON INDICATIONS: found down TECHNIQUE: Noncontrast 4.5 mm thick angled axial sections acquired from the foramen magnum to the vertex, with coronal and sagittal reformats. For radiation dose reduction, the following was used: automated exposure control, adjustment of mA and/or kV according to patient size. COMPARISON: None. FINDINGS: Image quality: Excellent. CSF spaces: Basal cisterns are patent. No extra-axial fluid collections. The ventricles are symmetric in size and shape. Brain: No intracranial bleeds or masses. There is cerebral volume loss for age, with resultant ventricular and sulcal prominence. There are periventricular and deep white matter chronic small vessel ischemic changes. 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 There is intracranial internal carotid artery atherosclerosis. Skull and face: Calvarium and visualized facial bones appear intact, without suspicious lesions. Sinuses: Visualized sinuses and mastoids are clear. IMPRESSION: 1. 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 2. Age-related volume loss and small vessel ischemic change. 3. No evidence acute stroke, hemorrhage, or mass. Dictated by: Charly De La Cruz M.D. on 06/09/2022 at 19:51 Approved by: Charly De La Cruz M.D. on 06/09/2022 at 19:52
--- NOTE | 2022-06-09 18:08 | PC.NURSE ---
temperature sensing adams r/t critical patient, scant urine output noted.
--- NOTE | 2022-06-09 18:10 | ED_ITS ---
HPI - General Adult General Chief complaint: Altered Mental Status Stated complaint: GLF Time Seen by Provider: 06/09/22 17:54 Source: EMS Mode of arrival: EMS History of Present Illness HPI narrative: 76-year-old gentleman with a history of both prostate and bladder cancer, prior alcohol use disorder, known seizure disorder, hypertension, cardiac disease was brought in by medics after reportedly being found by his neighbor in his home on the ground for approximately an hour minimally arousable. Medics describe a deplorable housing situation with stool covering the patient and much house. Patient is able to respond to yes or no questions he is confused. Related Data Home Medications Medication Instructions Recorded Confirmed aspirin 81 mg tablet,delayed 81 mg PO DAILY 05/20/18 04/13/22 release (Adult Low Dose Aspirin) atorvastatin 20 mg tablet (Lipitor) 20 mg PO BEDTIME 01/08/20 04/13/22 torsemide 10 mg tablet 10 mg PO DAILY 11/04/20 04/13/22 metoprolol succinate PO 01/05/22 04/13/22 Previous Rx's Medication Instructions Recorded ipratropium 0.5 mg-albuterol 3 mg 3 ml inhalation BID 30 days #90 mL 12/09/20 (2.5 mg base)/3 mL nebulization soln ipratropium 20 mcg-albuterol 100 See Rx Instructions .Route 08/01/21 mcg/actuation mist for inhalation .COMPLEX #4 grams (Combivent Respimat) lisinopril 2.5 mg tablet See Rx Instructions .Route 11/08/21 .COMPLEX #90 tabs gabapentin 300 mg capsule See Rx Instructions .Route 12/12/21 .COMPLEX #90 caps bicalutamide 50 mg tablet (Casodex) 50 mg PO DAILY #90 tabs 01/05/22 mirtazapine 15 mg tablet 15 mg PO BEDTIME #60 tabs 01/12/22 cholecalciferol (vitamin D3) 125 125 mcg PO DAILY #90 caps 05/15/22 mcg (5,000 unit) capsule nitroglycerin 0.4 mg sublingual See Rx Instructions .Route 05/15/22 tablet (Nitrostat) .COMPLEX #30 tabs Allergies Allergy/AdvReac Type Severity Reaction Status Date / Time ether AdvReac Severe Vomiting Verified 04/13/22 08:23 Review of Systems Review of Systems ROS Unobtainable: Unobtainable due to mental condition 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 PAD (peripheral artery disease) (Unknown) Personal history of smoking Prostate cancer Restless leg syndrome Seizures Stroke (02/2016) Thrombocytopenia concurrent with and due to alcoholism Surgical History History of appendectomy Hx of coronary artery bypass graft (Unknown) Hx of transurethral resection of prostate (10/2016) Family History Mother Renal failure Social History household members: none Smoking Status: Current every day smoker Tobacco: How many years used: 62 alcohol intake: current caffeine: Yes Smoking Status: Current every day smoker alcohol intake frequency: 0-2 drinks per day Substance Use Type: marijuana Exam Initial Vital Signs Initial Vital Signs: Vital Signs Temperature 98.5 F 06/09/22 17:51 Pulse Rate 81 06/09/22 17:51 Respiratory Rate 21 06/09/22 17:51 Blood Pressure 90/35 L 06/09/22 17:51 Pulse Oximetry 95 06/09/22 17:51 Oxygen Delivery Method 06/09/22 17:51 General: Cachectic, covered in stool confused able to partially answer yes or no questions not oriented to person or place HEENT: dry mucous membranes, normal sclera with reactive pupils, Neck: No JVD, supple, kyphotic upper back Respiratory: Lungs are clear to auscultation, no wheezing no rales no rhonchi. Full and symmetrical air movement Cardiac: Tachycardic but otherwise Regular rate and rhythm no murmurs no bruits Abdomen: Soft, nontender, no pain behaviors with deep palpation, no flank pain Skin: Thin pale, poor distal perfusion, once all the stool was cleaned up he did not have significant spine skin breakdown over the back or posterior thighs. He has a 6 mm in diameter scab over his right knee Neurologic: Contracture of the left upper extremity. Globally weak. He is able to move all extremities Extremities: No new trauma, hands and feet are cool to the touch with overall poor perfusion Psych: Confused, cooperative Course Orders Ordered: Acetaminophen (Acetaminophen 325 Mg Tablet) 650 mg PO Q6H PRN PRN Reason: Fever/Mild Pain (1-3) Last Admin: 06/10/22 02:22 Dose: 650 mg Documented By: ANAIS Piperacillin Sod/Tazobactam (Sod 3.375 gm/ Sodium Chloride) 100 mls @ 25 mls/hr IV Q8H [facility] Last Admin: 06/10/22 01:14 Dose: 25 mls/hr Documented By: ANAIS Metronidazole (Flagyl) 500 mg in 100 mls @ 100 mls/hr IV Q6H [facility] Last Infusion: 06/10/22 02:14 Dose: 0 mls/hr Documented By: Admin: 06/10/22 01:14 Dose: 100 mls/hr Documented By: ANAIS Discontinued Medications Acetaminophen (Acetaminophen 650 Mg Supp) 650 mg IA Q4HR PRN PRN Reason: Fever/Mild Pain (1-3) Last Admin: 06/09/22 20:04 Dose: 650 mg Documented By: ALESIA Acetaminophen (Acetaminophen 325 Mg Tablet) 650 mg PO Q6HR PRN PRN Reason: Fever/Mild Pain (1-3) Aspirin (Aspirin 300 Mg Supp) 300 mg IA NOW ONE Stop: 06/09/22 19:56 Last Admin: 06/09/22 20:04 Dose: 300 mg Documented By: ALESIA Folic Acid (Folic Acid 1 Mg Tablet) 1 mg PO DAILY JUNG Sodium Chloride (Normal Saline 0.9%) 1,000 mls @ 200 mls/hr IV CONT JUNG Last Admin: 06/09/22 18:12 Dose: 200 mls/hr Documented By: ALESIA Sodium Chloride (Normal Saline 0.9%) 1,000 mls @ 1,000 mls/hr IV BOLUS ONE Stop: 06/09/22 19:41 Last Infusion: 06/09/22 21:31 Dose: 0 mls/hr Documented By: JEAN-PIERRE Admin: 06/09/22 18:47 Dose: 1,000 mls/hr Documented By: JAYLEN Piperacillin Sod/Tazobactam (Sod 4.5 gm/ Sodium Chloride) 100 mls @ 200 mls/hr IV NOW ONE Stop: 06/09/22 19:41 Last Infusion: 06/09/22 21:31 Dose: 0 mls/hr Documented By: JEAN-PIERRE Admin: 06/09/22 20:04 Dose: 200 mls/hr Documented By: EB Sodium Chloride (Normal Saline 0.9%) 1,000 mls @ 150 mls/hr IV CONT JUNG Last Admin: 06/09/22 22:28 Dose: Not Given Documented By: AGW Piperacillin Sod/Tazobactam (Sod 3.375 gm/ Sodium Chloride) 100 mls @ 25 mls/hr IV Q8H JUNG Sodium Chloride (Normal Saline 0.9%) 1,000 mls @ 1,000 mls/hr IV BOLUS ONE Stop: 06/09/22 22:12 Last Admin: 06/09/22 21:10 Dose: 1,000 mls/hr Documented By: JEAN-PIERRE NOREPINEPHRINE BITARTRATE/D5W (Levophed) 4 mg in 250 mls @ 30 mls/hr IV TITRATE JUNG; Protocol Last Titration: 06/09/22 23:45 Dose: 0 mcg/min, 0 mls/hr Documented By: Titration: 06/09/22 23:30 Dose: 1 mcg/min, 3.75 mls/hr Documented By: Titration: 06/09/22 23:15 Dose: 2 mcg/min, 7.5 mls/hr Documented By: Admin: 06/09/22 22:46 Dose: 4 mcg/min, 15 mls/hr Documented By: RF Lactated Ringer's (Lactated Ringers) 1,000 mls @ 175 mls/hr IV CONT JUNG Last Admin: 06/10/22 00:22 Dose: 175 mls/hr Documented By: RF Morphine Sulfate (Morphine 2 Mg/Ml Inj) 2 mg IV Q4H PRN PRN Reason: Breakthrough pain only (8-10) Multivitamins (Multivitamin 1 Tablet) 1 tab PO DAILY JUNG Naloxone HCl (Naloxone 0.4 Mg/Ml Vial) 0.1 mg IV Q2MIN PRN PRN Reason: Opiate Reversal Ondansetron HCl (Ondansetron 4 Mg/2 Ml Inj) 4 mg IV Q6HR PRN PRN Reason: Nausea And Vomiting Pantoprazole Sodium (Pantoprazole 40 Mg Vial) 40 mg IV DAILY [facility] Pantoprazole Sodium (Pantoprazole 40 Mg Vial) 80 mg IV NOW ONE Stop: 06/09/22 20:43 Last Admin: 06/09/22 22:28 Dose: Not Given Documented By: AGW Pantoprazole Sodium (Pantoprazole 40 Mg Vial) 80 mg IV NOW ONE Stop: 06/09/22 21:46 Last Admin: 06/09/22 22:09 Dose: 80 mg Documented By: AGW Thiamine HCl (Thiamine 200 Mg/2 Ml Vial) 100 mg IM DAILY JUNG Tramadol HCl (Tramadol 50 Mg Tablet) 50 mg PO Q4H PRN PRN Reason: Pain, Moderate (4-6) Vital Signs Vital signs: Vital Signs - 8 hr 06/09/22 17:51 06/09/22 18:01 06/09/22 18:04 Temperature 98.5 F Pulse Rate 81 89 92 H Respiratory Rate 21 23 22 Blood Pressure 90/35 L Pulse Oximetry 95 90 L 95 Oxygen Delivery Method Room Air Oxygen Flow Rate 06/09/22 18:04 06/09/22 18:05 06/09/22 18:05 Temperature 99.1 F Pulse Rate 92 H Respiratory Rate 23 Blood Pressure 113/75 166/66 H Pulse Oximetry 94 Oxygen Delivery Method Oxygen Flow Rate 06/09/22 18:11 06/09/22 18:11 06/09/22 18:15 Temperature 98.8 F 99.0 F Pulse Rate 89 87 Respiratory Rate 20 21 Blood Pressure 140/64 Pulse Oximetry 98 80 L Oxygen Delivery Method Oxygen Flow Rate 06/09/22 18:15 06/09/22 18:20 06/09/22 18:20 Temperature 99.1 F Pulse Rate 88 Respiratory Rate 20 Blood Pressure 141/58 H 151/80 H Pulse Oximetry 90 L Oxygen Delivery Method Nasal Cannula Oxygen Flow Rate 2 06/09/22 18:30 06/09/22 18:30 06/09/22 18:35 Temperature 99.3 F 99.5 F Pulse Rate 92 H 90 Respiratory Rate 21 42 H Blood Pressure 147/65 H Pulse Oximetry Oxygen Delivery Method Oxygen Flow Rate 06/09/22 18:35 06/09/22 18:40 06/09/22 18:40 Temperature 99.7 F H Pulse Rate 90 Respiratory Rate 33 H Blood Pressure 168/65 H 155/66 H Pulse Oximetry 89 L Oxygen Delivery Method Oxygen Flow Rate 06/09/22 18:45 06/09/22 18:45 06/09/22 18:50 Temperature 99.9 F H Pulse Rate 92 H Respiratory Rate 24 Blood Pressure 138/62 137/60 Pulse Oximetry 93 Oxygen Delivery Method Oxygen Flow Rate 06/09/22 18:50 06/09/22 18:55 06/09/22 18:55 Temperature 99.9 F H 100.0 F H Pulse Rate 90 89 Respiratory Rate 19 20 Blood Pressure 143/63 H Pulse Oximetry 100 100 Oxygen Delivery Method Oxygen Flow Rate 06/09/22 19:00 06/09/22 19:00 06/09/22 19:05 Temperature 100.0 F H Pulse Rate 86 Respiratory Rate 20 Blood Pressure 129/60 130/66 Pulse Oximetry 100 Oxygen Delivery Method Oxygen Flow Rate 06/09/22 19:05 06/09/22 19:26 06/09/22 19:26 Temperature 100.0 F H 100.4 F H Pulse Rate 92 H 84 Respiratory Rate 25 H 20 Blood Pressure 131/60 Pulse Oximetry 99 93 Oxygen Delivery Method Oxygen Flow Rate 06/09/22 19:30 06/09/22 19:31 06/09/22 19:31 Temperature 100.6 F H 100.6 F H Pulse Rate 88 86 Respiratory Rate 23 22 Blood Pressure 137/63 Pulse Oximetry 97 92 Oxygen Delivery Method Oxygen Flow Rate 06/09/22 19:45 06/09/22 19:45 Temperature 100.6 F H Pulse Rate 86 Respiratory Rate 21 Blood Pressure 128/58 L Pulse Oximetry 95 Oxygen Delivery Method Oxygen Flow Rate Medical Decision Making Lab Data Result diagrams: 06/09/22 21:30 06/09/22 21:30 Labs: Lab Results 06/09/22 06/09/22 06/09/22 Range/Units 18:15 18:15 18:20 WBC 41.1 H* (4.5-11.0) X10^3/uL RBC 3.40 L (4.5-5.9) X10^6/uL Hgb 9.8 L (13.5-17.5) g/dL Hct 29.9 L (41-53) % MCV 87.9 (80-100) fL MCH 28.8 (26-34) PG MCHC 32.7 (30-36) % RDW 15.3 H (11.6-14.8) % Plt Count 71 L (150-400) X10^3/uL Neut % (Auto) Not Reportable Lymph % (Auto) Not Reportable Granite % (Auto) Not Reportable Eos % (Auto) Not Reportable Baso % (Auto) Not Reportable Lymph # (Auto) Not Reportable Granite # (Auto) Not Reportable Baso # (Auto) Not Reportable Total Counted 100 Seg Neutrophils % 66.0 (38-70) % Band Neutrophils % 13.0 H (3-7) % Lymphocytes % (Manual) 3.0 L (25-45) % Monocytes % (Manual) 18.0 H (2-11) % Neutrophils # (Manual) 46377 H (6392-5204) /uL Platelet Estimate Decreased on smear RBC Morphology Normal morphology ABG pH (7.35-7.45) ABG pCO2 (35-45) mmHg ABG pO2 (80-100) mmHg ABG HCO3 (22-26) mmol/L ABG Total CO2 (21-31) mmol/L ABG O2 Saturation (95-100) % ABG Base Excess (-2-2) mmol/L FiO2 Sodium (137-145) mmol/L Potassium (3.4-5.1) mmol/L Chloride (98-107) mmol/L Carbon Dioxide (22-32) mmol/L BUN (9-20) mg/dL Creatinine (0.66-1.25) mg/dL Estimated GFR (>60) mL/min BUN/Creatinine Ratio (6-22) Glucose (80-110) mg/dL Lactate (0.7-2.1) mmol/L Calcium (8.4-10.2) mg/dL Total Bilirubin (0.2-1.3) mg/dL AST (17-59) IU/L ALT (<50) IU/L Alkaline Phosphatase (38-126) U/L Ammonia (9-30) umol/L Total Creatine Kinase (55-170) U/L CK-MB (CK-2) (<2.37) ng/mL CK-MB (CK-2) Rel Index (1.5-5.0) % Troponin I (0.01-0.034) ng/mL Total Protein (6.3-8.2) g/dL Albumin (3.5-5.0) g/dL Globulin (1.7-4.1) g/dL Albumin/Globulin Ratio (1.0-2.8) Procalcitonin (<0.5) ng/mL TSH (0.47-4.68) uIU/mL Urine Color Yellow Urine Appearance Clear Urine pH 5.0 (4.5-8.0) Ur Specific [place] 1.015 (1.000-1.035) Urine Protein 1+ H (Negative) Urine Glucose (UA) Trace H (Negative) g/dL Urine Ketones Negative (NEGATIVE) Urine Occult Blood Trace-lysed (Negative) Urine Nitrate Negative (Negative) Urine Bilirubin Negative (NEGATIVE) Urine Urobilinogen 0.2 (0.2) E.U./dL Ur Leukocyte Esterase 2+ H (NEGATIVE) Urine RBC 0-1/hpf (0-5/HPF) Urine WBC 5-10/hpf H (0-5/HPF) Ur Squamous Epith Cells None seen (0-5/HPF) Urine Bacteria None seen (None) Ur Culture Indicated? Specimen cultured U Opiates 300ng/mL cut Negative (Negative) Ur Oxycodone Screen Negative (Negative) Urine Methadone Screen Negative (Negative) Ur Barbiturates Screen Negative (Negative) U Tricyclic Antidepress Negative (Negative) Ur Phencyclidine Scrn Negative (Negative) Ur Amphetamines Screen Negative (Negative) U Methamphetamines Scrn Negative (Negative) Ur MDMA Scrn (Ecstasy) Negative (Negative) U Benzodiazepines Scrn Negative (Negative) Urine Cocaine Screen Negative (Negative) U Marijuana (THC) Screen Negative (Negative) Ethyl Alcohol ( - 10) mg/dL SARS-CoV-2 (PCR) (Negative) 06/09/22 06/09/22 06/09/22 Range/Units 18:20 18:20 18:20 WBC (4.5-11.0) X10^3/uL RBC (4.5-5.9) X10^6/uL Hgb (13.5-17.5) g/dL Hct (41-53) % MCV (80-100) fL MCH (26-34) PG MCHC (30-36) % RDW (11.6-14.8) % Plt Count (150-400) X10^3/uL Neut % (Auto) Lymph % (Auto) Granite % (Auto) Eos % (Auto) Baso % (Auto) Lymph # (Auto) [place] # (Auto) Baso # (Auto) Total Counted Seg Neutrophils % (38-70) % Band Neutrophils % (3-7) % Lymphocytes % (Manual) (25-45) % Monocytes % (Manual) (2-11) % Neutrophils # (Manual) ([id number]) /uL Platelet Estimate RBC Morphology ABG pH (7.35-7.45) ABG pCO2 (35-45) mmHg ABG pO2 (80-100) mmHg ABG HCO3 (22-26) mmol/L ABG Total CO2 (21-31) mmol/L ABG O2 Saturation (95-100) % ABG Base Excess (-2-2) mmol/L FiO2 Sodium 135 L (137-145) mmol/L Potassium 4.8 (3.4-5.1) mmol/L Chloride 101 (98-107) mmol/L Carbon Dioxide 18 L (22-32) mmol/L BUN 87 H (9-20) mg/dL Creatinine 5.94 H (0.66-1.25) mg/dL Estimated GFR 9 L (>60) mL/min BUN/Creatinine Ratio 14.6 (6-22) Glucose 133 H (80-110) mg/dL Lactate 5.1 H* (0.7-2.1) mmol/L Calcium 8.0 L (8.4-10.2) mg/dL Total Bilirubin 0.6 (0.2-1.3) mg/dL AST 60 H (17-59) IU/L ALT 23 (<50) IU/L Alkaline Phosphatase 63 (38-126) U/L Ammonia (9-30) umol/L Total Creatine Kinase 981 H (55-170) U/L CK-MB (CK-2) 12.90 H (<2.37) ng/mL CK-MB (CK-2) Rel Index 1.3 L (1.5-5.0) % Troponin I 0.213 H* (0.01-0.034) ng/mL Total Protein 6.4 (6.3-8.2) g/dL Albumin 3.8 (3.5-5.0) g/dL Globulin 2.6 (1.7-4.1) g/dL Albumin/Globulin Ratio 1.5 (1.0-2.8) Procalcitonin 159 H (<0.5) ng/mL TSH (0.47-4.68) uIU/mL Urine Color Urine Appearance Urine pH (4.5-8.0) Ur Specific [place] (1.000-1.035) Urine Protein (Negative) Urine Glucose (UA) (Negative) g/dL Urine Ketones (NEGATIVE) Urine Occult Blood (Negative) Urine Nitrate (Negative) Urine Bilirubin (NEGATIVE) Urine Urobilinogen (0.2) E.U./dL Ur Leukocyte Esterase (NEGATIVE) Urine RBC (0-5/HPF) Urine WBC (0-5/HPF) Ur Squamous Epith Cells (0-5/HPF) Urine Bacteria (None) Ur Culture Indicated? U Opiates 300ng/mL cut (Negative) Ur Oxycodone Screen (Negative) Urine Methadone Screen (Negative) Ur Barbiturates Screen (Negative) U Tricyclic Antidepress (Negative) Ur Phencyclidine Scrn (Negative) Ur Amphetamines Screen (Negative) U Methamphetamines Scrn (Negative) Ur MDMA Scrn (Ecstasy) (Negative) U Benzodiazepines Scrn (Negative) Urine Cocaine Screen (Negative) U Marijuana (THC) Screen (Negative) Ethyl Alcohol ( - 10) mg/dL SARS-CoV-2 (PCR) Negative (Negative) 06/09/22 06/09/22 06/09/22 Range/Units 18:20 18:20 18:20 WBC (4.5-11.0) X10^3/uL RBC (4.5-5.9) X10^6/uL Hgb (13.5-17.5) g/dL Hct (41-53) % MCV (80-100) fL MCH (26-34) PG MCHC (30-36) % RDW (11.6-14.8) % Plt Count (150-400) X10^3/uL Neut % (Auto) Lymph % (Auto) Granite % (Auto) Eos % (Auto) Baso % (Auto) Lymph # (Auto) [place] # (Auto) Baso # (Auto) Total Counted Seg Neutrophils % (38-70) % Band Neutrophils % (3-7) % Lymphocytes % (Manual) (25-45) % Monocytes % (Manual) (2-11) % Neutrophils # (Manual) ([id number]) /uL Platelet Estimate RBC Morphology ABG pH (7.35-7.45) ABG pCO2 (35-45) mmHg ABG pO2 (80-100) mmHg ABG HCO3 (22-26) mmol/L ABG Total CO2 (21-31) mmol/L ABG O2 Saturation (95-100) % ABG Base Excess (-2-2) mmol/L FiO2 Sodium (137-145) mmol/L Potassium (3.4-5.1) mmol/L Chloride (98-107) mmol/L Carbon Dioxide (22-32) mmol/L BUN (9-20) mg/dL Creatinine (0.66-1.25) mg/dL Estimated GFR (>60) mL/min BUN/Creatinine Ratio (6-22) Glucose (80-110) mg/dL Lactate (0.7-2.1) mmol/L Calcium (8.4-10.2) mg/dL Total Bilirubin (0.2-1.3) mg/dL AST (17-59) IU/L ALT (<50) IU/L Alkaline Phosphatase (38-126) U/L Ammonia < 9 L (9-30) umol/L Total Creatine Kinase (55-170) U/L CK-MB (CK-2) (<2.37) ng/mL CK-MB (CK-2) Rel Index (1.5-5.0) % Troponin I (0.01-0.034) ng/mL Total Protein (6.3-8.2) g/dL Albumin (3.5-5.0) g/dL Globulin (1.7-4.1) g/dL Albumin/Globulin Ratio (1.0-2.8) Procalcitonin (<0.5) ng/mL TSH 3.34 (0.47-4.68) uIU/mL Urine Color Urine Appearance Urine pH (4.5-8.0) Ur Specific [place] (1.000-1.035) Urine Protein (Negative) Urine Glucose (UA) (Negative) g/dL Urine Ketones (NEGATIVE) Urine Occult Blood (Negative) Urine Nitrate (Negative) Urine Bilirubin (NEGATIVE) Urine Urobilinogen (0.2) E.U./dL Ur Leukocyte Esterase (NEGATIVE) Urine RBC (0-5/HPF) Urine WBC (0-5/HPF) Ur Squamous Epith Cells (0-5/HPF) Urine Bacteria (None) Ur Culture Indicated? U Opiates 300ng/mL cut (Negative) Ur Oxycodone Screen (Negative) Urine Methadone Screen (Negative) Ur Barbiturates Screen (Negative) U Tricyclic Antidepress (Negative) Ur Phencyclidine Scrn (Negative) Ur Amphetamines Screen (Negative) U Methamphetamines Scrn (Negative) Ur MDMA Scrn (Ecstasy) (Negative) U Benzodiazepines Scrn (Negative) Urine Cocaine Screen (Negative) U Marijuana (THC) Screen (Negative) Ethyl Alcohol < 10 ( - 10) mg/dL SARS-CoV-2 (PCR) (Negative) 06/09/22 Range/Units 18:27 WBC (4.5-11.0) X10^3/uL RBC (4.5-5.9) X10^6/uL Hgb (13.5-17.5) g/dL Hct (41-53) % MCV (80-100) fL MCH (26-34) PG MCHC (30-36) % RDW (11.6-14.8) % Plt Count (150-400) X10^3/uL Neut % (Auto) Lymph % (Auto) [place] % (Auto) Eos % (Auto) Baso % (Auto) Lymph # (Auto) [place] # (Auto) Baso # (Auto) Total Counted Seg Neutrophils % (38-70) % Band Neutrophils % (3-7) % Lymphocytes % (Manual) (25-45) % Monocytes % (Manual) (2-11) % Neutrophils # (Manual) ([id number]) /uL Platelet Estimate RBC Morphology ABG pH 7.29 L* (7.35-7.45) ABG pCO2 35.1 (35-45) mmHg ABG pO2 68 L (80-100) mmHg ABG HCO3 17 L (22-26) mmol/L ABG Total CO2 18 L (21-31) mmol/L ABG O2 Saturation 91 L (95-100) % ABG Base Excess -10.0 L (-2-2) mmol/L FiO2 28 Sodium (137-145) mmol/L Potassium (3.4-5.1) mmol/L Chloride (98-107) mmol/L Carbon Dioxide (22-32) mmol/L BUN (9-20) mg/dL Creatinine (0.66-1.25) mg/dL Estimated GFR (>60) mL/min BUN/Creatinine Ratio (6-22) Glucose (80-110) mg/dL Lactate (0.7-2.1) mmol/L Calcium (8.4-10.2) mg/dL Total Bilirubin (0.2-1.3) mg/dL AST (17-59) IU/L ALT (<50) IU/L Alkaline Phosphatase (38-126) U/L Ammonia (9-30) umol/L Total Creatine Kinase (55-170) U/L CK-MB (CK-2) (<2.37) ng/mL CK-MB (CK-2) Rel Index (1.5-5.0) % Troponin I (0.01-0.034) ng/mL Total Protein (6.3-8.2) g/dL Albumin (3.5-5.0) g/dL Globulin (1.7-4.1) g/dL Albumin/Globulin Ratio (1.0-2.8) Procalcitonin (<0.5) ng/mL TSH (0.47-4.68) uIU/mL Urine Color Urine Appearance Urine pH (4.5-8.0) Ur Specific [place] (1.000-1.035) Urine Protein (Negative) Urine Glucose (UA) (Negative) g/dL Urine Ketones (NEGATIVE) Urine Occult Blood (Negative) Urine Nitrate (Negative) Urine Bilirubin (NEGATIVE) Urine Urobilinogen (0.2) E.U./dL Ur Leukocyte Esterase (NEGATIVE) Urine RBC (0-5/HPF) Urine WBC (0-5/HPF) Ur Squamous Epith Cells (0-5/HPF) Urine Bacteria (None) Ur Culture Indicated? U Opiates 300ng/mL cut (Negative) Ur Oxycodone Screen (Negative) Urine Methadone Screen (Negative) Ur Barbiturates Screen (Negative) U Tricyclic Antidepress (Negative) Ur Phencyclidine Scrn (Negative) Ur Amphetamines Screen (Negative) U Methamphetamines Scrn (Negative) Ur MDMA Scrn (Ecstasy) (Negative) U Benzodiazepines Scrn (Negative) Urine Cocaine Screen (Negative) U Marijuana (THC) Screen (Negative) Ethyl Alcohol ( - 10) mg/dL SARS-CoV-2 (PCR) (Negative) Imaging Data Chest x-ray: Radiologist's Impression: FINDINGS:? ? Surgical changes and devices:? Remote CABG. ? Lungs and pleura:? Interstitial pulmonary edema.? No pleural effusions or pneumothorax.? ? Mediastinum:? Mediastinal contours appear normal.? Heart size is normal.? ? Bones and chest wall:? No suspicious bony lesions.? Overlying soft tissues appear unremarkable.? ? IMPRESSION:? Congestive heart failure exacerbation. ? ? Dictated by: Charly De La Cruz M.D. on 06/09/2022 at 19:30 ? ? CT scan - head: Radiologist's Impression: FINDINGS:? Image quality:? Excellent.? ? CSF spaces:? Basal cisterns are patent.? No extra-axial fluid collections.? The ventricles are symmetric in size and shape.? ? Brain:? No intracranial bleeds or masses.? There is cerebral volume loss for age, with resultant ventricular and sulcal prominence.? There are periventricular and deep white matter chronic small vessel ischemic changes.? Old moderate right MCA distribution infarct with encephalomalacia.? There is intracranial internal carotid artery atherosclerosis.? ? Skull and face:? Calvarium and visualized facial bones appear intact, without suspicious lesions.? ? Sinuses:? Visualized sinuses and mastoids are clear.? ? IMPRESSION:? ? 1. 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 ? 2. Age-related volume loss and small vessel ischemic change. ? 3. No evidence acute stroke, hemorrhage, or mass.? ? ? Dictated by: Charly De La Cruz M.D. on 06/09/2022 at 19:51 ? ? ECG Data Interpretation: Sinus rhythm at a rate of 89 LVH with repolarization No acute ischemic changes MDM Narrative Medical decision making narrative: 76-year-old gentleman living independently and what sounds like an untenable situation clearly unable to take care of himself presents with what appears to be sepsis, responding nicely to fluid resuscitation urinary tract infection, mild anemia that appears new since December with H&H of 9.8 and 29.9 and that is in a highly volume contracted state. There is no evidence of acute bleeding ongoing at this time. Acute renal failure with a creatinine of 5.94 and a BUN of 87 mild rhabdomyolysis with a CK at 981 In looking through medical records available it does not look like he has [id number], anybody else to contact or advanced directives. Attempted to have code status discussion but he is far too confused. When I specifically asked if he had friends or family to help he responded that he did and when I asked who he responded back ?friends and family?. After only 1500 cc of fluid which is actually 30 per kilos bolus, his blood pressure is coming up beautifully he does not need any additional pressure support at this time. He is beginning to make urine. Troponin returns positive at 0.213. Rectal aspirin will be given. EKG shows right bundle-branch block with PVCs no acute changes. Does have a history of ischemic cardiomyopathy with ejection fractions as low as 10% with I believe m ost recent in the 30 40% range. 830 Noted rectal bleeding. concern for diverticular bleed. will add type and screen, H/h, repeat BMP after initial fluid recusitation. Will transfuse 2 units prbc. Coodinated with hospitalist. Additional Information: Severe Sepsis Criteria [ x ] bacterial source of infection suspected and documented [ ] 2 SIRS Criteria met [ x ] HR >90 [ x ] RR >20 [ x ] fever or hypothermia [x ] leukocytosis/leukopenia/bandemia [ ] Evidence of at least 1 organ system dysfunction [ x ] Lactate > 2 [ x ] BP < 90 or MAP <65, >40mm decrease from normal baseline [ x ] Creat > 2.0 [ ] T. Bili > 2.0 [x ] platelet count < 100k [ x ] altered mental status [ ] mechanical ventilation [ ] provider documentation of severe sepsis Severe Sepsis Determination. the patient has been screened and [ x ] DOES meet criteria for severe sepsis [ ] DOES NOT meet criteria for severe sepsis Goal directed treatment Within 3 hours [x ] blood cx drawn prior to abx [x ] broad spectrum abx started [ x ] lactic acid level checked [ ] lactic redrawn within 6 hours if >2.0 Septic Shock Criteria [ x ] lactic > 4 at any time [ x ] SBP ,90 or MAP , 65 [ ] documentation of septic shock Time Septic Shock diagnosed: [ 1820 ] Septic Shock Determination. the patient has been screened and [ x ] DOES meet criteria for septic shock [ ] DOES NOT meet criteria for septic shock Goal directed therapy within 3 hours of septic shock or initial hypotension [ x ] 30ml/kg fluid [ x ] ABW used [ ] IBW (33.6) used due to BMI > 30 [ ] patient or advocate declining fluid administration after shared decision making conversation Clinical reason for NOT initiating fluid bolus: Within 6 hours (if continued hypotension after fluids or initial lactate >4) [ ] repeat volume status and tissue perfusion assessment documented after fluid bolus was completed at [Date/Time] Must include vital signs, cardiopulmonary exam, capillary refill, peripheral pulse evaluation, skin exam [ ] Initiate vasopressor therapy if persistent hypotension after adequate fluid bolus 1840 patient has responded very well to fluid resuscitation. Repeat lactic acid will be ordered at 8:30 p.m. Zosyn has been ordered,blood cultures obtained. Critical Care Time Critical Care Time Critical Care Time: Yes Total Critical Care Time: 47 Attestation: Critical care time is separate from other billable procedures. There is a high probability of a significant, sudden or life-threatening deterioration that requires my full and direct attention, intervention and personal management. This critical care time includes consultation with family and other consulting doctors, review of records, and interpretation of data from labs, EKGs and imaging as well as managements of severe sepsis, altered mental status, acute renal failure, NSTEMI Discharge Plan Departure Patient Disposition: Admitted As Inpatient Clinical Impression: Severe sepsis, Acute renal failure, Non-ST elevation ID (NSTEMI), Rectal bleeding, ABLA (acute blood loss anemia) Urinary tract infection Qualifiers: Urinary tract infection type: acute cystitis Hematuria presence: without hematuria Qualified Code(s): N30.00 - Acute cystitis without hematuria Admit Date/Time: 06/09/22 19:54 Admit Provider: Tracy Feliciano
[2022-06-09] MEDS: SODIUM CHLORIDE 0.9% 1,000 ML 200 ML IV (18:12)
[2022-06-09 18:35] LABS: PCO2 ABG 35.1 mmHg (35-45); PO2 ABG 68 mmHg (80-100); pH ABG 7.29 (7.35-7.45)
[2022-06-09 18:36] LABS: Fractionated Inspired Oxygen 28; HCO3 ABG 17 mmol/L (22-26); Oxygen Saturation ABG 91 % (95-100); TCO2 ABG 18 mmol/L (21-31)
[2022-06-09 18:46] LABS: Appearance Urine UA CLEAR; Bilirubin Urine UA NEGATIVE (NEGATIVE); Color Urine UA YELLOW; Glucose Urine UA TRACE g/dL (Negative); Ketones Urine UA NEGATIVE (NEGATIVE); Leukocyte Esterase Urine UA 2+ (NEGATIVE); Nitrite Urine UA NEGATIVE (Negative); Occult Blood Urine UA TRACE-LYSED (Negative); Protein Urine UA 1+ (Negative); Specific Gravity Urine UA 1.015 (1.000-1.035); Urobilinogen Urine UA 0.2 E.U./dL (0.2)
[2022-06-09] MEDS: SODIUM CHLORIDE 0.9% 1,000 ML 1000 ML IV ×2 (18:47→21:10)
[2022-06-09 18:57] LABS: Hematocrit 29.9 % (41-53); Hemoglobin 9.8 g/dL (13.5-17.5); Mean Corpuscular HGB Conc 32.7 % (30-36); Mean Corpuscular Hemoglobin 28.8 PG (26-34); Mean Corpuscular Volume 87.9 fL (80-100); Platelet Count 71 X10^3/uL (150-400); Red Cell Distribution Width 15.3 % (11.6-14.8)
[2022-06-09 19:01] LABS: Add Manual Diff / Slide Review YES
[2022-06-09 19:02] LABS: COVID19 -Nasal RAPID Negative (Negative); White Blood Cell Count 41.1 X10^3/uL (4.5-11.0)
[2022-06-09 19:03] LABS: UR Morphine/Opiate cutoff 300 Negative (Negative); Ur Creatinine Normal (Normal); Ur Specific Gravity Normal (Normal); Urine Amphetamines Negative (Negative); Urine Barbiturates Negative (Negative); Urine Benzodiazepines Negative (Negative); Urine Cocaine Negative (Negative); Urine MDMA Negative (Negative); Urine Methadone Negative (Negative); Urine Methamphetamines Negative (Negative); Urine Oxycodone Negative (Negative); Urine Phencyclidine Negative (Negative); Urine Tetrahydrocannabinol Negative (Negative); Urine Tricyclic Antidepressant Negative (Negative); Urine pH Normal (Normal)
[2022-06-09 19:09] LABS: Ammonia (NH3) < 9 umol/L (9-30)
[2022-06-09 19:11] LABS: Alanine Aminotransferase 23 IU/L (<50); Albumin 3.8 g/dL (3.5-5.0); Albumin Globulin Ratio 1.5 (1.0-2.8); Alkaline Phosphatase 63 U/L (38-126); Aspartate Aminotransferase 60 IU/L (17-59); BUN Creatinine Ratio 14.6 (6-22); Bilirubin Total 0.6 mg/dL (0.2-1.3); Blood Urea Nitrogen 87 mg/dL (9-20); Carbon Dioxide 18 mmol/L (22-32); Chloride 101 mmol/L (98-107); Creatine Kinase 981 U/L (55-170); Estimated Glomerular Filt Rate 9 mL/min (>60); Globulin 2.6 g/dL (1.7-4.1); Glucose 133 mg/dL (80-110); HEMOLYSIS < 15 (0-50); Potassium 4.8 mmol/L (3.4-5.1); Sodium 135 mmol/L (137-145); Total Protein 6.4 g/dL (6.3-8.2)
[2022-06-09 19:13] LABS: Lactate (Lactic Acid) 5.1 mmol/L (0.7-2.1)
[2022-06-09 19:15] LABS: Neutrophils Absolute Manual 32469 /uL (3000-5900); Platelet Estimate Decreased on smear; RBC Morphology Normal Morphology; Total Cells Counted 100
[2022-06-09 19:26] LABS: CKMB % Relative Index 1.3 % (1.5-5.0)
[2022-06-09 19:30] LABS: Bacteria Urine None Seen; Culture Indicated Urine Specimen Cultured; RBC Urine 0-1/HPF (0-5/HPF); Squamous Epithelial Cell Urine None Seen (0-5/HPF); WBC Urine 5-10/HPF (0-5/HPF)
[2022-06-09 19:48] LABS: Troponin I 0.213 ng/mL (0.01-0.034)
[2022-06-09 20:04] LABS: Procalcitonin 159 ng/mL (<0.5)
[2022-06-09] MEDS: ASPIRIN 300 MG SUPP PR (20:04)
[2022-06-09] MEDS: PIPERACILLIN/TAZO 4.5 GM in SODIUM CHLORIDE 0.9% 100 ML IV (20:04)
[2022-06-09] MEDS: ACETAMINOPHEN 650 MG SUPP PR (20:04)
--- NOTE | 2022-06-09 20:17 | PC.NURSE ---
Rectal meds given per MAR as pt remains intermittently confused/not alert enough to take PO meds per this RN discretion. During administration of rectal medications, pt had mix of stool and bright red blood in brief. This brief was changed, provider notified.
[2022-06-09 20:27] LABS: Reflexed Lactate in 2 Hours Y
[2022-06-09 20:35] LABS: Ethanol (ETOH) < 10 mg/dL
[2022-06-09 20:43] LABS: Lactate 2HR (Lactic Acid Rflx) 1.8 mmol/L (0.7-2.1)
[2022-06-09 21:15] LABS: Thyroid Stimulating Hormone 3.34 uIU/mL (0.47-4.68)
--- NOTE | 2022-06-09 21:31 | P.HP_ITS ---
History of Present Illness History of Present Illness Date Patient Seen: 06/09/22 Time Patient Seen: 21:15 Chief complaint: GLF, UTI, Severe sepsis, GIB Narrative: Kervin Vincent is a 76 y.o. male with a complex medical history including coronary artery disease status post bypass surgery, and prior STEMI, right frontal CVA, seizure disorder, peripheral vascular disease, COPD, CKD stage 3, hypertension, hyperlipidemia, GERD, bladder cancer, status post TURP, history of alcohol use, was brought to the emergency department after a neighbor reportedly saw him outside of his trailer lying down and covered in stool.? History is limited due to patient's confusion therefore information obtained from the emergency department provider, and medical record review.? When asked if the patient knows where he is he replied ?[facility] [place]?. Per the emergency department provider paramedics informed her that he lives in a trailer and appeared to be a deplorable housing situation with stool covering both patient and as well as his home. Patient is unable to provide a meaningful history. Chest x-ray indicated a CHF exacerbation. Head CT indicated a known moderate right MCA distribution infarct, age-related volume loss and small-vessel ischemic changes and no acute intracranial changes. Patient was initiated on IV Zosyn, bolused with 3 L of normal saline due to profound hypotension, and when they were transferring the patient he was noted to have bloody stool so 2 units of PRBC was ordered by the emergency department provider. Patient's temperature was 97.1?, internal probe temperature was 99?, though his presenting blood pressure was 90/35, heart rate is 83, respiratory rate 18 oxygen saturation of 96% on 3 L nasal cannula, he weighs 45.5 kg with a BMI of 16.7. His white count is was 41.1 on presentation and is now 30.0 after receiving 1 dose of IV Zosyn, hemoglobin and hematocrit was initially 9.8 and 29.9 respectively and has dropped to 8.3-25.5 respectively, he has a significant left shift 24,000 his platelet count is 53, ABG pH was 7.29 ABG PO2 68 ABG bicarb 17 ABG total CO2 18, ABG oxygen saturation is 91% with a base excess of -10, sodium on presentation was 135 it is now 138, his creatinine on presentation was 5.94 and is now 5.19, his EGFR went from 9-11, lactate initially was 5.1 is now 1.8, calcium is 6.8, initial troponin was 0.213, and procalcitonin is 159. UA is positive for UTI and will be cultured urine tox screen and alcohol levels are within normal limits, and COVID-19 PCR is negative. Patient has been being seen regularly by Dr. 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 He does not appear to be undergoing any current in maintenance treatment and recently declined referral to Radiation Oncology. He receives Eligard and Prolia injections. Patient is a DNR/DNI with limited interventions per the current POLST in his chart which was completed in 2019. Patient is unable to provide a PMFS history. 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 PAD (peripheral artery disease) (Unknown) Personal history of smoking Prostate cancer Restless leg syndrome Seizures Stroke (02/2016) Thrombocytopenia concurrent with and due to alcoholism Surgical History History of appendectomy Hx of coronary artery bypass graft (Unknown) Hx of transurethral resection of prostate (10/2016) Family & Social History Family History Mother Renal failure Social History: household members none Safety & Behavioral: Feels Safe in Current Unwilling to Answer Environment Tobacco & Substance use: Tobacco type cigarettes Smoking Status Current every day smoker alcohol intake current alcohol intake frequency 0-2 drinks per day Substance Use Type marijuana Meds Home Medications and Allergies Home Medications Medication Instructions Recorded Confirmed Type aspirin 81 mg tablet,delayed 81 mg PO DAILY 05/20/18 04/13/22 History release (Adult Low Dose Aspirin) atorvastatin 20 mg tablet (Lipitor) 20 mg PO BEDTIME 03/12/20 06/16/22 History torsemide 10 mg tablet 10 mg PO DAILY 11/04/20 04/13/22 History ipratropium 0.5 mg-albuterol 3 mg 3 ml inhalation BID 30 days #90 mL 12/09/20 04/13/22 Rx (2.5 mg base)/3 mL nebulization soln ipratropium 20 mcg-albuterol 100 See Rx Instructions .Route 08/01/21 04/13/22 Rx mcg/actuation mist for inhalation .COMPLEX #4 grams (Combivent Respimat) lisinopril 2.5 mg tablet See Rx Instructions .Route 11/08/21 04/13/22 Rx .COMPLEX #90 tabs gabapentin 300 mg capsule See Rx Instructions .Route 12/12/21 04/13/22 Rx .COMPLEX #90 caps bicalutamide 50 mg tablet (Casodex) 50 mg PO DAILY #90 tabs 01/05/22 04/13/22 Rx metoprolol succinate PO 01/05/22 04/13/22 History mirtazapine 15 mg tablet 15 mg PO BEDTIME #60 tabs 01/12/22 04/13/22 Rx cholecalciferol (vitamin D3) 125 125 mcg PO DAILY #90 caps 05/15/22 Rx mcg (5,000 unit) capsule nitroglycerin 0.4 mg sublingual See Rx Instructions .Route 05/15/22 Rx tablet (Nitrostat) .COMPLEX #30 tabs Allergies Allergy/AdvReac Type Severity Reaction Status Date / Time ether AdvReac Severe Vomiting Verified 04/13/22 08:23 Review of Systems Review of Systems ROS: Yes unobtainable due to mental status Exam Vital Signs (past 8 hours): - 06/09/22 17:51 06/09/22 18:01 06/09/22 18:04 Temperature 98.5 F Pulse Rate 81 89 92 H Respiratory Rate 21 23 22 Blood Pressure 90/35 L Pulse Oximetry 95 90 L 95 Oxygen Delivery Method Room Air Oxygen Flow Rate 06/09/22 18:04 06/09/22 18:05 06/09/22 18:05 Temperature 99.1 F Pulse Rate 92 H Respiratory Rate 23 Blood Pressure 113/75 166/66 H Pulse Oximetry 94 Oxygen Delivery Method Oxygen Flow Rate 06/09/22 18:11 06/09/22 18:11 06/09/22 18:15 Temperature 98.8 F 99.0 F Pulse Rate 89 87 Respiratory Rate 20 21 Blood Pressure 140/64 Pulse Oximetry 98 80 L Oxygen Delivery Method Oxygen Flow Rate 06/09/22 18:15 06/09/22 18:20 06/09/22 18:20 Temperature 99.1 F Pulse Rate 88 Respiratory Rate 20 Blood Pressure 141/58 H 151/80 H Pulse Oximetry 90 L Oxygen Delivery Method Nasal Cannula Oxygen Flow Rate 2 06/09/22 18:30 06/09/22 18:30 06/09/22 18:35 Temperature 99.3 F 99.5 F Pulse Rate 92 H 90 Respiratory Rate 21 42 H Blood Pressure 147/65 H Pulse Oximetry Oxygen Delivery Method Oxygen Flow Rate 06/09/22 18:35 06/09/22 18:40 06/09/22 18:40 Temperature 99.7 F H Pulse Rate 90 Respiratory Rate 33 H Blood Pressure 168/65 H 155/66 H Pulse Oximetry 89 L Oxygen Delivery Method Oxygen Flow Rate 06/09/22 18:45 06/09/22 18:45 06/09/22 18:50 Temperature 99.9 F H Pulse Rate 92 H Respiratory Rate 24 Blood Pressure 138/62 137/60 Pulse Oximetry 93 Oxygen Delivery Method Oxygen Flow Rate 06/09/22 18:50 06/09/22 18:55 06/09/22 18:55 Temperature 99.9 F H 100.0 F H Pulse Rate 90 89 Respiratory Rate 19 20 Blood Pressure 143/63 H Pulse Oximetry 100 100 Oxygen Delivery Method Oxygen Flow Rate 06/09/22 19:00 06/09/22 19:00 06/09/22 19:05 Temperature 100.0 F H Pulse Rate 86 Respiratory Rate 20 Blood Pressure 129/60 130/66 Pulse Oximetry 100 Oxygen Delivery Method Oxygen Flow Rate 06/09/22 19:05 06/09/22 19:26 06/09/22 19:26 Temperature 100.0 F H 100.4 F H Pulse Rate 92 H 84 Respiratory Rate 25 H 20 Blood Pressure 131/60 Pulse Oximetry 99 93 Oxygen Delivery Method Oxygen Flow Rate 06/09/22 19:30 06/09/22 19:31 06/09/22 19:31 Temperature 100.6 F H 100.6 F H Pulse Rate 88 86 Respiratory Rate 23 22 Blood Pressure 137/63 Pulse Oximetry 97 92 Oxygen Delivery Method Oxygen Flow Rate 06/09/22 19:45 06/09/22 19:45 06/09/22 20:00 Temperature 100.6 F H 100.6 F H Pulse Rate 86 91 H Respiratory Rate 21 21 Blood Pressure 128/58 L Pulse Oximetry 95 95 Oxygen Delivery Method Oxygen Flow Rate 06/09/22 20:01 06/09/22 20:01 06/09/22 21:17 Temperature 100.6 F H 97.1 F L Pulse Rate 90 Respiratory Rate 20 Blood Pressure 144/60 H Pulse Oximetry 95 Oxygen Delivery Method Oxygen Flow Rate 06/09/22 20:50 06/09/22 21:09 Temperature 97.1 F L Pulse Rate 82 Respiratory Rate 18 Blood Pressure 105/51 L 96/42 L Pulse Oximetry 96 Oxygen Delivery Method Oxygen Flow Rate 3 Oxygen Delivery Method Nasal Cannula Oxygen Flow Rate 3 Narrative Exam Narrative: Gen: Chronically ill appearing and cachectic 76 y.o. male, HEENT: normocephalic, atraumatic, conjunctiva clear, sclera non-icteric, oral mucosa pink and moist Neck: supple, full ROM, no JVD, trachea is midline Resp: Lungs CTA, non-labored breathing CV: RRR, no murmur or rubs Abd: soft, non-tender, normoactive BTs Skin: pale and jaundiced, no lesions or rashes, dry and intact Neuro: Confused. Speech clear and coherent when he does speak Extremities: moves all 4 extremities, is ambulatory, negative Josh?s sign Psyche: unable to assess Objective Labs Result Diagrams: 06/09/22 18:20 06/09/22 18:20 Labs: Laboratory Results - last 24 hr 06/09/22 06/09/22 06/09/22 18:15 18:15 18:20 WBC 41.1 H* RBC 3.40 L Hgb 9.8 L Hct 29.9 L MCV 87.9 MCH 28.8 MCHC 32.7 RDW 15.3 H Plt Count 71 L Neut % (Auto) Not Reportable Lymph % (Auto) Not Reportable Mason % (Auto) Not Reportable Eos % (Auto) Not Reportable Baso % (Auto) Not Reportable Lymph # (Auto) Not Reportable Mason # (Auto) Not Reportable Baso # (Auto) Not Reportable Total Counted 100 Seg Neutrophils % 66.0 Band Neutrophils % 13.0 H Lymphocytes % (Manual) 3.0 L Monocytes % (Manual) 18.0 H Neutrophils # (Manual) 09720 H Platelet Estimate Decreased on smear RBC Morphology Normal morphology ABG pH ABG pCO2 ABG pO2 ABG HCO3 ABG Total CO2 ABG O2 Saturation ABG Base Excess FiO2 Sodium Potassium Chloride Carbon Dioxide BUN Creatinine Estimated GFR BUN/Creatinine Ratio Glucose Lactate Calcium Total Bilirubin AST ALT Alkaline Phosphatase Ammonia Total Creatine Kinase CK-MB (CK-2) CK-MB (CK-2) Rel Index Troponin I Total Protein Albumin Globulin Albumin/Globulin Ratio Procalcitonin TSH Urine Color Yellow Urine Appearance Clear Urine pH 5.0 Ur Specific [place] 1.015 Urine Protein 1+ H Urine Glucose (UA) Trace H Urine Ketones Negative Urine Occult Blood Trace-lysed Urine Nitrate Negative Urine Bilirubin Negative Urine Urobilinogen 0.2 Ur Leukocyte Esterase 2+ H Urine RBC 0-1/hpf Urine WBC 5-10/hpf H Ur Squamous Epith Cells None seen Urine Bacteria None seen Ur Culture Indicated? Specimen cultured U Opiates 300ng/mL cut Negative Ur Oxycodone Screen Negative Urine Methadone Screen Negative Ur Barbiturates Screen Negative U Tricyclic Antidepress Negative Ur Phencyclidine Scrn Negative Ur Amphetamines Screen Negative U Methamphetamines Scrn Negative Ur MDMA Scrn (Ecstasy) Negative U Benzodiazepines Scrn Negative Urine Cocaine Screen Negative U Marijuana (THC) Screen Negative Ethyl Alcohol SARS-CoV-2 (PCR) Blood Type Antibody Screen Crossmatch 06/09/22 06/09/22 06/09/22 18:20 18:20 18:20 WBC RBC Hgb Hct MCV MCH MCHC RDW Plt Count Neut % (Auto) Lymph % (Auto) Mason % (Auto) Eos % (Auto) Baso % (Auto) Lymph # (Auto) Mason # (Auto) Baso # (Auto) Total Counted Seg Neutrophils % Band Neutrophils % Lymphocytes % (Manual) Monocytes % (Manual) Neutrophils # (Manual) Platelet Estimate RBC Morphology ABG pH ABG pCO2 ABG pO2 ABG HCO3 ABG Total CO2 ABG O2 Saturation ABG Base Excess FiO2 Sodium 135 L Potassium 4.8 Chloride 101 Carbon Dioxide 18 L BUN 87 H Creatinine 5.94 H Estimated GFR 9 L BUN/Creatinine Ratio 14.6 Glucose 133 H Lactate 5.1 H* Calcium 8.0 L Total Bilirubin 0.6 AST 60 H ALT 23 Alkaline Phosphatase 63 Ammonia Total Creatine Kinase 981 H CK-MB (CK-2) 12.90 H CK-MB (CK-2) Rel Index 1.3 L Troponin I 0.213 H* Total Protein 6.4 Albumin 3.8 Globulin 2.6 Albumin/Globulin Ratio 1.5 Procalcitonin 159 H TSH Urine Color Urine Appearance Urine pH Ur Specific [place] Urine Protein Urine Glucose (UA) Urine Ketones Urine Occult Blood Urine Nitrate Urine Bilirubin Urine Urobilinogen Ur Leukocyte Esterase Urine RBC Urine WBC Ur Squamous Epith Cells Urine Bacteria Ur Culture Indicated? U Opiates 300ng/mL cut Ur Oxycodone Screen Urine Methadone Screen Ur Barbiturates Screen U Tricyclic Antidepress Ur Phencyclidine Scrn Ur Amphetamines Screen U Methamphetamines Scrn Ur MDMA Scrn (Ecstasy) U Benzodiazepines Scrn Urine Cocaine Screen U Marijuana (THC) Screen Ethyl Alcohol SARS-CoV-2 (PCR) Negative Blood Type Antibody Screen Crossmatch 06/09/22 06/09/22 06/09/22 18:20 18:20 18:20 WBC RBC Hgb Hct MCV MCH MCHC RDW Plt Count Neut % (Auto) Lymph % (Auto) Mason % (Auto) Eos % (Auto) Baso % (Auto) Lymph # (Auto) Mason # (Auto) Baso # (Auto) Total Counted Seg Neutrophils % Band Neutrophils % Lymphocytes % (Manual) Monocytes % (Manual) Neutrophils # (Manual) Platelet Estimate RBC Morphology ABG pH ABG pCO2 ABG pO2 ABG HCO3 ABG Total CO2 ABG O2 Saturation ABG Base Excess FiO2 Sodium Potassium Chloride Carbon Dioxide BUN Creatinine Estimated GFR BUN/Creatinine Ratio Glucose Lactate Calcium Total Bilirubin AST ALT Alkaline Phosphatase Ammonia < 9 L Total Creatine Kinase CK-MB (CK-2) CK-MB (CK-2) Rel Index Troponin I Total Protein Albumin Globulin Albumin/Globulin Ratio Procalcitonin TSH 3.34 Urine Color Urine Appearance Urine pH Ur Specific [place] Urine Protein Urine Glucose (UA) Urine Ketones Urine Occult Blood Urine Nitrate Urine Bilirubin Urine Urobilinogen Ur Leukocyte Esterase Urine RBC Urine WBC Ur Squamous Epith Cells Urine Bacteria Ur Culture Indicated? U Opiates 300ng/mL cut Ur Oxycodone Screen Urine Methadone Screen Ur Barbiturates Screen U Tricyclic Antidepress Ur Phencyclidine Scrn Ur Amphetamines Screen U Methamphetamines Scrn Ur MDMA Scrn (Ecstasy) U Benzodiazepines Scrn Urine Cocaine Screen U Marijuana (THC) Screen Ethyl Alcohol < 10 SARS-CoV-2 (PCR) Blood Type Antibody Screen Crossmatch 06/09/22 06/09/22 06/09/22 18:27 20:10 20:16 WBC RBC Hgb Hct MCV MCH MCHC RDW Plt Count Neut % (Auto) Lymph % (Auto) Mason % (Auto) Eos % (Auto) Baso % (Auto) Lymph # (Auto) Mason # (Auto) Baso # (Auto) Total Counted Seg Neutrophils % Band Neutrophils % Lymphocytes % (Manual) Monocytes % (Manual) Neutrophils # (Manual) Platelet Estimate RBC Morphology ABG pH 7.29 L* ABG pCO2 35.1 ABG pO2 68 L ABG HCO3 17 L ABG Total CO2 18 L ABG O2 Saturation 91 L ABG Base Excess -10.0 L FiO2 28 Sodium Potassium Chloride Carbon Dioxide BUN Creatinine Estimated GFR BUN/Creatinine Ratio Glucose Lactate Calcium Total Bilirubin AST ALT Alkaline Phosphatase Ammonia Total Creatine Kinase CK-MB (CK-2) CK-MB (CK-2) Rel Index Troponin I Total Protein Albumin Globulin Albumin/Globulin Ratio Procalcitonin TSH Urine Color Urine Appearance Urine pH Ur Specific [place] Urine Protein Urine Glucose (UA) Urine Ketones Urine Occult Blood Urine Nitrate Urine Bilirubin Urine Urobilinogen Ur Leukocyte Esterase Urine RBC Urine WBC Ur Squamous Epith Cells Urine Bacteria Ur Culture Indicated? U Opiates 300ng/mL cut Ur Oxycodone Screen Urine Methadone Screen Ur Barbiturates Screen U Tricyclic Antidepress Ur Phencyclidine Scrn Ur Amphetamines Screen U Methamphetamines Scrn Ur MDMA Scrn (Ecstasy) U Benzodiazepines Scrn Urine Cocaine Screen U Marijuana (THC) Screen Ethyl Alcohol SARS-CoV-2 (PCR) Blood Type A Positive Cancelled Antibody Screen Negative Crossmatch See Detail 06/09/22 20:26 WBC RBC Hgb Hct MCV MCH MCHC RDW Plt Count Neut % (Auto) Lymph % (Auto) Mason % (Auto) Eos % (Auto) Baso % (Auto) Lymph # (Auto) Mason # (Auto) Baso # (Auto) Total Counted Seg Neutrophils % Band Neutrophils % Lymphocytes % (Manual) Monocytes % (Manual) Neutrophils # (Manual) Platelet Estimate RBC Morphology ABG pH ABG pCO2 ABG pO2 ABG HCO3 ABG Total CO2 ABG O2 Saturation ABG Base Excess FiO2 Sodium Potassium Chloride Carbon Dioxide BUN Creatinine Estimated GFR BUN/Creatinine Ratio Glucose Lactate 1.8 Calcium Total Bilirubin AST ALT Alkaline Phosphatase Ammonia Total Creatine Kinase CK-MB (CK-2) CK-MB (CK-2) Rel Index Troponin I Total Protein Albumin Globulin Albumin/Globulin Ratio Procalcitonin TSH Urine Color Urine Appearance Urine pH Ur Specific [place] Urine Protein Urine Glucose (UA) Urine Ketones Urine Occult Blood Urine Nitrate Urine Bilirubin Urine Urobilinogen Ur Leukocyte Esterase Urine RBC Urine WBC Ur Squamous Epith Cells Urine Bacteria Ur Culture Indicated? U Opiates 300ng/mL cut Ur Oxycodone Screen Urine Methadone Screen Ur Barbiturates Screen U Tricyclic Antidepress Ur Phencyclidine Scrn Ur Amphetamines Screen U Methamphetamines Scrn Ur MDMA Scrn (Ecstasy) U Benzodiazepines Scrn Urine Cocaine Screen U Marijuana (THC) Screen Ethyl Alcohol SARS-CoV-2 (PCR) Blood Type Antibody Screen Crossmatch Assessment & Plan Assessment & Plan narrative: Kervin Vincent was to have initially been admitted to the acute care floor for a urinary tract infection. Due to being hemodynamically unstable, he will be moved to the ICU for further hemodynamic support, treatment of a urinary tract infection and likely associated acute on chronic kidney injury, and further workup and assessment of rectal bleeding. Severe sepsis likely due to UTI, possible abdominal infection, present on admission * Patient has a significant white count and bandemia, and is febrile, with severe hypotension unresponsive to fluid resuscitation * He started on IV Zosyn * I have requested that a central line be placed * Patient will undergo noncontrast CT scanning of the chest abdomen and pelvis to rule out possible abscess or other source of infection Rectal bleeding witnessed by ED staff on transfer to the patient to floor * He is written for 2 units PRBC, lab obtain pathology approval for the patient to improve the patient's perfusion Hypotension, acute, present on admission * Patient normally takes an ROSALINDA-inhibitor and beta blockers these will be held * Patient received a total of 4 boluses of normal saline in the emergency department * Decision was made to transfer the patient to the ICU and Levophed drip was initiated Acute kidney injury, present on admission * Continue aggressive fluids LR at 175 mL/hour * Likely responsible for demand ischemia, continue trending troponin * Continue monitoring daily creatinine, his creatinine did indicate a slight improvement over 2 hours so it may normalize by the morning Acute metabolic encephalopathy, present on admission * Neuro checks q.4 hours * Given patient's alcohol history suspect warning Wernicke's encephalopathy * Patient will be administered thiamine, multivitamin, and folic acid p.o. Adult failure to thrive, acute * Social work consult ordered for tomorrow Probable CHF exacerbation as seen on chest x-ray * ProBNP is been ordered as an add on and is pending VTE Prophylaxis: Wells risk score 2.5, pharmacological VTE prophylaxis is cu rrently contraindicated and sending of active rectal bleeding and chronic thrombocytopenia X Bilateral SCDs Patient is admitted to the inpatient intensive care service due to the severity of disease, risks of further disease progression and this stay is expected to exceed 2 midnights. FEN: IV fluids: LR at 175 mL/hour, diet: General while awake, labs: CBC, C/BMP, liver enzymes, Mag, PT/INR Consultants intercept ICU, care and involvement in the patient?s care is appreciated. Dispo: Patient is likely needing to be placed into long-term care appear that there is a significant self neglect component Code status: 2019 POLST indicates DNR/DNI with limited interventions, patient too confused to have meaningful discussion [X] I have utilized all available immediate resources to obtain, update, or review of the patient's current medications COVID-19 COVID-19 status: Negative Result date/Date tested (Pos, Neg/Pending): 06/09/22 Time Spent With Patient Critical Care time: I spent a total of 75 minutes of critical care time on this patient's care today; this time is exclusive of procedural time. Scores Wells' Criteria for PE Clinical signs and symptoms of DVT: No PE is #1 Dx or equally likely: No Heart rate > 100: No Immobilization at least 3 days or surg in previous 4 weeks: Yes History of PE or DVT: No Hemoptysis: No Malignancy w/Treatment within 6 months or palliative: Yes Wells' PE Score total: 2.5 Quality VTE Deep Vein Thrombosis/Pulmonary Embolism Present on Admission: No MIPS - Admit The patient?s Advance Care plan is not present because I confirmed today that the patient does not wish or was not able to name a surrogate decision maker or provide an Advance Care Plan.: Yes MIPS - DC The patient has current or prior documentation of left ventricular ejection fraction (LVEF) less than 40%, or moderate or severely depressed left ventricular systolic function.: Yes A. The patient was prescribed or already taking an Angiotensin-Converting Enzyme (ROSALINDA) Inhibitor, or Angiotensin Receptor Jack (ARB).: Yes B. The patient was prescribed or already taking a beta-jack. [If Yes to Both A & B, STOP here]: Yes
[2022-06-09 21:39] LABS: Hematocrit 25.5 % (41-53); Hemoglobin 8.3 g/dL (13.5-17.5); Mean Corpuscular HGB Conc 32.5 % (30-36); Mean Corpuscular Hemoglobin 28.6 PG (26-34); Platelet Count 53 X10^3/uL (150-400); Red Cell Distribution Width 15.3 % (11.6-14.8)
[2022-06-09 21:44] LABS: Add Manual Diff / Slide Review YES
[2022-06-09 21:46] LABS: BUN Creatinine Ratio 16.6 (6-22); Blood Urea Nitrogen 86 mg/dL (9-20); Calcium 6.8 mg/dL (8.4-10.2); Carbon Dioxide 18 mmol/L (22-32); Chloride 107 mmol/L (98-107); Estimated Glomerular Filt Rate 11 mL/min (>60); Glucose 109 mg/dL (80-110); HEMOLYSIS < 15 (0-50); Sodium 138 mmol/L (137-145)
[2022-06-09 22:08] LABS: Neutrophils Absolute Manual 24000 /uL (3000-5900); Platelet Estimate Decreased on smear; RBC Morphology Normal Morphology; Total Cells Counted 100
[2022-06-09] MEDS: PANTOPRAZOLE 40 MG VIAL 80 MG IV (22:09)
--- NOTE | 2022-06-09 22:41 | DI.CT.S_ITS ---
PROCEDURE: CT CHEST ABD PEL WO CON INDICATIONS: GIB, very high bandemia TECHNIQUE: 5 mm thick sections acquired from the lung apices to the symphysis pubis. 5 mm thick coronal and sagittal reformats acquired, with additional 7 mm coronal MIP reformats through the lungs. For radiation dose reduction, the following was used: automated exposure control, adjustment of mA and/or kV according to patient size. COMPARISON: [facility], CT, CT ANGIO CHEST PE, 01/31/2017, 11:53. [facility], CT, CT CHEST ABD PEL WO CON, 01/19/2022, 12:46. FINDINGS: Image quality: Evaluation is limited by motion artifact. CHEST: Lower Neck: No lymphadenopathy by size criteria. Thyroid: Visualized thyroid demonstrates no discrete nodules. Axillae: No lymphadenopathy by size criteria. Chest Wall: Unremarkable. Bones: Visualized osseous structures demonstrate no suspicious lesions. Lungs and Airways: No acute consolidation. There is dependent atelectasis bilaterally. A small pleural base nodule measuring 0.4 cm in the right upper lobe on series 5 image 58 appears similar to the 01/31/2017 study given differences in technique. A pleural base nodule anteriorly in the right upper lobe on series 5, image 97 measuring 0.4 cm also appears similar to the prior 2016 study given differences in technique. There are filling defects within the right bronchus intermedius suggestive of mucous. Pleura: No pneumothorax or pleural effusions. Heart: Heart size is enlarged. No pericardial effusion. Thoracic Vessels: The aorta and pulmonary arteries are normal in size. Mediastinum and Leticia: No lymphadenopathy by size criteria. Esophagus: No wall thickening. No hiatal hernia. ABDOMEN: Liver: Noncontrast evaluation of the liver demonstrates no discrete hepatic mass. Gallbladder: There are dependent calcified gallstones in the gallbladder without wall thickening or pericholecystic fluid. Biliary ducts: No biliary ductal dilatation. Pancreas: Unremarkable. Spleen: Normal in size. Adrenal Glands: There is thickening of the right adrenal gland which appears similar to the prior studies. Kidneys and Ureters: No hydronephrosis. Stomach and Bowel: Stomach and small bowel loops are normal in caliber and wall thickness. There is segmental mild colonic wall thickening involving the transverse, descending, and sigmoid colon with mild pericolonic fat stranding consistent with a segmental colitis. There are associated air-fluid levels. No evidence of associated obstruction. Peritoneum: No abnormal intraperitoneal fluid. No free air. Ventral Wall: No hernia. Abdominal Nodes: No retroperitoneal or mesenteric adenopathy by size criteria. Vessels: Aorta and inferior vena cava are normal in size. There is diffuse atherosclerotic vascular calcification. PELVIS: Pelvic Organs: Unremarkable. Bladder: There is a Dorantes catheter within a partially distended urinary bladder. Pelvic Nodes: No enlarged lymph nodes. Miscellaneous: No inguinal hernias are seen. Bones: There is a moderate to severe anterior compression wedge deformity of the T3 vertebral body which appears unchanged compared to the prior studies. Visualized osseous structures demonstrate no suspicious focal lesions. IMPRESSION: 1. Segmental colitis of the transverse, descending, and sigmoid colon likely infectious or inflammatory in etiology. Given the areas of involvement, ischemic colitis is considered less likely. 2. Cholelithiasis without CT evidence of acute cholecystitis. 3. Filling defects consistent with mucus in the right bronchus intermedius suggesting sequelae of aspiration. Dictated by: Jonnathan Sadler M.D. on 06/09/2022 at 23:59 Approved by: Jonnathan Sadler M.D. on 06/10/2022 at 0:24
[2022-06-09] MEDS: NOREPINEPHRINE BITARTRATE/D5W 4 MG/250 ML PLAST..BAG 15 MG IV (22:46)
--- NOTE | 2022-06-09 23:01 | PM.CN.EICU ---
History of Present Illness Consult details If camera was activated, add TeleICU A-V Statement: This patient was seen via real time interactive two-way audiovisual telecommunication. 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 Patien was awake but confused. Currently on zosyn, and received total fo 4L sicne admission with improvement in LA - BP initially improved after IVf, but on floor became hypotensive again. On lab review also has significant bandemia, eleavted cr, low bicarb, and high BUN. 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 PAD (peripheral artery disease) (Unknown) Personal history of smoking Prostate cancer Restless leg syndrome Seizures Stroke (02/2016) Thrombocytopenia concurrent with and due to alcoholism Surgical History History of appendectomy Hx of coronary artery bypass graft (Unknown) Hx of transurethral resection of prostate (10/2016) Family History Mother Renal failure Social History household members: none Smoking Status: Current every day smoker Tobacco: How many years used: 62 alcohol intake: current caffeine: Yes Current Medications Current Medications Medications: Home Medications aspirin 81 mg tablet,delayed release (Adult Low Dose Aspirin) 81 mg PO DAILY 05/20/18 [History Confirmed 04/13/22] atorvastatin 20 mg tablet (Lipitor) 20 mg PO BEDTIME 01/08/20 [History Confirmed 04/13/22] torsemide 10 mg tablet 10 mg PO DAILY 11/04/20 [History Confirmed 04/13/22] ipratropium 0.5 mg-albuterol 3 mg (2.5 mg base)/3 mL nebulization soln 3 ml inhalation BID 30 days #90 mL 12/09/20 [Rx Confirmed 04/13/22] ipratropium 20 mcg-albuterol 100 mcg/actuation mist for inhalation (Combivent Respimat) See Rx Instructions .Route .COMPLEX #4 grams 08/01/21 [Rx Confirmed 04/13/22] lisinopril 2.5 mg tablet See Rx Instructions .Route .COMPLEX #90 tabs 11/08/21 [Rx Confirmed 04/13/22] gabapentin 300 mg capsule See Rx Instructions .Route .COMPLEX #90 caps 12/12/21 [Rx Confirmed 04/13/22] bicalutamide 50 mg tablet (Casodex) 50 mg PO DAILY #90 tabs 01/05/22 [Rx Confirmed 04/13/22] metoprolol succinate PO 01/05/22 [History Confirmed 04/13/22] mirtazapine 15 mg tablet 15 mg PO BEDTIME #60 tabs 01/12/22 [Rx Confirmed 04/13/22] cholecalciferol (vitamin D3) 125 mcg (5,000 unit) capsule 125 mcg PO DAILY #90 caps 05/15/22 [Rx] nitroglycerin 0.4 mg sublingual tablet (Nitrostat) See Rx Instructions .Route .COMPLEX #30 tabs 05/15/22 [Rx] Exam Vital Signs (past 8 hours): - 06/09/22 17:51 06/09/22 18:01 06/09/22 18:04 Temperature 98.5 F Pulse Rate 81 89 92 H Respiratory Rate 21 23 22 Blood Pressure 90/35 L Pulse Oximetry 95 90 L 95 Oxygen Delivery Method Room Air Oxygen Flow Rate 06/09/22 18:04 06/09/22 18:05 06/09/22 18:05 Temperature 99.1 F Pulse Rate 92 H Respiratory Rate 23 Blood Pressure 113/75 166/66 H Pulse Oximetry 94 Oxygen Delivery Method Oxygen Flow Rate 06/09/22 18:11 06/09/22 18:11 06/09/22 18:15 Temperature 98.8 F 99.0 F Pulse Rate 89 87 Respiratory Rate 20 21 Blood Pressure 140/64 Pulse Oximetry 98 80 L Oxygen Delivery Method Oxygen Flow Rate 06/09/22 18:15 06/09/22 18:20 06/09/22 18:20 Temperature 99.1 F Pulse Rate 88 Respiratory Rate 20 Blood Pressure 141/58 H 151/80 H Pulse Oximetry 90 L Oxygen Delivery Method Nasal Cannula Oxygen Flow Rate 2 06/09/22 18:30 06/09/22 18:30 06/09/22 18:35 Temperature 99.3 F 99.5 F Pulse Rate 92 H 90 Respiratory Rate 21 42 H Blood Pressure 147/65 H Pulse Oximetry Oxygen Delivery Method Oxygen Flow Rate 06/09/22 18:35 06/09/22 18:40 06/09/22 18:40 Temperature 99.7 F H Pulse Rate 90 Respiratory Rate 33 H Blood Pressure 168/65 H 155/66 H Pulse Oximetry 89 L Oxygen Delivery Method Oxygen Flow Rate 06/09/22 18:45 06/09/22 18:45 06/09/22 18:50 Temperature 99.9 F H Pulse Rate 92 H Respiratory Rate 24 Blood Pressure 138/62 137/60 Pulse Oximetry 93 Oxygen Delivery Method Oxygen Flow Rate 06/09/22 18:50 06/09/22 18:55 06/09/22 18:55 Temperature 99.9 F H 100.0 F H Pulse Rate 90 89 Respiratory Rate 19 20 Blood Pressure 143/63 H Pulse Oximetry 100 100 Oxygen Delivery Method Oxygen Flow Rate 06/09/22 19:00 06/09/22 19:00 06/09/22 19:05 Temperature 100.0 F H Pulse Rate 86 Respiratory Rate 20 Blood Pressure 129/60 130/66 Pulse Oximetry 100 Oxygen Delivery Method Oxygen Flow Rate 06/09/22 19:05 06/09/22 19:26 06/09/22 19:26 Temperature 100.0 F H 100.4 F H Pulse Rate 92 H 84 Respiratory Rate 25 H 20 Blood Pressure 131/60 Pulse Oximetry 99 93 Oxygen Delivery Method Oxygen Flow Rate 06/09/22 19:30 06/09/22 19:31 06/09/22 19:31 Temperature 100.6 F H 100.6 F H Pulse Rate 88 86 Respiratory Rate 23 22 Blood Pressure 137/63 Pulse Oximetry 97 92 Oxygen Delivery Method Oxygen Flow Rate 06/09/22 19:45 06/09/22 19:45 06/09/22 20:00 Temperature 100.6 F H 100.6 F H Pulse Rate 86 91 H Respiratory Rate 21 21 Blood Pressure 128/58 L Pulse Oximetry 95 95 Oxygen Delivery Method Oxygen Flow Rate 06/09/22 20:01 06/09/22 20:01 06/09/22 21:17 Temperature 100.6 F H 97.1 F L Pulse Rate 90 Respiratory Rate 20 Blood Pressure 144/60 H Pulse Oximetry 95 Oxygen Delivery Method Oxygen Flow Rate 06/09/22 20:50 06/09/22 21:09 06/09/22 21:49 Temperature 97.1 F L Pulse Rate 82 83 Respiratory Rate 18 Blood Pressure 105/51 L 96/42 L 106/35 L Pulse Oximetry 96 Oxygen Delivery Method Oxygen Flow Rate 3 06/09/22 22:30 Temperature 100.4 F H Pulse Rate 81 Respiratory Rate 24 Blood Pressure 98/48 L Pulse Oximetry 96 Oxygen Delivery Method Oxygen Flow Rate 2 Oxygen Delivery Method Nasal Cannula Oxygen Flow Rate 2 Narrative Exam Narrative: surrogate for exam is priamry team Objective Labs Result Diagrams: 06/09/22 21:30 06/09/22 21:30 Labs: Laboratory Results - last 24 hr 06/09/22 06/09/22 06/09/22 18:15 18:15 18:20 WBC 41.1 H* RBC 3.40 L Hgb 9.8 L Hct 29.9 L MCV 87.9 MCH 28.8 MCHC 32.7 RDW 15.3 H Plt Count 71 L Neut % (Auto) Not Reportable Lymph % (Auto) Not Reportable [place] % (Auto) Not Reportable Eos % (Auto) Not Reportable Baso % (Auto) Not Reportable Lymph # (Auto) Not Reportable [place] # (Auto) Not Reportable Baso # (Auto) Not Reportable Total Counted 100 Seg Neutrophils % 66.0 Band Neutrophils % 13.0 H Lymphocytes % (Manual) 3.0 L Monocytes % (Manual) 18.0 H Neutrophils # (Manual) 85602 H Platelet Estimate Decreased on smear RBC Morphology Normal morphology ABG pH ABG pCO2 ABG pO2 ABG HCO3 ABG Total CO2 ABG O2 Saturation ABG Base Excess FiO2 Sodium Potassium Chloride Carbon Dioxide BUN Creatinine Estimated GFR BUN/Creatinine Ratio Glucose Lactate Calcium Total Bilirubin AST ALT Alkaline Phosphatase Ammonia Total Creatine Kinase CK-MB (CK-2) CK-MB (CK-2) Rel Index Troponin I Total Protein Albumin Globulin Albumin/Globulin Ratio Procalcitonin TSH Urine Color Yellow Urine Appearance Clear Urine pH 5.0 Ur Specific [place] 1.015 Urine Protein 1+ H Urine Glucose (UA) Trace H Urine Ketones Negative Urine Occult Blood Trace-lysed Urine Nitrate Negative Urine Bilirubin Negative Urine Urobilinogen 0.2 Ur Leukocyte Esterase 2+ H Urine RBC 0-1/hpf Urine WBC 5-10/hpf H Ur Squamous Epith Cells None seen Urine Bacteria None seen Ur Culture Indicated? Specimen cultured U Opiates 300ng/mL cut Negative Ur Oxycodone Screen Negative Urine Methadone Screen Negative Ur Barbiturates Screen Negative U Tricyclic Antidepress Negative Ur Phencyclidine Scrn Negative Ur Amphetamines Screen Negative U Methamphetamines Scrn Negative Ur MDMA Scrn (Ecstasy) Negative U Benzodiazepines Scrn Negative Urine Cocaine Screen Negative U Marijuana (THC) Screen Negative Ethyl Alcohol SARS-CoV-2 (PCR) Blood Type Antibody Screen Crossmatch 06/09/22 06/09/22 06/09/22 18:20 18:20 18:20 WBC RBC Hgb Hct MCV MCH MCHC RDW Plt Count Neut % (Auto) Lymph % (Auto) [place] % (Auto) Eos % (Auto) Baso % (Auto) Lymph # (Auto) [place] # (Auto) Baso # (Auto) Total Counted Seg Neutrophils % Band Neutrophils % Lymphocytes % (Manual) Monocytes % (Manual) Neutrophils # (Manual) Platelet Estimate RBC Morphology ABG pH ABG pCO2 ABG pO2 ABG HCO3 ABG Total CO2 ABG O2 Saturation ABG Base Excess FiO2 Sodium 135 L Potassium 4.8 Chloride 101 Carbon Dioxide 18 L BUN 87 H Creatinine 5.94 H Estimated GFR 9 L BUN/Creatinine Ratio 14.6 Glucose 133 H Lactate 5.1 H* Calcium 8.0 L Total Bilirubin 0.6 AST 60 H ALT 23 Alkaline Phosphatase 63 Ammonia Total Creatine Kinase 981 H CK-MB (CK-2) 12.90 H CK-MB (CK-2) Rel Index 1.3 L Troponin I 0.213 H* Total Protein 6.4 Albumin 3.8 Globulin 2.6 Albumin/Globulin Ratio 1.5 Procalcitonin 159 H TSH Urine Color Urine Appearance Urine pH Ur Specific [place] Urine Protein Urine Glucose (UA) Urine Ketones Urine Occult Blood Urine Nitrate Urine Bilirubin Urine Urobilinogen Ur Leukocyte Esterase Urine RBC Urine WBC Ur Squamous Epith Cells Urine Bacteria Ur Culture Indicated? U Opiates 300ng/mL cut Ur Oxycodone Screen Urine Methadone Screen Ur Barbiturates Screen U Tricyclic Antidepress Ur Phencyclidine Scrn Ur Amphetamines Screen U Methamphetamines Scrn Ur MDMA Scrn (Ecstasy) U Benzodiazepines Scrn Urine Cocaine Screen U Marijuana (THC) Screen Ethyl Alcohol SARS-CoV-2 (PCR) Negative Blood Type Antibody Screen Crossmatch 06/09/22 06/09/22 06/09/22 18:20 18:20 18:20 WBC RBC Hgb Hct MCV MCH MCHC RDW Plt Count Neut % (Auto) Lymph % (Auto) [place] % (Auto) Eos % (Auto) Baso % (Auto) Lymph # (Auto) [place] # (Auto) Baso # (Auto) Total Counted Seg Neutrophils % Band Neutrophils % Lymphocytes % (Manual) Monocytes % (Manual) Neutrophils # (Manual) Platelet Estimate RBC Morphology ABG pH ABG pCO2 ABG pO2 ABG HCO3 ABG Total CO2 ABG O2 Saturation ABG Base Excess FiO2 Sodium Potassium Chloride Carbon Dioxide BUN Creatinine Estimated GFR BUN/Creatinine Ratio Glucose Lactate Calcium Total Bilirubin AST ALT Alkaline Phosphatase Ammonia < 9 L Total Creatine Kinase CK-MB (CK-2) CK-MB (CK-2) Rel Index Troponin I Total Protein Albumin Globulin Albumin/Globulin Ratio Procalcitonin TSH 3.34 Urine Color Urine Appearance Urine pH Ur Specific [place] Urine Protein Urine Glucose (UA) Urine Ketones Urine Occult Blood Urine Nitrate Urine Bilirubin Urine Urobilinogen Ur Leukocyte Esterase Urine RBC Urine WBC Ur Squamous Epith Cells Urine Bacteria Ur Culture Indicated? U Opiates 300ng/mL cut Ur Oxycodone Screen Urine Methadone Screen Ur Barbiturates Screen U Tricyclic Antidepress Ur Phencyclidine Scrn Ur Amphetamines Screen U Methamphetamines Scrn Ur MDMA Scrn (Ecstasy) U Benzodiazepines Scrn Urine Cocaine Screen U Marijuana (THC) Screen Ethyl Alcohol < 10 SARS-CoV-2 (PCR) Blood Type Antibody Screen Crossmatch 08/10/1906/09/22 06/09/22 18:27 20:10 20:16 WBC RBC Hgb Hct MCV MCH MCHC RDW Plt Count Neut % (Auto) Lymph % (Auto) [place] % (Auto) Eos % (Auto) Baso % (Auto) Lymph # (Auto) [place] # (Auto) Baso # (Auto) Total Counted Seg Neutrophils % Band Neutrophils % Lymphocytes % (Manual) Monocytes % (Manual) Neutrophils # (Manual) Platelet Estimate RBC Morphology ABG pH 7.29 L* ABG pCO2 35.1 ABG pO2 68 L ABG HCO3 17 L ABG Total CO2 18 L ABG O2 Saturation 91 L ABG Base Excess -10.0 L FiO2 28 Sodium Potassium Chloride Carbon Dioxide BUN Creatinine Estimated GFR BUN/Creatinine Ratio Glucose Lactate Calcium Total Bilirubin AST ALT Alkaline Phosphatase Ammonia Total Creatine Kinase CK-MB (CK-2) CK-MB (CK-2) Rel Index Troponin I Total Protein Albumin Globulin Albumin/Globulin Ratio Procalcitonin TSH Urine Color Urine Appearance Urine pH Ur Specific [place] Urine Protein Urine Glucose (UA) Urine Ketones Urine Occult Blood Urine Nitrate Urine Bilirubin Urine Urobilinogen Ur Leukocyte Esterase Urine RBC Urine WBC Ur Squamous Epith Cells Urine Bacteria Ur Culture Indicated? U Opiates 300ng/mL cut Ur Oxycodone Screen Urine Methadone Screen Ur Barbiturates Screen U Tricyclic Antidepress Ur Phencyclidine Scrn Ur Amphetamines Screen U Methamphetamines Scrn Ur MDMA Scrn (Ecstasy) U Benzodiazepines Scrn Urine Cocaine Screen U Marijuana (THC) Screen Ethyl Alcohol SARS-CoV-2 (PCR) Blood Type A Positive Cancelled Antibody Screen Negative Crossmatch See Detail 06/09/22 06/09/22 06/09/22 20:26 21:30 21:30 WBC 30.0 H RBC 2.90 L Hgb 8.3 L Hct 25.5 L MCV 88.0 MCH 28.6 MCHC 32.5 RDW 15.3 H Plt Count 53 L Neut % (Auto) Not Reportable Lymph % (Auto) Not Reportable [place] % (Auto) Not Reportable Eos % (Auto) Not Reportable Baso % (Auto) Not Reportable Lymph # (Auto) Not Reportable [place] # (Auto) Not Reportable Baso # (Auto) Not Reportable Total Counted 100 Seg Neutrophils % 69.0 Band Neutrophils % 11.0 H Lymphocytes % (Manual) 1.0 L Monocytes % (Manual) 19.0 H Neutrophils # (Manual) 16036 H Platelet Estimate Decreased on smear RBC Morphology Normal morphology ABG pH ABG pCO2 ABG pO2 ABG HCO3 ABG Total CO2 ABG O2 Saturation ABG Base Excess FiO2 Sodium 138 Potassium 5.0 Chloride 107 Carbon Dioxide 18 L BUN 86 H Creatinine 5.19 H Estimated GFR 11 L BUN/Creatinine Ratio 16.6 Glucose 109 Lactate 1.8 Calcium 6.8 L Total Bilirubin AST ALT Alkaline Phosphatase Ammonia Total Creatine Kinase CK-MB (CK-2) CK-MB (CK-2) Rel Index Troponin I Total Protein Albumin Globulin Albumin/Globulin Ratio Procalcitonin TSH Urine Color Urine Appearance Urine pH Ur Specific [place] Urine Protein Urine Glucose (UA) Urine Ketones Urine Occult Blood Urine Nitrate Urine Bilirubin Urine Urobilinogen Ur Leukocyte Esterase Urine RBC Urine WBC Ur Squamous Epith Cells Urine Bacteria Ur Culture Indicated? U Opiates 300ng/mL cut Ur Oxycodone Screen Urine Methadone Screen Ur Barbiturates Screen U Tricyclic Antidepress Ur Phencyclidine Scrn Ur Amphetamines Screen U Methamphetamines Scrn Ur MDMA Scrn (Ecstasy) U Benzodiazepines Scrn Urine Cocaine Screen U Marijuana (THC) Screen Ethyl Alcohol SARS-CoV-2 (PCR) Blood Type Antibody Screen Crossmatch Assessment & Plan Assessment and plan (1) ABLA (acute blood loss anemia): Status: Acute (2) Severe sepsis: Status: Acute (3) Urinary tract infection: Qualifiers: Hematuria presence: without hematuria Urinary tract infection type: acute cystitis Qualified Code(s): N30.00 - Acute cystitis without hematuria Status: Acute (4) Acute renal failure: Status: Acute (5) Severe protein-calorie malnutrition (R[place]: less than 60% of standard weight): Status: Acute (6) Thrombocytopenia concurrent with and due to alcoholism: Status: Acute (7) Metabolic acidosis: Status: Acute (8) Acute metabolic encephalopathy: Status: Acute (9) Septic shock: Status: Acute (10) Bandemia: Status: Acute Plan patient with septic shock, source possibly UTI, will also order a ct a/p to r/o any abd pathology as his mental status may also given us a unrealiabel history otherwise plan as follows neurocehcks per unit protocol supplementla o2 as needed map gola >65 levophed NPO trend bmp monitor UO correct lytes f/u moseley cx zosyn dvt/gi ppx trend cbc transfuse plt for active lbeeding < 50, otherwise less than 10k trasnfuse for hgb < 7 f/u CK as he was found down DNR/I Time Spent With Patient Critical Care time: I spent a total of [45] minutes of critical care time on this patient's care today; this time is exclusive of procedural time.
[2022-06-09 23:23] LABS: NT-proBNP (BNP-Adult 18+) 7210 pg/mL (<450)
[2022-06-09 23:34] LABS: Creatine Kinase 1278 U/L (55-170)
[2022-06-10] VITALS (65 sets, daily range): BP systolic 71–167; BP diastolic 45–97; PULSE 71–98; RESP 16–44; TEMP 36.9–39.2; O2SAT 93–100; BMI 16.9
[2022-06-10] MEDS: LACTATED RINGERS 1,000 ML 175 ML IV (00:22)
[2022-06-10 00:42] LABS: Lipase 29 U/L (23-300)
[2022-06-10 00:57] LABS: Troponin I 0.187 ng/mL (0.01-0.034)
[2022-06-10] MEDS: PIPERACILLIN/TAZO 3.375 GM in SODIUM CHLORIDE 0.9% 100 ML IV ×3 (01:14→16:26)
[2022-06-10] MEDS: metroNIDAZOLE 500 MG/100 ML PIGGYBACK 100 MG IV ×2 (01:14→05:48)
[2022-06-10 02:01] LABS: Clostridium Difficile Tox PCR Negative for C. diff (Negative)
[2022-06-10] MEDS: ACETAMINOPHEN 325 MG TABLET 650 MG PO (02:22)
[2022-06-10 05:27] LABS: Hemoglobin 9.9 g/dL (13.5-17.5); Mean Corpuscular HGB Conc 33.3 % (30-36); Mean Corpuscular Volume 87.2 fL (80-100); Platelet Count 46 X10^3/uL (150-400); Red Blood Cell Count 3.41 X10^6/uL (4.5-5.9); Red Cell Distribution Width 14.8 % (11.6-14.8); White Blood Cell Count 27.2 X10^3/uL (4.5-11.0)
[2022-06-10 05:30] LABS: Add Manual Diff / Slide Review YES; Hematocrit 29.8 % (41-53)
[2022-06-10 05:35] LABS: BUN Creatinine Ratio 17.7 (6-22); Blood Urea Nitrogen 80 mg/dL (9-20); Calcium 6.7 mg/dL (8.4-10.2); Carbon Dioxide 20 mmol/L (22-32); Chloride 110 mmol/L (98-107); Estimated Glomerular Filt Rate 13 mL/min (>60); Glucose 99 mg/dL (80-110); HEMOLYSIS < 15 (0-50); Magnesium 1.7 mg/dL (1.6-2.3); Potassium 4.3 mmol/L (3.4-5.1); Sodium 139 mmol/L (137-145)
[2022-06-10 05:41] LABS: Alanine Aminotransferase 22 IU/L (<50); Albumin 2.7 g/dL (3.5-5.0); Albumin Globulin Ratio 1.4 (1.0-2.8); Alkaline Phosphatase 54 U/L (38-126); Aspartate Aminotransferase 80 IU/L (17-59); Bilirubin Total 0.6 mg/dL (0.2-1.3); Bilirubin Unconjugated 0.5 mg/dL (0.0-1.1); HEMOLYSIS < 15 (0-50); Total Protein 4.7 g/dL (6.3-8.2)
[2022-06-10 05:59] LABS: Troponin I 0.181 ng/mL (0.01-0.034)
[2022-06-10 06:29] LABS: Neutrophils Absolute Manual 20944 /uL (3000-5900); Total Cells Counted 100
[2022-06-10 06:30] LABS: Anisocytosis 1+; Platelet Estimate Decreased on smear
--- NOTE | 2022-06-10 06:30 | DI.ECHO.S_ITS ---
[facility] +---------+ : : [address] [place] : : : : [id number] : : : : Phone: [phone] Echocardiogram Report + + :Name: DENAE WALLIS Study Date: 06/10/2022 Height: 65 in : :[facility] ReadingLocation: Weight: 101 lb : : Gender: Male BSA: 1.5 m2 : :: 1945 Age: 76 yrs BP: 126/59 mmHg: :Reason For Study: Congestive Heart Failure exacerbation : : Performed By: Joslyn Toure : :Referring: WAQAS GAMA : + + Interpretation Summary Left ventricular wall thickness is mildly increased. The ejection fraction is estimated to be 40-45%. The basal to mid anterior wall is hypokinetic. The basal to mid inferior- inferolateral wall is scarred. Grade II diastolic dysfunction. The right ventricle is normal in size and function. There is severe biatrial enlargement. No significant valvular abnormalities. Unable to estimate PASP. Compared to the prior study dated 12/21/2019, the anterior wall hypokinesis is new. Procedure: A two-dimensional transthoracic echocardiogram with color flow and Doppler was performed. The study quality was technically adequate. Comparison is made with the echocardiogram of 12/21/2019. The patient was in normal sinus rhythm during the exam. The patient had occasional PVCs during the exam. Left Ventricle: The left ventricle is normal in size. Left ventricular wall thickness is mildly increased. The ejection fraction is estimated to be 40- 45%. The basal to mid anterior wall is hypokinetic. The basal to mid inferior- inferolateral wall is scarred. Diastolic parameters suggest a pseudonormalization pattern, consistent with probable elevated filling pressures. Right Ventricle: The right ventricle is normal in size and function. Atria: There is severe biatrial enlargement. There is no Doppler evidence for an interatrial shunt. Mitral Valve: The mitral valve is normal in structure and function. There is trace mitral regurgitation. Aortic Valve: The aortic valve is trileaflet. The aortic valve opens well. There is mild aortic valve sclerosis. There is no aortic valve stenosis. No aortic regurgitation is present. Tricuspid Valve: The tricuspid valve is normal in structure and function. Pulmonary artery pressures cannot be estimated because of the lack of a measurable TR jet velocity. Pulmonic Valve: The pulmonic valve is not well seen, but is grossly normal. Great Vessels: The aortic root is normal size. The ascending aorta could not be visualized. The IVC has a measurement of 18 mm. The patient could not execute an adequate sniff to evaluate IVC collapse. Pericardium/ Pleura There is no pericardial effusion. MMode/2D Measurements & Calculations LVIDd: 5.1 cm LVOT diam: 1.9 cm LVIDs: 4.1 cm Ao root diam: 3.4 cm FS: 20.3 % EPSS: 1.6 cm IVSd: 1.2 cm LVPWd: 0.86 cm LV peres. diameter/BSA (cm/m^2): 3.5 LV sys. diameter/BSA (cm/m^2): 2.8 LA A2 area: 30.1 cm2 RA long axis: 4.8 cm LA A4 area: 28.0 cm2 RA area: 20.7 cm2 LA length (vol): 6.2 cm RA vol: 75.4 ml LA vol: 114.9 ml RA : 51.0 ml/m2 LA vol index: 77.7 ml/m2 IVC diam: 1.8 cm RVD1 (basal): 4.2 cm TAPSE: 1.6 cm Doppler Measurements & Calculations Ao V2 max: 136.4 cm/sec LVOT Max Ricardo: 94.5 cm/sec Ao V2 mean: 82.9 cm/sec LV V1 max P.6 mmHg Ao max P.4 mmHg LV V1 VTI: 15.7 cm Ao mean P.2 mmHg DES(I,D): 1.9 cm2 Ao V2 VTI: 22.3 cm DES(V,D): 1.9 cm2 sev ratio: 0.71 DES indexed to BSA (cm^2/m^2): 1.3 MV E max ricardo: 86.3 cm/sec PA V2 max: 103.7 cm/sec MV A max ricardo: 90.4 cm/sec PA V2 mean: 69.8 cm/sec MV E/A: 0.96 PA mean P.2 mmHg Med Peak E' Ricardo: 3.7 cm/sec PA pr(Accel): 44.3 mmHg E/E' med: 23.5 Lat Peak E' Ricardo: 9.6 cm/sec E/E' lat: 9.0 E/e' average: 16.2 MV dec time: 0.13 sec SV(LVOT): 42.4 ml Reading Physician:03:52 PM
--- NOTE | 2022-06-10 06:41 | PC.NURSE ---
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 Patient was seen by KAY Feliciano and tele ICU MD Alston, new orders given. Levophed started and titrated, maintaining SBP >100 MAP >65, patient denies any pain or discomfort. 2345 - Dr. Alsotn clarified re:blood transfusion orders and agreed to transfuse 1 unit packed cells then check H&H one hour post BT transfusion. 0015 - started to transfuse packed cells, vital signs monitored [id number] hour then [id number] hour and hourly thereafter until completed at 0230, no untoward BT reaction noted. Safety precautions maintained, call dempsey within reach. Will continue to monitor.
[2022-06-10] MEDS: CALCIUM GLUCONATE 4.65 MEQ in SODIUM CHLORIDE 0.9% 50 ML 180 MEQ IV (07:26)
--- NOTE | 2022-06-10 07:29 | P.PN_ITS ---
Subjective Subjective Date Patient Seen: 06/10/22 Interval history: 76 year old gentleman w/CAD s/p CABG s/p STEMI, Rt frontal CVA, seizure d/o, PAD, COPD, CKD3, HTN, hyperlipidemia, GERD, bladder cancer s/p TURP, prior alcohol use admitted last night w/septic shock felt to be d/t UTI and colitis, rectal bleeding, GLENNA and acute metabolic encephalopathy. He did briefly require pressors upon transfer to ICU secondary to hypotension. However those have since been weaned. Patient was very drowsy. I am unable to get much information from him. He did tell his nurse he drinks ?plenty ?and smokes ?plenty ?daily. She also reports he has had significant ongoing diarrhea. She is concerned he has been too sleepy to drink. Exam Vital Signs (past 8 hours): - 06/10/22 00:00 06/10/22 00:13 06/10/22 00:00 Temperature 100 F H 100 F H 100.0 F H Pulse Rate 72 75 74 Respiratory Rate 22 25 H 25 H Blood Pressure 102/53 L 136/58 L 102/53 L Pulse Oximetry 100 Oxygen Delivery Method Oxygen Flow Rate 1 06/10/22 00:00 06/10/22 00:00 06/10/22 01:00 Temperature 100.0 F H Pulse Rate 79 Respiratory Rate 23 Blood Pressure 148/60 H Pulse Oximetry 98 97 Oxygen Delivery Method Nasal Cannula Nasal Cannula Oxygen Flow Rate 2 06/10/22 00:30 06/10/22 00:45 06/10/22 01:00 Temperature 99.9 F H 99.9 F H 100 F H Pulse Rate 77 79 78 Respiratory Rate 22 22 24 Blood Pressure 124/59 L 145/64 H 148/60 H Pulse Oximetry Oxygen Delivery Method Oxygen Flow Rate 06/10/22 01:15 06/10/22 02:00 06/10/22 02:22 Temperature 100 F H 101.3 F H 101.7 F H Pulse Rate 80 96 H Respiratory Rate 22 22 Blood Pressure 149/64 H 147/77 H Pulse Oximetry 96 Oxygen Delivery Method Oxygen Flow Rate 06/10/22 03:00 06/10/22 02:52 06/10/22 04:00 Temperature 102.6 F H 102.6 F H Pulse Rate 93 H Respiratory Rate 25 H Blood Pressure 143/87 H Pulse Oximetry 97 Oxygen Delivery Method Room Air Oxygen Flow Rate 06/10/22 02:30 06/10/22 04:00 06/10/22 05:00 Temperature 100.9 F H 100.3 F H 99.4 F Pulse Rate 96 H 89 85 Respiratory Rate 22 21 20 Blood Pressure 147/77 H 120/56 L 127/60 Pulse Oximetry 96 98 Oxygen Delivery Method Oxygen Flow Rate 06/10/22 06:00 Temperature 98.5 F Pulse Rate 80 Respiratory Rate 21 Blood Pressure 122/97 H Pulse Oximetry 97 Oxygen Delivery Method Oxygen Flow Rate Oxygen Delivery Method Room Air Oxygen Flow Rate 2 Narrative Exam Narrative: GEN: Chronically ill-appearing cachectic elderly male, somnolent, slumped over in the bed,NAD HEENT:NC, Face symmetric, neck supple, no pain with range of motion CHEST: Respiratory excursions symmetric, coarse but CTAB CV: RRR, no M/R/G ABD: Soft, NT/ND, BT present in all 4 quadrants, no organomegaly or masses EXTR: warm, well perfused, no C/C/E SKIN: warm and dry, no rash NEURO: Somnolent, nonfocal Objective Labs Result Diagrams: 06/10/22 05:00 06/10/22 05:00 Labs: Laboratory Results - last 24 hr 06/09/22 06/09/22 06/09/22 18:15 18:15 18:20 WBC 41.1 H* RBC 3.40 L Hgb 9.8 L Hct 29.9 L MCV 87.9 MCH 28.8 MCHC 32.7 RDW 15.3 H Plt Count 71 L Neut % (Auto) Not Reportable Lymph % (Auto) Not Reportable [place] % (Auto) Not Reportable Eos % (Auto) Not Reportable Baso % (Auto) Not Reportable Lymph # (Auto) Not Reportable [place] # (Auto) Not Reportable Baso # (Auto) Not Reportable Total Counted 100 Seg Neutrophils % 66.0 Band Neutrophils % 13.0 H Lymphocytes % (Manual) 3.0 L Monocytes % (Manual) 18.0 H Metamyelocytes % Neutrophils # (Manual) 91260 H Platelet Estimate Decreased on smear RBC Morphology Normal morphology Anisocytosis ABG pH ABG pCO2 ABG pO2 ABG HCO3 ABG Total CO2 ABG O2 Saturation ABG Base Excess FiO2 Sodium Potassium Chloride Carbon Dioxide BUN Creatinine Estimated GFR BUN/Creatinine Ratio Glucose Lactate Calcium Magnesium Total Bilirubin Conjugated Bilirubin Unconjugated Bilirubin AST ALT Alkaline Phosphatase Ammonia Total Creatine Kinase CK-MB (CK-2) CK-MB (CK-2) Rel Index Troponin I NT-Pro-B Natriuret Pep Total Protein Albumin Globulin Albumin/Globulin Ratio Lipase Procalcitonin TSH Urine Color Yellow Urine Appearance Clear Urine pH 5.0 Ur Specific [place] 1.015 Urine Protein 1+ H Urine Glucose (UA) Trace H Urine Ketones Negative Urine Occult Blood Trace-lysed Urine Nitrate Negative Urine Bilirubin Negative Urine Urobilinogen 0.2 Ur Leukocyte Esterase 2+ H Urine RBC 0-1/hpf Urine WBC 5-10/hpf H Ur Squamous Epith Cells None seen Urine Bacteria None seen Ur Culture Indicated? Specimen cultured Nasal Screen MRSA (PCR) U Opiates 300ng/mL cut Negative Ur Oxycodone Screen Negative Urine Methadone Screen Negative Ur Barbiturates Screen Negative U Tricyclic Antidepress Negative Ur Phencyclidine Scrn Negative Ur Amphetamines Screen Negative U Methamphetamines Scrn Negative Ur MDMA Scrn (Ecstasy) Negative U Benzodiazepines Scrn Negative Urine Cocaine Screen Negative U Marijuana (THC) Screen Negative Ethyl Alcohol C. difficile Tox (PCR) SARS-CoV-2 (PCR) Blood Type Antibody Screen Crossmatch 06/09/22 06/09/22 06/09/22 18:20 18:20 18:20 WBC RBC Hgb Hct MCV MCH MCHC RDW Plt Count Neut % (Auto) Lymph % (Auto) [place] % (Auto) Eos % (Auto) Baso % (Auto) Lymph # (Auto) [place] # (Auto) Baso # (Auto) Total Counted Seg Neutrophils % Band Neutrophils % Lymphocytes % (Manual) Monocytes % (Manual) Metamyelocytes % Neutrophils # (Manual) Platelet Estimate RBC Morphology Anisocytosis ABG pH ABG pCO2 ABG pO2 ABG HCO3 ABG Total CO2 ABG O2 Saturation ABG Base Excess FiO2 Sodium 135 L Potassium 4.8 Chloride 101 Carbon Dioxide 18 L BUN 87 H Creatinine 5.94 H Estimated GFR 9 L BUN/Creatinine Ratio 14.6 Glucose 133 H Lactate 5.1 H* Calcium 8.0 L Magnesium Total Bilirubin 0.6 Conjugated Bilirubin Unconjugated Bilirubin AST 60 H ALT 23 Alkaline Phosphatase 63 Ammonia Total Creatine Kinase 981 H CK-MB (CK-2) 12.90 H CK-MB (CK-2) Rel Index 1.3 L Troponin I 0.213 H* NT-Pro-B Natriuret Pep Total Protein 6.4 Albumin 3.8 Globulin 2.6 Albumin/Globulin Ratio 1.5 Lipase Procalcitonin 159 H TSH Urine Color Urine Appearance Urine pH Ur Specific [place] Urine Protein Urine Glucose (UA) Urine Ketones Urine Occult Blood Urine Nitrate Urine Bilirubin Urine Urobilinogen Ur Leukocyte Esterase Urine RBC Urine WBC Ur Squamous Epith Cells Urine Bacteria Ur Culture Indicated? Nasal Screen MRSA (PCR) U Opiates 300ng/mL cut Ur Oxycodone Screen Urine Methadone Screen Ur Barbiturates Screen U Tricyclic Antidepress Ur Phencyclidine Scrn Ur Amphetamines Screen U Methamphetamines Scrn Ur MDMA Scrn (Ecstasy) U Benzodiazepines Scrn Urine Cocaine Screen U Marijuana (THC) Screen Ethyl Alcohol C. difficile Tox (PCR) SARS-CoV-2 (PCR) Negative Blood Type Antibody Screen Crossmatch 06/09/22 06/09/22 06/09/22 18:20 18:20 18:20 WBC RBC Hgb Hct MCV MCH MCHC RDW Plt Count Neut % (Auto) Lymph % (Auto) [place] % (Auto) Eos % (Auto) Baso % (Auto) Lymph # (Auto) [place] # (Auto) Baso # (Auto) Total Counted Seg Neutrophils % Band Neutrophils % Lymphocytes % (Manual) Monocytes % (Manual) Metamyelocytes % Neutrophils # (Manual) Platelet Estimate RBC Morphology Anisocytosis ABG pH ABG pCO2 ABG pO2 ABG HCO3 ABG Total CO2 ABG O2 Saturation ABG Base Excess FiO2 Sodium Potassium Chloride Carbon Dioxide BUN Creatinine Estimated GFR BUN/Creatinine Ratio Glucose Lactate Calcium Magnesium Total Bilirubin Conjugated Bilirubin Unconjugated Bilirubin AST ALT Alkaline Phosphatase Ammonia < 9 L Total Creatine Kinase CK-MB (CK-2) CK-MB (CK-2) Rel Index Troponin I NT-Pro-B Natriuret Pep Total Protein Albumin Globulin Albumin/Globulin Ratio Lipase Procalcitonin TSH 3.34 Urine Color Urine Appearance Urine pH Ur Specific [place] Urine Protein Urine Glucose (UA) Urine Ketones Urine Occult Blood Urine Nitrate Urine Bilirubin Urine Urobilinogen Ur Leukocyte Esterase Urine RBC Urine WBC Ur Squamous Epith Cells Urine Bacteria Ur Culture Indicated? Nasal Screen MRSA (PCR) U Opiates 300ng/mL cut Ur Oxycodone Screen Urine Methadone Screen Ur Barbiturates Screen U Tricyclic Antidepress Ur Phencyclidine Scrn Ur Amphetamines Screen U Methamphetamines Scrn Ur MDMA Scrn (Ecstasy) U Benzodiazepines Scrn Urine Cocaine Screen U Marijuana (THC) Screen Ethyl Alcohol < 10 C. difficile Tox (PCR) SARS-CoV-2 (PCR) Blood Type Antibody Screen Crossmatch 06/09/22 06/09/22 06/09/22 18:27 20:10 20:16 WBC RBC Hgb Hct MCV MCH MCHC RDW Plt Count Neut % (Auto) Lymph % (Auto) [place] % (Auto) Eos % (Auto) Baso % (Auto) Lymph # (Auto) [place] # (Auto) Baso # (Auto) Total Counted Seg Neutrophils % Band Neutrophils % Lymphocytes % (Manual) Monocytes % (Manual) Metamyelocytes % Neutrophils # (Manual) Platelet Estimate RBC Morphology Anisocytosis ABG pH 7.29 L* ABG pCO2 35.1 ABG pO2 68 L ABG HCO3 17 L ABG Total CO2 18 L ABG O2 Saturation 91 L ABG Base Excess -10.0 L FiO2 28 Sodium Potassium Chloride Carbon Dioxide BUN Creatinine Estimated GFR BUN/Creatinine Ratio Glucose Lactate Calcium Magnesium Total Bilirubin Conjugated Bilirubin Unconjugated Bilirubin AST ALT Alkaline Phosphatase Ammonia Total Creatine Kinase CK-MB (CK-2) CK-MB (CK-2) Rel Index Troponin I NT-Pro-B Natriuret Pep Total Protein Albumin Globulin Albumin/Globulin Ratio Lipase Procalcitonin TSH Urine Color Urine Appearance Urine pH Ur Specific [place] Urine Protein Urine Glucose (UA) Urine Ketones Urine Occult Blood Urine Nitrate Urine Bilirubin Urine Urobilinogen Ur Leukocyte Esterase Urine RBC Urine WBC Ur Squamous Epith Cells Urine Bacteria Ur Culture Indicated? Nasal Screen MRSA (PCR) U Opiates 300ng/mL cut Ur Oxycodone Screen Urine Methadone Screen Ur Barbiturates Screen U Tricyclic Antidepress Ur Phencyclidine Scrn Ur Amphetamines Screen U Methamphetamines Scrn Ur MDMA Scrn (Ecstasy) U Benzodiazepines Scrn Urine Cocaine Screen U Marijuana (THC) Screen Ethyl Alcohol C. difficile Tox (PCR) SARS-CoV-2 (PCR) Blood Type A Positive Cancelled Antibody Screen Negative Crossmatch See Detail 06/09/22 06/09/22 06/09/22 20:26 21:30 21:30 WBC 30.0 H RBC 2.90 L Hgb 8.3 L Hct 25.5 L MCV 88.0 MCH 28.6 MCHC 32.5 RDW 15.3 H Plt Count 53 L Neut % (Auto) Not Reportable Lymph % (Auto) Not Reportable [place] % (Auto) Not Reportable Eos % (Auto) Not Reportable Baso % (Auto) Not Reportable Lymph # (Auto) Not Reportable [place] # (Auto) Not Reportable Baso # (Auto) Not Reportable Total Counted 100 Seg Neutrophils % 69.0 Band Neutrophils % 11.0 H Lymphocytes % (Manual) 1.0 L Monocytes % (Manual) 19.0 H Metamyelocytes % Neutrophils # (Manual) 00115 H Platelet Estimate Decreased on smear RBC Morphology Normal morphology Anisocytosis ABG pH ABG pCO2 ABG pO2 ABG HCO3 ABG Total CO2 ABG O2 Saturation ABG Base Excess FiO2 Sodium 138 Potassium 5.0 Chloride 107 Carbon Dioxide 18 L BUN 86 H Creatinine 5.19 H Estimated GFR 11 L BUN/Creatinine Ratio 16.6 Glucose 109 Lactate 1.8 Calcium 6.8 L Magnesium Total Bilirubin Conjugated Bilirubin Unconjugated Bilirubin AST ALT Alkaline Phosphatase Ammonia Total Creatine Kinase CK-MB (CK-2) CK-MB (CK-2) Rel Index Troponin I NT-Pro-B Natriuret Pep Total Protein Albumin Globulin Albumin/Globulin Ratio Lipase Procalcitonin TSH Urine Color Urine Appearance Urine pH Ur Specific [place] Urine Protein Urine Glucose (UA) Urine Ketones Urine Occult Blood Urine Nitrate Urine Bilirubin Urine Urobilinogen Ur Leukocyte Esterase Urine RBC Urine WBC Ur Squamous Epith Cells Urine Bacteria Ur Culture Indicated? Nasal Screen MRSA (PCR) U Opiates 300ng/mL cut Ur Oxycodone Screen Urine Methadone Screen Ur Barbiturates Screen U Tricyclic Antidepress Ur Phencyclidine Scrn Ur Amphetamines Screen U Methamphetamines Scrn Ur MDMA Scrn (Ecstasy) U Benzodiazepines Scrn Urine Cocaine Screen U Marijuana (THC) Screen Ethyl Alcohol C. difficile Tox (PCR) SARS-CoV-2 (PCR) Blood Type Antibody Screen Crossmatch 06/09/22 06/09/22 06/09/22 21:30 21:30 22:35 WBC RBC Hgb Hct MCV MCH MCHC RDW Plt Count Neut % (Auto) Lymph % (Auto) [place] % (Auto) Eos % (Auto) Baso % (Auto) Lymph # (Auto) [place] # (Auto) Baso # (Auto) Total Counted Seg Neutrophils % Band Neutrophils % Lymphocytes % (Manual) Monocytes % (Manual) Metamyelocytes % Neutrophils # (Manual) Platelet Estimate RBC Morphology Anisocytosis ABG pH ABG pCO2 ABG pO2 ABG HCO3 ABG Total CO2 ABG O2 Saturation ABG Base Excess FiO2 Sodium Potassium Chloride Carbon Dioxide BUN Creatinine Estimated GFR BUN/Creatinine Ratio Glucose Lactate Calcium Magnesium Total Bilirubin Conjugated Bilirubin Unconjugated Bilirubin AST ALT Alkaline Phosphatase Ammonia Total Creatine Kinase 1278 H CK-MB (CK-2) CK-MB (CK-2) Rel Index Troponin I NT-Pro-B Natriuret Pep 7210 H Total Protein Albumin Globulin Albumin/Globulin Ratio Lipase Procalcitonin TSH Urine Color Urine Appearance Urine pH Ur Specific [place] Urine Protein Urine Glucose (UA) Urine Ketones Urine Occult Blood Urine Nitrate Urine Bilirubin Urine Urobilinogen Ur Leukocyte Esterase Urine RBC Urine WBC Ur Squamous Epith Cells Urine Bacteria Ur Culture Indicated? Nasal Screen MRSA (PCR) Negative for mrsa U Opiates 300ng/mL cut Ur Oxycodone Screen Urine Methadone Screen Ur Barbiturates Screen U Tricyclic Antidepress Ur Phencyclidine Scrn Ur Amphetamines Screen U Methamphetamines Scrn Ur MDMA Scrn (Ecstasy) U Benzodiazepines Scrn Urine Cocaine Screen U Marijuana (THC) Screen Ethyl Alcohol C. difficile Tox (PCR) SARS-CoV-2 (PCR) Blood Type Antibody Screen Crossmatch 06/10/22 06/10/22 06/10/22 00:26 00:26 00:52 WBC RBC Hgb Hct MCV MCH MCHC RDW Plt Count Neut % (Auto) Lymph % (Auto) [place] % (Auto) Eos % (Auto) Baso % (Auto) Lymph # (Auto) [place] # (Auto) Baso # (Auto) Total Counted Seg Neutrophils % Band Neutrophils % Lymphocytes % (Manual) Monocytes % (Manual) Metamyelocytes % Neutrophils # (Manual) Platelet Estimate RBC Morphology Anisocytosis ABG pH ABG pCO2 ABG pO2 ABG HCO3 ABG Total CO2 ABG O2 Saturation ABG Base Excess FiO2 Sodium Potassium Chloride Carbon Dioxide BUN Creatinine Estimated GFR BUN/Creatinine Ratio Glucose Lactate Calcium Magnesium Total Bilirubin Conjugated Bilirubin Unconjugated Bilirubin AST ALT Alkaline Phosphatase Ammonia Total Creatine Kinase CK-MB (CK-2) CK-MB (CK-2) Rel Index Troponin I 0.187 H* NT-Pro-B Natriuret Pep Total Protein Albumin Globulin Albumin/Globulin Ratio Lipase 29 Procalcitonin TSH Urine Color Urine Appearance Urine pH Ur Specific [place] Urine Protein Urine Glucose (UA) Urine Ketones Urine Occult Blood Urine Nitrate Urine Bilirubin Urine Urobilinogen Ur Leukocyte Esterase Urine RBC Urine WBC Ur Squamous Epith Cells Urine Bacteria Ur Culture Indicated? Nasal Screen MRSA (PCR) U Opiates 300ng/mL cut Ur Oxycodone Screen Urine Methadone Screen Ur Barbiturates Screen U Tricyclic Antidepress Ur Phencyclidine Scrn Ur Amphetamines Screen U Methamphetamines Scrn Ur MDMA Scrn (Ecstasy) U Benzodiazepines Scrn Urine Cocaine Screen U Marijuana (THC) Screen Ethyl Alcohol C. difficile Tox (PCR) Negative for c. diff SARS-CoV-2 (PCR) Blood Type Antibody Screen Crossmatch 06/10/22 06/10/22 06/10/22 05:00 05:00 05:00 WBC 27.2 H RBC 3.41 L Hgb 9.9 L Hct 29.8 L MCV 87.2 MCH 29.0 MCHC 33.3 RDW 14.8 Plt Count 46 L Neut % (Auto) Not Reportable Lymph % (Auto) Not Reportable [place] % (Auto) Not Reportable Eos % (Auto) Not Reportable Baso % (Auto) Not Reportable Lymph # (Auto) Not Reportable [place] # (Auto) Not Reportable Baso # (Auto) Not Reportable Total Counted 100 Seg Neutrophils % 62.0 Band Neutrophils % 15.0 H Lymphocytes % (Manual) 2.0 L Monocytes % (Manual) 18.0 H Metamyelocytes % 3.0 H Neutrophils # (Manual) 57825 H Platelet Estimate Decreased on smear RBC Morphology See below Anisocytosis 1+ H ABG pH ABG pCO2 ABG pO2 ABG HCO3 ABG Total CO2 ABG O2 Saturation ABG Base Excess FiO2 Sodium 139 Potassium 4.3 Chloride 110 H Carbon Dioxide 20 L BUN 80 H Creatinine 4.52 H Estimated GFR 13 L BUN/Creatinine Ratio 17.7 Glucose 99 Lactate Calcium 6.7 L Magnesium 1.7 Total Bilirubin Conjugated Bilirubin Unconjugated Bilirubin AST ALT Alkaline Phosphatase Ammonia Total Creatine Kinase CK-MB (CK-2) CK-MB (CK-2) Rel Index Troponin I 0.181 H* NT-Pro-B Natriuret Pep Total Protein Albumin Globulin Albumin/Globulin Ratio Lipase Procalcitonin TSH Urine Color Urine Appearance Urine pH Ur Specific [place] Urine Protein Urine Glucose (UA) Urine Ketones Urine Occult Blood Urine Nitrate Urine Bilirubin Urine Urobilinogen Ur Leukocyte Esterase Urine RBC Urine WBC Ur Squamous Epith Cells Urine Bacteria Ur Culture Indicated? Nasal Screen MRSA (PCR) U Opiates 300ng/mL cut Ur Oxycodone Screen Urine Methadone Screen Ur Barbiturates Screen U Tricyclic Antidepress Ur Phencyclidine Scrn Ur Amphetamines Screen U Methamphetamines Scrn Ur MDMA Scrn (Ecstasy) U Benzodiazepines Scrn Urine Cocaine Screen U Marijuana (THC) Screen Ethyl Alcohol C. difficile Tox (PCR) SARS-CoV-2 (PCR) Blood Type Antibody Screen Crossmatch 06/10/22 05:00 WBC RBC Hgb Hct MCV MCH MCHC RDW Plt Count Neut % (Auto) Lymph % (Auto) [place] % (Auto) Eos % (Auto) Baso % (Auto) Lymph # (Auto) [place] # (Auto) Baso # (Auto) Total Counted Seg Neutrophils % Band Neutrophils % Lymphocytes % (Manual) Monocytes % (Manual) Metamyelocytes % Neutrophils # (Manual) Platelet Estimate RBC Morphology Anisocytosis ABG pH ABG pCO2 ABG pO2 ABG HCO3 ABG Total CO2 ABG O2 Saturation ABG Base Excess FiO2 Sodium Potassium Chloride Carbon Dioxide BUN Creatinine Estimated GFR BUN/Creatinine Ratio Glucose Lactate Calcium Magnesium Total Bilirubin 0.6 Conjugated Bilirubin 0.0 Unconjugated Bilirubin 0.5 AST 80 H ALT 22 Alkaline Phosphatase 54 Ammonia Total Creatine Kinase CK-MB (CK-2) CK-MB (CK-2) Rel Index Troponin I NT-Pro-B Natriuret Pep Total Protein 4.7 L Albumin 2.7 L Globulin 2.0 Albumin/Globulin Ratio 1.4 Lipase Procalcitonin TSH Urine Color Urine Appearance Urine pH Ur Specific [place] Urine Protein Urine Glucose (UA) Urine Ketones Urine Occult Blood Urine Nitrate Urine Bilirubin Urine Urobilinogen Ur Leukocyte Esterase Urine RBC Urine WBC Ur Squamous Epith Cells Urine Bacteria Ur Culture Indicated? Nasal Screen MRSA (PCR) U Opiates 300ng/mL cut Ur Oxycodone Screen Urine Methadone Screen Ur Barbiturates Screen U Tricyclic Antidepress Ur Phencyclidine Scrn Ur Amphetamines Screen U Methamphetamines Scrn Ur MDMA Scrn (Ecstasy) U Benzodiazepines Scrn Urine Cocaine Screen U Marijuana (THC) Screen Ethyl Alcohol C. difficile Tox (PCR) SARS-CoV-2 (PCR) Blood Type Antibody Screen Crossmatch [facility] Medical History Alcohol abuse Bladder cancer (~2014) CKD (chronic kidney disease) (Unknown) Congestive heart failure COPD (chronic obstructive pulmonary disease) (Unknown) Coronary artery disease (Unknown) Elevated PSA, greater than or equal to 20 ng/ml Gastroesophageal reflux disease Hearing loss Hematuria History of CVA (cerebrovascular accident) Hx of left bundle branch block Hyperkalemia Hyperlipemia (Unknown) Hyperparathyroidism, secondary renal Hypertension (Unknown) Immobility Measles Multiple comorbid conditions Mumps 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 Septic shock Patient briefly required pressors but now is improved. Etiology is likely moseley colitis and UTI. Cultures are presently negative to date. Physiologic parameters of septic shock improved. Echocardiogram was done and currently pending. White blood cell count is significantly improved, down from 41.1 on admission to 272 this morning. He has a significant bandemia at 15% as well as monocytosis. 2. UTI UA on admission revealed 5-10 white cells per high-power field, 2+ leukocyte esterase, trace glucose, negative nitrites. Culture pending. He is covered with Zosyn at this time. 3. Pancolitis Patient has evidence of segmental colitis of the transverse, descending, and si gmoid colon felt to be infectious or inflammatory in nature. Ischemic colitis is considered less likely. C diff was negative. Will send additional stool studies. 4. GLENNA in CKD 3 His baseline creatinine appears to be 1.4. BUN was 86 creatinine 5.19 on admission. Now down to 80 and 4.52. Is had 1300 cc of urine output since admission. Continue close monitoring. No evidence of obstruction or hydronephrosis was noted. 5. Acute metabolic encephalopathy Likely multifactorial. Patient evidently has a significant alcohol use. That in conjunction with his septic shock, colitis colon TI likely catheterization for his encephalopathy. Head CT on admission revealed moderate right MCA distribution infarct. No acute intracranial hemorrhage, stroke, or mass. 6. Alcohol dependence He is at high risk for withdrawal. Will place on alcohol withdrawal protocol. 7. Tobacco dependence Nicotine patch as needed 8. Severe protein calorie malnutrition BMI is 16.9 on admission. Will benefit from a dietitian consult. 9. Normocytic anemia Hemoglobin is 9.9. This does appear somewhat reduced compared to his baseline noted between October and December of this year of 12.6-12.9. No evidence of bleeding at this time. 10. Thrombocytopenia Platelet count is 46. Although he is not have any active bleeding, will be cautious in terms of DVT prophylaxis. Likely alcohol induced. This appears to be chronic. Baseline platelet count ranges between 58 and 79 11. Hypocalcemia Replete per protocol Code status DNR DNI Prophylaxis Chemical prophylaxis deferred in the setting of thrombocytopenia Disposition Continued ICU level care Time Spent With Patient Critical Care time: I spent a total of [] minutes of critical care time on this patient's care today; this time is exclusive of procedural time. Quality VTE Deep Vein Thrombosis/Pulmonary Embolism Present on Admission: No
[2022-06-10] MEDS: PANTOPRAZOLE 40 MG VIAL IV ×2 (09:21→20:56)
--- NOTE | 2022-06-10 09:36 | PM.PN.EICU ---
Subjective Subjective If camera was activated, add TeleICU A-V statement: audio/visual was established Consent obtained for tele-bellman care: Yes Patient Location: ICU Provider location (State): [place] Other participants/roles: [facility] Current Medications Current Medications Medications: Home Medications aspirin 81 mg tablet,delayed release (Adult Low Dose Aspirin) 81 mg PO DAILY 05/20/18 [History Confirmed 04/13/22] atorvastatin 20 mg tablet (Lipitor) 20 mg PO BEDTIME 01/08/20 [History Confirmed 04/13/22] torsemide 10 mg tablet 10 mg PO DAILY 11/04/20 [History Confirmed 04/13/22] ipratropium 0.5 mg-albuterol 3 mg (2.5 mg base)/3 mL nebulization soln 3 ml inhalation BID 30 days #90 mL 12/09/20 [Rx Confirmed 04/13/22] ipratropium 20 mcg-albuterol 100 mcg/actuation mist for inhalation (Combivent Respimat) See Rx Instructions .Route .COMPLEX #4 grams 08/01/21 [Rx Confirmed 04/13/22] lisinopril 2.5 mg tablet See Rx Instructions .Route .COMPLEX #90 tabs 11/08/21 [Rx Confirmed 04/13/22] gabapentin 300 mg capsule See Rx Instructions .Route .COMPLEX #90 caps 12/12/21 [Rx Confirmed 04/13/22] bicalutamide 50 mg tablet (Casodex) 50 mg PO DAILY #90 tabs 01/05/22 [Rx Confirmed 04/13/22] metoprolol succinate PO 01/05/22 [History Confirmed 04/13/22] mirtazapine 15 mg tablet 15 mg PO BEDTIME #60 tabs 01/12/22 [Rx Confirmed 04/13/22] cholecalciferol (vitamin D3) 125 mcg (5,000 unit) capsule 125 mcg PO DAILY #90 caps 05/15/22 [Rx] nitroglycerin 0.4 mg sublingual tablet (Nitrostat) See Rx Instructions .Route .COMPLEX #30 tabs 05/15/22 [Rx] Visit Medications (administered) Generic Name Dose Route Start Last Admin Trade Name Freq PRN Reason Stop Dose Admin Acetaminophen 650 mg 06/10/22 02:07 06/10/22 02:22 Acetaminophen 325 Mg Tablet PO 650 mg Q6H PRN Administration Fever/Mild Pain (1-3) Piperacillin Sod/Tazobactam 100 mls @ 25 mls/hr 06/10/22 01:00 06/10/22 08:19 Sod 3.375 gm/ Sodium Chloride IV 25 mls/hr Q8H JUNG Administration Metronidazole 500 mg in 100 mls @ 100 mls/hr 06/10/22 00:30 06/10/22 07:34 Flagyl IV Infused Q6H JUNG Infusion Pantoprazole Sodium 40 mg 06/10/22 09:00 06/10/22 09:21 Pantoprazole 40 Mg Vial IV 40 mg BID JUNG Administration Objective Labs Result Diagrams: 06/10/22 05:00 06/10/22 05:00 Labs: Laboratory Results - last 24 hr 06/09/22 06/09/22 06/09/22 18:15 18:15 18:20 WBC 41.1 H* RBC 3.40 L Hgb 9.8 L Hct 29.9 L MCV 87.9 MCH 28.8 MCHC 32.7 RDW 15.3 H Plt Count 71 L Neut % (Auto) Not Reportable Lymph % (Auto) Not Reportable [place] % (Auto) Not Reportable Eos % (Auto) Not Reportable Baso % (Auto) Not Reportable Lymph # (Auto) Not Reportable [place] # (Auto) Not Reportable Baso # (Auto) Not Reportable Total Counted 100 Seg Neutrophils % 66.0 Band Neutrophils % 13.0 H Lymphocytes % (Manual) 3.0 L Monocytes % (Manual) 18.0 H Metamyelocytes % Neutrophils # (Manual) 01296 H Platelet Estimate Decreased on smear RBC Morphology Normal morphology Anisocytosis ABG pH ABG pCO2 ABG pO2 ABG HCO3 ABG Total CO2 ABG O2 Saturation ABG Base Excess FiO2 Sodium Potassium Chloride Carbon Dioxide BUN Creatinine Estimated GFR BUN/Creatinine Ratio Glucose Lactate Calcium Magnesium Total Bilirubin Conjugated Bilirubin Unconjugated Bilirubin AST ALT Alkaline Phosphatase Ammonia Total Creatine Kinase CK-MB (CK-2) CK-MB (CK-2) Rel Index Troponin I NT-Pro-B Natriuret Pep Total Protein Albumin Globulin Albumin/Globulin Ratio Lipase Procalcitonin TSH Urine Color Yellow Urine Appearance Clear Urine pH 5.0 Ur Specific Huffman 1.015 Urine Protein 1+ H Urine Glucose (UA) Trace H Urine Ketones Negative Urine Occult Blood Trace-lysed Urine Nitrate Negative Urine Bilirubin Negative Urine Urobilinogen 0.2 Ur Leukocyte Esterase 2+ H Urine RBC 0-1/hpf Urine WBC 5-10/hpf H Ur Squamous Epith Cells None seen Urine Bacteria None seen Ur Culture Indicated? Specimen cultured Nasal Screen MRSA (PCR) U Opiates 300ng/mL cut Negative Ur Oxycodone Screen Negative Urine Methadone Screen Negative Ur Barbiturates Screen Negative U Tricyclic Antidepress Negative Ur Phencyclidine Scrn Negative Ur Amphetamines Screen Negative U Methamphetamines Scrn Negative Ur MDMA Scrn (Ecstasy) Negative U Benzodiazepines Scrn Negative Urine Cocaine Screen Negative U Marijuana (THC) Screen Negative Ethyl Alcohol C. difficile Tox (PCR) SARS-CoV-2 (PCR) Blood Type Antibody Screen Crossmatch 06/09/22 06/09/22 06/09/22 18:20 18:20 18:20 WBC RBC Hgb Hct MCV MCH MCHC RDW Plt Count Neut % (Auto) Lymph % (Auto) [place] % (Auto) Eos % (Auto) Baso % (Auto) Lymph # (Auto) [place] # (Auto) Baso # (Auto) Total Counted Seg Neutrophils % Band Neutrophils % Lymphocytes % (Manual) Monocytes % (Manual) Metamyelocytes % Neutrophils # (Manual) Platelet Estimate RBC Morphology Anisocytosis ABG pH ABG pCO2 ABG pO2 ABG HCO3 ABG Total CO2 ABG O2 Saturation ABG Base Excess FiO2 Sodium 135 L Potassium 4.8 Chloride 101 Carbon Dioxide 18 L BUN 87 H Creatinine 5.94 H Estimated GFR 9 L BUN/Creatinine Ratio 14.6 Glucose 133 H Lactate 5.1 H* Calcium 8.0 L Magnesium Total Bilirubin 0.6 Conjugated Bilirubin Unconjugated Bilirubin AST 60 H ALT 23 Alkaline Phosphatase 63 Ammonia Total Creatine Kinase 981 H CK-MB (CK-2) 12.90 H CK-MB (CK-2) Rel Index 1.3 L Troponin I 0.213 H* NT-Pro-B Natriuret Pep Total Protein 6.4 Albumin 3.8 Globulin 2.6 Albumin/Globulin Ratio 1.5 Lipase Procalcitonin 159 H TSH Urine Color Urine Appearance Urine pH Ur Specific Huff[place] Urine Protein Urine Glucose (UA) Urine Ketones Urine Occult Blood Urine Nitrate Urine Bilirubin Urine Urobilinogen Ur Leukocyte Esterase Urine RBC Urine WBC Ur Squamous Epith Cells Urine Bacteria Ur Culture Indicated? Nasal Screen MRSA (PCR) U Opiates 300ng/mL cut Ur Oxycodone Screen Urine Methadone Screen Ur Barbiturates Screen U Tricyclic Antidepress Ur Phencyclidine Scrn Ur Amphetamines Screen U Methamphetamines Scrn Ur MDMA Scrn (Ecstasy) U Benzodiazepines Scrn Urine Cocaine Screen U Marijuana (THC) Screen Ethyl Alcohol C. difficile Tox (PCR) SARS-CoV-2 (PCR) Negative Blood Type Antibody Screen Crossmatch 06/09/22 06/09/22 06/09/22 18:20 18:20 18:20 WBC RBC Hgb Hct MCV MCH MCHC RDW Plt Count Neut % (Auto) Lymph % (Auto) [place] % (Auto) Eos % (Auto) Baso % (Auto) Lymph # (Auto) [place] # (Auto) Baso # (Auto) Total Counted Seg Neutrophils % Band Neutrophils % Lymphocytes % (Manual) Monocytes % (Manual) Metamyelocytes % Neutrophils # (Manual) Platelet Estimate RBC Morphology Anisocytosis ABG pH ABG pCO2 ABG pO2 ABG HCO3 ABG Total CO2 ABG O2 Saturation ABG Base Excess FiO2 Sodium Potassium Chloride Carbon Dioxide BUN Creatinine Estimated GFR BUN/Creatinine Ratio Glucose Lactate Calcium Magnesium Total Bilirubin Conjugated Bilirubin Unconjugated Bilirubin AST ALT Alkaline Phosphatase Ammonia < 9 L Total Creatine Kinase CK-MB (CK-2) CK-MB (CK-2) Rel Index Troponin I NT-Pro-B Natriuret Pep Total Protein Albumin Globulin Albumin/Globulin Ratio Lipase Procalcitonin TSH 3.34 Urine Color Urine Appearance Urine pH Ur Specific Huff[place] Urine Protein Urine Glucose (UA) Urine Ketones Urine Occult Blood Urine Nitrate Urine Bilirubin Urine Urobilinogen Ur Leukocyte Esterase Urine RBC Urine WBC Ur Squamous Epith Cells Urine Bacteria Ur Culture Indicated? Nasal Screen MRSA (PCR) U Opiates 300ng/mL cut Ur Oxycodone Screen Urine Methadone Screen Ur Barbiturates Screen U Tricyclic Antidepress Ur Phencyclidine Scrn Ur Amphetamines Screen U Methamphetamines Scrn Ur MDMA Scrn (Ecstasy) U Benzodiazepines Scrn Urine Cocaine Screen U Marijuana (THC) Screen Ethyl Alcohol < 10 C. difficile Tox (PCR) SARS-CoV-2 (PCR) Blood Type Antibody Screen Crossmatch 06/09/22 06/09/22 06/09/22 18:27 20:10 20:16 WBC RBC Hgb Hct MCV MCH MCHC RDW Plt Count Neut % (Auto) Lymph % (Auto) [place] % (Auto) Eos % (Auto) Baso % (Auto) Lymph # (Auto) [place] # (Auto) Baso # (Auto) Total Counted Seg Neutrophils % Band Neutrophils % Lymphocytes % (Manual) Monocytes % (Manual) Metamyelocytes % Neutrophils # (Manual) Platelet Estimate RBC Morphology Anisocytosis ABG pH 7.29 L* ABG pCO2 35.1 ABG pO2 68 L ABG HCO3 17 L ABG Total CO2 18 L ABG O2 Saturation 91 L ABG Base Excess -10.0 L FiO2 28 Sodium Potassium Chloride Carbon Dioxide BUN Creatinine Estimated GFR BUN/Creatinine Ratio Glucose Lactate Calcium Magnesium Total Bilirubin Conjugated Bilirubin Unconjugated Bilirubin AST ALT Alkaline Phosphatase Ammonia Total Creatine Kinase CK-MB (CK-2) CK-MB (CK-2) Rel Index Troponin I NT-Pro-B Natriuret Pep Total Protein Albumin Globulin Albumin/Globulin Ratio Lipase Procalcitonin TSH Urine Color Urine Appearance Urine pH Ur Specific Huff[place] Urine Protein Urine Glucose (UA) Urine Ketones Urine Occult Blood Urine Nitrate Urine Bilirubin Urine Urobilinogen Ur Leukocyte Esterase Urine RBC Urine WBC Ur Squamous Epith Cells Urine Bacteria Ur Culture Indicated? Nasal Screen MRSA (PCR) U Opiates 300ng/mL cut Ur Oxycodone Screen Urine Methadone Screen Ur Barbiturates Screen U Tricyclic Antidepress Ur Phencyclidine Scrn Ur Amphetamines Screen U Methamphetamines Scrn Ur MDMA Scrn (Ecstasy) U Benzodiazepines Scrn Urine Cocaine Screen U Marijuana (THC) Screen Ethyl Alcohol C. difficile Tox (PCR) SARS-CoV-2 (PCR) Blood Type A Positive Cancelled Antibody Screen Negative Crossmatch See Detail 06/09/22 06/09/22 06/09/22 20:26 21:30 21:30 WBC 30.0 H RBC 2.90 L Hgb 8.3 L Hct 25.5 L MCV 88.0 MCH 28.6 MCHC 32.5 RDW 15.3 H Plt Count 53 L Neut % (Auto) Not Reportable Lymph % (Auto) Not Reportable [place] % (Auto) Not Reportable Eos % (Auto) Not Reportable Baso % (Auto) Not Reportable Lymph # (Auto) Not Reportable [place] # (Auto) Not Reportable Baso # (Auto) Not Reportable Total Counted 100 Seg Neutrophils % 69.0 Band Neutrophils % 11.0 H Lymphocytes % (Manual) 1.0 L Monocytes % (Manual) 19.0 H Metamyelocytes % Neutrophils # (Manual) 39429 H Platelet Estimate Decreased on smear RBC Morphology Normal morphology Anisocytosis ABG pH ABG pCO2 ABG pO2 ABG HCO3 ABG Total CO2 ABG O2 Saturation ABG Base Excess FiO2 Sodium 138 Potassium 5.0 Chloride 107 Carbon Dioxide 18 L BUN 86 H Creatinine 5.19 H Estimated GFR 11 L BUN/Creatinine Ratio 16.6 Glucose 109 Lactate 1.8 Calcium 6.8 L Magnesium Total Bilirubin Conjugated Bilirubin Unconjugated Bilirubin AST ALT Alkaline Phosphatase Ammonia Total Creatine Kinase CK-MB (CK-2) CK-MB (CK-2) Rel Index Troponin I NT-Pro-B Natriuret Pep Total Protein Albumin Globulin Albumin/Globulin Ratio Lipase Procalcitonin TSH Urine Color Urine Appearance Urine pH Ur Specific Huff[place] Urine Protein Urine Glucose (UA) Urine Ketones Urine Occult Blood Urine Nitrate Urine Bilirubin Urine Urobilinogen Ur Leukocyte Esterase Urine RBC Urine WBC Ur Squamous Epith Cells Urine Bacteria Ur Culture Indicated? Nasal Screen MRSA (PCR) U Opiates 300ng/mL cut Ur Oxycodone Screen Urine Methadone Screen Ur Barbiturates Screen U Tricyclic Antidepress Ur Phencyclidine Scrn Ur Amphetamines Screen U Methamphetamines Scrn Ur MDMA Scrn (Ecstasy) U Benzodiazepines Scrn Urine Cocaine Screen U Marijuana (THC) Screen Ethyl Alcohol C. difficile Tox (PCR) SARS-CoV-2 (PCR) Blood Type Antibody Screen Crossmatch 06/09/22 06/09/22 06/09/22 21:30 21:30 22:35 WBC RBC Hgb Hct MCV MCH MCHC RDW Plt Count Neut % (Auto) Lymph % (Auto) [place] % (Auto) Eos % (Auto) Baso % (Auto) Lymph # (Auto) [place] # (Auto) Baso # (Auto) Total Counted Seg Neutrophils % Band Neutrophils % Lymphocytes % (Manual) Monocytes % (Manual) Metamyelocytes % Neutrophils # (Manual) Platelet Estimate RBC Morphology Anisocytosis ABG pH ABG pCO2 ABG pO2 ABG HCO3 ABG Total CO2 ABG O2 Saturation ABG Base Excess FiO2 Sodium Potassium Chloride Carbon Dioxide BUN Creatinine Estimated GFR BUN/Creatinine Ratio Glucose Lactate Calcium Magnesium Total Bilirubin Conjugated Bilirubin Unconjugated Bilirubin AST ALT Alkaline Phosphatase Ammonia Total Creatine Kinase 1278 H CK-MB (CK-2) CK-MB (CK-2) Rel Index Troponin I NT-Pro-B Natriuret Pep 7210 H Total Protein Albumin Globulin Albumin/Globulin Ratio Lipase Procalcitonin TSH Urine Color Urine Appearance Urine pH Ur Specific [place] Urine Protein Urine Glucose (UA) Urine Ketones Urine Occult Blood Urine Nitrate Urine Bilirubin Urine Urobilinogen Ur Leukocyte Esterase Urine RBC Urine WBC Ur Squamous Epith Cells Urine Bacteria Ur Culture Indicated? Nasal Screen MRSA (PCR) Negative for mrsa U Opiates 300ng/mL cut Ur Oxycodone Screen Urine Methadone Screen Ur Barbiturates Screen U Tricyclic Antidepress Ur Phencyclidine Scrn Ur Amphetamines Screen U Methamphetamines Scrn Ur MDMA Scrn (Ecstasy) U Benzodiazepines Scrn Urine Cocaine Screen U Marijuana (THC) Screen Ethyl Alcohol C. difficile Tox (PCR) SARS-CoV-2 (PCR) Blood Type Antibody Screen Crossmatch 06/10/22 06/10/22 06/10/22 00:26 00:26 00:52 WBC RBC Hgb Hct MCV MCH MCHC RDW Plt Count Neut % (Auto) Lymph % (Auto) [place] % (Auto) Eos % (Auto) Baso % (Auto) Lymph # (Auto) [place] # (Auto) Baso # (Auto) Total Counted Seg Neutrophils % Band Neutrophils % Lymphocytes % (Manual) Monocytes % (Manual) Metamyelocytes % Neutrophils # (Manual) Platelet Estimate RBC Morphology Anisocytosis ABG pH ABG pCO2 ABG pO2 ABG HCO3 ABG Total CO2 ABG O2 Saturation ABG Base Excess FiO2 Sodium Potassium Chloride Carbon Dioxide BUN Creatinine Estimated GFR BUN/Creatinine Ratio Glucose Lactate Calcium Magnesium Total Bilirubin Conjugated Bilirubin Unconjugated Bilirubin AST ALT Alkaline Phosphatase Ammonia Total Creatine Kinase CK-MB (CK-2) CK-MB (CK-2) Rel Index Troponin I 0.187 H* NT-Pro-B Natriuret Pep Total Protein Albumin Globulin Albumin/Globulin Ratio Lipase 29 Procalcitonin TSH Urine Color Urine Appearance Urine pH Ur Specific [place] Urine Protein Urine Glucose (UA) Urine Ketones Urine Occult Blood Urine Nitrate Urine Bilirubin Urine Urobilinogen Ur Leukocyte Esterase Urine RBC Urine WBC Ur Squamous Epith Cells Urine Bacteria Ur Culture Indicated? Nasal Screen MRSA (PCR) U Opiates 300ng/mL cut Ur Oxycodone Screen Urine Methadone Screen Ur Barbiturates Screen U Tricyclic Antidepress Ur Phencyclidine Scrn Ur Amphetamines Screen U Methamphetamines Scrn Ur MDMA Scrn (Ecstasy) U Benzodiazepines Scrn Urine Cocaine Screen U Marijuana (THC) Screen Ethyl Alcohol C. difficile Tox (PCR) Negative for c. diff SARS-CoV-2 (PCR) Blood Type Antibody Screen Crossmatch 06/10/22 06/10/22 06/10/22 05:00 05:00 05:00 WBC 27.2 H RBC 3.41 L Hgb 9.9 L Hct 29.8 L MCV 87.2 MCH 29.0 MCHC 33.3 RDW 14.8 Plt Count 46 L Neut % (Auto) Not Reportable Lymph % (Auto) Not Reportable [place] % (Auto) Not Reportable Eos % (Auto) Not Reportable Baso % (Auto) Not Reportable Lymph # (Auto) Not Reportable [place] # (Auto) Not Reportable Baso # (Auto) Not Reportable Total Counted 100 Seg Neutrophils % 62.0 Band Neutrophils % 15.0 H Lymphocytes % (Manual) 2.0 L Monocytes % (Manual) 18.0 H Metamyelocytes % 3.0 H Neutrophils # (Manual) 02716 H Platelet Estimate Decreased on smear RBC Morphology See below Anisocytosis 1+ H ABG pH ABG pCO2 ABG pO2 ABG HCO3 ABG Total CO2 ABG O2 Saturation ABG Base Excess FiO2 Sodium 139 Potassium 4.3 Chloride 110 H Carbon Dioxide 20 L BUN 80 H Creatinine 4.52 H Estimated GFR 13 L BUN/Creatinine Ratio 17.7 Glucose 99 Lactate Calcium 6.7 L Magnesium 1.7 Total Bilirubin Conjugated Bilirubin Unconjugated Bilirubin AST ALT Alkaline Phosphatase Ammonia Total Creatine Kinase CK-MB (CK-2) CK-MB (CK-2) Rel Index Troponin I 0.181 H* NT-Pro-B Natriuret Pep Total Protein Albumin Globulin Albumin/Globulin Ratio Lipase Procalcitonin TSH Urine Color Urine Appearance Urine pH Ur Specific [place] Urine Protein Urine Glucose (UA) Urine Ketones Urine Occult Blood Urine Nitrate Urine Bilirubin Urine Urobilinogen Ur Leukocyte Esterase Urine RBC Urine WBC Ur Squamous Epith Cells Urine Bacteria Ur Culture Indicated? Nasal Screen MRSA (PCR) U Opiates 300ng/mL cut Ur Oxycodone Screen Urine Methadone Screen Ur Barbiturates Screen U Tricyclic Antidepress Ur Phencyclidine Scrn Ur Amphetamines Screen U Methamphetamines Scrn Ur MDMA Scrn (Ecstasy) U Benzodiazepines Scrn Urine Cocaine Screen U Marijuana (THC) Screen Ethyl Alcohol C. difficile Tox (PCR) SARS-CoV-2 (PCR) Blood Type Antibody Screen Crossmatch 06/10/22 05:00 WBC RBC Hgb Hct MCV MCH MCHC RDW Plt Count Neut % (Auto) Lymph % (Auto) [place] % (Auto) Eos % (Auto) Baso % (Auto) Lymph # (Auto) [place] # (Auto) Baso # (Auto) Total Counted Seg Neutrophils % Band Neutrophils % Lymphocytes % (Manual) Monocytes % (Manual) Metamyelocytes % Neutrophils # (Manual) Platelet Estimate RBC Morphology Anisocytosis ABG pH ABG pCO2 ABG pO2 ABG HCO3 ABG Total CO2 ABG O2 Saturation ABG Base Excess FiO2 Sodium Potassium Chloride Carbon Dioxide BUN Creatinine Estimated GFR BUN/Creatinine Ratio Glucose Lactate Calcium Magnesium Total Bilirubin 0.6 Conjugated Bilirubin 0.0 Unconjugated Bilirubin 0.5 AST 80 H ALT 22 Alkaline Phosphatase 54 Ammonia Total Creatine Kinase CK-MB (CK-2) CK-MB (CK-2) Rel Index Troponin I NT-Pro-B Natriuret Pep Total Protein 4.7 L Albumin 2.7 L Globulin 2.0 Albumin/Globulin Ratio 1.4 Lipase Procalcitonin TSH Urine Color Urine Appearance Urine pH Ur Specific [place] Urine Protein Urine Glucose (UA) Urine Ketones Urine Occult Blood Urine Nitrate Urine Bilirubin Urine Urobilinogen Ur Leukocyte Esterase Urine RBC Urine WBC Ur Squamous Epith Cells Urine Bacteria Ur Culture Indicated? Nasal Screen MRSA (PCR) U Opiates 300ng/mL cut Ur Oxycodone Screen Urine Methadone Screen Ur Barbiturates Screen U Tricyclic Antidepress Ur Phencyclidine Scrn Ur Amphetamines Screen U Methamphetamines Scrn Ur MDMA Scrn (Ecstasy) U Benzodiazepines Scrn Urine Cocaine Screen U Marijuana (THC) Screen Ethyl Alcohol C. difficile Tox (PCR) SARS-CoV-2 (PCR) Blood Type Antibody Screen Crossmatch Exam Vital Signs (past 8 hours): - 06/10/22 02:00 06/10/22 02:22 06/10/22 03:00 Temperature 101.3 F H 101.7 F H 102.6 F H Pulse Rate 96 H 93 H Respiratory Rate 22 25 H Blood Pressure 147/77 H 143/87 H Pulse Oximetry 96 97 Oxygen Delivery Method Oxygen Flow Rate 06/10/22 02:52 06/10/22 04:00 06/10/22 02:30 Temperature 102.6 F H 100.9 F H Pulse Rate 96 H Respiratory Rate 22 Blood Pressure 147/77 H Pulse Oximetry Oxygen Delivery Method Room Air Oxygen Flow Rate 06/10/22 04:00 06/10/22 05:00 06/10/22 06:00 Temperature 100.3 F H 99.4 F 98.5 F Pulse Rate 89 85 80 Respiratory Rate 21 20 21 Blood Pressure 120/56 L 127/60 122/97 H Pulse Oximetry 96 98 97 Oxygen Delivery Method Oxygen Flow Rate 06/10/22 07:00 06/10/22 08:00 06/10/22 07:00 Temperature 98.5 F Pulse Rate 71 82 Respiratory Rate 17 20 Blood Pressure 124/55 L 101/49 L Pulse Oximetry 97 96 95 Oxygen Delivery Method Room Air Oxygen Flow Rate 0 0 06/10/22 08:00 06/10/22 08:00 06/10/22 09:00 Temperature 98.4 F Pulse Rate 79 76 Respiratory Rate 16 18 Blood Pressure 101/49 L 130/60 Pulse Oximetry 96 97 Oxygen Delivery Method Room Air Oxygen Flow Rate 0 Oxygen Delivery Method Room Air Oxygen Flow Rate 0 Quality TeleICU VTE Deep Vein Thrombosis/Pulmonary Embolism Present on Admission: No Assessment & Plan Assessment and plan (1) ABLA (acute blood loss anemia): Status: Acute (2) Severe sepsis: Status: Acute (3) Urinary tract infection: Qualifiers: Hematuria presence: without hematuria Urinary tract infection type: acute cystitis Qualified Code(s): N30.00 - Acute cystitis without hematuria Status: Acute (4) Acute renal failure: Status: Acute (5) Severe protein-calorie malnutrition (Ritter: less than 60% of standard weight): Status: Acute (6) Thrombocytopenia concurrent with and due to alcoholism: Status: Acute (7) Metabolic acidosis: Status: Acute (8) Acute metabolic encephalopathy: Status: Acute (9) Septic shock: Status: Acute (10) Bandemia: Status: Acute Plan patient with bedside nurse and provider chart/labs/imaging reviewed currently afebrile, HD stable off pressors mental status improving septic shock 2/2 colitis vs other dehydration/volume depletion acute on chronic renal failure etoh abuse malnutrition plan -neurochecks/seizure precautions -CT head -ve -thiamine/folate -can consider LP if mental status doesnt continue to improve -ciwa protocol, can consider starting small dose librium -off pressors -check cxs -continue zosyn, can dc flagyl -monitor ins/outs -serial cbc/coags transfuse prn -replace lytes prn, monitor for refeeding syndrome -keep glucose 140-180s -gi/dvt ppx -please call eICU if condition changes CCM time 45 mins Time Spent With Patient Critical Care time: I spent a total of [] minutes of critical care time on this patient's care today; this time is exclusive of procedural time.
[2022-06-10] MEDS: SODIUM CHLORIDE 0.9% 1,000 ML 150 ML IV (10:02)
[2022-06-10] MEDS: THIAMINE 100 MG in SODIUM CHLORIDE 0.9% 100 ML 404 MG IV (10:02)
--- NOTE | 2022-06-10 10:53 | ST.IPCSEOM ---
Visit Care Team Role Provider Type Joey Person MD Primary Care Provider Physician Specialty: Family Practice Address: [address] [place] [address] Email: [email or web address] Hema Sung MD Other Providers Physician Specialty: Medical Address: Phone: Fax: Email: Rand Mott MD Other Providers Physician Specialty: Medical Address: Phone: Fax: Email: Gabriela Alston MD Other Providers Physician Specialty: Medical Address: Phone: Fax: Email: Ryan Castillo MD Other Providers Physician Specialty: Medical Address: Phone: Fax: Email: Mendel Lemus MD Other Providers Physician Specialty: Internal Medicine Address: Phone: Fax: Email: Jewel Snow MD Other Providers Physician Specialty: Medical Address: Phone: Fax: Email: Toribio Aragon MD Other Providers Physician Specialty: Internal Medicine Address: Phone: Fax: Email: Abner Jimenez MD Other Providers Physician Specialty: Medical Address: Phone: Fax: Email: Jorge Alston MD Other Providers Physician Specialty: Medical Address: Phone: Fax: Email: Emperatriz Valles MD Other Providers Physician Specialty: Medical Address: Phone: Fax: Email: Rajwinder Houser Other Providers Physician Specialty: Medical Address: Phone: Fax: Email: Manolo Martinez MD Other Providers Physician Specialty: Medical Address: Phone: Fax: Email: Maxine Liz MD Emergency Provider Physician Referring Provider Specialty: Emergency Medicine Address: [address] [place] [address], [id number] Email: MARIANELA Iniguez Admit Provider Physician Attending Provider Specialty: Internal Medicine Address: [address] [place] [address], [id number] Email: [email or web address] Current Diagnoses Sepsis, unspecified organism (06/09/22) Acute posthemorrhagic anemia (06/09/22) Other secondary thrombocytopenia (06/09/22) Bandemia (06/09/22) Unspecified severe protein-calorie malnutrition (06/09/22) Acidosis (06/09/22) Alcohol dependence, uncomplicated (06/09/22) Metabolic encephalopathy (06/09/22) Acute kidney failure, unspecified (06/09/22) Acute cystitis without hematuria (06/09/22) Severe sepsis without septic shock (06/09/22) Severe sepsis with septic shock (06/09/22) Past Medical History (Last Reviewed 06/09/22 @ 22:30 by MARIANELA Iniguez) Alcohol abuse (Medical) Bladder cancer (Medical ~2014) CKD (chronic kidney disease) (Medical Unknown) Congestive heart failure (Medical) COPD (chronic obstructive pulmonary disease) (Medical Unknown) Coronary artery disease (Medical Unknown) Elevated PSA, greater than or equal to 20 ng/ml (Medical) Gastroesophageal reflux disease (Medical) Hearing loss (Medical) Hematuria (Medical) History of CVA (cerebrovascular accident) (Medical) Hx of left bundle branch block (Medical) Hyperkalemia (Medical) Hyperlipemia (Medical Unknown) Hyperparathyroidism, secondary renal (Medical) Hypertension (Medical Unknown) Immobility (Medical) Measles (Medical) Multiple comorbid conditions (Medical) Mumps (Medical) Nodular prostate with lower urinary tract symptoms (Medical) PAD (peripheral artery disease) (Medical Unknown) Personal history of smoking (Social Hx) Prostate cancer (Medical) Restless leg syndrome (Medical) Seizures (Medical) Stroke (Medical 02/2016) rt. frontal hemispheric CVA affecting lt. side Thrombocytopenia concurrent with and due to alcoholism (Medical) Speech-Language Pathology Swallow Evaluation REGISTERED DIETITIAN Clinical Swallow Evaluation Start: 06/10/22 10:30 Freq: Status: Active Protocol: Document 06/10/22 10:31 MG (Rec: 06/10/22 10:53 MG [id number]) Clinical Swallow Evaluation Session Time Visit Start Time 10:00 Visit Stop Time 10:30 Total Visit Minutes 30 Visit Information Visit Number 1 Setting Assessment Location Acute Care Visit Type Note Type Initial evaluation Next Note Type Next Note Type Treatment Note Patient Information Identification Type Name,Wristband History Pt is a 76 y.o. male with a complex medical history including coronary artery disease status post bypass surgery, and prior STEMI, right frontal CVA, seizure disorder, peripheral vascular disease, COPD, CKD stage 3, hypertension, hyperlipidemia, GERD, bladder cancer, status post TURP, history of alcohol use, and was brought to the emergency department after a neighbor reportedly saw him outside of his trailer lying down and covered in stool.? History is limited due to patient's confusion therefore information obtained from the emergency department provider, and medical record review.? Per the emergency department provider paramedics informed the team that he lives in a trailer and appeared to be a deplorable housing situation with stool covering both patient and as well as his home. Chest x-ray indicated a CHF exacerbation. Head CT indicated a known moderate right MCA distribution infarct , age-related volume loss and small-vessel ischemic changes and no acute intracranial changes. His white count is was 41.1 on presentation and is now 30.0 after receiving 1 dose of IV Zosyn. Non-contrast CT of the chest, abdomen and pelvis was read to have a possible infectious colitis. Also for concerning of aspiration into the right bronchus. The doctor added IV metronidiazole, swallowing precautions, and consult to speech in the am for a swallowing evaluation. Subjective Observations Pt was resting in a slouched state in bed with nurse at bedside. Pt was arousable for PO trials with this REGISTERED DIETITIAN. Per nurse, the pt has taken medication with water and has had no noted difficulty. Pt is currently NPO until speech evaluation. Pt reports to wear dentures but they were not located in the room at this time. Pt presents as fairly weak and is unable to hold his head up. Unsure at this time if the pt is detoxing from substances as the pt cannot report when his last drink was per nursing staff. When prompted from this REGISTERED DIETITIAN, the pt reports that he has black coffee in the morning for breakfast with eggs and jefferson which would indicate his baseline is regular solids/ thin liquids. Reported by Patient Current Diet Nothing by mouth Baseline Feeding Method Dependent for feeding Objective Assessment Mental Status Responsive,Cooperative, Confused,Lethargic Dentition Missing teeth Lip Function Moderate impairment Observation of Lips at Rest Symmetrical Pucker Reduced range of motion, Reduced strength Lip Retraction Reduced range of motion Alternating Pucker/Lip Retraction Reduced range of motion Tongue Function Moderate impairment Observations of Tongue at Rest Within normal limits Tongue Protrusion Reduced range of motion, Reduced strength Tongue Retraction Reduced strength Tongue Lateralization Reduced range of motion, Reduced strength Jaw Function Moderate impairment Observations of Jaw at Rest Reduced range of motion Jaw Opening Reduced range of motion, Reduced strength Jaw Closing Reduced range of motion, Reduced strength Jaw Lateralization Reduced range of motion, Reduced strength Jaw Protrusion Reduced range of motion, Reduced strength Jaw Retraction Reduced range of motion, Reduced strength Hard/Soft Palate Function Within normal limits Observations of Hard/Soft Palate Within normal limits Nasality Within normal limits Phonation Reduced loudness Respiratory Sufficiency Within normal limits Comment Pt unable to follow all verbal commands from this REGISTERED DIETITIAN at this time. Per observation, pt oral muscles appear weak and incoordinated. Food and Liquid Trials Position During Assessment Slightly reclined Liquids Trialed Thin Solids Trialed Puree,Dysphagia Mechanical Administration Type Tea spoon,Cup single sip,Straw ,Dependent feeding Oral Impairment Moderately impaired Oral Phase Comments Anterior spillage of liquids observed on teaspoon thin liquids x3. On cup single sip and sip from straw, no anterior spillage noted. During mastication of dysphagia mechanical, the pt required prolonged time and clear oral cavity and appeared very fatigued. Oral structure appeared incoordinated in the mastication process as well. Pharyngeal Impairment Within functional limits Pharyngeal Phase Comments Laryngeal palpation was attempted but the pt was unable to lift his head fully. Hyolaryngeal movement was noted. No overt s/sx of aspiration noted on all trials of thin liquid at this time ( teaspoon, cup sip, straw). The straw appeared more effective the the pt to transport liquids due to his constant slouched posture. No overt s/ sx of aspiration noted on solid trials as well (puree, dyspagia mechanical). Fatigue/Endurance Moderate fatigue Comment Pt closed his eyes and fell asleep after PO trials were completed. Pt needed some time to become aroused to participate initially as well. Strategies Attempted Chin tuck Response/Comments Pt unable to follow commands for safe swallow strategies at this time. Due to pt's posture, he is continually using a chin tuck on trials of solids/liquids. Findings Swallowing Function Oral phase dysphagia Severity of Swallow Impairment Moderately impaired Contributing Factors to Swallow Reduced alertness or attention Impairment ,Difficulty following directions,Reduced oral strength/coordination/ sensation,Mastication inefficiency Prognosis Fair Based on Cognitive status,Family support,Comorbidities Impact on Safety and Functioning Risk for aspiration,Risk for inadequate nutrition/hydration Recommendations Instrumental Assessment No Swallowing Treatment Yes Frequency F/U to tolerate Recommended Solids Puree Recommended Liquids Thin Other Recommendations Pt did not initiate feeding self at any time during evaluation. It would be beneficial for the pt to have 1:1 supervision and assistance as needed with meals until he begins to start tryng to self feed. Pt should also try to sit as upright as comfortable for him . Safety Precautions/Swallowing Supervision needed for all Recommendations meals,1 to 1 close supervision ,Feed only when alert,Reduce distractions,Small bites and sips when eating,Slow rate; swallow between bites,Sip by straw only,Alternate liquids and solids,1 to 1 feeding assistance,Strict oral care after intake,Check for pocketing Medication Recommendations As Tolerated Discharge Recommendations alf facility Education Patient/Caregiver Education Described results of evaluation,Patient expressed understanding of evaluation, Patient expressed agreement with goals & treatment plans, Patient expressed understanding of safety precautions,Patient expressed understanding of feeding recommendations,Patient requires further education/ training Goals Short-term Goals Pt will participate in further evaluation and treatment to determine if he can tolerate a diet upgrade at that time. Long-term Goals Pt will get to baseline diet without demonstrating overt s/ sx of aspiration.
--- NOTE | 2022-06-10 11:40 | DI.RAD.S_ITS ---
PROCEDURE: XR CHEST FOR PICC 1V INDICATIONS: Picc line placement TECHNIQUE: One view of the chest was acquired. COMPARISON: [facility], CT, CT CHEST ABD PEL WO CON, 06/09/2022, 22:52. [facility], CR, XR CHEST 1V, 06/09/2022, 19:13. FINDINGS: Surgical changes and devices: A right-sided PICC line is seen, with the tip overlying the mid aspect of the superior vena cava, 4-5 cm above the cavoatrial junction. Post CABG changes are seen. Lungs and pleura: On this semiupright portable chest examination, no large pneumothorax or large pleural effusions are seen. No focal infiltrates are seen. Mild generalized interstitial prominence can be seen. Mediastinum: Mediastinal contours appear normal. Heart size is mildly enlarged. Bones and chest wall: No suspicious bony lesions. Age-appropriate bony degenerative changes are seen. Overlying soft tissues appear unremarkable. IMPRESSION: The tip of the right-sided PICC line overlies the mid superior vena cava. Mild cardiomegaly with interstitial prominence. Please correlate with patient presentation, physical examination findings, and laboratory values for congestive heart failure. Postoperative and degenerative changes are seen. Dictated by: Favian Brantley M.D. on 06/10/2022 at 11:20 Approved by: Favian Brantley M.D. on 06/10/2022 at 11:22
--- NOTE | 2022-06-10 15:27 | CM.DANOTE ---
Initial DCP Assessment Note Pt is a 76 yo male, resident of [place], arrives via EMS after a neighbor reportedly saw him outside of his trailer lying down and covered in stool. EMS crew reports poor living conditions w/stool covering most of patient's RV. PMH significant for: Heavy ETOH use, coronary artery disease status post bypass surgery, and prior STEMI, right frontal CVA, seizure disorder, peripheral vascular disease, COPD, CKD stage 3, hypertension, hyperlipidemia, GERD, bladder cancer, status post TURP PCP: Joey Person Payer: [facility] MCR/ KAMILAH Reviewed chart, pt discussed in multidisciplinary rounds this morning. Patient is minimally responsive. Patient admits to daily drinking and smoking, heavily. Patient is DNR/DNI CM team will plan to follow closely, see notes from 2020 visits, contact friend Jacky for update re patient's living circumstance. Likely SNF search vs Home, HH, referral to MICHAEL, ANDIE referral DEBBIE Leung Discharge Planning/Care Management CM Discharge Assessment Start: 06/10/22 15:18 Freq: Status: Active Protocol: Document 06/10/22 15:18 KELSIE (Rec: 06/10/22 15:27 KELSIE [id number]) Discharge Planning Assessment Assigned Rn Informatics DEBBIE Mendiola DPOA/Assigned Designee Name Listed contact- ventura Francisco Contact Information [phone] Advance Directives? Yes Advance Directives on File Yes History Provided By Medical Record Prior Living Arrangements Mobile home Household Members none Independent with ADL's Unknown. Lives alone. Is patient alert and oriented? No: Baseline cog unknown Patient/Family Preference Fdc Facility Barriers to Discharge Yes Comment Way below baseline at this time. Discharge Plan Fdc Facility Transportation Arrangement Unknown at this time
[2022-06-10] MEDS: chlordiazePOXIDE 25 MG CAPSULE PO ×2 (15:37→20:57)
[2022-06-10 16:30] LABS: Acinetobacter baumannii Not Detected (Not Detect); Candida albicans Not Detected (Not Detect); Candida glabrata Not Detected (Not Detect); Candida krusei Not Detected (Not Detect); Candida parapsilosis Not Detected (Not Detect); Candida tropicalis Not Detected (Not Detect); E. coli Not Detected (Not Detect); Enterobacter cloacae complex Not Detected (Not Detect); Enterobacteriaceae species Not Detected (Not Detect); Enterococcus species Not Detected (Not Detect); Haemophilus influenzae Not Detected (Not Detect); Listeria monocytogenes Not Detected (Not Detect); Neisseria meningitidis Not Detected (Not Detect); Proteus species Not Detected (Not Detect); Pseudomonas aeruginosa Not Detected (Not Detect); Serratia marcescens Not Detected (Not Detect); Staphylococcus species Not Detected (Not Detect); Streptococcus agalactiae (Gr B Not Detected (Not Detect); Streptococcus pneumonia Not Detected (Not Detect); Streptococcus pyogenes (Gr A) Not Detected (Not Detect); Streptococcus species Not Detected (Not Detect)
[2022-06-10] MEDS: SODIUM CHLORIDE 0.9% 1,000 ML 100 ML IV (17:49)
[2022-06-11] VITALS (40 sets, daily range): BP systolic 117–198; BP diastolic 60–96; PULSE 88–162; RESP 17–37; TEMP 36.6–37.3; O2SAT 94–99
[2022-06-11] MEDS: PIPERACILLIN/TAZO 3.375 GM in SODIUM CHLORIDE 0.9% 100 ML IV ×3 (00:47→20:08)
[2022-06-11] MEDS: SODIUM CHLORIDE 0.9% 1,000 ML 100 ML IV ×3 (03:34→23:20)
[2022-06-11 05:45] LABS: Alanine Aminotransferase 24 IU/L (<50); Albumin 2.2 g/dL (3.5-5.0); Albumin Globulin Ratio 1.2 (1.0-2.8); Alkaline Phosphatase 54 U/L (38-126); Aspartate Aminotransferase 73 IU/L (17-59); Bilirubin Total 0.5 mg/dL (0.2-1.3); Bilirubin Unconjugated 0.3 mg/dL (0.0-1.1); Globulin 1.9 g/dL (1.7-4.1); HEMOLYSIS 17 (0-50); Total Protein 4.1 g/dL (6.3-8.2)
[2022-06-11 05:47] LABS: BUN Creatinine Ratio 19.4 (6-22); Blood Urea Nitrogen 54 mg/dL (9-20); Carbon Dioxide 18 mmol/L (22-32); Chloride 119 mmol/L (98-107); Estimated Glomerular Filt Rate 23 mL/min (>60); Glucose 104 mg/dL (80-110); HEMOLYSIS 17 (0-50); Magnesium 1.6 mg/dL (1.6-2.3); Potassium 3.6 mmol/L (3.4-5.1); Sodium 142 mmol/L (137-145)
[2022-06-11 06:05] LABS: Hematocrit 29.4 % (41-53); Hemoglobin 9.9 g/dL (13.5-17.5); Mean Corpuscular HGB Conc 33.5 % (30-36); Mean Corpuscular Hemoglobin 29.4 PG (26-34); Mean Corpuscular Volume 87.7 fL (80-100); Red Blood Cell Count 3.35 X10^6/uL (4.5-5.9); White Blood Cell Count 18.6 X10^3/uL (4.5-11.0)
[2022-06-11 07:05] LABS: Calcium 6.4 mg/dL (8.4-10.2)
[2022-06-11 07:06] LABS: Platelet Count 38 X10^3/uL (150-400)
[2022-06-11 07:07] LABS: Add Manual Diff / Slide Review YES
--- NOTE | 2022-06-11 07:16 | PM.PN.1 ---
Subjective Subjective Date Patient Seen: 06/11/22 Interval history: 76 year old gentleman w/CAD s/p CABG s/p STEMI, Rt frontal CVA, seizure d/o, PAD, COPD, CKD3, HTN, hyperlipidemia, GERD, bladder cancer s/p TURP, prior alcohol use admitted last night w/septic shock felt to be d/t UTI and colitis, rectal bleeding, GLENNA and acute metabolic encephalopathy.? He did briefly require pressors upon transfer to ICU secondary to hypotension.? However those have since been weaned. Patient was very drowsy on admission. However, he was noted to be improving over the course the day. He was cleared by speech therapy. He did report that he had drank a 5th of liquor on the date of admission, but that was difficult to confirm. This morning, patient reports he does not drink liquor. He states he drinks approximately 5 beers daily. He denies any history of alcohol withdrawal. He denies any abdominal pain. He has not had any diarrhea overnight. Exam Vital Signs (past 8 hours): - 06/11/22 00:00 06/11/22 00:00 06/11/22 00:06 Temperature Pulse Rate 97 H 96 H Respiratory Rate 30 H 32 H Blood Pressure 151/67 H Pulse Oximetry 97 96 06/11/22 02:00 06/11/22 04:00 Temperature 99.2 F 98.4 F Pulse Rate 91 H 88 Respiratory Rate 24 26 H Blood Pressure 144/63 H 154/67 H Pulse Oximetry 97 97 Oxygen Delivery Method Room Air Oxygen Flow Rate 0 Const Other: GEN:? Chronically ill-appearing cachectic elderly male, alert, oriented x2,NAD HEENT:NC, Face symmetric, no longer slumped over, sitting upright, full range of motion of his head neck CHEST: Respiratory excursions symmetric, clear to auscultation bilaterally CV: RRR, no M/R/G ABD: Soft, NT/ND, BT present in all 4 quadrants, no organomegaly or masses EXTR: warm, well perfused, no C/C/E SKIN: warm and dry, no rash NEURO:? Alert and oriented, nonfocal Objective Labs Result Diagrams: 06/11/22 05:20 06/11/22 05:20 Labs: Laboratory Results - last 24 hr 06/09/22 06/11/22 06/11/22 19:03 05:20 05:20 WBC 18.6 H RBC 3.35 L Hgb 9.9 L Hct 29.4 L MCV 87.7 MCH 29.4 MCHC 33.5 RDW 15.0 H Plt Count 38 L Neut % (Auto) Not Reportable Lymph % (Auto) Not Reportable [place] % (Auto) Not Reportable Eos % (Auto) Not Reportable Baso % (Auto) Not Reportable Lymph # (Auto) Not Reportable [place] # (Auto) Not Reportable Baso # (Auto) Not Reportable Sodium 142 Potassium 3.6 Chloride 119 H Carbon Dioxide 18 L BUN 54 H Creatinine 2.79 H Estimated GFR 23 L BUN/Creatinine Ratio 19.4 Glucose 104 Calcium 6.4 L* Magnesium 1.6 Total Bilirubin Conjugated Bilirubin Unconjugated Bilirubin AST ALT Alkaline Phosphatase Total Protein Albumin Globulin Albumin/Globulin Ratio A. baumannii (PCR) Not detected Jasmin albicans (PCR) Not detected C. glabrata (PCR) Not detected C. krusei (PCR) Not detected C. parapsilosis (PCR) Not detected C. tropicalis (PCR) Not detected Enterobacteriac sp PCR Not detected E. cloacae complex PCR Not detected Enterococcus sp PCR Not detected E. coli (PCR) Not detected H. influenzae (PCR) Not detected Klebsiella oxytoca PCR Not detected Klebsiella pneumoniae Not detected List. monocytogenes PCR Not detected N. meningitidis (PCR) Not detected Proteus species (PCR) Not detected Serratia marcescens PCR Not detected Staphylococcus sp PCR Not detected Staph aureus (PCR) Not detected mecA-Methicil Res Gene Not Reportable Streptococcus sp PCR Not detected Group A Strep (PCR) Not detected Strep agalactiae (PCR) Not detected Strep pneumoniae (PCR) Not detected P. aeruginosa (PCR) Not detected Edwige/B-Vanco Res Genes Not Reportable KPC-Carbap Res Gene PCR Not Reportable 06/11/22 05:20 WBC RBC Hgb Hct MCV MCH MCHC RDW Plt Count Neut % (Auto) Lymph % (Auto) [place] % (Auto) Eos % (Auto) Baso % (Auto) Lymph # (Auto) [place] # (Auto) Baso # (Auto) Sodium Potassium Chloride Carbon Dioxide BUN Creatinine Estimated GFR BUN/Creatinine Ratio Glucose Calcium Magnesium Total Bilirubin 0.5 Conjugated Bilirubin 0.0 Unconjugated Bilirubin 0.3 AST 73 H ALT 24 Alkaline Phosphatase 54 Total Protein 4.1 L Albumin 2.2 L Globulin 1.9 Albumin/Globulin Ratio 1.2 A. baumannii (PCR) Jasmin albicans (PCR) C. glabrata (PCR) C. krusei (PCR) C. parapsilosis (PCR) C. tropicalis (PCR) Enterobacteriac sp PCR E. cloacae complex PCR Enterococcus sp PCR E. coli (PCR) H. influenzae (PCR) Klebsiella oxytoca PCR Klebsiella pneumoniae List. monocytogenes PCR N. meningitidis (PCR) Proteus species (PCR) Serratia marcescens PCR Staphylococcus sp PCR Staph aureus (PCR) mecA-Methicil Res Gene Streptococcus sp PCR Group A Strep (PCR) Strep agalactiae (PCR) Strep pneumoniae (PCR) P. aeruginosa (PCR) Edwige/B-Vanco Res Genes KPC-Carbap Res Gene PCR PFSH Medical History Alcohol abuse Bladder cancer (~2014) CKD (chronic kidney disease) (Unknown) Congestive heart failure COPD (chronic obstructive pulmonary disease) (Unknown) Coronary artery disease (Unknown) Elevated PSA, greater than or equal to 20 ng/ml Gastroesophageal reflux disease Hearing loss Hematuria History of CVA (cerebrovascular accident) Hx of left bundle branch block Hyperkalemia Hyperlipemia (Unknown) Hyperparathyroidism, secondary renal Hypertension (Unknown) Immobility Measles Multiple comorbid conditions Mumps 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 Septic shock-resolved Patient briefly required pressors but now is improved.? Etiology is likely moseley colitis and UTI.?RN received a call yesterday that he had a blood culture positive for GPCs. This has not been reported in [facility] as of yet. Physiologic parameters of septic shock improved.? Echocardiogram was done and currently pending.? White blood cell count is significantly improved, down from 41.1 on admission to 18.6 this morning.? Bandemia has resolved. Await further results from his cultures 2. UTI UA on admission revealed 5-10 white cells per high-power field, 2+ leukocyte esterase, trace glucose, negative nitrites.? Culture negative to date.? He is covered with Zosyn at this time. 3. Pancolitis Patient has evidence of segmental colitis of the transverse, descending, and sigmoid colon felt to be infectious or inflammatory in nature.? Ischemic colitis is considered less likely.? C diff was negative.? Although additional stool cultures were sent, he has not had any further diarrhea. Giardia and Cryptosporidium were canceled. Stool culture is preliminarily negative 4. GLENNA in CKD 3 His baseline creatinine appears to be 1.4.? BUN was 86 creatinine 5.19 on admission.? Yesterday, BUN was down to 80 and Creatinine 4.52.?Now down to 54/2.79. No obstruction on CT. 5. Acute metabolic encephalopathy Likely multifactorial.? Patient evidently has a significant alcohol use.? That in conjunction with his septic shock, colitis colon TI likely catheterization for his encephalopathy.? Head CT on admission revealed moderate right MCA distribution infarct.? No acute intracranial hemorrhage, stroke, or mass. 6. Alcohol dependence He is at high risk for withdrawal.? Continues on Librium. Over the course of today, his nurse that he might be a little sedated from it. Therefore he was decreased from 25 mg 3 daily to 10 mg 3 times daily. This can be held if he has ongoing sedation. 7. Tobacco dependence Nicotine patch as needed 8. Severe protein calorie malnutrition BMI is 16.9 on admission.? Will benefit from a dietitian consult. 9. Normocytic anemia Hemoglobin is stable at 9.9.? This does appear somewhat reduced compared to his baseline noted between October and December of this year of 12.6-12.9.? No evidence of bleeding at this time. 10. Thrombocytopenia Platelet count is down from 46 to 38.? Although he is not have any active bleeding, will be cautious in terms of DVT prophylaxis.? Likely alcohol induced.? This appears to be chronic.? Baseline platelet count ranges between 58 and 79 11. Hypocalcemia Ionized calcium has been ordered. Code status DNR DNI Prophylaxis Chemical prophylaxis deferred in the setting of thrombocytopenia Disposition Will transition from ICU level care to acute care. Time Spent With Patient Critical Care time: I spent a total of [] minutes of critical care time on this patient's care today; this time is exclusive of procedural time. Quality VTE Deep Vein Thrombosis/Pulmonary Embolism Present on Admission: No
[2022-06-11 07:23] LABS: Anisocytosis 1+; Neutrophils Absolute Manual 15438 /uL (3000-5900); Total Cells Counted 100
[2022-06-11] MEDS: chlordiazePOXIDE 25 MG CAPSULE PO (08:47)
[2022-06-11] MEDS: THIAMINE 100 MG TABLET PO (08:47)
[2022-06-11] MEDS: FOLIC ACID 1 MG TABLET PO (08:47)
[2022-06-11] MEDS: MULTIVITAMIN 1 TABLET 1 TAB PO (08:47)
[2022-06-11] MEDS: NICOTINE 14 PATCH 14 MG TOP (08:48)
[2022-06-11] MEDS: PANTOPRAZOLE 40 MG VIAL IV ×2 (08:49→20:06)
[2022-06-11 09:33] LABS: Adenovirus F 40/41 Not Detected (Not Detect); Astrovirus Not Detected (Not Detect); Campylobacter Not Detected (Not Detect); Clostridium difficile toxin AB Not Detected (Not Detect); Cryptosporidium Not Detected (Not Detect); Cyclospora cayetanensis Not Detected (Not Detect); Entamoeba histolytica Not Detected (Not Detect); Enteroaggregative E.coli Not Detected (Not Detect); Enteropathogenic E.coli Not Detected (Not Detect); Enterotoxigenic E.coli It/st Not Detected (Not Detect); Giardia lamblia Not Detected (Not Detect); Norovirus GI/GII Not Detected (Not Detect); Plesiomonsa shigelloides Not Detected (Not Detect); Rotavirus A Not Detected (Not Detect); Salmonella Not Detected (Not Detect); Sapovirus Not Detected (Not Detect); Shiga-like toxin-prod E.coli Not Detected (Not Detect); Shigella/Enteroinvasive E.coli Not Detected (Not Detect); Vibrio Not Detected (Not Detect); Vibrio cholerae Not Detected (Not Detect); Yersinia enterocolitica Not Detected (Not Detect)
[2022-06-11] MEDS: lisinopriL 10 MG TABLET PO (15:51)
[2022-06-11] MEDS: HYDRALAZINE 20 MG/ML VIAL 10 MG IV (17:33)
[2022-06-11] MEDS: METOPROLOL TARTRATE 5 MG/5 ML INJ IV ×4 (18:44→19:31)
--- NOTE | 2022-06-11 18:47 | PC.NURSE ---
1800 Pt developed HR 160 after receiving hydralazine for BP 190/90. MD notified, Metoprolol 5 mg IVP given, ECG done and labs drawn. Pt denies pain or pressure in his chest, states he cannot feel his rapid heart rate.
[2022-06-11] MEDS: MAGNESIUM SULFATE 2 GM/50 ML PIGGYBACK IV (19:09)
[2022-06-11 19:16] LABS: BUN Creatinine Ratio 19.8 (6-22); Blood Urea Nitrogen 40 mg/dL (9-20); Carbon Dioxide 17 mmol/L (22-32); Chloride 120 mmol/L (98-107); Creatine Kinase 731 U/L (55-170); Estimated Glomerular Filt Rate 34 mL/min (>60); Glucose 132 mg/dL (80-110); HEMOLYSIS 35 (0-50); Magnesium 1.6 mg/dL (1.6-2.3); Phosphorous 1.8 mg/dL (2.3-3.7); Potassium 3.6 mmol/L (3.4-5.1); Sodium 143 mmol/L (137-145)
[2022-06-11 19:22] LABS: Calcium 6.5 mg/dL (8.4-10.2)
[2022-06-11 19:28] LABS: Troponin I 0.075 ng/mL (0.01-0.034)
[2022-06-11 19:31] LABS: CKMB % Relative Index 0.4 % (1.5-5.0); Creatine Kinase MB 3.28 ng/mL (<2.37)
[2022-06-11] MEDS: chlordiazePOXIDE 10 MG CAPSULE PO (20:06)
[2022-06-11] MEDS: DILTIAZEM 125 MG/125 ML PIGGYBACK IV (20:33)
[2022-06-11] MEDS: POTASSIUM CHLORIDE 20 MEQ TAB PO (20:47)
--- NOTE | 2022-06-11 20:47 | PM.PN.EICU ---
Subjective Subjective If camera was activated, add TeleICU A-V statement: This patient was seen via real time interactive two-way audiovisual telecommunication. Consent obtained for tele-heat treat operator care: Yes Patient Location: ICU Provider location (State): [place] Other participants/roles: RN Interval history: patient was ready to be trasnferredto floor as he has remained off pressors and has been improving, but he entered afib with RVR, given lopressor, with some effect, and being started on cardizem gtt. Current Medications Current Medications Medications: Home Medications aspirin 81 mg tablet,delayed release (Adult Low Dose Aspirin) 81 mg PO DAILY 05/20/18 [History Confirmed 06/10/22] torsemide 10 mg tablet 10 mg PO DAILY 11/04/20 [History Confirmed 04/13/22] lisinopril 2.5 mg tablet See Rx Instructions .Route .COMPLEX #90 tabs 11/08/21 [Rx Confirmed 06/10/22] metoprolol succinate PO 01/05/22 [History Confirmed 04/13/22] mirtazapine 15 mg tablet 15 mg PO BEDTIME #60 tabs 01/12/22 [Rx Confirmed 04/13/22] cholecalciferol (vitamin D3) 125 mcg (5,000 unit) capsule 125 mcg PO DAILY #90 caps 05/15/22 [Rx Confirmed 06/10/22] nitroglycerin 0.4 mg sublingual tablet (Nitrostat) See Rx Instructions .Route .COMPLEX #30 tabs 05/15/22 [Rx] Visit Medications (administered) Generic Name Dose Route Start Last Admin Trade Name Weiq PRN Reason Stop Dose Admin Acetaminophen 650 mg 06/10/22 02:07 06/10/22 02:22 Acetaminophen 325 Mg Tablet PO 650 mg Q6H PRN Administration Fever/Mild Pain (1-3) Chlordiazepoxide HCl 10 mg 06/11/22 20:00 06/11/22 20:06 Chlordiazepoxide 10 Mg Capsule PO 10 mg TID JUNG Administration Folic Acid 1 mg 06/11/22 09:00 06/11/22 08:47 Folic Acid 1 Mg Tablet PO 1 mg DAILY JUNG Administration Hydralazine HCl 10 mg 06/11/22 17:13 06/11/22 17:33 Hydralazine 20 Mg/Ml Vial IV 10 mg Q6HR PRN Administration [id number] or DBP>100 Sodium Chloride 1,000 mls @ 100 mls/hr 06/10/22 09:45 06/11/22 13:15 Normal Saline 0.9% IV 100 mls/hr CONT JUNG Administration Piperacillin Sod/Tazobactam 100 mls @ 25 mls/hr 06/11/22 21:00 06/11/22 20:08 Sod 3.375 gm/ Sodium Chloride IV 25 mls/hr Q12H JUNG Administration Magnesium Sulfate 2 gm in 50 mls @ 25 mls/hr 06/11/22 18:58 06/11/22 19:09 Magnesium Sulfate IV 06/11/22 20:57 25 mls/hr NOW ONE Administration DILTIAZEM 125 mg in 125 mls @ 5 mls/hr 06/11/22 20:15 06/11/22 20:33 Diltiazem 125 Mg/125 Ml-D5w IV 5 mg/hr TITRATE JUNG 5 mls/hr Administration Protocol 5 MG/HR Multivitamins 1 tab 06/11/22 09:00 06/11/22 08:47 Multivitamin 1 Tablet PO 1 tab DAILY JUNG Administration Nicotine 14 mg 06/11/22 09:00 06/11/22 08:48 Nicotine 14 Patch TOP 14 mg DAILY JUNG Administration Pantoprazole Sodium 40 mg 06/10/22 09:00 06/11/22 20:06 Pantoprazole 40 Mg Vial IV 40 mg BID JUNG Administration Thiamine HCl 100 mg 06/11/22 09:00 06/11/22 08:47 Thiamine 100 Mg Tablet PO 100 mg DAILY JUNG Administration Objective Labs Result Diagrams: 06/11/22 05:20 06/11/22 18:50 Labs: Laboratory Results - last 24 hr 06/10/22 06/10/22 06/11/22 00:52 00:52 05:20 WBC 18.6 H RBC 3.35 L Hgb 9.9 L Hct 29.4 L MCV 87.7 MCH 29.4 MCHC 33.5 RDW 15.0 H Plt Count 38 L Neut % (Auto) Not Reportable Lymph % (Auto) Not Reportable Bonner % (Auto) Not Reportable Eos % (Auto) Not Reportable Baso % (Auto) Not Reportable Lymph # (Auto) Not Reportable Bonner # (Auto) Not Reportable Baso # (Auto) Not Reportable Total Counted 100 Seg Neutrophils % 80.0 H Band Neutrophils % 3.0 Lymphocytes % (Manual) 5.0 L Atypical Lymphs % 2.0 H Monocytes % (Manual) 10.0 Neutrophils # (Manual) 76906 H RBC Morphology Not Reportable Anisocytosis 1+ H Sodium Potassium Chloride Carbon Dioxide BUN Creatinine Estimated GFR BUN/Creatinine Ratio Glucose Calcium Phosphorus Magnesium Total Bilirubin Conjugated Bilirubin Unconjugated Bilirubin AST ALT Alkaline Phosphatase Total Creatine Kinase CK-MB (CK-2) CK-MB (CK-2) Rel Index Troponin I Total Protein Albumin Globulin Albumin/Globulin Ratio Stl C. cayetanensis PCR Not detected Stool Rotavirus (PCR) Not detected Stool Adenovirus (PCR) Not detected Stool Astrovirus (PCR) Not detected Stool Cryptosporidium PCR Not detected Stl E.coli Shiga Tox PCR Not detected St Sh/Enteroin Ecoli PCR Not detected Stool E coli O157 PCR Not detected Stl Enterotoxigenic E PCR Not detected Stool EPEC (PCR) Not detected Stl E. histolytica PCR Not detected Stool Giardia Lamblia PCR Not detected Stool Sapovirus (PCR) Not detected Stl P. shigelloides PCR Not detected St Y.enterocolitica PCR Not detected Stool Vibrio (PCR) Not detected Stl Vibrio cholerae PCR Not detected Stl Enteroaggr Ecoli PCR Not detected Stl Norovirus GI/GII PCR Not detected Campylobacter (PCR) Not detected C. difficile Tox (PCR) Not detected Salmonella (PCR) Not detected Ref Test (Refrig) Cancelled 06/11/22 06/11/22 06/11/22 05:20 05:20 18:50 WBC RBC Hgb Hct MCV MCH MCHC RDW Plt Count Neut % (Auto) Lymph % (Auto) Bonner % (Auto) Eos % (Auto) Baso % (Auto) Lymph # (Auto) Bonner # (Auto) Baso # (Auto) Total Counted Seg Neutrophils % Band Neutrophils % Lymphocytes % (Manual) Atypical Lymphs % Monocytes % (Manual) Neutrophils # (Manual) RBC Morphology Anisocytosis Sodium 142 143 Potassium 3.6 3.6 Chloride 119 H 120 H Carbon Dioxide 18 L 17 L BUN 54 H 40 H Creatinine 2.79 H 2.02 H Estimated GFR 23 L 34 L BUN/Creatinine Ratio 19.4 19.8 Glucose 104 132 H Calcium 6.4 L* 6.5 L Phosphorus 1.8 L Magnesium 1.6 1.6 Total Bilirubin 0.5 Conjugated Bilirubin 0.0 Unconjugated Bilirubin 0.3 AST 73 H ALT 24 Alkaline Phosphatase 54 Total Creatine Kinase CK-MB (CK-2) CK-MB (CK-2) Rel Index Troponin I Total Protein 4.1 L Albumin 2.2 L Globulin 1.9 Albumin/Globulin Ratio 1.2 Stl C. cayetanensis PCR Stool Rotavirus (PCR) Stool Adenovirus (PCR) Stool Astrovirus (PCR) Stool Cryptosporidium PCR Stl E.coli Shiga Tox PCR St Sh/Enteroin Ecoli PCR Stool E coli O157 PCR Stl Enterotoxigenic E PCR Stool EPEC (PCR) Stl E. histolytica PCR Stool Giardia Lamblia PCR Stool Sapovirus (PCR) Stl P. shigelloides PCR St Y.enterocolitica PCR Stool Vibrio (PCR) Stl Vibrio cholerae PCR Stl Enteroaggr Ecoli PCR Stl Norovirus GI/GII PCR Campylobacter (PCR) C. difficile Tox (PCR) Salmonella (PCR) Ref Test (Refrig) 06/11/22 18:50 WBC RBC Hgb Hct MCV MCH MCHC RDW Plt Count Neut % (Auto) Lymph % (Auto) Bonner % (Auto) Eos % (Auto) Baso % (Auto) Lymph # (Auto) Bonner # (Auto) Baso # (Auto) Total Counted Seg Neutrophils % Band Neutrophils % Lymphocytes % (Manual) Atypical Lymphs % Monocytes % (Manual) Neutrophils # (Manual) RBC Morphology Anisocytosis Sodium Potassium Chloride Carbon Dioxide BUN Creatinine Estimated GFR BUN/Creatinine Ratio Glucose Calcium Phosphorus Magnesium Total Bilirubin Conjugated Bilirubin Unconjugated Bilirubin AST ALT Alkaline Phosphatase Total Creatine Kinase 731 H D CK-MB (CK-2) 3.28 H CK-MB (CK-2) Rel Index 0.4 L Troponin I 0.075 H Total Protein Albumin Globulin Albumin/Globulin Ratio Stl C. cayetanensis PCR Stool Rotavirus (PCR) Stool Adenovirus (PCR) Stool Astrovirus (PCR) Stool Cryptosporidium PCR Stl E.coli Shiga Tox PCR St Sh/Enteroin Ecoli PCR Stool E coli O157 PCR Stl Enterotoxigenic E PCR Stool EPEC (PCR) Stl E. histolytica PCR Stool Giardia Lamblia PCR Stool Sapovirus (PCR) Stl P. shigelloides PCR St Y.enterocolitica PCR Stool Vibrio (PCR) Stl Vibrio cholerae PCR Stl Enteroaggr Ecoli PCR Stl Norovirus GI/GII PCR Campylobacter (PCR) C. difficile Tox (PCR) Salmonella (PCR) Ref Test (Refrig) Exam Vital Signs (past 8 hours): - 06/11/22 14:59 06/11/22 15:35 06/11/22 15:51 Temperature 97.8 F Pulse Rate 98 H 100 H Respiratory Rate 27 H Blood Pressure 175/84 H 191/84 H Pulse Oximetry 96 98 Oxygen Delivery Method Room Air Oxygen Flow Rate 0 06/11/22 17:33 06/11/22 18:04 Temperature Pulse Rate 100 H 108 H Respiratory Rate Blood Pressure 196/90 H 183/69 H Pulse Oximetry Oxygen Delivery Method Oxygen Flow Rate Oxygen Delivery Method Room Air Oxygen Flow Rate 0 Narrative Exam Narrative: surrogate for exam is primary team Quality TeleICU VTE Deep Vein Thrombosis/Pulmonary Embolism Present on Admission: No Assessment & Plan Assessment and plan (1) Bandemia: Status: Acute (2) Septic shock: Status: Acute (3) Acute metabolic encephalopathy: Status: Acute (4) Metabolic acidosis: Status: Acute (5) Rectal bleeding: Status: Acute (6) ABLA (acute blood loss anemia): Status: Acute (7) Acute renal failure: Status: Acute (8) Thrombocytopenia concurrent with and due to alcoholism: Status: Acute (9) Prostate cancer: Status: Acute (10) Atrial fibrillation with RVR: Status: Acute Plan supplemental o2 as needed maintian map > 65 carizen gtt f/u bmp mg/phos monior UO cont librium ativan/valium prn cont zosyn for 7-10 days pt should ideally be on AC, given recent events it may not be feasible to do so, though his hgb has been stable. I would start chemical ppx and evaluate before considering AC Time Spent With Patient Critical Care time: I spent a total of [35] minutes of critical care time on this patient's care today; this time is exclusive of procedural time.
[2022-06-11] MEDS: LORazepam 1 MG TABLET PO (21:10)
[2022-06-11 22:28] LABS: BUN Creatinine Ratio 19.4 (6-22); Blood Urea Nitrogen 37 mg/dL (9-20); Carbon Dioxide 16 mmol/L (22-32); Chloride 120 mmol/L (98-107); Estimated Glomerular Filt Rate 36 mL/min (>60); Glucose 127 mg/dL (80-110); Magnesium 3.2 mg/dL (1.6-2.3); Potassium 3.8 mmol/L (3.4-5.1); Sodium 143 mmol/L (137-145)
[2022-06-11 22:42] LABS: HEMOLYSIS 44 (0-50)
[2022-06-11 22:44] LABS: Calcium 6.4 mg/dL (8.4-10.2)
[2022-06-11] MEDS: POTASSIUM PHOSPHATE 20 MMOL in SODIUM CHLORIDE 0.9% 250 ML 64.167 MMOL IV (23:23)
[2022-06-12] VITALS (59 sets, daily range): BP systolic 108–159; BP diastolic 52–94; PULSE 83–112; RESP 8–54; TEMP 31–36.8; O2SAT 94–100
[2022-06-12] MEDS: DILTIAZEM 125 MG/125 ML PIGGYBACK 15 MG IV (05:20)
[2022-06-12 05:39] LABS: Hematocrit 30.9 % (41-53); Hemoglobin 10.3 g/dL (13.5-17.5); Mean Corpuscular HGB Conc 33.3 % (30-36); Mean Corpuscular Hemoglobin 29.2 PG (26-34); Mean Corpuscular Volume 87.7 fL (80-100); Red Blood Cell Count 3.52 X10^6/uL (4.5-5.9); Red Cell Distribution Width 15.8 % (11.6-14.8); White Blood Cell Count 18.6 X10^3/uL (4.5-11.0)
[2022-06-12 05:52] LABS: Alanine Aminotransferase 21 IU/L (<50); Albumin 2.1 g/dL (3.5-5.0); Albumin Globulin Ratio 1.1 (1.0-2.8); Alkaline Phosphatase 64 U/L (38-126); Aspartate Aminotransferase 47 IU/L (17-59); Bilirubin Total 0.4 mg/dL (0.2-1.3); Bilirubin Unconjugated 0.3 mg/dL (0.0-1.1); Globulin 1.9 g/dL (1.7-4.1); HEMOLYSIS 42 (0-50)
[2022-06-12 05:54] LABS: BUN Creatinine Ratio 19.3 (6-22); Blood Urea Nitrogen 34 mg/dL (9-20); Carbon Dioxide 16 mmol/L (22-32); Estimated Glomerular Filt Rate 40 mL/min (>60); Glucose 111 mg/dL (80-110); HEMOLYSIS 36 (0-50); Magnesium 2.4 mg/dL (1.6-2.3); Potassium 4.3 mmol/L (3.4-5.1); Sodium 145 mmol/L (137-145)
[2022-06-12 05:56] LABS: Chloride 122 mmol/L (98-107)
[2022-06-12 06:06] LABS: Add Manual Diff / Slide Review YES; Platelet Count 30 X10^3/uL (150-400)
[2022-06-12 07:19] LABS: Neutrophils Absolute Manual 17298 /uL (3000-5900); Nucleated Red Blood Cells 1 #/Diff; Poikilocytosis 1+; Total Cells Counted 100
[2022-06-12] MEDS: chlordiazePOXIDE 10 MG CAPSULE PO ×2 (08:22→15:23)
[2022-06-12] MEDS: NICOTINE 14 PATCH 14 MG TOP (08:22)
[2022-06-12] MEDS: FOLIC ACID 1 MG TABLET PO (08:23)
[2022-06-12] MEDS: THIAMINE 100 MG TABLET PO (08:23)
[2022-06-12] MEDS: CHOLECALCIFEROL (VITAMIN D3) 1,000 UNIT TABLET 5000 UNIT PO (08:23)
[2022-06-12] MEDS: PANTOPRAZOLE 40 MG VIAL IV ×2 (08:23→21:29)
[2022-06-12] MEDS: MULTIVITAMIN 1 TABLET 1 TAB PO (08:23)
[2022-06-12] MEDS: PIPERACILLIN/TAZO 3.375 GM in SODIUM CHLORIDE 0.9% 100 ML IV ×2 (08:23→17:10)
[2022-06-12] MEDS: CALCIUM GLUCONATE 4.65 MEQ in SODIUM CHLORIDE 0.9% 50 ML 180 MEQ IV (08:29)
--- NOTE | 2022-06-12 08:43 | DI.RAD.S_ITS ---
PROCEDURE: XR CHEST 1V INDICATIONS: sob TECHNIQUE: One view of the chest was acquired. COMPARISON: [facility], CR, XR CHEST FOR PICC 1V, 06/10/2022, 12:00. FINDINGS: Surgical changes and devices: Status post median sternotomy. Right arm PICC line is seen with the tip in the SVC. Lungs and pleura: Bilateral perihilar airspace opacities most consistent with pulmonary edema is seen. Mediastinum: Heart size is enlarged. Bones and chest wall: No suspicious bony lesions. Overlying soft tissues appear unremarkable. IMPRESSION: Cardiomegaly and pulmonary vascular congestion with pulmonary edema likely CHF, a diffuse infectious process less likely. Dictated by: Jonatan Aguilar M.D. on 06/12/2022 at 9:08 Approved by: Jonatan Aguilar M.D. on 06/12/2022 at 9:10
[2022-06-12] MEDS: FUROSEMIDE 40 MG/4 ML VIAL IV (09:08)
[2022-06-12 09:37] LABS: Ionized Calcium 3.9 mg/dL (4.5-5.6)
[2022-06-12 09:47] LABS: NT-proBNP (BNP-Adult 18+) 21200 pg/mL (<450)
[2022-06-12] MEDS: POTASSIUM PHOSPHATE 15 MMOL in SODIUM CHLORIDE 0.9% 250 ML 127.5 MMOL IV (09:54)
--- NOTE | 2022-06-12 09:59 | PM.PN.EICU ---
Subjective Subjective Consent obtained for tele-heavy media operator care: Yes Patient Location: ICU Provider location (State): [place] Other participants/roles: [facility] Current Medications Current Medications Medications: Home Medications aspirin 81 mg tablet,delayed release (Adult Low Dose Aspirin) 81 mg PO DAILY 05/20/18 [History Confirmed 06/10/22] torsemide 10 mg tablet 10 mg PO DAILY 11/04/20 [History Confirmed 04/13/22] lisinopril 2.5 mg tablet See Rx Instructions .Route .COMPLEX #90 tabs 11/08/21 [Rx Confirmed 06/10/22] metoprolol succinate PO 01/05/22 [History Confirmed 04/13/22] mirtazapine 15 mg tablet 15 mg PO BEDTIME #60 tabs 01/12/22 [Rx Confirmed 04/13/22] cholecalciferol (vitamin D3) 125 mcg (5,000 unit) capsule 125 mcg PO DAILY #90 caps 05/15/22 [Rx Confirmed 06/10/22] nitroglycerin 0.4 mg sublingual tablet (Nitrostat) See Rx Instructions .Route .COMPLEX #30 tabs 05/15/22 [Rx] Visit Medications (administered) Generic Name Dose Route Start Last Admin Trade Name Freq PRN Reason Stop Dose Admin Acetaminophen 650 mg 06/10/22 02:07 06/10/22 02:22 Acetaminophen 325 Mg Tablet PO 650 mg Q6H PRN Administration Fever/Mild Pain (1-3) Chlordiazepoxide HCl 10 mg 06/11/22 20:00 06/12/22 08:22 Chlordiazepoxide 10 Mg Capsule PO 10 mg TID JUNG Administration Folic Acid 1 mg 06/11/22 09:00 06/12/22 08:23 Folic Acid 1 Mg Tablet PO 1 mg DAILY JUNG Administration Sodium Chloride 1,000 mls @ 100 mls/hr 06/10/22 09:45 06/12/22 09:10 Normal Saline 0.9% IV Infused CONT JUNG Infusion Piperacillin Sod/Tazobactam 100 mls @ 25 mls/hr 06/11/22 21:00 06/12/22 08:23 Sod 3.375 gm/ Sodium Chloride IV 25 mls/hr Q12H JUNG Administration DILTIAZEM 125 mg in 125 mls @ 5 mls/hr 06/11/22 20:15 06/12/22 05:20 Diltiazem 125 Mg/125 Ml-D5w IV 15 mg/hr TITRATE JUNG 15 mls/hr Administration Protocol 5 MG/HR Potassium Phosphate 15 mmol/ 255 mls @ 127.5 mls/hr 06/12/22 09:30 06/12/22 09:54 Sodium Chloride IV 06/12/22 11:29 127.5 mls/hr NOW ONE Administration Lorazepam 0 mg 06/10/22 09:36 06/11/22 21:10 Lorazepam 1 Mg Tablet PO 2 mg CIWAPRN PRN Administration Alcohol Withdrawal Protocol Multivitamins 1 tab 06/11/22 09:00 06/12/22 08:23 Multivitamin 1 Tablet PO 1 tab DAILY JUNG Administration Nicotine 14 mg 06/11/22 09:00 06/12/22 08:22 Nicotine 14 Patch TOP 14 mg DAILY JUNG Administration Pantoprazole Sodium 40 mg 06/10/22 09:00 06/12/22 08:23 Pantoprazole 40 Mg Vial IV 40 mg BID JUNG Administration Thiamine HCl 100 mg 06/11/22 09:00 06/12/22 08:23 Thiamine 100 Mg Tablet PO 100 mg DAILY JUNG Administration Vitamin D 5,000 unit 06/12/22 09:00 06/12/22 08:23 Cholecalciferol (Vitamin D3) 1,000 Unit Tablet PO 5,000 unit DAILY JUNG Administration Objective Labs Result Diagrams: 06/12/22 05:25 06/12/22 05:25 Labs: Laboratory Results - last 24 hr 06/11/22 06/11/22 06/11/22 08:00 18:50 18:50 WBC RBC Hgb Hct MCV MCH MCHC RDW Plt Count Neut % (Auto) Lymph % (Auto) [place] % (Auto) Eos % (Auto) Baso % (Auto) Lymph # (Auto) [place] # (Auto) Baso # (Auto) Total Counted Seg Neutrophils % Lymphocytes % (Manual) Monocytes % (Manual) Neutrophils # (Manual) Nucleated RBCs RBC Morphology Poikilocytosis Sodium 143 Potassium 3.6 Chloride 120 H Carbon Dioxide 17 L BUN 40 H Creatinine 2.02 H Estimated GFR 34 L BUN/Creatinine Ratio 19.8 Glucose 132 H Calcium 6.5 L Ionized Calcium Hannah 3.9 L Phosphorus 1.8 L Magnesium 1.6 Total Bilirubin Conjugated Bilirubin Unconjugated Bilirubin AST ALT Alkaline Phosphatase Total Creatine Kinase 731 H D CK-MB (CK-2) 3.28 H CK-MB (CK-2) Rel Index 0.4 L Troponin I 0.075 H NT-Pro-B Natriuret Pep Total Protein Albumin Globulin Albumin/Globulin Ratio 06/11/22 06/12/22 06/12/22 22:10 05:25 05:25 WBC 18.6 H RBC 3.52 L Hgb 10.3 L Hct 30.9 L MCV 87.7 MCH 29.2 MCHC 33.3 RDW 15.8 H Plt Count 30 L* Neut % (Auto) Not Reportable Lymph % (Auto) Not Reportable [place] % (Auto) Not Reportable Eos % (Auto) Not Reportable Baso % (Auto) Not Reportable Lymph # (Auto) Not Reportable [place] # (Auto) Not Reportable Baso # (Auto) Not Reportable Total Counted 100 Seg Neutrophils % 93.0 H Lymphocytes % (Manual) 1.0 L Monocytes % (Manual) 6.0 Neutrophils # (Manual) 37839 H Nucleated RBCs 1 H RBC Morphology See below Poikilocytosis 1+ H Sodium 143 145 Potassium 3.8 4.3 Chloride 120 H 122 H* Carbon Dioxide 16 L 16 L BUN 37 H 34 H Creatinine 1.91 H 1.76 H Estimated GFR 36 L 40 L BUN/Creatinine Ratio 19.4 19.3 Glucose 127 H 111 H Calcium 6.4 L* 6.0 L* Ionized Calcium Hannah Phosphorus 2.0 L Magnesium 3.2 H 2.4 H Total Bilirubin Conjugated Bilirubin Unconjugated Bilirubin AST ALT Alkaline Phosphatase Total Creatine Kinase CK-MB (CK-2) CK-MB (CK-2) Rel Index Troponin I NT-Pro-B Natriuret Pep Total Protein Albumin Globulin Albumin/Globulin Ratio 06/12/22 06/12/22 05:25 09:18 WBC RBC Hgb Hct MCV MCH MCHC RDW Plt Count Neut % (Auto) Lymph % (Auto) [place] % (Auto) Eos % (Auto) Baso % (Auto) Lymph # (Auto) [place] # (Auto) Baso # (Auto) Total Counted Seg Neutrophils % Lymphocytes % (Manual) Monocytes % (Manual) Neutrophils # (Manual) Nucleated RBCs RBC Morphology Poikilocytosis Sodium Potassium Chloride Carbon Dioxide BUN Creatinine Estimated GFR BUN/Creatinine Ratio Glucose Calcium Ionized Calcium Hannah Phosphorus Magnesium Total Bilirubin 0.4 Conjugated Bilirubin 0.0 Unconjugated Bilirubin 0.3 AST 47 ALT 21 Alkaline Phosphatase 64 Total Creatine Kinase CK-MB (CK-2) CK-MB (CK-2) Rel Index Troponin I NT-Pro-B Natriuret Pep 55165 H Total Protein 4.0 L Albumin 2.1 L Globulin 1.9 Albumin/Globulin Ratio 1.1 Exam Vital Signs (past 8 hours): - 06/12/22 03:00 06/12/22 02:00 06/12/22 02:00 Temperature Pulse Rate 101 H Respiratory Rate 31 H Blood Pressure 149/67 H Pulse Oximetry 98 Oxygen Delivery Method Room Air Oxygen Flow Rate 06/12/22 02:03 06/12/22 03:00 06/12/22 03:00 Temperature Pulse Rate 98 H 94 H Respiratory Rate 31 H 30 H Blood Pressure 119/59 L Pulse Oximetry 97 95 Oxygen Delivery Method Oxygen Flow Rate 06/12/22 04:00 06/12/22 04:00 06/12/22 04:00 Temperature 97.3 F L Pulse Rate 112 H Respiratory Rate 35 H Blood Pressure 108/52 L Pulse Oximetry 97 Oxygen Delivery Method Oxygen Flow Rate 06/12/22 04:10 06/12/22 05:00 06/12/22 05:00 Temperature Pulse Rate 97 H 99 H Respiratory Rate 33 H 32 H Blood Pressure 123/78 Pulse Oximetry 97 97 Oxygen Delivery Method Oxygen Flow Rate 06/12/22 05:17 06/12/22 06:00 06/12/22 06:00 Temperature Pulse Rate 109 H 100 H Respiratory Rate 34 H 29 H Blood Pressure 140/65 Pulse Oximetry 97 97 Oxygen Delivery Method Oxygen Flow Rate 06/12/22 07:00 06/12/22 07:00 06/12/22 07:12 Temperature Pulse Rate 112 H 106 H Respiratory Rate 30 H 32 H Blood Pressure 133/94 H Pulse Oximetry 97 97 Oxygen Delivery Method Oxygen Flow Rate 06/12/22 07:00 06/12/22 08:00 06/12/22 07:30 Temperature Pulse Rate 104 H Respiratory Rate 30 H Blood Pressure Pulse Oximetry 96 97 Oxygen Delivery Method Room Air Room Air Oxygen Flow Rate 0 06/12/22 08:00 06/12/22 08:00 06/12/22 08:30 Temperature Pulse Rate 102 H 92 H Respiratory Rate 27 H 13 Blood Pressure 126/58 L Pulse Oximetry 97 95 Oxygen Delivery Method Oxygen Flow Rate 06/12/22 09:00 06/12/22 09:00 06/12/22 09:00 Temperature 97.2 F L Pulse Rate 102 H 101 H Respiratory Rate 33 H 29 H Blood Pressure 149/65 H 149/65 H Pulse Oximetry 94 95 Oxygen Delivery Method Oxygen Flow Rate 0 Oxygen Delivery Method Room Air Oxygen Flow Rate 0 Quality TeleICU VTE Deep Vein Thrombosis/Pulmonary Embolism Present on Admission: No Assessment & Plan Assessment and plan (1) ABLA (acute blood loss anemia): Status: Acute (2) Severe sepsis: Status: Acute (3) Urinary tract infection: Qualifiers: Hematuria presence: without hematuria Urinary tract infection type: acute cystitis Qualified Code(s): N30.00 - Acute cystitis without hematuria Status: Acute (4) Acute renal failure: Status: Acute (5) Severe protein-calorie malnutrition (Ritter: less than 60% of standard weight): Status: Acute (6) Thrombocytopenia concurrent with and due to alcoholism: Status: Acute (7) Metabolic acidosis: Status: Acute (8) Acute metabolic encephalopathy: Status: Acute (9) Septic shock: Status: Acute (10) Bandemia: Status: Acute Plan patient with bedside nurse and provider, Dr. Gonzalez chart/labs/imaging reviewed pt ugpraded back to ICU due to afib w/rvr requriing cardizem drip now short of breath currently afebrile, atrial fib with hr 90-120s mental status unchanged appears dyspneic with accessory muscle use afib rvr plumonary edema/volume overload acute chornic renal failure etoh abuse malnutrition plan -neurochecks/seizure precautions -thiamine/folate -start bipapa for working of breathing -agree with diuretics -if not improving may need inbuation -dc ivf -wean off cardizem drip -start po cardizem, can start metoprolol as well -echo showed ef 45% -can dc abx total of 5-7 days -srial cbc/coags, transfuse prn, noted platelets 30s, no sign of active bleeding -monitor ins/outs -serial cbc/coags transfuse prn -replace lytes prn, monitor for refeeding syndrome -keep glucose 140-180s -gi/dvt ppx -please call eICU if condition changes CCM time 45 mins Time Spent With Patient Critical Care time: I spent a total of [] minutes of critical care time on this patient's care today; this time is exclusive of procedural time.
[2022-06-12 10:02] LABS: HCO3 ABG 13 mmol/L (22-26); PO2 ABG 50 mmHg (80-100); TCO2 ABG 14 mmol/L (21-31); pH ABG 7.31 (7.35-7.45)
[2022-06-12 10:03] LABS: Fractionated Inspired Oxygen 21; Oxygen Saturation ABG 83 % (95-100)
--- NOTE | 2022-06-12 11:15 | SLP.IPNOTE ---
Attempted bedside swallow evaluation at 10:30. Pt was starting on BiPAP. Per NSG, attempt this afternoon after a few hours of BiPAP.
--- NOTE | 2022-06-12 11:24 | CM.DPC ---
DCP/continued: Reviewed chart. Per provider in AM rounds patient doing poorly and possibly will at [facility]. CM team continuing to follow for d/c planning needs if patient becomes medically appropriate to do so. P: Pending. NIKOLAS
--- NOTE | 2022-06-12 13:06 | PC.NURSE ---
Addendum entered by Elise Viera R.N. 06/12/22 18:56: Shift Note - Patient confused and lethargic. Had moments of increased lethargy and moments of being able to respond and move around in bed. Repositioned patient for comfort and pressure relief every 2 hours. Patient placed on BIPAP per orders this AM and tolerated well. IV Diltiazem weaned off and patient placed on lasix gtt for fluid overload. Patient denies discomfort when asked consistently. Scored 0 on CIWA throughout shift. Bed alarm on and call light within reach. Original Note: 1145 - Converted from AFIb to NSR; physician updated.
[2022-06-12 13:20] LABS: BUN Creatinine Ratio 16.8 (6-22); Blood Urea Nitrogen 32 mg/dL (9-20); Carbon Dioxide 17 mmol/L (22-32); Estimated Glomerular Filt Rate 36 mL/min (>60); Glucose 123 mg/dL (80-110); HEMOLYSIS < 15 (0-50); Phosphorous 4.4 mg/dL (2.3-3.7); Potassium 4.1 mmol/L (3.4-5.1); Sodium 146 mmol/L (137-145)
[2022-06-12 13:44] LABS: Calcium 6.5 mg/dL (8.4-10.2)
[2022-06-12 13:50] LABS: Chloride 123 mmol/L (98-107)
--- NOTE | 2022-06-12 15:15 | SLP.IPNOTE ---
Per NSG, pt is still on BiPAP and not appropriate for speech therapy today. Will attempt swallow evaluation tomorrow.
[2022-06-12] MEDS: DILTIAZEM 125 MG/125 ML PIGGYBACK IV (15:23)
[2022-06-12] MEDS: dilTIAZem 30 MG TABLET 60 MG PO (15:23)
[2022-06-12] MEDS: FUROSEMIDE 100 MG/10 ML VIAL 80 MG IV (15:42)
[2022-06-12 15:50] LABS: Magnesium 2.2 mg/dL (1.6-2.3)
--- NOTE | 2022-06-12 16:25 | CM.DPC ---
DCP/continued: A.P.S. worker/Owen Daughertymen # [phone] attempted to meet with patient today. Patient unable to conduct interview. Owen provided with clinical which included ED H&P, and acute care H&P. A.P.S. case number is [id number]. Owen requesting call when patient medically appropriate to interview. A.P.S. notified of patient current very guarded condition. P: Pending. NIKOLAS
--- NOTE | 2022-06-12 16:25 | PM.PN.1 ---
Subjective Subjective Date Patient Seen: 06/12/22 Time Patient Seen: 08:00 Interval history: He was started on dilt gtt yesterday due to afib with RVR. This morning he was noted to be in respiratory distress. He was noted to have received significant amounts of fluid since admission. IV fluid stopped, lasix started. Chest xray showed pulmonary edema, BNP significantly elevated. Later in the morning he converted to sinus. Exam Vital Signs (past 8 hours): - 06/12/22 08:30 06/12/22 09:00 06/12/22 09:00 Temperature Pulse Rate 92 H 102 H Respiratory Rate 13 33 H Blood Pressure 149/65 H Pulse Oximetry 95 94 Oxygen Delivery Method Oxygen Flow Rate Fraction of Inspired Oxygen 06/12/22 09:00 06/12/22 09:30 06/12/22 10:01 Temperature 97.2 F L Pulse Rate 101 H 109 H 92 H Respiratory Rate 29 H 34 H 34 H Blood Pressure 149/65 H 110/52 L Pulse Oximetry 95 94 95 Oxygen Delivery Method Oxygen Flow Rate 0 0 Fraction of Inspired Oxygen 06/12/22 10:05 06/12/22 10:46 06/12/22 11:02 Temperature Pulse Rate 84 94 H Respiratory Rate 31 H 27 H Blood Pressure 110/52 L 124/60 Pulse Oximetry 100 94 Oxygen Delivery Method Nasal Cannula Oxygen Flow Rate 3 Fraction of Inspired Oxygen 35 06/12/22 12:00 06/12/22 12:00 06/12/22 10:00 Temperature 98.3 F Pulse Rate 91 H 90 Respiratory Rate 32 H 32 H Blood Pressure 125/67 Pulse Oximetry 100 96 Oxygen Delivery Method BiPAP Oxygen Flow Rate Fraction of Inspired Oxygen 06/12/22 10:01 06/12/22 10:01 06/12/22 10:30 Temperature Pulse Rate 91 H 89 Respiratory Rate 31 H 28 H Blood Pressure 110/52 L Pulse Oximetry 96 99 Oxygen Delivery Method Oxygen Flow Rate Fraction of Inspired Oxygen 06/12/22 11:00 06/12/22 11:00 06/12/22 11:30 Temperature Pulse Rate 105 H 99 H Respiratory Rate 34 H 34 H Blood Pressure 124/60 Pulse Oximetry 97 98 Oxygen Delivery Method Oxygen Flow Rate Fraction of Inspired Oxygen 06/12/22 12:00 06/12/22 12:00 06/12/22 13:02 Temperature Pulse Rate 89 Respiratory Rate 34 H Blood Pressure 125/67 125/67 Pulse Oximetry 100 Oxygen Delivery Method Oxygen Flow Rate Fraction of Inspired Oxygen 35 06/12/22 13:04 06/12/22 14:00 06/12/22 15:00 Temperature Pulse Rate 87 93 H 86 Respiratory Rate 30 H 30 H 28 H Blood Pressure 121/59 L 115/58 L 122/58 L Pulse Oximetry 100 100 100 Oxygen Delivery Method Oxygen Flow Rate Fraction of Inspired Oxygen 06/12/22 15:00 06/12/22 15:23 06/12/22 16:00 Temperature Pulse Rate 92 H 85 Respiratory Rate 27 H Blood Pressure 123/58 L 117/58 L Pulse Oximetry 100 100 Oxygen Delivery Method BiPAP Oxygen Flow Rate Fraction of Inspired Oxygen Fraction of Inspired Oxygen 35 Oxygen Delivery Method BiPAP Oxygen Flow Rate 3 Narrative Exam Narrative: GEN: frail, chronically ill appearing CV: tachycardic, irregular PULM: crackles bilaterally ABD: soft, nontender, nondistended, no organomegaly EXT: warm and well perfused, with edema NEURO: mumbling, difficult to understand, confused Objective Labs Result Diagrams: 06/12/22 05:25 06/12/22 13:05 Labs: Laboratory Results - last 24 hr 06/11/22 06/11/22 06/11/22 08:00 18:50 18:50 WBC RBC Hgb Hct MCV MCH MCHC RDW Plt Count Neut % (Auto) Lymph % (Auto) [place] % (Auto) Eos % (Auto) Baso % (Auto) Lymph # (Auto) [place] # (Auto) Baso # (Auto) Total Counted Seg Neutrophils % Lymphocytes % (Manual) Monocytes % (Manual) Neutrophils # (Manual) Nucleated RBCs RBC Morphology Poikilocytosis ABG pH ABG pCO2 ABG pO2 ABG HCO3 ABG Total CO2 ABG O2 Saturation ABG Base Excess FiO2 Sodium 143 Potassium 3.6 Chloride 120 H Carbon Dioxide 17 L BUN 40 H Creatinine 2.02 H Estimated GFR 34 L BUN/Creatinine Ratio 19.8 Glucose 132 H Calcium 6.5 L Ionized Calcium Hannah 3.9 L Phosphorus 1.8 L Magnesium 1.6 Total Bilirubin Conjugated Bilirubin Unconjugated Bilirubin AST ALT Alkaline Phosphatase Total Creatine Kinase 731 H D CK-MB (CK-2) 3.28 H CK-MB (CK-2) Rel Index 0.4 L Troponin I 0.075 H NT-Pro-B Natriuret Pep Total Protein Albumin Globulin Albumin/Globulin Ratio 06/11/22 06/12/22 06/12/22 22:10 05:25 05:25 WBC 18.6 H RBC 3.52 L Hgb 10.3 L Hct 30.9 L MCV 87.7 MCH 29.2 MCHC 33.3 RDW 15.8 H Plt Count 30 L* Neut % (Auto) Not Reportable Lymph % (Auto) Not Reportable [place] % (Auto) Not Reportable Eos % (Auto) Not Reportable Baso % (Auto) Not Reportable Lymph # (Auto) Not Reportable [place] # (Auto) Not Reportable Baso # (Auto) Not Reportable Total Counted 100 Seg Neutrophils % 93.0 H Lymphocytes % (Manual) 1.0 L Monocytes % (Manual) 6.0 Neutrophils # (Manual) 07359 H Nucleated RBCs 1 H RBC Morphology See below Poikilocytosis 1+ H ABG pH ABG pCO2 ABG pO2 ABG HCO3 ABG Total CO2 ABG O2 Saturation ABG Base Excess FiO2 Sodium 143 145 Potassium 3.8 4.3 Chloride 120 H 122 H* Carbon Dioxide 16 L 16 L BUN 37 H 34 H Creatinine 1.91 H 1.76 H Estimated GFR 36 L 40 L BUN/Creatinine Ratio 19.4 19.3 Glucose 127 H 111 H Calcium 6.4 L* 6.0 L* Ionized Calcium Hannah Phosphorus 2.0 L Magnesium 3.2 H 2.4 H Total Bilirubin Conjugated Bilirubin Unconjugated Bilirubin AST ALT Alkaline Phosphatase Total Creatine Kinase CK-MB (CK-2) CK-MB (CK-2) Rel Index Troponin I NT-Pro-B Natriuret Pep Total Protein Albumin Globulin Albumin/Globulin Ratio 06/12/22 06/12/22 06/12/22 05:25 09:18 09:49 WBC RBC Hgb Hct MCV MCH MCHC RDW Plt Count Neut % (Auto) Lymph % (Auto) [place] % (Auto) Eos % (Auto) Baso % (Auto) Lymph # (Auto) [place] # (Auto) Baso # (Auto) Total Counted Seg Neutrophils % Lymphocytes % (Manual) Monocytes % (Manual) Neutrophils # (Manual) Nucleated RBCs RBC Morphology Poikilocytosis ABG pH 7.31 L ABG pCO2 26.0 L ABG pO2 50 L ABG HCO3 13 L ABG Total CO2 14 L ABG O2 Saturation 83 L* ABG Base Excess -13.0 L FiO2 21 Sodium Potassium Chloride Carbon Dioxide BUN Creatinine Estimated GFR BUN/Creatinine Ratio Glucose Calcium Ionized Calcium Hannah Phosphorus Magnesium Total Bilirubin 0.4 Conjugated Bilirubin 0.0 Unconjugated Bilirubin 0.3 AST 47 ALT 21 Alkaline Phosphatase 64 Total Creatine Kinase CK-MB (CK-2) CK-MB (CK-2) Rel Index Troponin I NT-Pro-B Natriuret Pep 65298 H Total Protein 4.0 L Albumin 2.1 L Globulin 1.9 Albumin/Globulin Ratio 1.1 06/12/22 06/12/22 13:05 13:05 WBC RBC Hgb Hct MCV MCH MCHC RDW Plt Count Neut % (Auto) Lymph % (Auto) [place] % (Auto) Eos % (Auto) Baso % (Auto) Lymph # (Auto) [place] # (Auto) Baso # (Auto) Total Counted Seg Neutrophils % Lymphocytes % (Manual) Monocytes % (Manual) Neutrophils # (Manual) Nucleated RBCs RBC Morphology Poikilocytosis ABG pH ABG pCO2 ABG pO2 ABG HCO3 ABG Total CO2 ABG O2 Saturation ABG Base Excess FiO2 Sodium 146 H Potassium 4.1 Chloride 123 H* Carbon Dioxide 17 L BUN 32 H Creatinine 1.90 H Estimated GFR 36 L BUN/Creatinine Ratio 16.8 Glucose 123 H Calcium 6.5 L Ionized Calcium Hannah Phosphorus 4.4 H D Magnesium 2.2 Total Bilirubin Conjugated Bilirubin Unconjugated Bilirubin AST ALT Alkaline Phosphatase Total Creatine Kinase CK-MB (CK-2) CK-MB (CK-2) Rel Index Troponin I NT-Pro-B Natriuret Pep Total Protein Albumin Globulin Albumin/Globulin Ratio [facility] Medical History Alcohol abuse Bladder cancer (~2014) CKD (chronic kidney disease) (Unknown) Congestive heart failure COPD (chronic obstructive pulmonary disease) (Unknown) Coronary artery disease (Unknown) Elevated PSA, greater than or equal to 20 ng/ml Gastroesophageal reflux disease Hearing loss Hematuria History of CVA (cerebrovascular accident) Hx of left bundle branch block Hyperkalemia Hyperlipemia (Unknown) Hyperparathyroidism, secondary renal Hypertension (Unknown) Immobility Measles Multiple comorbid conditions Mumps 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 Acute hypoxemic respiratory failure secondary to acute CHF exacerbation -patient volume overload after fluid resuscitation from septic shock -required oxygen and BIPAP -EF depressed approx 45% -started 40 IV lasix with poor output -increase to 80IV lasix and start lasix gtt -goal 2-3L net negative daily 2. Septic shock -resolved -UA on admission with WBCs, 2+ leukocyte esterase,negative nitrites.? Culture negative to date. -CT abdomen consistent with colitis -etiology is likely pancolitis and UTI -cultures with no grown to date -continue Zosyn -c diff negative -stool culture negative prelimarily 3. Pancolitis -CT with segmental colitis of the transverse, descending, and sigmoid colon felt to be infectious or inflammatory in nature.? -Ischemic colitis is considered less likely - C diff was negative 4. GLENNA in CKD 3 His baseline creatinine appears to be 1.4.? BUN was 86 creatinine 5.19 on admission -GLENNA improved with IV fluids -monitor creatinine daily, and closely due to diuresis 5. Acute metabolic encephalopathy -multifactorial -significant alcohol use, and also with septic shock -also old CVA -stop librium 6. Alcohol dependence -stop librium -continue CIWA prn -ordered MVI, thiamine, folate 7. Tobacco dependence -Nicotine patch as needed 8. Severe protein calorie malnutrition BMI is 16.9 on admission -dietary consult 9. Normocytic anemia -monitor hemoglobin, no evidence of bleeding 10. Thrombocytopenia -secondary to alcohol abuse and infection -hold chemical dvt ppx -monitor daily Time Spent With Patient Critical Care time: I spent a total of [] minutes of critical care time on this patient's care today; this time is exclusive of procedural time. Quality VTE Deep Vein Thrombosis/Pulmonary Embolism Present on Admission: No
[2022-06-12 17:10] LABS: Ammonia (NH3) < 9 umol/L (9-30)
[2022-06-12] MEDS: FUROSEMIDE 100 MG in SODIUM CHLORIDE 0.9% 50 ML IV (17:14)
[2022-06-12 19:39] LABS: Fractionated Inspired Oxygen 30; HCO3 ABG 14 mmol/L (22-26); Oxygen Saturation ABG 96 % (95-100); PCO2 ABG 27.1 mmHg (35-45); PO2 ABG 86 mmHg (80-100); TCO2 ABG 15 mmol/L (21-31); pH ABG 7.32 (7.35-7.45)
--- NOTE | 2022-06-12 20:14 | PM.ICURNDS ---
- :: This patient was seen via real time interactive two-way audiovisual telecommunication. patietn weaned off of cardizem gtt s he is now rate controlled. ad respo disterss due to pulm edema, now on lasix gtt. goal UO should be ~ 100 - 200 cc hr. plan for bipap qhs. d/w RN at bedside. remains on abx
[2022-06-12] MEDS: dilTIAZem 30 MG TABLET PO (21:34)
[2022-06-13] VITALS (55 sets, daily range): BP systolic 105–164; BP diastolic 52–108; PULSE 61–104; RESP 21–38; TEMP 36.2–37.5; O2SAT 88–100
--- NOTE | 2022-06-13 00:40 | RT ---
Pt currently taking break from BiPAP unit, and on HFNC at 3L, tolerating well, SpO2 WNL. Will cont. to monitor closely.
[2022-06-13] MEDS: PIPERACILLIN/TAZO 3.375 GM in SODIUM CHLORIDE 0.9% 100 ML IV ×3 (01:19→16:30)
[2022-06-13] MEDS: dilTIAZem 30 MG TABLET PO (04:13)
[2022-06-13 05:00] LABS: Hematocrit 31.4 % (41-53); Hemoglobin 10.4 g/dL (13.5-17.5); Mean Corpuscular HGB Conc 33.2 % (30-36); Mean Corpuscular Hemoglobin 28.8 PG (26-34); Mean Corpuscular Volume 86.8 fL (80-100); Platelet Count 48 X10^3/uL (150-400); Red Blood Cell Count 3.62 X10^6/uL (4.5-5.9); Red Cell Distribution Width 15.7 % (11.6-14.8); White Blood Cell Count 17.5 X10^3/uL (4.5-11.0)
[2022-06-13 05:43] LABS: Phosphorous 2.9 mg/dL (2.3-3.7)
[2022-06-13 05:44] LABS: BUN Creatinine Ratio 15.3 (6-22); Blood Urea Nitrogen 31 mg/dL (9-20); Calcium 6.7 mg/dL (8.4-10.2); Carbon Dioxide 16 mmol/L (22-32); Chloride 121 mmol/L (98-107); Estimated Glomerular Filt Rate 33 mL/min (>60); Glucose 113 mg/dL (80-110); HEMOLYSIS 20 (0-50); Magnesium 1.9 mg/dL (1.6-2.3); Potassium 3.4 mmol/L (3.4-5.1); Sodium 149 mmol/L (137-145)
--- NOTE | 2022-06-13 05:58 | PC.NURSE ---
Addendum entered by Jill Woods R.N. 06/13/22 07:36: Patient having anxiety, restless, swinging out at staff, pulling telemetry and gown off, pulling at adams cather, MARLENA 8. Called Dr. Gonzalez and informed. Gave Diazepam 5mg IV now. Gave bedside report to day shift RN. Original Note: End of shift note. Care of patient from [id number]. 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 On RA, O2 Sats 98%. Has been SR 90s-ST 100s with frequent PVCs. Able to take po meds with HOB 45 degrees, crushed in apple sauce with thicken water, spoon fed. On Lasix IV drip 2.5mg/1.5ml/hour, titrating for 100ml-200ml urine out per hour. Foam dressing applied to bony intact coccyx. Needs assist with turns.
[2022-06-13] MEDS: FUROSEMIDE 100 MG in SODIUM CHLORIDE 0.9% 50 ML IV (06:36)
[2022-06-13] MEDS: diazePAM 10 MG/2 ML SYRINGE 5 MG IV ×2 (07:29→12:51)
[2022-06-13] MEDS: dexmedeTOMIDine in 0.9 % NaCL 400 MCG/100 ML PLAST..BAG IV (07:45)
[2022-06-13] MEDS: NICOTINE 14 PATCH 14 MG TOP (08:22)
[2022-06-13] MEDS: PANTOPRAZOLE 40 MG VIAL IV ×2 (08:23→21:19)
[2022-06-13] MEDS: THIAMINE 100 MG in SODIUM CHLORIDE 0.9% 100 ML 404 MG IV (08:24)
[2022-06-13] MEDS: POTASSIUM CHLORIDE IN WATER 10 MEQ/100 ML PIGGYBACK 100 MEQ IV ×4 (09:16→11:29)
--- NOTE | 2022-06-13 10:47 | PM.PN.EICU ---
Subjective Subjective Consent obtained for tele-sterilizer operator care: Yes Patient Location: ICU Provider location (State): [place] Other participants/roles: [facility] Current Medications Current Medications Medications: Home Medications aspirin 81 mg tablet,delayed release (Adult Low Dose Aspirin) 81 mg PO DAILY 05/20/18 [History Confirmed 06/10/22] torsemide 10 mg tablet 10 mg PO DAILY 11/04/20 [History Confirmed 04/13/22] lisinopril 2.5 mg tablet See Rx Instructions .Route .COMPLEX #90 tabs 11/08/21 [Rx Confirmed 06/10/22] metoprolol succinate PO 01/05/22 [History Confirmed 04/13/22] mirtazapine 15 mg tablet 15 mg PO BEDTIME #60 tabs 01/12/22 [Rx Confirmed 04/13/22] cholecalciferol (vitamin D3) 125 mcg (5,000 unit) capsule 125 mcg PO DAILY #90 caps 05/15/22 [Rx Confirmed 06/10/22] nitroglycerin 0.4 mg sublingual tablet (Nitrostat) See Rx Instructions .Route .COMPLEX #30 tabs 05/15/22 [Rx] Visit Medications (administered) Generic Name Dose Route Start Last Admin Trade Name Freq PRN Reason Stop Dose Admin Acetaminophen 650 mg 06/10/22 02:07 06/10/22 02:22 Acetaminophen 325 Mg Tablet PO 650 mg Q6H PRN Administration Fever/Mild Pain (1-3) Diazepam 5 mg 06/13/22 07:17 06/13/22 07:29 Diazepam 10 Mg/2 Ml Syringe IV 5 mg PRN PRN Administration Alcohol Withdrawal Protocol Diltiazem HCl 30 mg 06/12/22 22:00 06/13/22 04:13 Diltiazem 30 Mg Tablet PO 30 mg Q6H JUNG Administration Folic Acid 1 mg 06/11/22 09:00 06/13/22 08:26 Folic Acid 1 Mg Tablet PO Not Given DAILY JUNG Heparin Sodium (Porcine) 50 unit 06/10/22 11:17 06/13/22 04:25 Heparin Flush (Cl/Picc/Mid-Line) 50 Unit/5 Ml Syringe IV 50 unit PRN PRN Administration Flush Sodium Chloride 1,000 mls @ 100 mls/hr 06/10/22 09:45 06/12/22 09:10 Normal Saline 0.9% IV Infused CONT JUNG Infusion Piperacillin Sod/Tazobactam 100 mls @ 25 mls/hr 06/12/22 17:00 06/13/22 08:24 Sod 3.375 gm/ Sodium Chloride IV 25 mls/hr Q8H JUNG Administration Thiamine HCl 100 mg/ Sodium 101 mls @ 404 mls/hr 06/13/22 09:00 06/13/22 08:24 Chloride IV 404 mls/hr DAILY JUNG Administration dexmedeTOMIDine in 0.9 % NaCL 400 mcg in 100 mls @ 2.48 mls/hr 06/13/22 07:30 06/13/22 10:15 Precedex IV 1.2 mcg/kg/hr TITRATE JUNG 14.88 mls/hr Titration Protocol 0.2 MCG/KG/HR POTASSIUM CHLORIDE IN WATER 10 meq in 100 mls @ 100 mls/hr 06/13/22 08:45 06/13/22 10:32 Potassium Cl 10 Meq/100 Ml Desirae IV 06/13/22 12:44 100 mls/hr Q1H JUNG Administration Lorazepam 0 mg 06/10/22 09:36 06/11/22 21:10 Lorazepam 1 Mg Tablet PO 2 mg CIWAPRN PRN Administration Alcohol Withdrawal Protocol Multivitamins 1 tab 06/11/22 09:00 06/13/22 08:26 Multivitamin 1 Tablet PO Not Given DAILY JUNG Nicotine 14 mg 06/11/22 09:00 06/13/22 08:22 Nicotine 14 Patch TOP 14 mg DAILY JUNG Administration Pantoprazole Sodium 40 mg 06/10/22 09:00 06/13/22 08:23 Pantoprazole 40 Mg Vial IV 40 mg BID JUNG Administration Vitamin D 5,000 unit 06/12/22 09:00 06/13/22 08:26 Cholecalciferol (Vitamin D3) 1,000 Unit Tablet PO Not Given DAILY JUNG Objective Labs Result Diagrams: 06/13/22 04:30 06/13/22 04:30 Labs: Laboratory Results - last 24 hr 06/12/22 06/12/22 06/12/22 05:25 13:05 13:05 WBC RBC Hgb Hct MCV MCH MCHC RDW Plt Count ABG pH ABG pCO2 ABG pO2 ABG HCO3 ABG Total CO2 ABG O2 Saturation ABG Base Excess FiO2 Sodium 145 146 H Potassium 4.3 4.1 Chloride 122 H* 123 H* Carbon Dioxide 16 L 17 L BUN 34 H 32 H Creatinine 1.76 H 1.90 H Estimated GFR 40 L 36 L BUN/Creatinine Ratio 19.3 16.8 Glucose 111 H 123 H Calcium 6.0 L* 6.5 L Phosphorus 4.4 H D Magnesium 2.4 H 2.2 Ammonia 06/12/22 06/12/22 06/13/22 16:53 17:05 04:30 WBC RBC Hgb Hct MCV MCH MCHC RDW Plt Count ABG pH 7.32 L ABG pCO2 27.1 L ABG pO2 86 ABG HCO3 14 L ABG Total CO2 15 L ABG O2 Saturation 96 ABG Base Excess -12.0 L FiO2 30 Sodium Potassium Chloride Carbon Dioxide BUN Creatinine Estimated GFR BUN/Creatinine Ratio Glucose Calcium Phosphorus 2.9 D Magnesium Ammonia < 9 L 06/13/22 06/13/22 04:30 04:30 WBC 17.5 H RBC 3.62 L Hgb 10.4 L Hct 31.4 L MCV 86.8 MCH 28.8 MCHC 33.2 RDW 15.7 H Plt Count 48 L ABG pH ABG pCO2 ABG pO2 ABG HCO3 ABG Total CO2 ABG O2 Saturation ABG Base Excess FiO2 Sodium 149 H Potassium 3.4 Chloride 121 H Carbon Dioxide 16 L BUN 31 H Creatinine 2.03 H Estimated GFR 33 L BUN/Creatinine Ratio 15.3 Glucose 113 H Calcium 6.7 L Phosphorus Magnesium 1.9 Ammonia Exam Vital Signs (past 8 hours): - 06/13/22 02:50 06/13/22 03:00 06/13/22 03:00 Temperature Pulse Rate 102 H 100 H Respiratory Rate 31 H Blood Pressure 143/65 H Pulse Oximetry 96 97 Oxygen Delivery Method Room Air Oxygen Flow Rate 0 06/13/22 04:00 06/13/22 04:00 06/13/22 04:05 Temperature Pulse Rate 96 H 96 H Respiratory Rate 27 H 26 H Blood Pressure 151/65 H Pulse Oximetry 98 98 Oxygen Delivery Method Oxygen Flow Rate 06/13/22 04:13 06/13/22 04:00 06/13/22 05:00 Temperature Pulse Rate 96 H Respiratory Rate Blood Pressure 151/65 H 156/70 H Pulse Oximetry Oxygen Delivery Method Room Air Oxygen Flow Rate 06/13/22 05:00 06/13/22 05:01 06/13/22 06:00 Temperature Pulse Rate 98 H 99 H Respiratory Rate 27 H 29 H Blood Pressure 151/70 H Pulse Oximetry 99 99 Oxygen Delivery Method Oxygen Flow Rate 06/13/22 06:00 06/13/22 05:49 06/13/22 06:30 Temperature Pulse Rate 99 H 99 H 102 H Respiratory Rate 27 H 33 H Blood Pressure Pulse Oximetry 98 98 99 Oxygen Delivery Method Room Air Oxygen Flow Rate 06/13/22 07:00 06/13/22 07:00 06/13/22 08:04 Temperature Pulse Rate 104 H 97 H Respiratory Rate 38 H 28 H Blood Pressure 143/74 H Pulse Oximetry 96 Oxygen Delivery Method Oxygen Flow Rate 06/13/22 08:18 06/13/22 08:18 06/13/22 08:30 Temperature 98.9 F Pulse Rate 97 H 94 H Respiratory Rate 32 H 32 H Blood Pressure 136/86 Pulse Oximetry 98 Oxygen Delivery Method Oxygen Flow Rate 0 06/13/22 09:00 06/13/22 09:00 06/13/22 09:30 Temperature Pulse Rate 98 H 92 H Respiratory Rate 31 H 26 H Blood Pressure 129/58 L Pulse Oximetry Oxygen Delivery Method Oxygen Flow Rate 06/13/22 10:00 06/13/22 10:00 06/13/22 08:00 Temperature Pulse Rate 83 Respiratory Rate 31 H Blood Pressure 115/57 L Pulse Oximetry Oxygen Delivery Method Room Air Oxygen Flow Rate Fraction of Inspired Oxygen 0.30 Oxygen Delivery Method Room Air Oxygen Flow Rate 0 Quality TeleICU VTE Deep Vein Thrombosis/Pulmonary Embolism Present on Admission: No Assessment & Plan Assessment and plan (1) ABLA (acute blood loss anemia): Status: Acute (2) Severe sepsis: Status: Acute (3) Urinary tract infection: Qualifiers: Hematuria presence: without hematuria Urinary tract infection type: acute cystitis Qualified Code(s): N30.00 - Acute cystitis without hematuria Status: Acute (4) Acute renal failure: Status: Acute (5) Severe protein-calorie malnutrition (Ritter: less than 60% of standard weight): Status: Acute (6) Thrombocytopenia concurrent with and due to alcoholism: Status: Acute (7) Metabolic acidosis: Status: Acute (8) Acute metabolic encephalopathy: Status: Acute (9) Septic shock: Status: Acute (10) Bandemia: Status: Acute Plan patient with bedside nurse and provider, Dr. Gonzalez chart/labs/imaging reviewed upgraded of ICU 2 days ago for resp failure/afib now with DTS currently anxious/agitated/combative not following commands afib rvr plumonary edema/volume overload improved etoh withdrawal acute chronic renal failure etoh abuse malnutrition plan -neurochecks/seizure precautions -thiamine/folate -start librium 75mg tid -ativan 2mg q4 stadin, 2q2prn -wean off of precedex -place ngt -start free water 200mg q6 -dc lasix drip, lasix prn -bipap prn -po cardizem -echo showed ef 45% -can dc zosn tomorrow -serial cbc/coags transfuse prn -monitor ins/outs -serial cbc/coags transfuse prn -replace lytes prn, monitor for re-feeding syndrome -keep glucose 140-180s -gi/dvt ppx -please call eICU if condition changes CCM time 45 mins Time Spent With Patient Critical Care time: I spent a total of [55] minutes of critical care time on this patient's care today; this time is exclusive of procedural time.
--- NOTE | 2022-06-13 10:50 | DIET.CONS ---
Dietary Consultation Note Admission Date: 06/09/2022 19:54 Assessment: 76y M admitted for severe sepsis, altered mental status, acute renal failure on CKD referred to nutrition for malnutrition screening (MNA 2- malnourished). Pt found by neighbors outside trailer home covered in stool with home also covered in stool per EMS. Pt has been admitted x4d and starting etoh withdrawl now c librium and precedex on board. Pt current smoker. NFPE shows severe muscle and fat wasting- temporal wasting, boxed shoulders, scooping clavicle, protruding ribs with round belly, long soiled and chipped fingernails, scattered bruising in various stages of healing. Pt unsafe for oral intake at this time without 1:1 supervision (dysphagia puree), pt unable to communicate meaningfully r/t active etoh withdrawl, pt lifting arms into air and with frequent repositioning. Chart review shows 11% unintentional weight loss over 5 months from his general low usual body weight with severe BMI for age. Pt with GLENNA on CKD with current creatinine 2.03 H. Ht: 165.1 cm Wt: 49.6 kg (-11% in 5mo, severe) BMI: 18.2 (severe for age) UBW: 56kg Last BM: 06/11/22 (06/12/22 06:53) MNA: 2 Ayush Score: 14 Diet: 06/13/22 10:04 NPO Diet Diet Modifications: May Advance Diet as Tolerated: Yes Safety Tray needed?: No NPO Type: Strict Nutrition Percent Meal Consumed Pt not alert for breakfast 06/13/22 08:00 Percent Meal Consumed 0% 06/12/22 17:10 Percent Meal Consumed 5% 06/12/22 09:25 Percent Meal Consumed 5% and ensure 06/11/22 17:51 Percent Meal Consumed 10% 06/11/22 12:48 Labs: RBC 3.62 X10^6/uL (4.5-5.9) L 06/13/22 04:30 Hgb 10.4 g/dL (13.5-17.5) L 06/13/22 04:30 Hct 31.4 % (41-53) L 06/13/22 04:30 Creatinine 2.03 mg/dL (0.66-1.25) H 06/13/22 04:30 Lactate 1.8 mmol/L (0.7-2.1) 06/09/22 20:26 NT-Pro-B Natriuret Pep 47184 pg/mL (<450) H 06/12/22 09:18 Nutrition Diagnosis: Severe Acute on Chronic Protein Calorie Malnutrition r/t inadequate oral intake aeb 11% unintentional weight loss in 5mo (severe), BMI 18.2 (severe for age), pt POs <25% x4d while hospitalized r/t altered mental status and etoh withdrawl, EMS states pts home unsafe for living. Interventions: 1. Kitchen to send ONS Ensure Enlive to support kcal and pro needs in concentrated formula for sips when pt able to safely take POs, recc sips of ONS c meds instead of water to maximize nutrition status. EER: 55g PRO (per CKD), 1750kcals (35kcal/kg) Monitoring/Evaluations: following for POC, patient alertness and ability to eat. Electronically Signed by: Carla Barnes 06/13/22 10:50 Clinical Dietitian [address] [address]
[2022-06-13] MEDS: dexmedeTOMIDine in 0.9 % NaCL 400 MCG/100 ML PLAST..BAG 9.92 MCG IV (13:01)
[2022-06-13 13:31] LABS: Ionized Calcium 4.1 mg/dL (4.5-5.6)
--- NOTE | 2022-06-13 13:31 | PC.NURSE ---
NG tube placement unsuccessful d/t patient not following commands and non stop coughing as soon as placement begins, making it impossible to advance into esophagus and not lungs
[2022-06-13] MEDS: FOLIC ACID 1 MG in SODIUM CHLORIDE 0.9% 100 ML 200.4 MG IV (14:17)
--- NOTE | 2022-06-13 14:19 | PM.PN.1 ---
Subjective Subjective Date Patient Seen: 06/13/22 Time Patient Seen: 08:00 Interval history: Yesterday he was started on lasix gtt and was able to be diuresed well. He was lethargic much of the day, but this morning developed agitation. He was started on diazepam and then precedex. He is unable to participate in exam and is quite altered and reaching aimlessly to the roof. Exam Vital Signs (past 8 hours): - 06/13/22 06:30 06/13/22 07:00 06/13/22 07:00 Temperature Pulse Rate 102 H 104 H Respiratory Rate 33 H 38 H Blood Pressure 143/74 H Pulse Oximetry 99 96 Oxygen Delivery Method Oxygen Flow Rate 06/13/22 08:04 06/13/22 08:18 06/13/22 08:18 Temperature 98.9 F Pulse Rate 97 H 97 H Respiratory Rate 28 H 32 H Blood Pressure 136/86 Pulse Oximetry 98 Oxygen Delivery Method Oxygen Flow Rate 0 06/13/22 08:30 06/13/22 09:00 06/13/22 09:00 Temperature Pulse Rate 94 H 98 H Respiratory Rate 32 H 31 H Blood Pressure 129/58 L Pulse Oximetry Oxygen Delivery Method Oxygen Flow Rate 06/13/22 09:30 06/13/22 10:00 06/13/22 10:00 Temperature Pulse Rate 92 H 83 Respiratory Rate 26 H 31 H Blood Pressure 115/57 L Pulse Oximetry Oxygen Delivery Method Oxygen Flow Rate 06/13/22 08:00 06/13/22 10:30 06/13/22 11:00 Temperature Pulse Rate 83 Respiratory Rate 26 H Blood Pressure 119/58 L Pulse Oximetry Oxygen Delivery Method Room Air Oxygen Flow Rate 06/13/22 11:00 06/13/22 11:32 06/13/22 11:30 Temperature Pulse Rate 80 61 66 Respiratory Rate 26 H 25 H 25 H Blood Pressure Pulse Oximetry 94 Oxygen Delivery Method Oxygen Flow Rate 06/13/22 12:00 06/13/22 12:00 06/13/22 12:00 Temperature 98.8 F Pulse Rate 69 Respiratory Rate 24 Blood Pressure 121/58 L Pulse Oximetry 97 Oxygen Delivery Method Room Air Oxygen Flow Rate 0 06/13/22 12:30 06/13/22 13:00 06/13/22 13:00 Temperature Pulse Rate 61 61 Respiratory Rate 25 H 26 H Blood Pressure 112/57 L Pulse Oximetry Oxygen Delivery Method Oxygen Flow Rate 06/13/22 13:30 06/13/22 14:00 06/13/22 14:00 Temperature Pulse Rate 72 81 Respiratory Rate 21 26 H Blood Pressure 125/58 L Pulse Oximetry Oxygen Delivery Method Oxygen Flow Rate Fraction of Inspired Oxygen 0.30 Oxygen Delivery Method Room Air Oxygen Flow Rate 0 Narrative Exam Narrative: GEN: frail, chronically ill appearing CV: regular PULM: crackles bilaterally ABD: soft, nontender, nondistended, no organomegaly EXT: warm and well perfused, with edema NEURO: treumulous, reaching towards the ceiling, unintelligible Objective Labs Result Diagrams: 06/13/22 04:30 06/13/22 04:30 Labs: Laboratory Results - last 24 hr 06/11/22 06/12/22 06/12/22 18:50 05:25 13:05 WBC RBC Hgb Hct MCV MCH MCHC RDW Plt Count ABG pH ABG pCO2 ABG pO2 ABG HCO3 ABG Total CO2 ABG O2 Saturation ABG Base Excess FiO2 Sodium 145 Potassium 4.3 Chloride 122 H* Carbon Dioxide 16 L BUN 34 H Creatinine 1.76 H Estimated GFR 40 L BUN/Creatinine Ratio 19.3 Glucose 111 H Calcium 6.0 L* Ionized Calcium Hannah 4.1 L Phosphorus Magnesium 2.4 H 2.2 Ammonia 06/12/22 06/12/22 06/13/22 16:53 17:05 04:30 WBC RBC Hgb Hct MCV MCH MCHC RDW Plt Count ABG pH 7.32 L ABG pCO2 27.1 L ABG pO2 86 ABG HCO3 14 L ABG Total CO2 15 L ABG O2 Saturation 96 ABG Base Excess -12.0 L FiO2 30 Sodium Potassium Chloride Carbon Dioxide BUN Creatinine Estimated GFR BUN/Creatinine Ratio Glucose Calcium Ionized Calcium Hannah Phosphorus 2.9 D Magnesium Ammonia < 9 L 06/13/22 06/13/22 04:30 04:30 WBC 17.5 H RBC 3.62 L Hgb 10.4 L Hct 31.4 L MCV 86.8 MCH 28.8 MCHC 33.2 RDW 15.7 H Plt Count 48 L ABG pH ABG pCO2 ABG pO2 ABG HCO3 ABG Total CO2 ABG O2 Saturation ABG Base Excess FiO2 Sodium 149 H Potassium 3.4 Chloride 121 H Carbon Dioxide 16 L BUN 31 H Creatinine 2.03 H Estimated GFR 33 L BUN/Creatinine Ratio 15.3 Glucose 113 H Calcium 6.7 L Ionized Calcium Hannah Phosphorus Magnesium 1.9 Ammonia PFSH Medical History Alcohol abuse Bladder cancer (~2014) CKD (chronic kidney disease) (Unknown) Congestive heart failure COPD (chronic obstructive pulmonary disease) (Unknown) Coronary artery disease (Unknown) Elevated PSA, greater than or equal to 20 ng/ml Gastroesophageal reflux disease Hearing loss Hematuria History of CVA (cerebrovascular accident) Hx of left bundle branch block Hyperkalemia Hyperlipemia (Unknown) Hyperparathyroidism, secondary renal Hypertension (Unknown) Immobility Measles Multiple comorbid conditions Mumps 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 Acute hypoxemic respiratory failure secondary to acute CHF exacerbation -patient volume overload after fluid resuscitation from septic shock -required oxygen and BIPAP -EF depressed approx 45% -started 40 IV lasix with poor output -increase to 80IV lasix and started lasix gtt on 06/12 ---given improved respiratory status stop lasix gtt and continue IV lasix 80mg BID -goal 2-3L net negative daily 2. Septic shock -resolved -UA on admission with WBCs, 2+ leukocyte esterase,negative nitrites.? Culture negative to date. -CT abdomen consistent with colitis -etiology is likely pancolitis and UTI -cultures with no grown to date -continue Zosyn -c diff negative -stool culture negative prelimarily 3. Pancolitis -CT with segmental colitis of the transverse, descending, and sigmoid colon felt to be infectious or inflammatory in nature.? -Ischemic colitis is considered less likely - C diff was negative 4. GLENNA in CKD 3 His baseline creatinine appears to be 1.4.? BUN was 86 creatinine 5.19 on admission -GLENNA improved with IV fluids -monitor creatinine daily, and closely due to diuresis 5. Acute metabolic encephalopathy 6. Alcohol dependence with acute metabolic encephalopathy -multifactorial -also old CVA -stop librium due to inability to tolerate POs -continue CIWA prn -ordered MVI, thiamine, folate -tried NG tube on 06/13, but unable to place 7. Tobacco dependence -Nicotine patch as needed 8. Severe protein calorie malnutrition BMI is 16.9 on admission -dietary consult 9. Normocytic anemia -monitor hemoglobin, no evidence of bleeding 10. Thrombocytopenia -secondary to alcohol abuse and infection -hold chemical dvt ppx -monitor daily Time Spent With Patient Critical Care time: I spent a total of [] minutes of critical care time on this patient's care today; this time is exclusive of procedural time. Quality VTE Deep Vein Thrombosis/Pulmonary Embolism Present on Admission: No
[2022-06-13 15:26] LABS: BUN Creatinine Ratio 15.7 (6-22); Blood Urea Nitrogen 29 mg/dL (9-20); Calcium 6.5 mg/dL (8.4-10.2); Carbon Dioxide 21 mmol/L (22-32); Estimated Glomerular Filt Rate 37 mL/min (>60); Glucose 112 mg/dL (80-110); HEMOLYSIS 19 (0-50); Magnesium 1.6 mg/dL (1.6-2.3); Potassium 3.7 mmol/L (3.4-5.1); Sodium 149 mmol/L (137-145)
[2022-06-13 15:30] LABS: Chloride 122 mmol/L (98-107)
--- NOTE | 2022-06-13 17:48 | SLP.IPNOTE ---
Unable to see pt today secondary to medications for agitation. pt is currently NPO. Pt on hold at this time, per nursing
--- NOTE | 2022-06-13 20:42 | PM.ICURNDS ---
- Date Patient Seen: 06/13/22 Time Patient Seen: 20:42 :: This patient was seen via real time interactive two-way audiovisual telecommunication. Note: pt seen sedated on precedex. unable to get ngt in pt appears comfortable and sedated unable to get ngt in place, pt has polst that states he didnt want a feeding tube suggest to continue precedex wean as tolerated per ciwa dc librium dc ativan, monitor for afib, can restart drip if rate increase d/w bedside nurse
[2022-06-13] MEDS: FUROSEMIDE 100 MG/10 ML VIAL 80 MG IV (21:19)
[2022-06-13] MEDS: dexmedeTOMIDine in 0.9 % NaCL 400 MCG/100 ML PLAST..BAG 6.2 MCG IV (23:08)
[2022-06-14] VITALS (20 sets, daily range): BP systolic 102–126; BP diastolic 50–69; PULSE 80–102; RESP 24–33; TEMP 36.9–38.2; O2SAT 94–98
[2022-06-14] MEDS: PIPERACILLIN/TAZO 3.375 GM in SODIUM CHLORIDE 0.9% 100 ML IV ×2 (01:31→08:53)
[2022-06-14 04:45] LABS: BUN Creatinine Ratio 14.9 (6-22); Blood Urea Nitrogen 30 mg/dL (9-20); Calcium 6.5 mg/dL (8.4-10.2); Carbon Dioxide 16 mmol/L (22-32); Estimated Glomerular Filt Rate 34 mL/min (>60); Glucose 88 mg/dL (80-110); HEMOLYSIS < 15 (0-50); Potassium 3.4 mmol/L (3.4-5.1); Sodium 154 mmol/L (137-145)
[2022-06-14 04:48] LABS: Chloride 123 mmol/L (98-107)
[2022-06-14 04:52] LABS: Hematocrit 29.8 % (41-53); Hemoglobin 9.9 g/dL (13.5-17.5); Mean Corpuscular HGB Conc 33.3 % (30-36); Mean Corpuscular Hemoglobin 29.1 PG (26-34); Mean Corpuscular Volume 87.5 fL (80-100); Platelet Count 57 X10^3/uL (150-400); Red Cell Distribution Width 15.6 % (11.6-14.8); White Blood Cell Count 15.7 X10^3/uL (4.5-11.0)
[2022-06-14 05:05] LABS: Magnesium 1.5 mg/dL (1.6-2.3)
--- NOTE | 2022-06-14 06:01 | PC.NURSE ---
End of shift note. Care of patient from [id number]. Beginning of shift Patient sedated with Precedex 0.8 mcg/kg/hr, titrated down to 0.4mcg/kg/hr. RASS continues to be negative 3. Patient will mumble a few words, does not follow any commands. Telemetry SR with BBB 70s-80s, with frequent PVCs. Tachypnea RR 28-30, O2 Sats. 96% on 2L. During evening rounds with Dr. Castillo informed that NG was not able to be placed during day shift and that patient's POLST indicates no NG for nutrition. Also, informed that patient is not able to take any of his po meds or receive free water as previously ordered. Per Dr. Castillo ok to hold po meds, he will d/c NG placement. Patient requires frequent oral care and repositioning. At beginning of shift patient found to have blood clots in mouth, with frequent oral care has resolved.
--- NOTE | 2022-06-14 08:39 | P.TELICUPN_ITS ---
Subjective Subjective Consent obtained for tele-fish cutter care: Yes Patient Location: ICU Current Medications Current Medications Medications: Home Medications aspirin 81 mg tablet,delayed release (Adult Low Dose Aspirin) 81 mg PO DAILY 05/20/18 [History Confirmed 06/10/22] torsemide 10 mg tablet 10 mg PO DAILY 11/04/20 [History Confirmed 04/13/22] lisinopril 2.5 mg tablet See Rx Instructions .Route .COMPLEX #90 tabs 11/08/21 [Rx Confirmed 06/10/22] metoprolol succinate PO 01/05/22 [History Confirmed 04/13/22] mirtazapine 15 mg tablet 15 mg PO BEDTIME #60 tabs 01/12/22 [Rx Confirmed 04/13/22] cholecalciferol (vitamin D3) 125 mcg (5,000 unit) capsule 125 mcg PO DAILY #90 caps 05/15/22 [Rx Confirmed 06/10/22] nitroglycerin 0.4 mg sublingual tablet (Nitrostat) See Rx Instructions .Route .C OMPLEX #30 tabs 05/15/22 [Rx] Visit Medications (administered) Generic Name Dose Route Start Last Admin Trade Name Freq PRN Reason Stop Dose Admin Acetaminophen 650 mg 06/10/22 02:07 06/10/22 02:22 Acetaminophen 325 Mg Tablet PO 650 mg Q6H PRN Administration Fever/Mild Pain (1-3) Chlordiazepoxide HCl 75 mg 06/13/22 15:00 06/13/22 21:10 Chlordiazepoxide 25 Mg Capsule TUBE Not Given TID JUNG Diazepam 5 mg 06/13/22 07:17 06/13/22 12:51 Diazepam 10 Mg/2 Ml Syringe IV 5 mg PRN PRN Administration Alcohol Withdrawal Protocol Diltiazem HCl 30 mg 06/12/22 22:00 06/14/22 05:48 Diltiazem 30 Mg Tablet PO Not Given Q6H JUNG Furosemide 80 mg 06/13/22 21:00 06/13/22 21:19 Furosemide 100 Mg/10 Ml Vial IV 80 mg Q12H JUNG Administration Heparin Sodium (Porcine) 50 unit 06/10/22 11:17 06/14/22 04:16 Heparin Flush (Cl/Picc/Mid-Line) 50 Unit/5 Ml Syringe IV 50 unit PRN PRN Administration Flush Sodium Chloride 1,000 mls @ 100 mls/hr 06/10/22 09:45 06/12/22 09:10 Normal Saline 0.9% IV Infused CONT JUNG Infusion Piperacillin Sod/Tazobactam 100 mls @ 25 mls/hr 06/12/22 17:00 06/14/22 05:50 Sod 3.375 gm/ Sodium Chloride IV 06/15/22 20:59 Infused Q8H JUNG Infusion Thiamine HCl 100 mg/ Sodium 101 mls @ 404 mls/hr 06/13/22 09:00 06/13/22 08:40 Chloride IV Infused DAILY JUNG Infusion dexmedeTOMIDine in 0.9 % NaCL 400 mcg in 100 mls @ 2.48 mls/hr 06/13/22 07:30 06/14/22 05:49 Precedex IV 0.4 mcg/kg/hr TITRATE JUNG 4.96 mls/hr Titration Protocol 0.2 MCG/KG/HR Folic Acid 1 mg/ Sodium 100.2 mls @ 200.4 mls/hr 06/13/22 14:00 06/13/22 15:00 Chloride IV Infused DAILY JUNG Infusion Lorazepam 0 mg 06/10/22 09:36 06/11/22 21:10 Lorazepam 1 Mg Tablet PO 2 mg CIWAPRN PRN Administration Alcohol Withdrawal Protocol Lorazepam 2 mg 06/13/22 13:00 06/14/22 05:49 Lorazepam 1 Mg Tablet PO Not Given Q4HR JUNG Multivitamins 1 tab 06/11/22 09:00 06/13/22 08:26 Multivitamin 1 Tablet PO Not Given DAILY JUNG Nicotine 14 mg 06/11/22 09:00 06/13/22 08:22 Nicotine 14 Patch TOP 14 mg DAILY JUNG Administration Pantoprazole Sodium 40 mg 06/10/22 09:00 06/13/22 21:19 Pantoprazole 40 Mg Vial IV 40 mg BID JUNG Administration Vitamin D 5,000 unit 06/12/22 09:00 06/13/22 08:26 Cholecalciferol (Vitamin D3) 1,000 Unit Tablet PO Not Given DAILY JUNG Objective Labs Result Diagrams: 06/14/22 04:15 06/14/22 04:15 Labs: Laboratory Results - last 24 hr 06/09/22 06/11/22 06/13/22 20:10 18:50 14:45 WBC RBC Hgb Hct MCV MCH MCHC RDW Plt Count Sodium 149 H Potassium 3.7 Chloride 122 H* Carbon Dioxide 21 L BUN 29 H Creatinine 1.85 H Estimated GFR 37 L BUN/Creatinine Ratio 15.7 Glucose 112 H Calcium 6.5 L Ionized Calcium Hannah 4.1 L Magnesium 1.6 Crossmatch See Detail 06/14/22 06/14/22 06/14/22 04:15 04:15 04:15 WBC 15.7 H RBC 3.40 L Hgb 9.9 L Hct 29.8 L MCV 87.5 MCH 29.1 MCHC 33.3 RDW 15.6 H Plt Count 57 L Sodium 154 H Potassium 3.4 Chloride 123 H* Carbon Dioxide 16 L BUN 30 H Creatinine 2.01 H Estimated GFR 34 L BUN/Creatinine Ratio 14.9 Glucose 88 Calcium 6.5 L Ionized Calcium Hannah Magnesium 1.5 L Crossmatch Exam Vital Signs (past 8 hours): - 06/14/22 01:00 06/14/22 01:00 06/14/22 01:30 Temperature 99.9 F H 100.0 F H Pulse Rate 102 H 84 Respiratory Rate 24 29 H Blood Pressure 122/69 Pulse Oximetry 95 97 Oxygen Delivery Method Oxygen Flow Rate 4 06/14/22 02:00 06/14/22 02:00 06/14/22 02:30 Temperature 100.4 F H 100.6 F H Pulse Rate 83 83 Respiratory Rate 30 H 29 H Blood Pressure 126/58 L Pulse Oximetry 98 98 Oxygen Delivery Method Oxygen Flow Rate 4 06/14/22 03:00 06/14/22 03:00 06/14/22 03:30 Temperature 100.6 F H 100.6 F H Pulse Rate 83 85 Respiratory Rate 29 H 31 H Blood Pressure 107/52 L Pulse Oximetry 97 97 Oxygen Delivery Method Oxygen Flow Rate 4 06/14/22 04:00 06/14/22 04:00 06/14/22 04:00 Temperature 100.8 F H Pulse Rate 87 Respiratory Rate 31 H Blood Pressure 107/50 L Pulse Oximetry 97 Oxygen Delivery Method Nasal Cannula Oxygen Flow Rate 06/14/22 04:30 06/14/22 05:00 06/14/22 05:00 Temperature 100.8 F H 100.8 F H Pulse Rate 91 H 84 Respiratory Rate 32 H 29 H Blood Pressure 103/53 L Pulse Oximetry 96 96 Oxygen Delivery Method Oxygen Flow Rate 2 06/14/22 05:30 06/14/22 06:00 06/14/22 06:00 Temperature 100.8 F H 100.4 F H Pulse Rate 86 82 Respiratory Rate 29 H 28 H Blood Pressure 111/57 L Pulse Oximetry 95 95 Oxygen Delivery Method Oxygen Flow Rate 2 06/14/22 07:00 06/14/22 06:30 06/14/22 07:00 Temperature 100.2 F H Pulse Rate 96 H Respiratory Rate 33 H Blood Pressure 118/60 118/65 Pulse Oximetry 94 Oxygen Delivery Method Oxygen Flow Rate 06/14/22 07:00 06/14/22 07:30 06/14/22 07:00 Temperature 100.2 F H 100.4 F H Pulse Rate 96 H 87 Respiratory Rate 33 H 29 H Blood Pressure Pulse Oximetry 96 96 95 Oxygen Delivery Method Nasal Cannula Oxygen Flow Rate 2 06/14/22 08:00 06/14/22 08:00 06/14/22 08:00 Temperature 98.5 F 100.4 F H Pulse Rate 87 Respiratory Rate 29 H Blood Pressure 102/53 L Pulse Oximetry 95 Oxygen Delivery Method Oxygen Flow Rate 06/14/22 08:30 Temperature Pulse Rate 88 Respiratory Rate 30 H Blood Pressure Pulse Oximetry 97 Oxygen Delivery Method Oxygen Flow Rate Fraction of Inspired Oxygen 0.30 Oxygen Delivery Method Nasal Cannula Oxygen Flow Rate 2 Quality TeleICU VTE Deep Vein Thrombosis/Pulmonary Embolism Present on Admission: No Assessment & Plan Assessment & Plan narrative: [address] [address] Progress Note Patient: Kervin Vincent MR#: [id number] : 1945 Acct:[id number] Age/Sex: 76 / M ? Date of Service: 06/09/22 Provider:?Ricky Gonzalez MD Subjective Subjective Date Patient Seen: 06/13/22 Time Patient Seen: 08:00 Interval history: Yesterday he was started on lasix gtt and was able to be diuresed well. He was lethargic much of the day, but this morning developed agitation. He was started on diazepam and then precedex. He is unable to participate in exam and is quite altered and reaching aimlessly to the roof. Exam Vital Signs (past 8 hours): - ? 06/13/22 06:30 06/13/22 07:00 06/13/22 07:00 Temperature ? ? ? Pulse Rate 102 H ? 104 H Respiratory Rate 33 H ? 38 H Blood Pressure ? 143/74 H ? Pulse Oximetry 99 ? 96 Oxygen Delivery Method ? ?B ? Oxygen Flow Rate ? 06/13/22 08:04 06/13/22 08:18 06/13/22 08:18 Temperature ? ? 98.9 F Pulse Rate 97 H ? 97 H Respiratory RateB 28 H ? 32 H Blood Pressure ? 136/86 ? Pulse Oximetry ? ? 98 Oxygen Delivery Method ? ? ? Oxygen Flow Rate ? ? 0 ? 06/13/22 08:30 06/13/22 09:00 06/13/22 09:00 Temperature ? ? ? Pulse Rate 94 H ? 98 H Respiratory Rate 32 H ? 31 H Blood Pressure ? 129/58 L ? Pulse Oximetry ? ? ? Oxygen Delivery Method ? ? ? Oxygen Flow Rate ? 06/13/22 09:30 06/13/22 10:00 06/13/22 10:00 Temperature ? ? ? Pulse Rate 92 H ? 83 Respiratory Rate 26 H ? 31 H Blood Pressure ? 115/57 L ? Pulse Oximetry ? ? ? Oxygen Delivery Method ? ? ? Oxygen Flow Rate ? 06/13/22 08:00 06/13/22 10:30 06/13/22 11:00 Temperature ? ? ? Pulse Rate ? 83 ? Respiratory Rate ? 26 H ? Blood Pressure ? ? 119/58 L Pulse Oximetry ? ? ? Oxygen Delivery Method Room Air ? ? Oxygen Flow Rate ? 06/13/22 11:00 06/13/22 11:32 06/13/22 11:30 Temperature ? ? ? Pulse Rate 80 61 66 Respiratory Rate 26 H 25 H 25 H Blood Pressure ? ? ? Pulse OximetryB ? 94 ? Oxygen Delivery Method ? ? ? Oxygen Flow Rate ? 06/13/22 12:00 06/13/22 12:00 06/13/22 12:00 Temperature ? 98.8 F ? Pulse Rate ? 69 ? Respiratory Rate ? 24 ? Blood Pressure 121/58 L ? ? Pulse Oximetry ? 97 ? Oxygen Delivery Method ?B ? Room Air Oxygen Flow Rate ? 0 ? ? 06/13/22 12:30 06/13/22 13:00 06/13/22 13:00 D Temperature ? ? ? Pulse Rate 61 ? 61 Respiratory Rate 25 H ? 26 H Blood Pressure ? 112/57 L ? Pulse Oximetry ? ? ? Oxygen Delivery Method ? ? ? Oxygen Flow Rate ? 06/13/22 13:30 06/13/22 14:00 06/13/22 14:00 Temperature ? ? ? Pulse Rate 72 ? 81 Respiratory Rate 21 ? 26 H Blood Pressure ? 125/58 L ? Pulse Oximetry ? ? ? Oxygen Delivery Method ? ? ? Oxygen Flow Rate ? ? ? Fraction of Inspired Oxygen ? 0.30? Oxygen Delivery Method? Room Air? Oxygen Flow Rate? 0 ? Narrative Exam Narrative: GEN: frail, chronically ill appearing CV: regular PULM: crackles bilaterally ABD: soft, nontender, nondistended, no organomegaly EXT: warm and well perfused, with edema NEURO: treumulous, reaching towards the ceiling, unintelligible Objective Labs Result Diagrams: 06/13/22 04:30? 06/13/22 04:30? Labs: Laboratory Results - last 24 hr ? 06/11/22 06/12/22 06/12/22 ? 18:50 05:25 13:05 WBC ? ? ? RBC ? ? ? Hgb ? ? ? Hct ? ? ? MCV ? ? ? MCH ?B ? ? MCHC ? ? ? RDW ? ? ? Plt Count ? ? ? ABG pH ? ? ? ABG pCO2 ? ? ? ABG pO2 ? ? ? ABG HCO3 ? ? ? ABG Total CO2 ? ? ? ABG O2 Saturation ? ? ? ABG Base Excess ?B ? ? FiO2 ? ? ? Sodium ? ?145 ? Potassium ? ?4.3 ? Chloride ? ?122 H* ? Carbon Dioxide ? ?16 L ? BUN ? ?34 H ? Creatinine ? ?1.76 H ? Estimated GFR ? ?40 L ? BUN/Creatinine Ratio ? ?19.3 ? Glucose ? ?111 H ? Calcium ? ?6.0 L* ? Ionized Calcium Hannah ?4.1 L ? ? Phosphorus ? ? ? Magnesium ? ?2.4 H ?2.2 Ammonia ? 06/12/22 06/12/22 06/13/22 ? 16:53 17:05 04:30 WBC ? ? ? RBC ? ? ? Hgb ? ? ? Hct ? ? ? MCV ? ? ? MCH ? ? ? MCHC ? ? ? RDW ? ? ? Plt Count ? ? ? ABG pH ? ?7.32 L ? ABG pCO2 ? ?27.1 L ? ABG pO2 ? ?86 ? ABG HCO3 ? ?14 L ? ABG Total CO2 ? ?15 L ? ABG O2 Saturation ? ?96 ? ABG Base Excess ? ?-12.0 L ? FiO2 ? ?30 ? Sodium ? ? ? Potassium ? ? ? Chloride ? ? ? Carbon Dioxide ? ?B ? BUN ? ? ? Creatinine ? ? ? Estimated GFR ? ? ? BUN/Creatinine Ratio ? ? ? Glucose ? ? ? Calcium ? ? ? Ionized Calcium Hannah ? ? ? Phosphorus ? ? ?2.9? D Magnesium ? ? ? Ammonia ?< 9 L ? ? ? 06/13/22 06/13/22 ? 04:30 04:30 WBC ?17.5 H ? RBC ?3.62 L ? Hgb ?10.4 L ? Hct ?31.4 L ? MCV ?86.8 ? MCH ?28.8 ? MCHC ?33.2 ? RDW ?15.7 H ? Plt CountB ?48 L ? ABG pH ? ? ABG pCO2 ? ? ABG pO2 ? ? ABG HCO3 ? ? ABG Total CO2 ? ? ABG O2 Saturation ? ? ABG Base Excess ? ? FiO2 ? ? D Sodium ? ?149 H Potassium ? ?3.4 Chloride ? ?121 H Carbon Dioxide ? ?16 L BUN ? ?31 H Creatinine ? ?2.03 H Estimated GFR ? ?33 L BUN/Creatinine Ratio ? ?15.3 Glucose ? ?113 H Calcium ? ?6.7 L Ionized Calcium Hannah ? ? Phosphorus ? ? Magnesium ? ?1.9 Ammonia ? ? PFSH Medical History? 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 History of appendectomy Hx of coronary artery bypass graft (Unknown) Hx of transurethral resection of prostate (10/2016) Family History? Mother Renal failure Social History? household members:? none Smoking Status:? Current every day smoker Tobacco: How many years used:? 62 alcohol intake:? current caffeine:? Yes Assessment & Plan Assessment & Plan narrative: 1. Acute hypoxemic respiratory failure secondary to acute CHF exacerbation -patient volume overload after fluid resuscitation from septic shock -required oxygen and BIPAP -EF depressed approx 45% - continue IV lasix 80mg BID -goal 2-3L net negative daily 2. Septic shock -resolved -UA on admission with WBCs, 2+ leukocyte esterase,negative nitrites.? Culture negative to date. -CT abdomen consistent with colitis -etiology is likely pancolitis and UTI -cultures with no grown to date -continue Zosyn for 7 days totla -c diff negative -stool culture negative prelimarily 3. Pancolitis -CT with segmental colitis of the transverse, descending, and sigmoid colon felt to be infectious or inflammatory in nature.? -Ischemic colitis is considered less likely - C diff was negative 4. GLENNA in CKD 3 His baseline creatinine appears to be 1.4.? BUN was 86 creatinine 5.19 on admission -GLENNA improved to 1.8, increased to 2 this am -monitor creatinine daily, and closely due to diuresis 5. Acute metabolic encephalopathy - multifactorial -Alcohol dependence + withdrawal -Old CVA - Wean off precedex slowly as tolerated -continue CIWA prn -ordered MVI, thiamine, folate - Can't get PO/ no OG/ NG tube as POLST prohibits it 6. Hypernatremai - 2/2 active diuresis with no PO intake - Start IV D5W at 100 ml/hr, BMP Q6H, adjsut the rate to a goal of Na 145 over the next 24 hours - Insulin for BS goal 120-180 7. Tobacco dependence -Nicotine patch as needed 8. Severe protein calorie malnutrition BMI is 16.9 on admission -dietary consult 9. Normocytic anemia -monitor hemoglobin, no evidence of bleeding 10. Thrombocytopenia -secondary to alcohol abuse and sepsis -continue hold chemical dvt ppx -monitor daily Time Spent With Patient Critical Care time: I spent a total of [] minutes of critical care time on this patient's care today; this time is exclusive of procedural time.
[2022-06-14] MEDS: FOLIC ACID 1 MG in SODIUM CHLORIDE 0.9% 100 ML 200.4 MG IV (08:53)
[2022-06-14] MEDS: PANTOPRAZOLE 40 MG VIAL IV (08:53)
[2022-06-14] MEDS: THIAMINE 100 MG in SODIUM CHLORIDE 0.9% 100 ML 404 MG IV (08:54)
--- NOTE | 2022-06-14 09:13 | P.DN_ITS ---
Discharge Summary History of Illness Narrative: Per MARIANELA Iniguez: Kervin Vincent is a 76 y.o. male with a complex medical history including coronary artery disease status post bypass surgery, and prior STEMI, right frontal CVA, seizure disorder, peripheral vascular disease, COPD, CKD stage 3, hypertension, hyperlipidemia, GERD, bladder cancer, status post TURP, history of alcohol use, was brought to the emergency department after a neighbor reportedly saw him outside of his trailer lying down and covered in stool.? History is limited due to patient's confusion therefore information obtained from the emergency department provider, and medical record review.? When asked if the patient knows where he is he replied ?[facility]?.? Per the emergency department provider paramedics informed her that he lives in a trailer and appeared to be a deplorable housing situation with stool covering both patient and as well as his home.? Patient is unable to provide a meaningful history. Chest x-ray indicated a CHF exacerbation.? Head CT indicated a known moderate right MCA distribution infarct, age-related volume loss and small-vessel ischemic changes and no acute intracranial changes.? Patient was initiated on IV Zosyn, bolused with 3 L of normal saline due to profound hypotension, and when they were transferring the patient he was noted to have bloody stool so 2 units of PRBC was ordered by the emergency department provider.? Patient's temperature was 97.1?, internal probe temperature was 99?, though his presenting blood pressure was 90/35, heart rate is 83, respiratory rate 18 oxygen saturation of 96% on 3 L nasal cannula, he weighs 45.5 kg with a BMI of 16.7.? His white count is was 41.1 on presentation and is now 30.0 after receiving 1 dose of IV Zosyn, hemoglobin and hematocrit was initially 9.8 and 29.9 respectively and has dropped to 8.3-25.5 respectively, he has a significant left shift 24,000 his platelet count is 53, ABG pH was 7.29 ABG PO2 68 ABG bicarb 17 ABG total CO2 18, ABG oxygen saturation is 91% with a base excess of -10, sodium on presentation was 135 it is now 138, his creatinine on presentation was 5.94 and is now 5.19, his EGFR went from 9-11, lactate initially was 5.1 is now 1.8, calcium is 6.8, initial troponin was 0.213, and procalcitonin is 159.? UA is positive for UTI and will be cultured urine tox screen and alcohol levels are within normal limits, and COVID-19 PCR is negative. Patient has been being seen regularly by Dr. 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 He does not appear to be undergoing any current in maintenance treatment and recently declined referral to Radiation Oncology.? He receives Eligard and Prolia injections.? Patient is a DNR/DNI with limited interventions per the current POLST in his chart which was completed in 2019. Patient is unable to provide a PMFS history. Hospital Course Date of Admission: 06/09/22 19:54 Primary care provider: Joey Person MD Consults: 06/09/22 20:37 Consult to Order Dispatcher Chief Routine Comment: Found in stool, APS? placement? 06/09/22 22:44 Consult After Hours PICC Line RN Routine Comment: 06/09/22 22:58 Consult to Tele-shear grinder operator helper Routine Comment: Consulting Provider: [facility] [employer] Reason for consultation: [employer] Has provider been notified: Yes 06/10/22 00:28 Consult to Speech Therapy Evaluate & Treat Comment: swallow eval, aspiration on imaging Physician Instructions: Evaluate and treat 06/10/22 09:36 Consult to Dietitian, Adult Routine Comment: Reason For Exam: Alcohol dependence, severe protein josiane malnutritio 06/10/22 18:29 Consult to Dietitian, Adult Routine Comment: Reason For Exam: severe PCM 06/11/22 20:18 Consult to Tele-shear grinder operator helper Routine Comment: Consulting Provider: [facility] [employer] Reason for consultation: [employer] Has provider been notified: No Discharge provider: Harish Almaguer DO Discharge Diagnosis: Please see hospital course by problem list noted below Hospital Course: 1. Acute hypoxemic respiratory failure secondary to acute CHF exacerbation -patient developed volume overload after fluid resuscitation from septic shock -required oxygen and BIPAP therapy with slight improvement with diuresis. -EF depressed approx 45% on TTE. -started 40 IV lasix with poor output initially, was increased to 80 mg IV and ultimately required lasix gtt. He had improved respiratory function after lasix infusion so this was transitioned to intermittent dosing given improvement in respiratory failure. -patient was DNR/DNI, on the morning of 06/14 he developed an abrupt onset of torsades on telemetry monitoring, he stopped breathing and at 0904 on 06/14. 2. Septic shock -resolved -UA on admission with WBCs, 2+ leukocyte esterase,negative nitrites.? Culture negative thus far. CT abdomen consistent with colitis -etiology is likely pancolitis and UTI, he was continued on zosyn therapy during his stay. No exact etiology was found. -c diff negative 3. Pancolitis -CT with segmental colitis of the transverse, descending, and sigmoid colon felt to be infectious or inflammatory in nature.? -Ischemic colitis is considered less likely - C diff was negative 4. GLENNA in CKD 3 His baseline creatinine appears to be 1.4.? BUN was 86 creatinine 5.19 on admission -GLENNA improved with IV fluids to around 2 even with diuresis. Bottomed at 1.85 but on the day he it michelle slightly again to 2.01. 5. Alcohol dependence with acute metabolic encephalopathy -multifactorial source of encephalopathy due to septic shock as well as etoh withdrawal. He also had an old CVA noted on imaging. -he required precedex for EtOH symptoms, could not tolerate librium due to inability to tolerate POs -tried NG tube on 06/13, but unable to place 7. Tobacco dependence -Nicotine patch was given as needed 8. Severe protein calorie malnutrition - BMI is 16.9 on admission -dietary consultation was provided, no supplemental nutrition given as difficulty with NG placement. -malnutrition contributed to his in some part. 9. Normocytic anemia - stable over the course of his admission. Likely secondary to chronic inflammation, etoh with suppression. 10. Thrombocytopenia - likely secondary to etoh use and sepsis. Was mainly stable around 50 during the course of his stay without transfusion. 11. Hypernatremia - likely secondary to decreased oral intake. Na was 154 on the morning the patient , further management with possible D5 was unable to be initiated prior to his expiration. His volume status was quite complex given heart failure, need for diuresis. Time spent in management of the patient, review of his hospital course and chart: > 30 minutes. Objective Labs Result Diagrams: 06/14/22 04:15 06/14/22 04:15 Labs: Laboratory Results - last 24 hr 06/09/22 06/11/22 06/13/22 20:10 18:50 14:45 WBC RBC Hgb Hct MCV MCH MCHC RDW Plt Count Sodium 149 H Potassium 3.7 Chloride 122 H* Carbon Dioxide 21 L BUN 29 H Creatinine 1.85 H Estimated GFR 37 L BUN/Creatinine Ratio 15.7 Glucose 112 H Calcium 6.5 L Ionized Calcium Hannah 4.1 L Magnesium 1.6 Crossmatch See Detail 06/14/22 06/14/22 06/14/22 04:15 04:15 04:15 WBC 15.7 H RBC 3.40 L Hgb 9.9 L Hct 29.8 L MCV 87.5 MCH 29.1 MCHC 33.3 RDW 15.6 H Plt Count 57 L Sodium 154 H Potassium 3.4 Chloride 123 H* Carbon Dioxide 16 L BUN 30 H Creatinine 2.01 H Estimated GFR 34 L BUN/Creatinine Ratio 14.9 Glucose 88 Calcium 6.5 L Ionized Calcium Hannah Magnesium 1.5 L Crossmatch
--- NOTE | 2022-06-14 09:20 | CM.DPC ---
DCP Per RN, pt remained on Pressors and sedated and was not able to follow commands or participate in his care and SW was bedside and pt did not appear to be improving. Shortly thereafter, RN updated SW that pt had around 0915. SW called APS confidential investigator who was assigned to APS referral case #[id number] Owen Oviedo ([phone]) and updated him on pt expiring this morning. RN and rf test technician working to contact home and friend. DEBBIE Nick
--- NOTE | 2022-06-14 09:23 | PC.NURSE ---
Addendum entered by Jennifer Byers R.N. 06/14/22 12:44: [id number] Home medications taken to hospital pharmacy to be destroyed. Belongings (including wallet) went with pt to [facility], no further pt contact. Original Note: 0900 At bedside, doing rounds with Dr Sung and Dr Almaguer, pt HR 298, torsaes rhythm, then asystole, comfirmed by this nurse and Dr Almaguer. Time of 09, charge nurse Laurence notified.
== END 2022-06-14 12:51 | disposition expired | DRG 871 ==
LOC: ED 19:53 → AC 20:25 → ICU 06-10 09:26 → AC 06-12 06:54 → ED 06-12 06:54 → ICU 06-12 06:54 → AC 06-12 06:57 → ICU 06-12 06:57
PROVIDERS: Emergency Medicine; Family Medicine; Internal Medicine; Nurse Practitioner Family; Admitting Provider Nurse Practitioner Family; Emergency Provider Emergency Medicine; PCP Family Medicine; Referring Provider Emergency Medicine; Visit Provider Nurse Practitioner Family
DX: A41.9 Sepsis, unspecified organism (principal); R65.21 Severe sepsis with septic shock; G93.41 Metabolic encephalopathy; E43 Unspecified severe protein-calorie malnutrition; I50.23 Acute on chronic systolic (congestive) heart failure; J96.01 Acute respiratory failure with hypoxia; N17.9 Acute kidney failure, unspecified; N39.0 Urinary tract infection, site not specified; K51.00 Ulcerative (chronic) pancolitis without complications; Z68.1 Body mass index [BMI] 19.9 or less, adult; A09 Infectious gastroenteritis and colitis, unspecified; E87.0 Hyperosmolality and hypernatremia; I24.8 Other forms of acute ischemic heart disease; I13.0 Hypertensive heart and chronic kidney disease with heart failure and stage 1 through stage 4 chronic kidney disease, or unspecified chronic kidney disease; D69.6 Thrombocytopenia, unspecified; F10.20 Alcohol dependence, uncomplicated; I48.91 Unspecified atrial fibrillation; E83.51 Hypocalcemia; D64.9 Anemia, unspecified; K21.9 Gastro-esophageal reflux disease without esophagitis; N18.30 Chronic kidney disease, stage 3 unspecified; I25.10 Atherosclerotic heart disease of native coronary artery without angina pectoris; F17.210 Nicotine dependence, cigarettes, uncomplicated; Y90.0 Blood alcohol level of less than 20 mg/100 ml; Z20.822 Contact with and (suspected) exposure to COVID-19; Z66 Do not resuscitate; Z95.1 Presence of aortocoronary bypass graft
CPT/HCPCS: 36415; 36430; 36592; 36600; 70450; 71045; 71250; 74176; 80048; 80053; 80076; 80305; 80320; 81001; 82140; 82330; 82550; 82553; 82805; 83605; 83690; 83735; 83880; 84100; 84145; 84443; 84484; 85007; 85025; 85027; 86644; 86850; 86900; 86901; 87040; 87045; 87086; 87150; 87329; 87493; 87507; 87635; 87797; 87899; 92610; 93005; 93010; 93306; 94660; 96365; 99233; 99285; 99291; C9803; P9016; C9113; J0360; J0610; J1642; J1940; J2543; J3360; J3475